=== PATIENT | male | born 1935 | race Caucasian/White ===

== ENCOUNTER 2016-04-23 09:24 | Outpatient (RCR) | payer MEDICARE ==
--- OUTSIDE RECORDS SUMMARY | 2016-04-09 08:31 | XMS REPORT | Continuity of Care Document ---
Author Author [facility] Organization [facility] Address Unknown Phone Unavailable Care Team Providers Care Image Editor Name Role Phone MAAME LOVE DO PCP Insurance Providers Payer Name Policy Number Subscriber Name Relationship Wps Medicare [id number] Duran Zavala 18 Self / Same As Patient Blue Cross [facility] Supp [id number] Duran Zavala 18 Self / Same As Patient Advance Directives Directive Response Recorded Date/Time Advance Directives No 06/29/14 8:35am Health Care Power of Egg Smeller No 06/29/14 8:35am Organ Donor No 06/29/14 8:35am Problems No known problems or medical conditions. Medications Medication Dose Route Sig Days/Qty Instructions Order Date Discontinued Date Status Doxycycline Hyclate (Vibramycin) 0 PO DAILY 20 Qty 1 CAP Q12HR TODAY, THE 1 CAP DAILY 10/11/08 05/03/09 Discontinued Irbesartan 300 Mg PO DAILY 05/03/09 Active Amlodipine Besylate (Norvasc 10 Mg) 10 Mg PO DAILY 05/03/09 Active Timolol 05/03/09 05/03/09 Discontinued Docusate Sodium 05/03/09 09/26/11 Discontinued Timolol 05/03/09 05/03/09 Discontinued Timolol 1 Drop OU DAILY 05/03/09 Active Phenytoin Sodium 05/18/09 09/26/11 Discontinued Levetiracetam 05/18/09 09/26/11 Discontinued [place]-3/Dha/Epa/Fish Oil 1,000 Mg PO DAILY 09/26/11 Active Calc/D3/Mag/Zn/Qual Research Manager/Donny/Bucklin 1 Tab PO TWICE A DAY 09/26/11 Discontinued Famotidine (Pepcid) 20 Mg PO DAILY PRN PRN INDIGESTION 09/26/11 Discontinued Aspirin 81 Mg PO DAILY 09/26/11 Active [Gleevac] 400 Mg PO DAILY 09/26/11 09/26/11 Discontinued [Calcium W/ Magnesium] 1,000 Mg PO DAILY 09/26/11 Active [Vitamin B12 Inject] 1 Ml IM BIMONTHLY 09/26/11 Active Omeprazole 20 Mg PO DAILY 09/27/11 Active Sucralfate 10 Ml PO FOUR TIMES DAILY 1 GRAM FOUR TIMES A DAY 09/27/11 11/10/12 Discontinued Imatinib Mesylate 400 Mg PO DAILY 11/10/12 Active Social History Social History Problem Response Recorded Date/Time Alcohol Use Denies Use 11/10/2012 4:47am Recreational Drug Use No 11/10/2012 4:47am Recent Foreign Travel N [place] 07/04/2014 8:49am Sexually Transmitted Disease No 11/10/2012 4:02am Hospital Discharge Instructions No hospital discharge instructions. Plan of Care No plan of care. Functional Status No functional status results. Allergies, Adverse Reactions, Alerts Allergen Type Severity Reaction Status Last Updated Tetanus Vaccines & Toxoid ([id number]) Allergy Unknown Active 05/03/09 HORSE SERUM TETANUS Allergy Mild Active 10/11/08 Immunizations No immunization records. Vital Signs No known vital signs results. Results Laboratory Results Test Name Result Units Flags Reference Collection Date/Time Result Date/ Time Comments White Blood Count 9.1 10^3/uL 4.3-11.0 09/19/2014 8:49am 09/19/2014 8: 57am Red Blood Count 4.25 10^6/uL L 4.35-5.85 09/19/2014 8:49am 09/19/2014 8: 57am Hemoglobin 12.7 G/DL L 13.3-17.7 09/19/2014 8:49am 09/19/2014 8:57am Hematocrit 38 % L 40-54 09/19/2014 8:49am 09/19/2014 8:57am Mean Corpuscular Volume 89 FL 80-99 09/19/2014 8:49am 09/19/2014 8: 57am Mean Corpuscular Hemoglobin 30 PG 25-34 09/19/2014 8:49am 09/19/2014 8: 57am Mean Corpuscular Hemoglobin Concent 34 G/DL 32-36 09/19/2014 8:49am 06/2014 8:57am Red Cell Distribution Width 14.9 % H 10.0-14.5 09/19/2014 8:49am 2014 8:57am Platelet Count 304 10^3/uL 130-400 09/19/2014 8:49am 09/19/2014 8:57am Mean Platelet Volume 9.7 FL 7.4-10.4 09/19/2014 8:49am 09/19/2014 8: 57am Neutrophils (%) (Auto) 64 % 42-75 09/19/2014 8:49am 09/19/2014 8:57am Lymphocytes (%) (Auto) 23 % 12-44 09/19/2014 8:49am 09/19/2014 8:57am Monocytes (%) (Auto) 11 % 0-12 09/19/2014 8:49am 09/19/2014 8:57am Eosinophils (%) (Auto) 2 % 0-10 09/19/2014 8:49am 09/19/2014 8:57am Basophils (%) (Auto) 0 % 0-10 09/19/2014 8:49am 09/19/2014 8:57am Neutrophils # (Auto) 5.9 X 10^3 1.8-7.8 09/19/2014 8:49am 09/19/2014 8: 57am Lymphocytes # (Auto) 2.1 X 10^3 1.0-4.0 09/19/2014 8:49am 09/19/2014 8: 57am Monocytes # (Auto) 1.0 X 10^3 0.0-1.0 09/19/2014 8:49am 09/19/2014 8: 57am Eosinophils # (Auto) 0.2 10^3/uL 0.0-0.3 09/19/2014 8:49am 09/19/2014 8 :57am Basophils # (Auto) 0.0 10^3/uL 0.0-0.1 09/19/2014 8:49am 09/19/2014 8: 57am Sodium Level 139 MMOL/L 135-145 09/19/2014 8:49am 09/19/2014 9:44am Potassium Level 4.1 MMOL/L 3.6-5.0 09/19/2014 8:49am 09/19/2014 9:44am Chloride Level 107 MMOL/L 98-107 09/19/2014 8:49am 09/19/2014 9:44am Carbon Dioxide Level 25 MMOL/L 21-32 09/19/2014 8:49am 09/19/2014 9: 44am Blood Urea Nitrogen 13 MG/DL 7-18 09/19/2014 8:49am 09/19/2014 9:44am Creatinine 0.92 MG/DL 0.60-1.30 09/19/2014 8:49am 09/19/2014 9:44am BUN/Creatinine Ratio 14 09/19/2014 8:49am 09/19/2014 9:44am Estimat Glomerular Filtration Rate > 60 09/19/2014 8:49am 2014 9:44am GFR INTERPRETIVE DATA UNITS FOR ESTIMATED GFR (eGFR): mL/min/1.73 M2 REFERENCE RANGE FOR ESTIMATED GFR (eGFR) eGFR NORMAL eGFR >60 MODERATELY DECREASED eGFR 30-59 SEVERLY DECREASED eGFR 15-29 KIDNEY FAILURE <15 (OR DIALYSIS) Glucose Level 109 MG/DL H 70-105 09/19/2014 8:49am 09/19/2014 9:44am Calcium Level 9.9 MG/DL 8.5-10.1 09/19/2014 8:49am 09/19/2014 9:44am Total Bilirubin 1.0 MG/DL 0.1-1.0 09/19/2014 8:49am 09/19/2014 9:44am Alkaline Phosphatase 88 U/L 40-136 09/19/2014 8:49am 09/19/2014 9:44am Aspartate Amino Transf (AST/SGOT) 36 U/L H 5-34 09/19/2014 8:49am 2014 9:44am Alanine Aminotransferase (ALT/SGPT) 63 U/L H 0-55 09/19/2014 8:49am 09/19 9:44am Lactate Dehydrogenase 211 U/L 125-220 09/19/2014 8:49am 09/19/2014 9: 44am Total Protein 7.1 G/DL 6.4-8.2 09/19/2014 8:49am 09/19/2014 9:44am Albumin 3.7 G/DL 3.2-4.5 09/19/2014 8:49am 09/19/2014 9:44am Procedures Procedure Status Date Provider(s) Tracing only of electrocardiogram completed 07/04/14 JULIANA TSANG Encounters Encounter Location Date/Time Discharged Recurring Via [facility] 09/19/14 8:34am
[2016-04-09 08:42] LABS: BASOPHILS % (AUTO) 0 % (0-10); EOSINOPHILS # (AUTO) 0.4 10^3/uL (0.0-0.3); EOSINOPHILS % (AUTO) 4 % (0-10); LYMPHOCYTES # (AUTO) 2.1 X 10^3 (1.0-4.0); LYMPHOCYTES % (AUTO) 26 % (12-44); MEAN CORPUSCULAR HEMOGLOBIN 29 PG (25-34); MEAN CORPUSCULAR HGB CONC 34 G/DL (32-36); MEAN CORPUSCULAR VOLUME 86 FL (80-99); MEAN PLATELET VOLUME 10.2 FL (7.4-10.4); MONOCYTES % (AUTO) 12 % (0-12); NEUTROPHILS # (AUTO) 4.5 X 10^3 (1.8-7.8); NEUTROPHILS % (AUTO) 57 % (42-75); PLATELET COUNT 237 10^3/uL (130-400); RED BLOOD COUNT 4.63 10^6/uL (4.35-5.85); RED CELL DISTRIBUTION WIDTH 14.3 % (10.0-14.5)
[2016-04-09 09:09] LABS: ALANINE AMINOTRANSFERASE 38 U/L (0-55); ALBUMIN 3.7 G/DL (3.2-4.5); ANION GAP 7 MMOL/L (5-14); ASPARTATE AMINO TRANSFERASE 36 U/L (5-34); BILIRUBIN,TOTAL 0.7 MG/DL (0.1-1.0); BLOOD UREA NITROGEN 11 MG/DL (7-18); BUN/CREATININE RATIO 11; CALCIUM 9.3 MG/DL (8.5-10.1); CARBON DIOXIDE 26 MMOL/L (21-32); CHLORIDE 107 MMOL/L (98-107); CREATININE SERUM 1.01 MG/DL (0.60-1.30); GFR ESTIMATED > 60; GLUCOSE 96 MG/DL (70-105); LACTATE DEHYDROGENASE 291 U/L (125-220); SODIUM 140 MMOL/L (135-145); TOTAL PROTEIN 6.8 G/DL (6.4-8.2)
[2016-04-17 07:49] LABS: BCR ABL GENE QT SEE FOOTNOTE
[~2016-04-23 09:24] MED LIST: AMLO10TA2 PO; AMLO10TA82 PO; ASPI-86 PO; CALC-56 PO; CALC-731 PO; CALCIUM PO; CIPR-225 PO; CNC1KV INJ; DCS100C; DOXY100C2 PO; FAMO20TA5 PO; GLEEVAC PO; HYDR-3730 PO; IMAT400T2 PO; IRBE300T18 PO; IRBE300T9 PO; LEVE100015; MAGNESIUM PO; NILO150C PO; OMEG-12 PO; OMEP20TA2 PO; PHN100C; POLY17PO6 PO; RANI150T15 PO; SCR1T PO; SENN-140 PO; TAMS0.4C2 PO; TIMO5DRO5 OU; TML.25OP; TML.25OP OU; VITAMIN B12 INJECT IM
== END 2016-07-08 | disposition home or self-care (01) ==
LOC: ONC 09:24
PROVIDERS: ATTEND Internal Medicine Hematology & Oncology
DX: C92.10 Chronic myeloid leukemia, BCR/ABL-positive, not having achieved remission (principal); Z79.899 Other long term (current) drug therapy
CPT/HCPCS: 36415; 80053; 81206; 83615; 85025; 99213

== ENCOUNTER 2016-07-29 09:56 | Outpatient (RCR) | payer MEDICARE ==
[2016-07-09 09:22] LABS: BASOPHILS % (AUTO) 1 % (0-10); EOSINOPHILS # (AUTO) 0.3 10^3/uL (0.0-0.3); EOSINOPHILS % (AUTO) 5 % (0-10); LYMPHOCYTES % (AUTO) 26 % (12-44); MEAN CORPUSCULAR HEMOGLOBIN 29 PG (25-34); MEAN CORPUSCULAR HGB CONC 33 G/DL (32-36); MEAN CORPUSCULAR VOLUME 86 FL (80-99); MONOCYTES % (AUTO) 13 % (0-12); NEUTROPHILS # (AUTO) 4.3 X 10^3 (1.8-7.8); NEUTROPHILS % (AUTO) 56 % (42-75); PLATELET COUNT 255 10^3/uL (130-400); RED BLOOD COUNT 4.68 10^6/uL (4.35-5.85); RED CELL DISTRIBUTION WIDTH 14.9 % (10.0-14.5); WHITE BLOOD COUNT 7.6 10^3/uL (4.3-11.0)
[2016-07-09 10:07] LABS: ALANINE AMINOTRANSFERASE 51 U/L (0-55); ALBUMIN 3.5 G/DL (3.2-4.5); ANION GAP 10 MMOL/L (5-14); ASPARTATE AMINO TRANSFERASE 39 U/L (5-34); BILIRUBIN,TOTAL 0.6 MG/DL (0.1-1.0); BLOOD UREA NITROGEN 11 MG/DL (7-18); BUN/CREATININE RATIO 11; CALCIUM 9.7 MG/DL (8.5-10.1); CARBON DIOXIDE 26 MMOL/L (21-32); CHLORIDE 108 MMOL/L (98-107); CREATININE SERUM 0.99 MG/DL (0.60-1.30); GFR ESTIMATED > 60; GLUCOSE 83 MG/DL (70-105); LACTATE DEHYDROGENASE 272 U/L (125-220); POTASSIUM 4.6 MMOL/L (3.6-5.0); SODIUM 144 MMOL/L (135-145); TOTAL PROTEIN 6.9 G/DL (6.4-8.2)
[2016-07-15 13:50] LABS: BCR ABL GENE QT SEE FOOTNOTE
[2016-07-30] MEDS ORDERED: RANI-425 PO (15:01)
[2016-07-30] MEDS ORDERED: NILO150C PO (15:01)
[2016-07-31] MEDS ORDERED: TRAM50TA2 PO (12:19)
== END 2016-10-07 | disposition home or self-care (01) ==
LOC: ONC 09:56
PROVIDERS: ATTEND Internal Medicine Hematology & Oncology
DX: C92.10 Chronic myeloid leukemia, BCR/ABL-positive, not having achieved remission (principal); I12.9 Hypertensive chronic kidney disease with stage 1 through stage 4 chronic kidney disease, or unspecified chronic kidney disease; N18.3 Chronic kidney disease, stage 3 (moderate); I25.10 Atherosclerotic heart disease of native coronary artery without angina pectoris; Z79.899 Other long term (current) drug therapy
CPT/HCPCS: 36415; 80053; 81206; 83615; 85025; 99213

== ENCOUNTER 2016-07-30 14:06 | Outpatient (CLI) | payer MEDICARE ==
[~2016-07-30] VITALS: Ht 185.4 cm; Wt 92.7 kg
[2016-07-30] MEDS ORDERED: NILO150C PO (15:01)
[2016-07-30] MEDS ORDERED: RANI-425 PO (15:01)
[2016-07-31] MEDS ORDERED: TRAM50TA2 PO (12:19)
== END 2016-07-30 15:06 ==
LOC: PREOP 14:06
PROVIDERS: ATTEND Surgery
DX: Z01.818 Encounter for other preprocedural examination (principal); C44.319 Basal cell carcinoma of skin of other parts of face

== ENCOUNTER 2016-07-31 08:26 | Day surgery (SDC) | payer MEDICARE ==
[~2016-07-31] VITALS: Ht 185.4 cm; Wt 92.7 kg
[~2016-07-31 08:26] MED LIST changes: +RANI-425 PO
[2016-07-31] MEDS ORDERED: ceFAZolin 2 GM/NS 50 ML IV ONE (08:45)
[2016-07-31] MEDS ORDERED: CATHETER FLUSH 10 ML SYR IV PRN (08:45)
[2016-07-31 09:00] VITALS: BP 165/82
--- NOTE | 2016-07-31 10:06 | Progress Note-Pre Operative ---
Pre-Operative Progress Note H&P Reviewed The H&P was reviewed, patient examined and no changes noted. Date H&P Reviewed: Jul 31, 2016 Time H&P Reviewed: 10:05 Pre-Operative Diagnosis: BCC Right naso-labial fold AVEL SUTTON MD Jul 31, 2016 10:06 am
[2016-07-31] MEDS ORDERED: BUP/EPI 0.25% 1:200,000 (MARCAINE) 30 ML VIAL ONE (10:48)
[2016-07-31] MEDS ORDERED: proPOfol 200 MG/20 ML (DIPRIVAN) VIAL IV ONE (10:52)
[2016-07-31] MEDS ORDERED: MIDAZOLAM 2 MG/2 ML (VERSED) VIAL ONE (10:52)
[2016-07-31] MEDS ORDERED: LACTATED RINGERS 1,000 ML IV PRN (11:27)
--- NOTE | 2016-07-31 12:17 | Progress Note-Post Operative ---
Post-Operative Progess Note Surgeon (s)/Emergency Management System Director (s) Surgeon AVEL SUTTON MD Emergency Management System Director: Penelope Osborne Pre-Operative Diagnosis BCC Right naso-labial fold Post-Operative Diagnosis Same Post-Op Procedure Note Date of Procedure: Jul 31, 2016 Name of Procedure Performed: Excision with frozen section Description of the Procedure: See op note Findings of the Procedure See note Anesthesia Type MAC/Local Estimated blood loss (mL): Minimal Specimen(s) collected/removed BCC R face AVEL SUTTON MD Jul 31, 2016 12:17 pm
[2016-07-31] MEDS ORDERED: TRAM50TA2 PO (12:19)
--- NOTE | 2016-07-31 12:19 | Discharge Inst-Simple/Standard ---
Discharge Inst-Standard Discharge Medications New, Converted or Re-Newed RX: RX on Chart Patient Instructions/Follow Up Plan of Care/Instructions/FU: Dressing off in 48 hours. F/U with my nurse in 10 days for suture removal Activity as Tolerated: Yes Discharge Diet: No Restrictions AVEL SUTTON MD Jul 31, 2016 12:19 pm
[2016-07-31 12:30] VITALS: BP 143/80
[2016-07-31 13:00] VITALS: BP 134/67
[2016-07-31] MEDS ORDERED: LACTATED RINGERS 1,000 ML IV ONE (13:51)
--- NOTE | 2016-08-03 08:30 | OPERATIVE REPORT ---
PROCEDURE PHYSICIAN: AVEL SUTTON DATE OF PROCEDURE: 07/31/2016 PREOPERATIVE DIAGNOSIS: 1 cm basal cell carcinoma, right nasolabial fold. POSTOPERATIVE DIAGNOSIS: 1 cm basal cell carcinoma, right nasolabial fold. OPERATION: Excision with frozen section. SURGEON: Dr. Sutton. ANESTHESIA: Sedation with local. BLOOD LOSS: Minimal. FLUIDS: 300 mL crystalloids. TYPE OF WOUND: Type I (clean wound). INDICATION FOR THE PROCEDURE: Shave biopsy of a lesion over the right nasolabial fold, performed by one of the dermatologists, was confirmed to be a nodular basal cell carcinoma. Therefore, he was offered formal excision with frozen section to ensure negative margins. Informed consent was obtained after reviewing the procedure in detail. DESCRIPTION OF PROCEDURE: He was placed supine on the operating table and our MINISTER HELPER administered sedation, monitoring his vital signs. Ancef was administered intravenously as prophylaxis against infection. The area was prepared and draped in the usual sterile manner. Local anesthesia was achieved using 0.25% Marcaine with epinephrine. An elliptical incision about 2 1/2 cm long x 2 cm wide was made and the carcinoma excised down to the muscles. Hemostasis was achieved using cautery and the defect closed using 4-0 Vicryl for the muscular layer and 6-0 nylon for skin, in an interrupted fashion. The specimen was oriented with silk sutures and subjected to frozen section examination. The margins were negative. He tolerated the procedure well and was taken back to the nursing area in a stable condition. [place], sponges, and instruments were correct at the end of the operation. Job ID: [id number] Dictated Date: 07/31/2016 12:32:19 Treatment Counselor Date: 08/03/2016 08:20:52 / laura CORNELL
== END 2016-07-31 13:18 | disposition home or self-care (01) ==
LOC: SDC 08:26
PROVIDERS: ATTEND Surgery
DX: L90.5 Scar conditions and fibrosis of skin (principal)
CPT/HCPCS: 87081; 88304; 88305; 88331

== ENCOUNTER → 2016-08-27 | Outpatient (CLI) | payer MEDICARE ==
[~2016-08-27] MED LIST changes: +CATHETER FLUSH 10 ML SYR IV PRN; +REGADENOSON 0.4 MG/5 ML SYR (LEXISCAN) IV ONE; +TRAM50TA2 PO
[2016-08-27 09:15] VITALS: BP 154/56
--- NOTE | 2016-08-27 12:21 | STRESS TEST ---
DATE OF SERVICE: 08/27/2016 RESTING AND POST REGADENOSON TECHNETIUM 99M TETROFOSMIN SPECT CT IMAGING DATE OF STUDY: 08/27/2016 ORDERING PHYSICIAN: Kenia Ruiz APRN PRIMARY PHYSICIAN: Dr. Baez. CLINICAL DIAGNOSES: 1. Coronary artery disease. 2. Hypertension. Baseline images were carried out after injection of 10.94 mCi of technetium-99m tetrofosmin. Subsequently, he received 0.4 mg regadenoson followed by 32.7 mCi of technetium-99m tetrofosmin for stress imaging. The electrocardiogram showed sinus rhythm with subtle nonspecific ST abnormalities at baseline and did not change significantly with the regadenoson infusion. Review of images at rest and following stress does not indicate any significant perfusion defects consistent with myocardial ischemia or infarction. Gated images show normal global left ventricular systolic function with normal regional wall motion. Left ventricular ejection fraction is calculated to be 67%. Left ventricular end-diastolic volume is 100 mL. TID is absent (0.94). CONCLUSIONS: 1. No evidence of any significant myocardial ischemia or infarction on this study. 2. Normal regional wall motion. 3. Normal global left ventricular systolic function with a calculated ejection fraction of 67%. Job ID: [id number] DocumentID: [id number] Dictated Date: 08/27/2016 11:22:46 Economic Analysis Director Date: 08/27/2016 12:00:59 Dictated By: LIONEL HENDRIX MD, MA, FACP, FACC,
== END ==
LOC: CARD 07:44
PROVIDERS: ATTEND Nurse Practitioner Family
DX: I25.10 Atherosclerotic heart disease of native coronary artery without angina pectoris (principal); I10 Essential (primary) hypertension; I73.9 Peripheral vascular disease, unspecified; N18.3 Chronic kidney disease, stage 3 (moderate)
CPT/HCPCS: 78452; 93017

== ENCOUNTER → 2016-09-01 | Outpatient (CLI) | payer MEDICARE ==
[~2016-09-01] MED LIST changes: -CATHETER FLUSH 10 ML SYR IV PRN; -REGADENOSON 0.4 MG/5 ML SYR (LEXISCAN) IV ONE
== END ==
LOC: RAD 12:07
PROVIDERS: ATTEND Nurse Practitioner Family
DX: I73.9 Peripheral vascular disease, unspecified (principal); I12.9 Hypertensive chronic kidney disease with stage 1 through stage 4 chronic kidney disease, or unspecified chronic kidney disease; I25.10 Atherosclerotic heart disease of native coronary artery without angina pectoris; N18.3 Chronic kidney disease, stage 3 (moderate)
CPT/HCPCS: 93923

== ENCOUNTER 2017-01-13 07:38 | Outpatient (RCR) | payer MEDICARE ==
[2016-10-26 09:06] LABS: BASOPHILS % (AUTO) 1 % (0-10); EOSINOPHILS # (AUTO) 0.5 10^3/uL (0.0-0.3); EOSINOPHILS % (AUTO) 7 % (0-10); LYMPHOCYTES % (AUTO) 27 % (12-44); MEAN CORPUSCULAR HEMOGLOBIN 29 PG (25-34); MEAN CORPUSCULAR HGB CONC 34 G/DL (32-36); MEAN CORPUSCULAR VOLUME 86 FL (80-99); MEAN PLATELET VOLUME 10.2 FL (7.4-10.4); MONOCYTES # (AUTO) 0.8 X 10^3 (0.0-1.0); MONOCYTES % (AUTO) 11 % (0-12); NEUTROPHILS # (AUTO) 4.2 X 10^3 (1.8-7.8); NEUTROPHILS % (AUTO) 56 % (42-75); PLATELET COUNT 233 10^3/uL (130-400); RED BLOOD COUNT 4.44 10^6/uL (4.35-5.85); RED CELL DISTRIBUTION WIDTH 14.9 % (10.0-14.5); WHITE BLOOD COUNT 7.5 10^3/uL (4.3-11.0)
[2016-10-26 09:31] LABS: ALANINE AMINOTRANSFERASE 39 U/L (0-55); ALBUMIN 3.5 GM/DL (3.2-4.5); ANION GAP 7 MMOL/L (5-14); ASPARTATE AMINO TRANSFERASE 31 U/L (5-34); BILIRUBIN,TOTAL 0.8 MG/DL (0.1-1.0); BLOOD UREA NITROGEN 14 MG/DL (7-18); BUN/CREATININE RATIO 14; CALCIUM 9.4 MG/DL (8.5-10.1); CARBON DIOXIDE 27 MMOL/L (21-32); CHLORIDE 106 MMOL/L (98-107); CREATININE SERUM 1.02 MG/DL (0.60-1.30); GFR ESTIMATED > 60; GLUCOSE 116 MG/DL (70-105); LACTATE DEHYDROGENASE 257 U/L (125-220); POTASSIUM 4.4 MMOL/L (3.6-5.0); SODIUM 140 MMOL/L (135-145); TOTAL PROTEIN 6.9 GM/DL (6.4-8.2)
[2016-10-30 07:17] LABS: BCR ABL GENE QT See Report
[2017-01-13 08:07] LABS: BASOPHILS % (AUTO) 1 % (0-10); EOSINOPHILS # (AUTO) 0.6 10^3/uL (0.0-0.3); EOSINOPHILS % (AUTO) 7 % (0-10); LYMPHOCYTES % (AUTO) 23 % (12-44); MEAN CORPUSCULAR HEMOGLOBIN 29 PG (25-34); MEAN CORPUSCULAR HGB CONC 34 G/DL (32-36); MEAN CORPUSCULAR VOLUME 87 FL (80-99); MEAN PLATELET VOLUME 9.8 FL (7.4-10.4); MONOCYTES # (AUTO) 0.8 X 10^3 (0.0-1.0); MONOCYTES % (AUTO) 9 % (0-12); NEUTROPHILS # (AUTO) 5.2 X 10^3 (1.8-7.8); NEUTROPHILS % (AUTO) 60 % (42-75); PLATELET COUNT 238 10^3/uL (130-400); RED BLOOD COUNT 4.54 10^6/uL (4.35-5.85); RED CELL DISTRIBUTION WIDTH 15.3 % (10.0-14.5); WHITE BLOOD COUNT 8.5 10^3/uL (4.3-11.0)
[2017-01-13 08:29] LABS: ALANINE AMINOTRANSFERASE 41 U/L (0-55); ALBUMIN 3.6 GM/DL (3.2-4.5); ANION GAP 7 MMOL/L (5-14); ASPARTATE AMINO TRANSFERASE 37 U/L (5-34); BILIRUBIN,TOTAL 0.7 MG/DL (0.1-1.0); BLOOD UREA NITROGEN 14 MG/DL (7-18); BUN/CREATININE RATIO 14; CALCIUM 9.3 MG/DL (8.5-10.1); CARBON DIOXIDE 27 MMOL/L (21-32); CHLORIDE 107 MMOL/L (98-107); CREATININE SERUM 1.01 MG/DL (0.60-1.30); GFR ESTIMATED > 60; GLUCOSE 139 MG/DL (70-105); LACTATE DEHYDROGENASE 285 U/L (125-220); POTASSIUM 4.1 MMOL/L (3.6-5.0); SODIUM 141 MMOL/L (135-145)
[2017-01-20 07:19] LABS: BCR ABL GENE QT See Report
== END 2017-01-16 | disposition home or self-care (01) ==
LOC: ONC 07:38
PROVIDERS: ATTEND Internal Medicine Hematology & Oncology
DX: C92.10 Chronic myeloid leukemia, BCR/ABL-positive, not having achieved remission (principal); I12.9 Hypertensive chronic kidney disease with stage 1 through stage 4 chronic kidney disease, or unspecified chronic kidney disease; N18.3 Chronic kidney disease, stage 3 (moderate); I25.10 Atherosclerotic heart disease of native coronary artery without angina pectoris; Z79.899 Other long term (current) drug therapy
CPT/HCPCS: 36415; 80053; 81206; 83615; 85025; 99213

== ENCOUNTER 2017-04-14 08:01 | Outpatient (RCR) | payer MEDICARE ==
[2017-04-14 08:15] LABS: BASOPHILS % (AUTO) 0 % (0-10); EOSINOPHILS # (AUTO) 0.5 10^3/uL (0.0-0.3); EOSINOPHILS % (AUTO) 5 % (0-10); HEMATOCRIT 40 % (40-54); HEMOGLOBIN 13.3 G/DL (13.3-17.7); LYMPHOCYTES # (AUTO) 2.6 X 10^3 (1.0-4.0); LYMPHOCYTES % (AUTO) 28 % (12-44); MEAN CORPUSCULAR HEMOGLOBIN 29 PG (25-34); MEAN CORPUSCULAR HGB CONC 34 G/DL (32-36); MEAN CORPUSCULAR VOLUME 86 FL (80-99); MEAN PLATELET VOLUME 10.1 FL (7.4-10.4); MONOCYTES # (AUTO) 0.9 X 10^3 (0.0-1.0); MONOCYTES % (AUTO) 9 % (0-12); NEUTROPHILS # (AUTO) 5.2 X 10^3 (1.8-7.8); NEUTROPHILS % (AUTO) 57 % (42-75); PLATELET COUNT 220 10^3/uL (130-400); RED CELL DISTRIBUTION WIDTH 15.1 % (10.0-14.5); WHITE BLOOD COUNT 9.1 10^3/uL (4.3-11.0)
[2017-04-14 08:37] LABS: ALANINE AMINOTRANSFERASE 29 U/L (0-55); ALBUMIN 3.6 GM/DL (3.2-4.5); ALKALINE PHOSPHATASE 66 U/L (40-136); BILIRUBIN,TOTAL 0.7 MG/DL (0.1-1.0); BUN/CREATININE RATIO 10; CALCIUM 9.4 MG/DL (8.5-10.1); CARBON DIOXIDE 26 MMOL/L (21-32); CHLORIDE 107 MMOL/L (98-107); CREATININE SERUM 1.08 MG/DL (0.60-1.30); GFR ESTIMATED > 60; GLUCOSE 89 MG/DL (70-105); SODIUM 142 MMOL/L (135-145); TOTAL PROTEIN 7.2 GM/DL (6.4-8.2)
== END 2017-04-27 | disposition home or self-care (01) ==
LOC: ONC 08:01
PROVIDERS: ATTEND Internal Medicine Hematology & Oncology
DX: C92.10 Chronic myeloid leukemia, BCR/ABL-positive, not having achieved remission (principal); I12.9 Hypertensive chronic kidney disease with stage 1 through stage 4 chronic kidney disease, or unspecified chronic kidney disease; N18.3 Chronic kidney disease, stage 3 (moderate); I25.10 Atherosclerotic heart disease of native coronary artery without angina pectoris; Z79.899 Other long term (current) drug therapy
CPT/HCPCS: 36415; 80053; 81206; 83615; 84443; 85025; 99213

== ENCOUNTER 2017-07-22 08:40 | Outpatient (RCR) | payer MEDICARE ==
[2017-07-08 08:31] LABS: BASOPHILS % (AUTO) 0 % (0-10); EOSINOPHILS # (AUTO) 0.3 10^3/uL (0.0-0.3); EOSINOPHILS % (AUTO) 3 % (0-10); HEMATOCRIT 41 % (40-54); HEMOGLOBIN 13.8 G/DL (13.3-17.7); LYMPHOCYTES % (AUTO) 24 % (12-44); MEAN CORPUSCULAR HEMOGLOBIN 29 PG (25-34); MEAN CORPUSCULAR HGB CONC 34 G/DL (32-36); MEAN CORPUSCULAR VOLUME 86 FL (80-99); MEAN PLATELET VOLUME 9.9 FL (7.4-10.4); MONOCYTES # (AUTO) 0.8 X 10^3 (0.0-1.0); MONOCYTES % (AUTO) 10 % (0-12); NEUTROPHILS # (AUTO) 5.1 X 10^3 (1.8-7.8); NEUTROPHILS % (AUTO) 62 % (42-75); PLATELET COUNT 252 10^3/uL (130-400); RED BLOOD COUNT 4.78 10^6/uL (4.35-5.85); RED CELL DISTRIBUTION WIDTH 15.4 % (10.0-14.5); WHITE BLOOD COUNT 8.2 10^3/uL (4.3-11.0)
[2017-07-08 08:52] LABS: ALANINE AMINOTRANSFERASE 42 U/L (0-55); ALBUMIN 3.9 GM/DL (3.2-4.5); ALKALINE PHOSPHATASE 74 U/L (40-136); BILIRUBIN,TOTAL 0.8 MG/DL (0.1-1.0); BUN/CREATININE RATIO 12; CALCIUM 9.8 MG/DL (8.5-10.1); CARBON DIOXIDE 27 MMOL/L (21-32); CHLORIDE 106 MMOL/L (98-107); CREATININE SERUM 0.93 MG/DL (0.60-1.30); GFR ESTIMATED > 60; GLUCOSE 97 MG/DL (70-105); SODIUM 140 MMOL/L (135-145); TOTAL PROTEIN 7.4 GM/DL (6.4-8.2)
== END 2017-07-27 | disposition home or self-care (01) ==
LOC: ONC 08:40
PROVIDERS: ATTEND Internal Medicine Hematology & Oncology
DX: C92.10 Chronic myeloid leukemia, BCR/ABL-positive, not having achieved remission (principal); I12.9 Hypertensive chronic kidney disease with stage 1 through stage 4 chronic kidney disease, or unspecified chronic kidney disease; N18.3 Chronic kidney disease, stage 3 (moderate); I25.10 Atherosclerotic heart disease of native coronary artery without angina pectoris; Z79.899 Other long term (current) drug therapy
CPT/HCPCS: 36415; 80053; 81206; 83615; 85025; 99213

== ENCOUNTER → 2017-08-02 | Outpatient (CLI) | payer MEDICARE ==
[~2017-08-02] MED LIST changes: +CEPH-507 PO; +HYDR-3062 PO; +HYDR-3812 PO; +METO-352 PO; +PHEN15SP NS; -RANI150T15 PO; +RANI150T46 PO
--- NOTE | 2017-08-02 12:34 | Diagnostic Imaging Report ---
PROCEDURE: MRI right joint lower extremity without contrast. TECHNIQUE: Multiplanar, multisequence non contrast-enhanced MRI of the right lower extremity was accomplished. INDICATION: Popping and pain in the right knee. COMPARISON: No prior studies are available for comparison. FINDINGS: There is a moderate joint effusion. There are significant tricompartmental degenerative changes, with joint space narrowing and marginal spurring. No bone bruise or geographic marrow lesion is identified. The ACL and PCL are intact. The medial and lateral collateral ligament complexes appear intact. There is marked irregularity and increased signal involving the medial and lateral menisci. Signal involves the body and posterior horn of the medial meniscus surfacing inferiorly consistent with tear. Abnormal obliquely oriented signal extends to the inferior surface of the posterior horn lateral meniscus as well. There is irregularity and increased signal of the anterior horn lateral meniscus. No displaced meniscal fragment is seen. The extensor mechanism is unremarkable. There are osseous bodies posterior to the knee laterally distal to the jointline, largest 25 x 13 mm. These are suggestive of loose bodies. IMPRESSION: Severe tricompartmental degenerative change and moderate joint effusion. No ligamentous tear is identified. There are probable medial and lateral meniscal tears which may be degenerative in nature. No displaced meniscal fragment is seen. Ossific bodies posterior knee, just distal to the jointline are noted as well, as described. Dictated by: Dictated on workstation # [id number]
== END ==
LOC: RAD 10:44
PROVIDERS: ATTEND Orthopaedic Surgery
DX: M17.11 Unilateral primary osteoarthritis, right knee (principal); S83.281A Other tear of lateral meniscus, current injury, right knee, initial encounter; S83.241A Other tear of medial meniscus, current injury, right knee, initial encounter
CPT/HCPCS: 73721

== ENCOUNTER 2017-08-20 19:57 | Emergency (ER) | payer MEDICARE ==
[~2017-08-20] VITALS: Ht 185.4 cm; Wt 96.2 kg
[~2017-08-20 19:57] MED LIST changes: -CEPH-507 PO; -HYDR-3062 PO; -HYDR-3812 PO; -METO-352 PO; -PHEN15SP NS
--- OUTSIDE RECORDS SUMMARY | 2017-08-20 20:02 | XMS REPORT | Clinical Summary ---
Author Author [facility] Organization [facility] Address Unknown Phone Unavailable Care Team Providers Care Dairy Worker Name Role Phone Promise Camacho RN Unavailable Unavailable Malena Grullon MD Unavailable Unverified, Unverified PCP Unavailable Source Comments Some departments are not documenting in the electronic medical record. If you do not see the information that you expected, contact Release of Information in the Health Information Management department at [phone] for further assistance in locating additional records.[facility] Allergies Active Allergy Reactions Severity Noted Date Comments Horse/Equine Containing SWELLING 05/24/2009 Tetanus/horse serum Products Current Medications Prescription Sig. Disp. Refills Start End Date Status Date GARLIC OIL PO Take 1 Tab by mouth Every Active Morning. (Sjgl=049 mg) amlodipine (NORVASC) 10 Take 1 Tab by mouth Every Active mg tablet Morning. irbesartan (AVAPRO) 300 Take 1 Tab by mouth Every Active mg tablet Morning. timolol (BETIMOL) 0.5 % Apply 1 Drop to both eyes Active ophthalmic solution Every Morning. multivitamin (DAILY Take 1 Tab by mouth Every Active MULTIVITAMIN-MINERALS) Morning. tablet Herbal Drugs Cap Take 1 Cap by mouth At Active Bedtime Daily. (Bifidophilus Chika Force) Herbal Drugs Cap Take 1 Cap by mouth At Active Bedtime Daily. (Herbal Pumpkin) (Gmpt=429 mg) Herbal Drugs Cap Take 1 Cap by mouth At Active Bedtime Daily. (Chika Multi-Probiotic) docusate (COLACE) 100 mg Take 1 Cap by mouth At Active capsule Bedtime Daily. UBIDECARENONE/OMEGA-3/VIT Take 1 Cap by mouth Every Active E (COQ-10 & FISH OIL PO) Morning. Levetiracetam (KEPPRA) Take 1 Tab by mouth Twice Active 1,000 mg Tab Daily. aspirin 81 mg chew tablet Take 1 Tab by mouth 0 0 06/04/19 Active Daily. 10 ergocalciferol (VITAMIN Take 1 Cap by mouth Every 4 2 06/04/19 Active D-2) 50,000 unit capsule 7 Days. 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 Family History Medical History Relation Name Comments Hypertension Mother Relation Name Status Comments Mother Social History Tobacco Use Types Packs/Day Years Used Date Former Smoker Comments: quit 15 years ago Alcohol Use Drinks/Week oz/Week Comments No Sex Assigned at Date Recorded Not on file Last Filed Vital Signs Vital Sign Reading Time Taken Blood Pressure 136/87 06/05/2009 7:00 AM INFO PRINT PRESS OPERATOR Pulse 64 06/05/2009 7:00 AM INFO PRINT PRESS OPERATOR Temperature 36 C (96.8 F) 06/05/2009 7:00 AM INFO PRINT PRESS OPERATOR Respiratory Rate - - Oxygen Saturation 100% 06/05/2009 7:00 AM INFO PRINT PRESS OPERATOR Inhaled Oxygen - - Concentration Weight 92.5 kg (204 lb) 05/27/2009 8:07 AM INFO PRINT PRESS OPERATOR Height 188 cm (6' 2") 05/27/2009 8:07 AM INFO PRINT PRESS OPERATOR Body Mass Index 26.19 05/27/2009 8:07 AM INFO PRINT PRESS OPERATOR Plan of Treatment Health Maintenance Due Date Last Done Comments PHYSICAL (COMPREHENSIVE) 1941 EXAM PERTUSSIS VACCINE 1945 TETANUS VACCINE 1951 SHINGLES VACCINE 1994 PREVNAR/PNEUMOVAX (#1) 1999 INFLUENZA VACCINE 01/17/2018 Results Not on filefrom Last 3 Months
[2017-08-20] MEDS ORDERED: TRANEXAMIC ACID 100 MG/ML 10 ML INJECTION IV ONE ×2 (20:04→20:30)
--- OUTSIDE RECORDS SUMMARY | 2017-08-20 20:05 | XMS REPORT | Continuity of Care Document ---
Author Author [facility] Organization [facility] Address Unknown Phone Unavailable Allergies Active Description Code Type Severity Reaction Onset Reported/Identified Relationship to Patient Clinical Status Yes HORSE SERUM TETANUS HORSE SERUM TETANUS Mild N/A 10/11/2008 Yes Tetanus Vaccines Toxoid [id number] Drug Allergy Unknown N/A 05/03/2009 Yes Tetanus Vaccines and Toxoid [id number] Drug Allergy Unknown N/A 2009 Medications There is no data. 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 09/27/2011 Ot 205.00 ACUTE MYELOID LEUKEMIA, 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HI 09/27/2011 Ot 272.4 HYPERLIPIDEMIA NEC/NOS 09/27/2011 Ot 276.8 HYPOPOTASSEMIA 09/27/2011 Ot 365.9 GLAUCOMA NOS 09/27/2011 Ot 401.9 HYPERTENSION NOS 09/27/2011 Ot 414.01 CORONARY ATHEROSCLEROSIS OF [place] CORON 09/27/2011 Ot 427.89 CARDIAC DYSRHYTHMIAS NEC 09/27/2011 Ot 530.81 ESOPHAGEAL REFLUX 09/27/2011 Ot 600.00 HYPERTROPHY (BENIGN) OF PROSTATE W/O URI 09/27/2011 Ot 786.59 CHEST PAIN NEC 09/27/2011 Ot 789.00 ABDOMINAL PAIN, UNSPECIFIED SITE 09/27/2011 Ot 790.5 ABN SERUM ENZY LEVEL NEC 09/27/2011 Ot 790.6 ABN BLOOD CHEMISTRY NEC 09/27/2011 Ot E933.1 ADV EFF ANTINEOPLASTIC 11/29/2011 Ot 205.00 ACUTE MYELOID LEUKEMIA, 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HI 03/02/2012 Ot 205.00 ACUTE MYELOID LEUKEMIA, 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HI 03/02/2012 Ot V58.69 OTH MED,LT, CURRENT USE 03/04/2012 Ot 562.10 DIVERTICULOSIS COLON (W/O MENT OF HEMORR 03/04/2012 Ot 787.91 DIARRHEA 03/04/2012 Ot V12.72 PERSONAL HISTORY OF COLONIC POLYPS 08/29/2012 TRINH, JULIANA N Ot 205.10 CHRONIC MYELOID LEUKEMIA, 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 08/29/2012 TRINHJULIANA N Ot 585.3 CHRONIC KIDNEY DISEASE, STAGE III (MODER 08/29/2012 TRINH, RAVENAN N Ot V58.69 OTH MED,LT,CURRENT USE 11/10/2012 CHEPE DO, MACHO K Ot 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 11/10/2012 CHEPE DO, MACHO K Ot 719.41 JOINT PAIN-SHLDER 02/08/2013 TRINHJULIANA ANTOINE N Ot 205.00 ACUTE MYELOID LEUKEMIA, 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HI 05/21/2013 TRINHJULIANA N Ot 205.00 ACUTE MYELOID LEUKEMIA, 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HI 05/21/2013 TRINHJULIANA ANTOINE N Ot 585.3 CHRONIC KIDNEY DISEASE, STAGE III (MODER 05/21/2013 TRINH, BOBAN N Ot V58.69 OTH MED,LT,CURRENT USE 08/23/2013 TRINH, BOBAN N Ot 205.00 ACUTE MYELOID LEUKEMIA, 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HI 08/23/2013 TRINH, JULIANA N Ot 585.3 CHRONIC KIDNEY DISEASE, STAGE III (MODER 08/23/2013 TRINH, BOBAN N Ot V58.69 OTH MED,LT,CURRENT USE 12/05/2013 TRINH, BOBAN N Ot 205.00 ACUTE MYELOID LEUKEMIA, 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HI 12/05/2013 TRINHJULIANA N Ot 585.3 CHRONIC KIDNEY DISEASE, STAGE III (MODER 12/05/2013 TRINH, BOBAN N Ot V58.69 OTH MED,LT,CURRENT USE 03/13/2014 TRINH, BOBAN N Ot 205.00 ACUTE MYELOID LEUKEMIA, 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HI 03/13/2014 TRINH, BOBAN N Ot 585.3 CHRONIC KIDNEY DISEASE, STAGE III (MODER 03/13/2014 TRINH, BOBAN N Ot V58.69 OTH MED,LT,CURRENT USE 03/28/2014 TRINH, BOBAN N Ot 205.00 03/28/2014 TRINH BOBAN N Ot 585.3 03/28/2014 JULIANA TSANG N Ot V58.69 03/28/2014 JULIANA TSANG N Ot 205.00 03/28/2014 JULIANA TSANG N Ot 585.3 03/28/2014 JULIANA TSANG N Ot V58.69 03/30/2014 JULIANA TSANG N Ot 205.00 03/30/2014 JULIANA TSANG N Ot 585.3 03/30/2014 JULIANA TSANG N Ot V58.69 04/25/2014 ALIYAH BLEDSOE BOILER OPERATORS SUPERVISOR Ot 205.00 04/25/2014 ALIYAH BLEDSOE S BOILER OPERATORS SUPERVISOR Ot 585.3 04/25/2014 ALIYAH BLEDSOE S BOILER OPERATORS SUPERVISOR Ot V58.69 05/14/2014 ALIYAH BLEDSOE S BOILER OPERATORS SUPERVISOR Ot 205.00 05/14/2014 LADI MELISSAJOSE S BOILER OPERATORS SUPERVISOR Ot 585.3 05/14/2014 ALIYAH BLEDSOE S BOILER OPERATORS SUPERVISOR Ot V58.69 05/17/2014 JULIANA TSANG N Ot 205.00 05/17/2014 JULIANA TSANG N Ot 585.3 05/17/2014 JULIANA TSANG N Ot V58.69 06/14/2014 JULIANA TSANG N Ot 205.00 06/14/2014 JULIANA TSANG N Ot 585.3 06/14/2014 JULIANA TSANG N Ot V58.69 06/26/2014 JULIANA TSANG N Ot 205.00 ACUTE MYELOID LEUKEMIA, 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HI 06/26/2014 JULIANA TSANG N Ot 585.3 CHRONIC KIDNEY DISEASE, STAGE III (MODER 06/26/2014 JULIANA TSANG N Ot V58.69 OTH MED,LT,CURRENT USE 06/29/2014 Ot 721.3 LUMBOSACRAL SPONDYLOSIS 06/29/2014 Ot 722.52 LUMB/ LUMBOSAC DISC DEGEN 06/29/2014 Ot V58.69 OTH MED,LT, CURRENT USE 07/13/2014 Ot 724.2 07/13/2014 Ot 724.4 07/19/2014 Ot 397.0 07/19/2014 Ot 424.0 07/19/2014 Ot 429.3 07/19/2014 Ot 785.2 07/19/2014 Ot 323.9 07/19/2014 Ot 323.9 07/19/2014 Ot 288.60 07/19/2014 Ot 397.0 07/19/2014 Ot 424.0 07/19/2014 Ot 782.3 07/19/2014 Ot 205.10 07/19/2014 Ot V58.69 07/19/2014 Ot V72.84 07/19/2014 Ot 205.10 07/19/2014 Ot V58.69 07/19/2014 ALIYAH BLEDSOE BOILER OPERATORS SUPERVISOR Ot 205.10 07/19/2014 ALIYAH BLEDSOE BOILER OPERATORS SUPERVISOR Ot 585.3 07/19/2014 ALIYAH BLEDSOE BOILER OPERATORS SUPERVISOR Ot 793.7 07/19/2014 ALIYAH BLEDSOE BOILER OPERATORS SUPERVISOR Ot V58.69 07/19/2014 MICA CHAMORRO DYNAMITE PACKING MACHINE FEEDER Ot 719.41 07/19/2014 MICA CHAMORRO DYNAMITE PACKING MACHINE FEEDER Ot 723.1 07/19/2014 FAHAD DO, CRYSTAL F Ot 722.4 07/19/2014 FAHAD DO, CRYSTAL F Ot 727.61 07/19/2014 ALIYAH BLEDSOE BOILER OPERATORS SUPERVISOR Ot 205.10 07/19/2014 ALIYAH BLEDSOE BOILER OPERATORS SUPERVISOR Ot 536.8 07/19/2014 ALIYAH BLEDSOE BOILER OPERATORS SUPERVISOR Ot V58.69 07/19/2014 ALIYAH BLEDSOE BOILER OPERATORS SUPERVISOR Ot 205.10 07/19/2014 ALIYAH BLEDSOE BOILER OPERATORS SUPERVISOR Ot V58.69 07/19/2014 ALIYAH BLEDSOE BOILER OPERATORS SUPERVISOR Ot 205.00 07/19/2014 ALIYAH BLEDSOE BOILER OPERATORS SUPERVISOR Ot 585.3 07/19/2014 ALIYAH BLEDSOE BOILER OPERATORS SUPERVISOR Ot V58.69 07/19/2014 EMELINA WOODWARD BOILER OPERATORS SUPERVISOR Ot 724.2 07/19/2014 Ot 724.2 07/19/2014 Ot 724.4 07/19/2014 JULIANA TSANG Ot 205.00 07/19/2014 JULIANA TSANG Ot 585.3 07/19/2014 JULIANA TSANG Ot V58.69 07/20/2014 Ot 724.2 07/20/2014 Ot 724.4 07/26/2014 JULIANA TSANG Ot 205.00 07/26/2014 TRINH, BOBAN N Ot 585.3 07/26/2014 TRINH, BOBAN N Ot V58.69 08/21/2014 TRINH, BOBAN N Ot 205.00 08/21/2014 TRINH, BOBAN N Ot 585.3 08/21/2014 TRINH, BOBAN N Ot V58.69 08/21/2014 ORENDER DO, FARTUN S Ot 427.9 08/21/2014 ORENDER DO, FARTUN S Ot 785.2 08/21/2014 ORENDER DO, FARTUN S Ot 794.31 09/07/2014 TRINH, BOBAN N Ot 205.00 09/07/2014 TRINH, BOBAN N Ot 585.3 09/07/2014 TRINH, BOBAN N Ot V58.69 09/07/2014 OREND DO, FARTUN S Ot 427.9 09/07/2014 OREND DO, FARTUN S Ot 785.2 09/07/2014 [facility] 794.31 10/02/2014 TRINH, BOBAN N Ot 205.00 ACUTE MYELOID LEUKEMIA, 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HI 10/02/2014 TRINH, BOBAN N Ot 585.3 CHRONIC KIDNEY DISEASE, STAGE III (MODER 10/02/2014 TRINH, BOBAN N Ot V58.69 OT MED,LT,CURRENT USE 10/03/2014 TRINH, BOBAN N Ot 205.00 10/03/2014 TRINH, BOBAN N Ot 585.3 10/03/2014 TRINH, BOBAN N Ot V58.69 10/03/2014 TRINH, BOBAN N Ot 205.00 10/03/2014 TRINH, BOBAN N Ot 585.3 10/03/2014 TRINH, BOBAN N Ot V58.69 10/04/2014 TRINH, BOBAN N Ot 205.00 10/04/2014 TRINH, BOBAN N Ot 585.3 10/04/2014 TRINH, BOBAN N Ot V58.69 10/22/2014 TRINH, BOBAN N Ot 205.00 10/22/2014 TRINH, BOBAN N Ot 585.3 10/22/2014 TRINH, BOBAN N Ot V58.69 01/01/2015 TRINH, BOBAN N Ot 205.00 ACUTE MYELOID LEUKEMIA, 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HI 01/01/2015 TRINH, BOBAN N Ot 585.3 CHRONIC KIDNEY DISEASE, STAGE III (MODER 01/01/2015 TRINH, BOBAN N Ot V58.69 OTH MED,LT,CURRENT USE 01/02/2015 TRINH, BOBAN N Ot 205.00 01/02/2015 TRINH, BOBAN N Ot 585.3 01/02/2015 TRINH, BOBAN N Ot V58.69 01/04/2015 TRINH, BOBAN N Ot 205.00 01/04/2015 TRINH, BOBAN N Ot 585.3 01/04/2015 TRINH, BOBAN N Ot V58.69 01/16/2015 TRINH, BOBAN N Ot 205.00 ACUTE MYELOID LEUKEMIA, 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HI 01/16/2015 TRINH, BOBAN N Ot 585.3 CHRONIC KIDNEY DISEASE, STAGE III (MODER 01/16/2015 TRINH, BOBAN N Ot V58.69 OTH MED,LT,CURRENT USE 04/02/2015 TRINH, BOBAN N Ot 205.00 04/02/2015 TRINH, BOBAN N Ot 585.3 04/02/2015 TRINH, BOBAN N Ot V58.69 04/03/2015 TRINH, BOBAN N Ot 205.00 04/03/2015 TRINH, BOBAN N Ot 585.3 04/03/2015 TRINH, BOBAN N Ot V58.69 05/15/2015 ALIYAH BLEDSOE BOILER OPERATORS SUPERVISOR Ot C92.10 05/15/2015 ALIYAH BLEDSOE BOILER OPERATORS SUPERVISOR Ot Z79.899 05/16/2015 ALIYAH BLEDSOE BOILER OPERATORS SUPERVISOR Ot C92.10 05/16/2015 ALIYAH BLEDSOE BOILER OPERATORS SUPERVISOR Ot Z79.899 07/01/2015 TRINH BOBAN N Ot C92.10 CHRONIC MYELOID LEUK, BCR/ABL-POSITIVE, 07/01/2015 TRINH, BOBAN N Ot Z79.899 OTHER HORSE DOCTOR (CURRENT) DRUG THERAPY 07/02/2015 TRINH, BOBAN N Ot C92.10 07/02/2015 TRINH, BOBAN N Ot Z79.899 07/05/2015 TRINH, BOBAN N Ot C92.10 07/05/2015 JULIANA TSANG N Ot Z79.899 08/09/2015 JULIANA TSANG Lady Ot C92.10 CHRONIC MYELOID LEUK, BCR/ABL-POSITIVE, 08/09/2015 JULIANA TSANG Ot Z79.899 OTHER HORSE DOCTOR (CURRENT) DRUG THERAPY 08/15/2015 JULIANA TSANG Lady Ot C92.10 CHRONIC MYELOID LEUK, BCR/ABL-POSITIVE, 08/15/2015 JULIANA TSANG Lady Ot Z79.899 OTHER HORSE DOCTOR (CURRENT) DRUG THERAPY 08/15/2015 FARTUN LOVE DO Ot A41.9 SEPSIS, UNSPECIFIED ORGANISM 08/15/2015 FARTUN LOVE DO Ot R65.20 SEVERE SEPSIS WITHOUT SEPTIC SHOCK 08/15/2015 FARTUN LOVE DO Ot C92.90 MYELOID LEUKEMIA, UNSPECIFIED, NOT HAVIN 08/15/2015 FARTUN LOVE DO Ot E78.5 HYPERLIPIDEMIA, UNSPECIFIED 08/15/2015 FARTUN LOVE DO Ot H40.9 UNSPECIFIED GLAUCOMA 08/15/2015 FRATUN LOVE DO S Ot I10 ESSENTIAL (PRIMARY) HYPERTENSION 08/15/2015 FARTUN LOVE DO Ot I25.10 ATHSCL HEART DISEASE OF [place] CORONARY 08/15/2015 FARTUN LOVE DO Ot I34.1 NONRHEUMATIC MITRAL (VALVE) PROLAPSE 08/15/2015 FARTUN LOVE DO S Ot K21.9 GASTRO-ESOPHAGEAL REFLUX DISEASE WITHOUT 08/15/2015 FARTUN LOVE DO Ot K57.90 DVRTCLOS OF INTEST, PART UNSP, W/O PERF 08/15/2015 FARTUN LOVE DO Ot K80.10 CALCULUS OF GALLBLADDER W CHRONIC CHOLEC 08/15/2015 FARTUN LOVE DO Ot K85.1 BILIARY ACUTE PANCREATITIS 08/15/2015 FARTUN LOVE DO S Ot N40.0 ENLARGED PROSTATE WITHOUT LOWER URINARY 08/15/2015 FARTUN LOVE DO S Ot Z86.010 PERSONAL HISTORY OF COLONIC POLYPS 08/15/2015 FARTUN LOVE DO Ot Z87.891 PERSONAL HISTORY OF NICOTINE DEPENDENCE 08/16/2015 CINDI DYER DYNAMITE PACKING MACHINE FEEDER Ot R10.11 RIGHT UPPER QUADRANT PAIN 08/16/2015 CINDI DYER DYNAMITE PACKING MACHINE FEEDER Ot R10.12 LEFT UPPER QUADRANT PAIN 08/16/2015 CINDI DYER DYNAMITE PACKING MACHINE FEEDER Ot R11.0 NAUSEA 08/16/2015 CINDI DYER DYNAMITE PACKING MACHINE FEEDER Ot R14.0 ABDOMINAL DISTENSION (GASEOUS) 08/16/2015 FARTUN LOVE DO Ot C92.90 MYELOID LEUKEMIA, UNSPECIFIED, NOT HAVIN 08/16/2015 FARTUN LOVE DO Ot E78.5 HYPERLIPIDEMIA, UNSPECIFIED 08/16/2015 FARTUN LOVE DO S Ot H40.9 UNSPECIFIED GLAUCOMA 08/16/2015 FARTUN LOVE DO S Ot I10 ESSENTIAL (PRIMARY) HYPERTENSION 08/16/2015 FARTUN LOVE DO Ot I25.10 ATHSCL HEART DISEASE OF [place] CORONARY 08/16/2015 FARTUN LOVE DO Ot I34.1 NONRHEUMATIC MITRAL (VALVE) PROLAPSE 08/16/2015 FARTUN LOVE DO S Ot K21.9 GASTRO-ESOPHAGEAL REFLUX DISEASE WITHOUT 08/16/2015 FARTUN LOVE DO S Ot K57.90 DVRTCLOS OF INTEST, PART UNSP, W/O PERF 08/16/2015 FARTUN LOVE DO Ot K80.10 CALCULUS OF GALLBLADDER W CHRONIC CHOLEC 08/16/2015 FARTUN LOVE DO S Ot K85.1 BILIARY ACUTE PANCREATITIS 08/16/2015 FARTUN LOVE DO Ot N40.0 ENLARGED PROSTATE WITHOUT LOWER URINARY 08/16/2015 FARTUN LOVE DO S Ot Z86.010 PERSONAL HISTORY OF COLONIC POLYPS 08/16/2015 FARTUN LOVE DO S Ot Z87.891 PERSONAL HISTORY OF NICOTINE DEPENDENCE 08/18/2015 FARTUN LOVE DO Ot C92.90 MYELOID LEUKEMIA, UNSPECIFIED, NOT HAVIN 08/18/2015 FARTUN LOVE DO S Ot E78.5 HYPERLIPIDEMIA, UNSPECIFIED 08/18/2015 FARTUN LOVE DO S Ot H40.9 UNSPECIFIED GLAUCOMA 08/18/2015 FARTUN LOVE DO S Ot I10 ESSENTIAL (PRIMARY) HYPERTENSION 08/18/2015 FARTUN LOVE DO Kristi Ot I25.10 ATHSCL HEART DISEASE OF [place] CORONARY 08/18/2015 FARTUN LOVE DO Ot I34.1 NONRHEUMATIC MITRAL (VALVE) PROLAPSE 08/18/2015 FARTUN LOVE DO Ot J98.11 ATELECTASIS 08/18/2015 FARTUN LOVE DO Ot K21.9 GASTRO-ESOPHAGEAL REFLUX DISEASE WITHOUT 08/18/2015 FARTUN LOVE DO Ot K57.90 DVRTCLOS OF INTEST, PART UNSP, W/O PERF 08/18/2015 FARTUN LOVE DO Ot K80.10 CALCULUS OF GALLBLADDER W CHRONIC CHOLEC 08/18/2015 FARTUN LOVE DO Ot K85.1 BILIARY ACUTE PANCREATITIS 08/18/2015 FARTUN LOVE DO Ot N40.0 ENLARGED PROSTATE WITHOUT LOWER URINARY 08/18/2015 FARTUN LOVE DO Ot Z86.010 PERSONAL HISTORY OF COLONIC POLYPS 08/18/2015 FARTUN LOVE DO Ot Z87.891 PERSONAL HISTORY OF NICOTINE DEPENDENCE 09/04/2015 CINDI DYER DYNAMITE PACKING MACHINE FEEDER Ot R10.11 RIGHT UPPER QUADRANT PAIN 09/04/2015 CINDI DYER DYNAMITE PACKING MACHINE FEEDER Ot R10.12 LEFT UPPER QUADRANT PAIN 09/04/2015 CINDI DYER DYNAMITE PACKING MACHINE FEEDER Ot R11.0 NAUSEA 09/04/2015 CINDI DYER DYNAMITE PACKING MACHINE FEEDER Ot R14.0 ABDOMINAL DISTENSION (GASEOUS) 09/13/2015 CINDI DYER DYNAMITE PACKING MACHINE FEEDER Ot R10.11 RIGHT UPPER QUADRANT PAIN 09/13/2015 CINDI DYER DYNAMITE PACKING MACHINE FEEDER Ot R10.12 LEFT UPPER QUADRANT PAIN 09/13/2015 CINDI DYER DYNAMITE PACKING MACHINE FEEDER Ot R11.0 NAUSEA 09/13/2015 CINDI DYER DYNAMITE PACKING MACHINE FEEDER Ot R14.0 ABDOMINAL DISTENSION (GASEOUS) 10/02/2015 JULIANA TSANG Ot C92.10 CHRONIC MYELOID LEUK, BCR/ABL-POSITIVE, 10/02/2015 JULIANA TSANG Ot Z79.899 OTHER ALF (CURRENT) DRUG THERAPY 10/03/2015 TRINH, BOBAN N Ot C92.10 CHRONIC MYELOID LE[place], BCR/ABL-POSITIVE, 10/03/2015 TRINH, JULIANA N Ot Z79.899 OTHER ALF (CURRENT) DRUG THERAPY 10/04/2015 ALIYAH BLEDSOE BOILER OPERATORS SUPERVISOR Ot C92.10 CHRONIC MYELOID LE[place], BCR/ABL-POSITIVE, 10/04/2015 ALIYAH BLEDSOE S BOILER OPERATORS SUPERVISOR Ot Z79.899 OTHER ALF (CURRENT) DRUG THERAPY 10/18/2015 BLEDSOE ALIYAH S BOILER OPERATORS SUPERVISOR Ot C92.10 CHRONIC MYELOID LEUK, BCR/ABL-POSITIVE, 10/18/2015 BLEDSOE ALIYAH S BOILER OPERATORS SUPERVISOR Ot Z79.899 OTHER ALF (CURRENT) DRUG THERAPY 10/18/2015 BLEDSOE ALIYAH S BOILER OPERATORS SUPERVISOR Ot C92.10 CHRONIC MYELOID LE[place], BCR/ABL-POSITIVE, 10/18/2015 BLEDSOE ALIYAH S BOILER OPERATORS SUPERVISOR Ot Z79.899 OTHER ALF (CURRENT) DRUG THERAPY 11/07/2015 BLEDSOE ALIYAH Berry BOILER OPERATORS SUPERVISOR Ot C92.10 CHRONIC MYELOID LE[place], BCR/ABL-POSITIVE, 11/07/2015 BLEDSOE ALIYAH S BOILER OPERATORS SUPERVISOR Ot Z79.899 OTHER ALF (CURRENT) DRUG THERAPY 11/14/2015 ALIYAH BLEDSOE S BOILER OPERATORS SUPERVISOR Ot C92.10 CHRONIC MYELOID LE[place], BCR/ABL-POSITIVE, 11/14/2015 BLEDSOE ALIYAH S BOILER OPERATORS SUPERVISOR Ot Z79.899 OTHER ALF (CURRENT) DRUG THERAPY 11/14/2015 ALIYAH BLEDSOE S BOILER OPERATORS SUPERVISOR Ot C92.10 CHRONIC MYELOID LE[place], BCR/ABL-POSITIVE, 11/14/2015 BLEDSOE ALIYAH S BOILER OPERATORS SUPERVISOR Ot Z79.899 OTHER HORSE DOCTOR (CURRENT) DRUG THERAPY 11/23/2015 TRINHJULIANA N Ot 205.00 ACUTE MYELOID LEUKEMIA, 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HI 11/23/2015 TRINHJULIANA N Ot 585.3 CHRONIC KIDNEY DISEASE, STAGE III (MODER 11/23/2015 TRINHJULIANA Ot V58.69 OT MED,LT,CURRENT USE 11/24/2015 TRINHJULIANA N Ot 205.00 ACUTE MYELOID LEUKEMIA, 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HI 11/24/2015 TRINHJULIANA N Ot 585.3 CHRONIC KIDNEY DISEASE, STAGE III (MODER 11/24/2015 JULIANA TSANG Ot V58.69 OTH MED,LT,CURRENT USE 11/29/2015 TRINHJULIANA ANTOINE N Ot C92.10 CHRONIC MYELOID LEUK, BCR/ABL-POSITIVE, 11/29/2015 TRINH, BOBAN N Ot Z79.899 OTHER HORSE DOCTOR (CURRENT) DRUG THERAPY 12/06/2015 ALIYAH BLEDSOE BOILER OPERATORS SUPERVISOR Ot C92.10 CHRONIC MYELOID LEUK, BCR/ABL-POSITIVE, 12/06/2015 ALIYAH BLEDSOE BOILER OPERATORS SUPERVISOR Ot Z79.899 OTHER ALF (CURRENT) DRUG THERAPY 12/18/2015 TRINH, JULIANA N Ot C92.10 CHRONIC MYELOID LEUK, BCR/ABL-POSITIVE, 12/18/2015 TRINH, BOBAN N Ot Z79.899 OTHER ALF (CURRENT) DRUG THERAPY 01/01/2016 TRINH, RAVENTIMMY N Ot C92.10 CHRONIC MYELOID LEUK, BCR/ABL-POSITIVE, 01/01/2016 TRINH, BOBAN N Ot Z79.899 OTHER HORSE DOCTOR (CURRENT) DRUG THERAPY 01/03/2016 TRINH, BOBTIMMY N Ot C92.10 CHRONIC MYELOID LE[place], BCR/ABL-POSITIVE, 01/03/2016 TRINH, BOBAN N Ot Z79.899 OTHER HORSE DOCTOR (CURRENT) DRUG THERAPY 02/10/2016 TRINH, JULIANA N Ot C92.10 CHRONIC MYELOID LEUK, BCR/ABL-POSITIVE, 02/10/2016 TRINH, BOBAN N Ot Z79.899 OTHER HORSE DOCTOR (CURRENT) DRUG THERAPY 02/13/2016 TRINH, RAVENTIMMY N Ot C92.10 CHRONIC MYELOID LEUK, BCR/ABL-POSITIVE, 02/13/2016 TRINH, BOBAN N Ot Z79.899 OTHER ALF (CURRENT) DRUG THERAPY 04/01/2016 TRINH, BOBAN N Ot C92.10 CHRONIC MYELOID LEUK, BCR/ABL-POSITIVE, 04/01/2016 TRINH, BOBAN N Ot Z79.899 OTHER HORSE DOCTOR (CURRENT) DRUG THERAPY 04/10/2016 TRINH, BOBAN N Ot C92.10 CHRONIC MYELOID LEUK, BCR/ABL-POSITIVE, 04/10/2016 TRINH, BOBAN N Ot Z79.899 OTHER HORSE DOCTOR (CURRENT) DRUG THERAPY 05/12/2016 TRINH, BOBAN N Ot C92.10 CHRONIC MYELOID LEUK, BCR/ABL-POSITIVE, 05/12/2016 TRINHJULIANA N Ot Z79.899 OTHER ALF (CURRENT) DRUG THERAPY 06/18/2016 JULIANA TSANG N Ot C92.10 CHRONIC MYELOID LEUK, BCR/ABL-POSITIVE, 06/18/2016 TRINH, JULIANA N Ot Z79.899 OTHER ALF (CURRENT) DRUG THERAPY 07/08/2016 TRINH, JULIANA N Ot C92.10 CHRONIC MYELOID LEUK, BCR/ABL-POSITIVE, 07/08/2016 TRINH, BOBAN N Ot Z79.899 OTHER ALF (CURRENT) DRUG THERAPY 07/09/2016 TRINH, JULIANA N Ot C92.10 CHRONIC MYELOID LEUK, BCR/ABL-POSITIVE, 07/09/2016 TRINH, BOBTIMMY N Ot Z79.899 OTHER ALF (CURRENT) DRUG THERAPY 07/10/2016 JULIANA TSANG N Ot C92.10 CHRONIC MYELOID LEUK, BCR/ABL-POSITIVE, 07/10/2016 TRINH, JULIANA N Ot Z79.899 OTHER ALF (CURRENT) DRUG THERAPY 07/31/2016 Ot 288.60 LEUKOCYTOSIS , UNSPECIFIED 07/31/2016 Ot 397.0 TRICUSPID VALVE DISEASE 07/31/2016 Ot 424.0 MITRAL VALVE DISORDER 07/31/2016 Ot 782.3 EDEMA 07/31/2016 Ot 205.10 CHRONIC MYELOID LEUKEMIA, 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 07/31/2016 Ot V58.69 OTH MED,LT, CURRENT USE 07/31/2016 Ot V72.84 EXAM PRE- OPERATIVE NOS 07/31/2016 Ot 205.10 CHRONIC MYELOID LEUKEMIA, 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 07/31/2016 Ot V58.69 OTH MED,LT, CURRENT USE 07/31/2016 ALIYAH BLEDSOEP Ot 205.10 CHRONIC MYELOID LEUKEMIA, 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 07/31/2016 ALIYAH BLEDSOEP Ot 585.3 CHRONIC KIDNEY DISEASE, STAGE III (MODER 07/31/2016 ALIYAH BLEDSOE BOILER OPERATORS SUPERVISOR Ot 793.7 NOSP (ABN) FINDINGS ON RADIOLOGICAL OT 07/31/2016 ALIYAH BLEDSOEP Ot V58.69 OTH MED,LT,CURRENT USE 07/31/2016 MICA CHAMORRO APRN Ot 719.41 JOINT PAIN-SHLDER 07/31/2016 MICA CHAMORRO DYNAMITE PACKING MACHINE FEEDER Ot 723.1 CERVICALGIA 07/31/2016 CRYSTAL VÁSQUEZ DO Ot 722.4 CERVICAL DISC DEGEN 07/31/2016 CRYSTAL VÁSQUEZ DO Ot 727.61 ROTATOR CUFF RUPTURE 07/31/2016 ALIYAH BLEDSOE BOILER OPERATORS SUPERVISOR Ot 205.10 CHRONIC MYELOID LEUKEMIA, 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 07/31/2016 ALIYAH BLEDSOEP Ot 536.8 STOMACH FUNCTION DIS NEC 07/31/2016 ALIYAH BLEDSOEP Ot V58.69 OTH MED,LT,CURRENT USE 07/31/2016 ALIYAH BLEDSOE BOILER OPERATORS SUPERVISOR Ot 205.10 CHRONIC MYELOID LEUKEMIA, 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 07/31/2016 ALIYAH BLEDSOEP Ot V58.69 OTH MED,LT,CURRENT USE 07/31/2016 ALIYAH BLEDSOE [employer] OPERAT[employer] SUPERVISOR Ot 205.00 ACUTE MYELOID LEUKEMIA, 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HI 07/31/2016 ALIYAH BLEDSOEP Ot 585.3 CHRONIC KIDNEY DISEASE, STAGE III (MODER 07/31/2016 ALIYAH BLEDSOE [employer]PER[employer] SUPERVISOR Ot V58.69 OTH MED,LT,CURRENT USE 07/31/2016 EMELINA WOODWARD [employer]IL[employer] OPERAT[employer] SUPERVISOR Ot 724.2 LUMBAGO 07/31/2016 Ot 724.2 LUMBAGO 07/31/2016 Ot 724.4 LUMBOSACRAL NEURITIS NOS 07/31/2016 FARTUN LOVE DO S Ot 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 07/31/2016 FARTUN LOVE DO S Ot 785.2 CARDIAC MURMURS NEC 07/31/2016 BARBIE LOVE DOLINE S Ot 794.31 ABNORM ELECTROCARDIOGRAM 07/31/2016 ALIYAH BLEDSOE [employer]ER [employer]PERAT[employer] SUPERVISOR Ot C92.10 CHRONIC MYELOID LEUK, BCR/ABL-POSITIVE, 07/31/2016 ALIYAH BLEDSOE [employer]ILER OPERAT[employer] SUPERVISOR Ot Z79.899 OTHER HORSE DOCTOR (CURRENT) DRUG THERAPY 07/31/2016 CINDI DYER DYNAMITE PACKING MACHINE FEEDER Ot R10.11 RIGHT UPPER QUADRANT PAIN 07/31/2016 CINDI DYER DYNAMITE PACKING MACHINE FEEDER Ot R10.12 LEFT UPPER QUADRANT PAIN 07/31/2016 MANISHA, CINDI N DYNAMITE PACKING MACHINE FEEDER Ot R11.0 NAUSEA 07/31/2016 CINDI DYER N DYNAMITE PACKING MACHINE FEEDER Ot R14.0 ABDOMINAL DISTENSION (GASEOUS) 07/31/2016 ALIYAH BLEDSOE BOILER OPERATORS SUPERVISOR Ot C92.10 CHRONIC MYELOID LEUK, BCR/ABL-POSITIVE, 07/31/2016 ALIYAH BLEDSOE Kristi BOILER OPERATORS SUPERVISOR Ot Z79.899 OTHER HORSE DOCTOR (CURRENT) DRUG THERAPY 07/31/2016 TRINH, JULIANA Narayanan Ot C92.10 CHRONIC MYELOID LEUK, BCR/ABL-POSITIVE, 07/31/2016 TRINHJULIANA Ot I12.9 HYPERTENSIVE CHRONIC KIDNEY DISEASE W ST 07/31/2016 TRINHJULIANA Ot I25.10 ATHSCL HEART DISEASE OF [place] CORONARY 07/31/2016 JULIANA TSANG Ot N18.3 CHRONIC KIDNEY DISEASE, STAGE 3 (MODERAT 07/31/2016 JULIANA TSANG N Ot Z79.899 OTHER ALF (CURRENT) DRUG THERAPY 07/31/2016 LESLEY BONILLA, AVEL Mulligan Ot L90.5 SCAR CONDITIONS AND FIBROSIS OF SKIN 07/31/2016 LESLEY BONILLA, AVEL Mulligan Ot C44.319 BASAL CELL CARCINOMA OF SKIN OF OTHER PA 07/31/2016 LESLEY BONILLA, AVEL Mulligan Ot Z01.818 ENCOUNTER FOR OTHER PREPROCEDURAL EXAMIN 08/05/2016 LESLEY BONILLA, AVEL Mulligan Ot C44.319 BASAL CELL CARCINOMA OF SKIN OF OTHER PA 08/05/2016 LESLEY BONILLA, AVEL Mulligan Ot Z01.818 ENCOUNTER FOR OTHER PREPROCEDURAL EXAMIN 08/10/2016 LESLEY BONILLA, AVEL Mulligan Ot L90.5 SCAR CONDITIONS AND FIBROSIS OF SKIN 08/28/2016 CARLO SUMMERS BOILER OPERATORS SUPERVISOR Ot I10 ESSENTIAL (PRIMARY) HYPERTENSION 08/28/2016 CARLO SUMMERS BOILER OPERATORS SUPERVISOR Ot I25.10 ATHSCL HEART DISEASE OF [place] CORONARY 08/28/2016 CARLO SUMMERS BOILER OPERATORS SUPERVISOR Ot I73.9 PERIPHERAL VASCULAR DISEASE, UNSPECIFIED 08/28/2016 CARLO SUMMERS BOILER OPERATORS SUPERVISOR Ot N18.3 CHRONIC KIDNEY DISEASE, STAGE 3 (MODERAT 09/01/2016 CARLO SUMMERS BOILER OPERATORS SUPERVISOR Ot I73.9 PERIPHERAL VASCULAR DISEASE, UNSPECIFIED 09/01/2016 CARLO SUMMERS BOILER OPERATORS SUPERVISOR Ot I73.9 PERIPHERAL VASCULAR DISEASE, UNSPECIFIED 09/02/2016 KRISTOPHER, CARLO L BOILER OPERATORS SUPERVISOR Ot I10 ESSENTIAL (PRIMARY) HYPERTENSION 09/02/2016 BAIMA, CARLO L BOILER OPERATORS SUPERVISOR Ot I25.10 ATHSCL HEART DISEASE OF [place] CORONARY 09/02/2016 BAIMA, CARLO L BOILER OPERATORS SUPERVISOR Ot I73.9 PERIPHERAL VASCULAR DISEASE, UNSPECIFIED 09/02/2016 BAIMA, CARLO L BOILER OPERATORS SUPERVISOR Ot N18.3 CHRONIC KIDNEY DISEASE, STAGE 3 (MODERAT 09/07/2016 BAIMA, CARLO L BOILER OPERATORS SUPERVISOR Ot I12.9 HYPERTENSIVE CHRONIC KIDNEY DISEASE W ST 09/07/2016 BAIMA, CARLO L BOILER OPERATORS SUPERVISOR Ot I25.10 ATHSCL HEART DISEASE OF [place] CORONARY 09/07/2016 BAIMA, CARLO L BOILER OPERATORS SUPERVISOR Ot I73.9 PERIPHERAL VASCULAR DISEASE, UNSPECIFIED 09/07/2016 BAIMA, CARLO L BOILER OPERATORS SUPERVISOR Ot N18.3 CHRONIC KIDNEY DISEASE, STAGE 3 (MODERAT 09/15/2016 TRINHJULIANA ANTOINE N Ot C92.10 CHRONIC MYELOID [place], BCR/ABL-POSITIVE, 09/15/2016 TRINHJULIANA ANTOINE N Ot I12.9 HYPERTENSIVE CHRONIC KIDNEY DISEASE W ST 09/15/2016 TRINHJULIANA ANTOINE N Ot I25.10 ATHSCL HEART DISEASE OF [place] CORONARY 09/15/2016 JULIANA TSANG N Ot N18.3 CHRONIC KIDNEY DISEASE, STAGE 3 (MODERAT 09/15/2016 JULIANA TSANG N Ot Z79.899 OTHER HORSE DOCTOR (CURRENT) DRUG THERAPY 09/17/2016 MALIKJEAN PIERRE, CARLO L [employer]IL[employer]PERAT[employer] SUPERVISOR Ot I10 ESSENTIAL (PRIMARY) HYPERTENSION 09/17/2016 MALIKJEAN PIERRE CARLO L BOILER OPERATORS SUPERVISOR Ot I25.10 ATHSCL HEART DISEASE OF [place] CORONARY 09/17/2016 MALIKJEAN PIERRE CARLO L BOILER OPERATORS SUPERVISOR Ot I73.9 PERIPHERAL VASCULAR DISEASE, UNSPECIFIED 09/17/2016 BAIJEAN PIERRE, CARLO L BOILER OPERATORS SUPERVISOR Ot N18.3 CHRONIC KIDNEY DISEASE, STAGE 3 (MODERAT 09/22/2016 JULIANA TSANG N Ot C92.10 CHRONIC MYELOID [place], BCR/ABL-POSITIVE, 09/22/2016 TRINHJULIANA ANTOINE N Ot I12.9 HYPERTENSIVE CHRONIC KIDNEY DISEASE W ST 09/22/2016 JULIANA TSANG N Ot I25.10 ATHSCL HEART DISEASE OF [place] CORONARY 09/22/2016 TRINH, BOBAN N Ot N18.3 CHRONIC KIDNEY DISEASE, STAGE 3 (MODERAT 09/22/2016 TRINH, BOBAN N Ot Z79.899 OTHER HORSE DOCTOR (CURRENT) DRUG THERAPY 09/28/2016 BAIMA, CARLO L BOILER OPERATORS SUPERVISOR Ot I10 ESSENTIAL (PRIMARY) HYPERTENSION 09/28/2016 BAIMA, CARLO L BOILER OPERATORS SUPERVISOR Ot I25.10 ATHSCL HEART DISEASE OF [place] CORONARY 09/28/2016 BAIMA, CARLO L BOILER OPERATORS SUPERVISOR Ot I73.9 PERIPHERAL VASCULAR DISEASE, UNSPECIFIED 09/28/2016 BAIMA, CARLO L BOILER OPERATORS SUPERVISOR Ot N18.3 CHRONIC KIDNEY DISEASE, STAGE 3 (MODERAT 09/28/2016 BAIMA, CARLO L BOILER OPERATORS SUPERVISOR Ot I12.9 HYPERTENSIVE CHRONIC KIDNEY DISEASE W ST 09/28/2016 BAIMA, CARLO L BOILER OPERATORS SUPERVISOR Ot I25.10 ATHSCL HEART DISEASE OF [place] CORONARY 09/28/2016 BAIMA, CARLO L BOILER OPERATORS SUPERVISOR Ot I73.9 PERIPHERAL VASCULAR DISEASE, UNSPECIFIED 09/28/2016 BAIMA, CARLO L [employer] SUPERVISOR Ot N18.3 CHRONIC KIDNEY DISEASE, STAGE 3 (MODERAT 09/30/2016 BAIMA, CARLO L [employer] SUPERVISOR Ot I12.9 HYPERTENSIVE CHRONIC KIDNEY DISEASE W ST 09/30/2016 BAIMA, CARLO L BOIL[employer] OPERATORS SUPERVISOR Ot I25.10 ATHSCL HEART DISEASE OF [place] CORONARY 09/30/2016 BAIMA, CARLO L BOILER [employer]PERATORS SUPERVISOR Ot I73.9 PERIPHERAL VASCULAR DISEASE, UNSPECIFIED 09/30/2016 BAIMA, CARLO L BOIL[employer]AT[employer] SUPERVISOR Ot N18.3 CHRONIC KIDNEY DISEASE, STAGE 3 (MODERAT 10/07/2016 TRINH, BOBAN N Ot C92.10 CHRONIC MYELOID LEUK, BCR/ABL-POSITIVE, 10/07/2016 TRINH, BOBAN N Ot I12.9 HYPERTENSIVE CHRONIC KIDNEY DISEASE W ST 10/07/2016 TRINH, BOBAN N Ot I25.10 ATHSCL HEART DISEASE OF [place] CORONARY 10/07/2016 TRINH, BOBAN N Ot N18.3 CHRONIC KIDNEY DISEASE, STAGE 3 (MODERAT 10/07/2016 TRINH, BOBAN N Ot Z79.899 OTHER ALF (CURRENT) DRUG THERAPY 10/28/2016 RTINH, BOBAN N Ot C92.10 CHRONIC MYELOID LEUK, BCR/ABL-POSITIVE, 10/28/2016 TRINH, BOBAN N Ot I12.9 HYPERTENSIVE CHRONIC KIDNEY DISEASE W ST 10/28/2016 TRINH, BOBAN N Ot I25.10 ATHSCL HEART DISEASE OF [place] CORONARY 10/28/2016 TRINHJULIANA ANTOINE N Ot N18.3 CHRONIC KIDNEY DISEASE, STAGE 3 (MODERAT 10/28/2016 TRINH, BOBAN N Ot Z79.899 OTHER ALF (CURRENT) DRUG THERAPY 01/16/2017 TRINH, BOBAN N Ot C92.10 CHRONIC MYELOID LEUK, BCR/ABL-POSITIVE, 01/16/2017 TRINH, BOBAN N Ot I12.9 HYPERTENSIVE CHRONIC KIDNEY DISEASE W ST 01/16/2017 TRINH, BOBAN N Ot I25.10 ATHSCL HEART DISEASE OF [place] CORONARY 01/16/2017 TRINH, BOBAN N Ot N18.3 CHRONIC KIDNEY DISEASE, STAGE 3 (MODERAT 01/16/2017 TRINH, BOBAN N Ot Z79.899 OTHER HORSE DOCTOR (CURRENT) DRUG THERAPY 02/22/2017 TRINH, BOBTIMMY N Ot C92.10 CHRONIC MYELOID LEUK, BCR/ABL-POSITIVE, 02/22/2017 TRINH, BOBAN N Ot I12.9 HYPERTENSIVE CHRONIC KIDNEY DISEASE W ST 02/22/2017 TRINH, BOBAN N Ot I25.10 ATHSCL HEART DISEASE OF [place] CORONARY 02/22/2017 TRINH, BOBTIMMY N Ot N18.3 CHRONIC KIDNEY DISEASE, STAGE 3 (MODERAT 02/22/2017 TRINH, BOBAN N Ot Z79.899 OTHER HORSE DOCTOR (CURRENT) DRUG THERAPY 03/15/2017 TRIHNJULIANA ANTOINE N Ot C92.10 CHRONIC MYELOID LEUK, BCR/ABL-POSITIVE, 03/15/2017 TRINH BOBAN N Ot I12.9 HYPERTENSIVE CHRONIC KIDNEY DISEASE W ST 03/15/2017 TRINH BOBAN N Ot I25.10 ATHSCL HEART DISEASE OF [place] CORONARY 03/15/2017 TRINHRAVENAN N Ot N18.3 CHRONIC KIDNEY DISEASE, STAGE 3 (MODERAT 03/15/2017 TRINH, BOBAN N Ot Z79.899 OTHER HORSE DOCTOR (CURRENT) DRUG THERAPY 03/18/2017 TRINH, BOBAN N Ot C92.10 CHRONIC MYELOID LEUK, BCR/ABL-POSITIVE, 03/18/2017 TRINH, BOBAN N Ot I12.9 HYPERTENSIVE CHRONIC KIDNEY DISEASE W ST 03/18/2017 TRINH, BOBAN N Ot I25.10 ATHSCL HEART DISEASE OF [place] CORONARY 03/18/2017 TRINH, BOBAN N Ot N18.3 CHRONIC KIDNEY DISEASE, STAGE 3 (MODERAT 03/18/2017 TRINH, BOBAN N Ot Z79.899 OTHER HORSE DOCTOR (CURRENT) DRUG THERAPY 04/27/2017 TRINH, BOBAN N Ot C92.10 CHRONIC MYELOID LEUK, BCR/ABL-POSITIVE, 04/27/2017 TRINH, BOBAN N Ot I12.9 HYPERTENSIVE CHRONIC KIDNEY DISEASE W ST 04/27/2017 TRINH, BOBAN N Ot I25.10 ATHSCL HEART DISEASE OF [place] CORONARY 04/27/2017 TRINH, BOBAN N Ot N18.3 CHRONIC KIDNEY DISEASE, STAGE 3 (MODERAT 04/27/2017 TRINH, BOBAN N Ot Z79.899 OTHER ALF (CURRENT) DRUG THERAPY 06/09/2017 TRINH, BOBAN N Ot C92.10 CHRONIC MYELOID LEUK, BCR/ABL-POSITIVE, 06/09/2017 TRINH, BOBAN N Ot I12.9 HYPERTENSIVE CHRONIC KIDNEY DISEASE W ST 06/09/2017 TRINH, BOBAN N Ot I25.10 ATHSCL HEART DISEASE OF [place] CORONARY 06/09/2017 TRINH, BOBAN N Ot N18.3 CHRONIC KIDNEY DISEASE, STAGE 3 (MODERAT 06/09/2017 TRINH, BOBAN N Ot Z79.899 OTHER HORSE DOCTOR (CURRENT) DRUG THERAPY 06/10/2017 TRINH, BOBAN N Ot C92.10 CHRONIC MYELOID LEUK, BCR/ABL-POSITIVE, 06/10/2017 TRINH, BOBAN N Ot I12.9 HYPERTENSIVE CHRONIC KIDNEY DISEASE W ST 06/10/2017 TRINH, BOBAN N Ot I25.10 ATHSCL HEART DISEASE OF [place] CORONARY 06/10/2017 TRINH, BOBAN N Ot N18.3 CHRONIC KIDNEY DISEASE, STAGE 3 (MODERAT 06/10/2017 TRINH, BOBAN N Ot Z79.899 OTHER ALF (CURRENT) DRUG THERAPY 07/27/2017 TRINH, BOBAN N Ot C92.10 CHRONIC MYELOID LEUK, BCR/ABL-POSITIVE, 07/27/2017 TRINH, BOBAN N Ot I12.9 HYPERTENSIVE CHRONIC KIDNEY DISEASE W ST 07/27/2017 TRINH, BOBAN N Ot I25.10 ATHSCL HEART DISEASE OF [place] CORONARY 07/27/2017 JULIANA TSANG Ot N18.3 CHRONIC KIDNEY DISEASE, STAGE 3 (MODERAT 07/27/2017 JULIANA TSANG Ot Z79.899 OTHER ALF (CURRENT) DRUG THERAPY 07/28/2017 JULIANA TSANG Ot C92.10 CHRONIC MYELOID LEUK, BCR/ABL-POSITIVE, 07/28/2017 JULIANA TSANG Ot I12.9 HYPERTENSIVE CHRONIC KIDNEY DISEASE W ST 07/28/2017 JULIANA TSANG Ot I25.10 ATHSCL HEART DISEASE OF [place] CORONARY 07/28/2017 JULIANA TSANG Ot N18.3 CHRONIC KIDNEY DISEASE, STAGE 3 (MODERAT 07/28/2017 JULIANA TSANG Ot Z79.899 OTHER HORSE DOCTOR (CURRENT) DRUG THERAPY Procedures Code Description Performed By Performed On 37.22 LEFT HEART CARDIAC CATH 09/26/2011 88.53 LT HEART ANGIOCARDIOGRAM 09/26/2011 88.56 CORONAR ARTERIOGR-2 CATH 09/26/2011 [id number] RESECTION OF GALLBLADDER, PERCUTANEOUS E 08/16/2015 Results Test Result Range Methicillin resistant Staphylococcus aureus (MRSA) screening culture - 08:40 Methicillin resistant Staphylococcus aureus (MRSA) screening culture NEG NRG Complete blood count (CBC) with automated white blood cell (WBC) differential - 04/14/17 08:05 Blood leukocytes automated count (number/volume) 9.1 10*3/uL 4.3-11.0 Blood erythrocytes automated count (number/volume) 4.60 10*6/uL 4.35-5.85 Venous blood hemoglobin measurement (mass/volume) 13.3 g/dL 13.3-17.7 Blood hematocrit (volume fraction) 40 % 40-54 Automated erythrocyte mean corpuscular volume 86 [foz_us] 80-99 Automated erythrocyte mean corpuscular hemoglobin (mass per erythrocyte) 29 pg 25-34 Automated erythrocyte mean corpuscular hemoglobin concentration measurement ( mass/volume) 34 g/dL 32-36 Automated erythrocyte distribution width ratio 15.1 % 10.0-14.5 Automated blood platelet count (count/volume) 220 10*3/uL 130-400 Automated blood platelet mean volume measurement 10.1 [foz_us] 7.4-10.4 Automated blood neutrophils/100 leukocytes 57 % 42-75 Automated blood lymphocytes/100 leukocytes 28 % 12-44 Blood monocytes/100 leukocytes 9 % 0-12 Automated blood eosinophils/100 leukocytes 5 % 0-10 Automated blood basophils/100 leukocytes 0 % 0-10 Blood neutrophils automated count (number/volume) 5.2 10*3 1.8-7.8 Blood lymphocytes automated count (number/volume) 2.6 10*3 1.0-4.0 Blood monocytes automated count (number/volume) 0.9 10*3 0.0-1.0 Automated eosinophil count 0.5 10*3/uL 0.0-0.3 Automated blood basophil count (count/volume) 0.0 10*3/uL 0.0-0.1 Comprehensive metabolic panel - 04/14/17 08:05 Serum or plasma sodium measurement (moles/volume) 142 mmol/L 135-145 Serum or plasma potassium measurement (moles/volume) 4.0 mmol/L 3.6-5.0 Serum or plasma chloride measurement (moles/volume) 107 mmol/L 98-107 Carbon dioxide 26 mmol/L 21-32 Serum or plasma anion gap determination (moles/volume) 9 mmol/L 5-14 Serum or plasma urea nitrogen measurement (mass/volume) 11 mg/dL 7-18 Serum or plasma creatinine measurement (mass/volume) 1.08 mg/dL 0.60-1.30 Serum or plasma urea nitrogen/creatinine mass ratio 10 NRG Serum or plasma creatinine measurement with calculation of estimated glomerular filtration rate > NRG Serum or plasma glucose measurement (mass/volume) 89 mg/dL 70-105 Serum or plasma calcium measurement (mass/volume) 9.4 mg/dL 8.5-10.1 Serum or plasma total bilirubin measurement (mass/volume) 0.7 mg/dL 0.1-1.0 Serum or plasma alkaline phosphatase measurement (enzymatic activity/volume) 66 U/L 40-136 Serum or plasma aspartate aminotransferase measurement (enzymatic activity/ volume) 27 U/L 5-34 Serum or plasma alanine aminotransferase measurement (enzymatic activity/volume ) 29 U/L 0-55 Serum or plasma protein measurement (mass/volume) 7.2 g/dL 6.4-8.2 Serum or plasma albumin measurement (mass/volume) 3.6 g/dL 3.2-4.5 Lactate dehydrogenase 1 [enzymatic activity/volume] in serum or plasma - 08:05 Lactate dehydrogenase 1 [enzymatic activity/volume] in serum or plasma 269 U/L 125-220 BCR-ABL gene translocation detection - 04/14/17 08:05 Blood or tissue t(9;22)(q34.1;q11)(ABL1,BCR) b2a2+b3a2 fusion transcript count by molecular genetics method (number/volume) See Report NRG Encounters ACCT No. Visit Date/Time Discharge Status Pt. Type Provider Facility Loc./Unit Complaint [id number] 08/02/2017 10:44:00 08/02/2017 23:59:59 CLS Outpatient SOO BONILLA, VAMSI Chopra [facility] RAD OLD TEAR RT KNEE [id number] 07/28/2017 03:14:00 07/28/2017 23:59:59 CLS Preadmit JULIANA TSANG [facility] ONC [id number] 07/22/2017 08:40:00 07/27/2017 00:01:00 DIS Outpatient JULIANA TSANG [facility] ONC [id number] 04/14/2017 08:01:00 04/27/2017 00:01:00 DIS Outpatient JULIANA TSANG [facility] ONC [id number] 01/13/2017 07:38:00 01/16/2017 00:01:00 DIS Outpatient JULIANA TSANG [facility] ONC [id number] 07/29/2016 09:56:00 10/07/2016 00:01:00 DIS Outpatient JULIANA TSANG [facility] ONC [id number] 09/01/2016 12:07:00 09/01/2016 23:59:59 CLS Outpatient CARLO SUMMERS [facility] RAD I25.10 [id number] 08/27/2016 07:44:00 08/27/2016 23:59:59 CLS Outpatient CARLO SUMMERS [facility] CARD I25.10 [id number] 07/31/2016 08:26:00 07/31/2016 13:18:00 DIS Outpatient AVEL SUTTON MD [facility] SDC BASALCELL CARCINOMA RIGHT CHEEK [id number] 07/30/2016 14:06:00 07/30/2016 15:06:00 DIS Outpatient AVEL SUTTON MD [facility] 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 [id number] 04/23/2016 09:24:00 07/08/2016 00:01:00 DIS Outpatient JULIANA TSANG [facility] ONC [id number] 01/16/2016 09:19:00 04/01/2016 00:01:00 DIS Outpatient JULIANA TSANG [facility] ONC [id number] 10/17/2015 10:50:00 01/01/2016 00:01:00 DIS Outpatient JULIANA TSANG [facility] ONC [id number] 10/17/2015 08:57:00 10/17/2015 23:59:59 CLS Outpatient ALIYAH BLEDSOEP [facility] ONC [id number] 10/04/2015 09:45:00 10/10/2015 11:43:00 DIS Outpatient ALIYAH BLEDSOE [employer] SUPERVISOR [facility] ONC [id number] 08/02/2015 13:53:00 10/02/2015 00:01:00 DIS Outpatient JULIANA TSANG [facility] ONC [id number] 08/14/2015 17:40:00 08/18/2015 10:57:00 DIS Inpatient FARTUN LOVE DO S [facility] 4TH PANCREATITIS,GALL STONES [id number] 08/14/2015 15:13:00 08/14/2015 23:59:59 CLS Outpatient CINDI DYER APRN [facility] RAD BILAT UPPER ABD PAIN , DISTENTION,BLOATING [id number] 04/18/2015 09:03:00 07/01/2015 00:01:00 DIS Outpatient JULIANA TSANG [facility] ONC [id number] 04/18/2015 08:49:00 04/18/2015 23:59:59 CLS Outpatient ALIYAH BLEDSOE [employer] SUPERVISOR [facility] ONC [id number] 01/03/2015 08:58:00 01/16/2015 00:01:00 DIS Outpatient JULIANA TSANG [facility] ONC [id number] 12/20/2014 08:26:00 01/01/2015 00:01:00 DIS Outpatient JULIANA TSANG [facility] ONC [id number] 09/19/2014 08:34:00 10/02/2014 00:01:00 DIS Outpatient JULIANA TSANG [facility] ONC [id number] 07/19/2014 12:23:00 07/19/2014 23:59:59 CLS Outpatient FARTUN LOVE DO S [facility] CARD CARDIAC MURMUR, EKG CHANGES,ARRHTHYMIA [id number] 06/04/2014 08:15:00 06/04/2014 23:59:59 CLS Outpatient EMELINA WOODWARD [employer] SUPERVISOR [facility] RAD LOW BACK PAIN [id number] 2014 08:43:00 2014 23:59:59 CLS Outpatient JULIANA TSANG [facility] ONC [id number] 04/04/2014 08:44:00 04/04/2014 23:59:59 CLS Outpatient ALIYAH BLEDSOE [employer] SUPERVISOR [facility] ONC [id number] 03/13/2014 08:14:00 03/13/2014 00:01:00 DIS Outpatient JULIANA TSANG [facility] ONC [id number] 12/06/2013 13:57:00 12/06/2013 23:59:59 CLS Outpatient ALIYAH BLEDSOE [employer] SUPERVISOR [facility] ONC [id number] 11/23/2013 08:14:00 12/05/2013 00:01:00 DIS Outpatient JULIANA TSANG [facility] ONC [id number] 08/22/2013 08:40:00 08/23/2013 00:01:00 DIS Outpatient JULIANA TSANG [facility] ONC [id number] 06/09/2013 09:53:00 06/09/2013 23:59:59 CLS Outpatient ALIYAH BLEDSOE [facility] ONC [id number] 03/06/2013 09:49:00 05/21/2013 00:01:00 DIS Outpatient JULIANA TSANG Lady [facility] ONC [id number] 11/10/2012 09:51:00 02/08/2013 00:01:00 DIS Outpatient JULIANA TSANG Lady [facility] ONC [id number] 12/05/2012 12:26:00 12/05/2012 23:59:59 CLS Outpatient CRYSTAL VÁSQUEZ DO [facility] RAD ROTATOR CUFF TEAR LT SHOULDER,CERVICAL RADICULOPAT [id number] 11/22/2012 08:52:00 11/22/2012 23:59:59 CLS Outpatient ALIYAH BLEDSOE [facility] ONC [id number] 11/11/2012 13:53:00 11/11/2012 23:59:59 CLS Outpatient MICA CHAMORRO APRN [facility] RAD NECK PAIN,LT SHOULDER PAIN [id number] 11/10/2012 03:53:00 11/10/2012 04:57:00 DIS Emergency CHEPE WELL[place] M[place]O [place] [facility] ER LEFT SHOULDER PAIN [id number] 11/09/2012 11:23:00 11/09/2012 23:59:59 CLS Outpatient [id number] 08/15/2012 10:50:00 08/29/2012 00:01:00 DIS Outpatient JULIANA TSANG Lady [facility] ONC [id number] 07/19/2014 12:23:00 Document Registration [id number] 07/19/2014 12:23:00 Document Registration [id number] 07/19/2014 12:23:00 Document Registration [id number] 07/19/2014 12:23:00 Document Registration [id number] 07/13/2014 17:39:00 Document Registration [id number] 06/29/2014 08:13:00 Document Registration [id number] 03/15/2012 08:49:00 Document Registration [id number] 03/04/2012 08:58:00 Document Registration [id number] 03/02/2012 12:13:00 Document Registration [id number] 09/28/2011 09:16:00 Document Registration [id number] 09/26/2011 08:15:00 Document Registration [id number] 08/03/2011 12:45:00 Document Registration [id number] 07/30/2011 08:37:00 Document Registration [id number] 05/12/2011 12:59:00 Document Registration [id number] 02/24/2010 09:04:00 Document Registration [id number] 09/09/2009 09:22:00 Document Registration [id number] 07/10/2009 09:50:00 Document Registration [id number] 06/18/2009 14:27:00 Document Registration 05/23/16 05/02/2017 06:05:07 05/02/2017 23:59:59 Fartun Carrillo
[2017-08-20] MEDS: PHENYLEPHRINE 0.25% NASAL SPR (NEO-SYNEPHRINE) 15 ML NS ONE ×2 (20:13→20:59)
--- NOTE | 2017-08-20 20:22 | ED EENT ---
History of Present Illness General Chief Complaint: Nasal Problems Stated Complaint: NOSE BLEED Source: patient Exam Limitations: no limitations History of Present Illness Date Seen by Provider: August 20, 2017 Time Seen by Provider: 20:00 Initial Comments To ER come in by and daughter with reports of a right-sided nosebleed rather profuse for about the past 15 minutes. He denies any preceding sneezing, blowing his nose or nose picking. He states that he's had a history of frequent nosebleeds about once a week for the past 3 months. He has been following with Dr. Johnston. He did have to have the right side cauterized chemically at Dr. Johnston 's clinic about 5 weeks ago. Only anticoagulant is a baby aspirin daily. Timing/Duration: abrupt Severity: moderate Location: nose Allergies and Home Medications Allergies Coded Allergies: Tetanus Vaccines & Toxoid (Verified Allergy, Unknown, 05/03/09) Uncoded Allergies: HORSE SERUM TETANUS (Allergy, Mild, 10/11/08) Home Medications Amlodipine Besylate 10 Mg Tablet, 10 MG PO DAILY, (Reported) Aspirin 81 Mg Tab.chew, 81 MG PO DAILY, (Reported) Calcium/Magnesium 1 Each Tablet, 2 TAB PO DAILY, (Reported) Cyanocobalamin 1,000 Mcg/Ml Inj, 1,000 MCG INJ EVERY 2 MONTHS , (Reported) HAS INJECTION AT THE FIRST OF THE MONTH EVERY 2 MONTHS Irbesartan 300 Mg Tablet, 300 MG PO DAILY, (Reported) Nilotinib HCl 150 Mg Capsule, 300 MG PO BID, (Reported) TAKES 2 (150 MG) CAPSULES [place]-3/Dha/Epa/Fish Oil 1 Each Capsule.dr, 1,000 MG PO DAILY, (Reported) Polyethylene Glycol 3350 17 Gm Powd.pack, 17 GM PO HS, (Reported) Ranitidine HCl 75 Mg Tablet, 75 MG PO DAILY PRN for HEARTBURN, (Reported) Tamsulosin HCl 0.4 Mg Cap.er.24h, 0.4 MG PO DAILY, (Reported) Timolol Maleate 5 Ml Drops, 1 DROP OU DAILY, (Reported) Tramadol HCl 50 Mg Tablet, 50 MG PO Q12H PRN for PAIN-MILD TO MODERATE Prescribed by: AVEL SUTTON on 07/31/16 5540 Patient Home Medication List Home Medication List Reviewed: Yes Review of Systems Constitutional: see HPI Eyes: No Symptoms Reported Ears: No Symptoms Reported Nose: see HPI, epistaxis Mouth: no symptoms reported Throat: no symptoms reported Respiratory: no symptoms reported Cardiovascular: no symptoms reported Musculoskeletal: no symptoms reported Past Xeupraq-Vzylcv-Horzcc Hx Patient Social History Type Used: Cigarettes Former Smoker, Quit: Aug 14, 1995 Recent Foreign Travel: No Contact w/Someone Who Travel: No Recent Hopitalizations: No Immunizations Up To Date Tetanus Booster (TDap): Unknown PED Vaccines UTD: Yes Seasonal Allergies Seasonal Allergies: No Past Medical History Appendectomy, Gallbladder Currently Using CPAP: No Currently Using BIPAP: No Hypertension Reproductive Disorders: No Sexually Transmitted Disease: No HIV/AIDS: No Gastroesophageal Reflux Arthritis, Fractures Cataract, Glaucoma Loss of Vision: Denies Hearing Impairment: Denies Leukemia Family Medical History Colon cancer 19 FATHER Physical Exam Vital Signs Vital Signs - First Documented 08/20/17 20:00 Temp 97.2 Pulse 86 Resp 20 B/P (MAP) 201/87 (125) O2 Delivery Room Air General Appearance: WD/WN, no apparent distress Eyes: bilateral eye normal inspection, bilateral eye PERRL, bilateral eye EOMI Ears: bilateral ear auricle normal, bilateral ear canal normal, bilateral ear TM normal Nose: active bleeding, other (Clot of blood within the right nostril. There is blood dripping from the right nostril and left nostril but mostly the right. He did spit out a large clot from the oropharynx. Additional clot was removed from the right nostril. This was then suctioned but the source of bleeding was not able to be visualized. He was then sprayed with Amol-Synephrine into both Nares and a rapid Rhino anterior posterior 7.5 cm nasal packing soaked in TXA was placed into the right Nare and inflated. No residual blood in the oropharynx or the left nostril. We will observe him for about 30 minutes and reevaluate.) Neck: non-tender, full range of motion Respiratory: no respiratory distress, no accessory muscle use Gastrointestinal: normal bowel sounds, non tender Neurologic/Psychiatric: alert, normal mood/affect, oriented x 3 Skin: normal color, warm/dry Progress/Results/Core Measures Results/Orders My Orders Orders - GREGORY FISHER APRN Phenylephrine 0.5% Nasal [place] (Amol-Syne (08/20/17 20:30) Tranexamic Acid Injection (Cyklokapron I (08/20/17 20:30) Medications Given in ED Current Medications Medications Dose Ordered Sig/Solo Route Start Time Stop Time Status Last Admin Dose Admin Phenylephrine HCl 1 SPRAY EACH NOSTRIL ONCE ONCE NA 08/20/17 20:30 08/20/17 20:31 DC 08/20/17 20:13 5 ML Tranexamic Acid Apply topically to na... ONCE ONCE IV 08/20/17 20:30 08/20/17 20:31 DC 08/20/17 20:13 100 MG Vital Signs/I&O 08/20/17 20:00 Temp 97.2 Pulse 86 Resp 20 B/P (MAP) 201/87 (125) O2 Delivery Room Air Departure Communication (Admissions) 2052- no blood in the oropharynx, no blood from the left Nare, Rhino Rocket removed and still no bleeding from the right [place] and no blood in the oropharynx. I'll recheck him in 30 minutes, if still no bleeding we will discharge to home. 2118- still no blood in the oropharynx, no blood from either Nare. Blood pressure down to 160 over 70s, patient states that he is normally "159 on the top over 70s". We will discharged home with return precautions. Impression Primary Impression: Epistaxis Disposition: HOME, SELF-CARE Condition: Stable Departure-Patient Inst. Decision time for Depature: 20:55 Referrals: MAAME LOVE DO (PCP/Family) Primary Care Physician Patient Instructions: Nosebleeds (DC) Add. Discharge Instructions: 1. If this nosebleed recurs, pinch the nose shut lean forward and hold direct pressure for about 20 minutes. If this fails to stop the bleeding or if despite this you still have blood going down the back of her throat then come back to the emergency room. Otherwise, call Dr. Johnston on Wednesday to make an appointment for follow-up. All discharge instructions reviewed with patient and/or family. Voiced understanding. Copy Copies To 1: VAMSI JOHNSTON MD, PETER J APRN August 20, 2017 20:22
[2017-08-20] MEDS ORDERED: PHENYLEPHRINE 0.5% NASAL SPR (NEO-SYNEPHRINE) REG ONE (20:30)
[2017-08-20 21:30] VITALS: BP 168/108
[2017-09-05] MEDS ORDERED: HYDR-3812 PO (09:43)
[2017-09-05] MEDS ORDERED: CEPH-507 PO (09:43)
[2017-09-05] MEDS ORDERED: PHEN15SP NS (10:00)
[2017-10-06] MEDS ORDERED: HYDR-3062 PO ×2 (08:58→11:43)
== END 2017-08-20 21:30 | disposition home or self-care (01) ==
LOC: EDUNIT# 19:57 → ER 19:58
DX: R04.0 Epistaxis (principal); K21.9 Gastro-esophageal reflux disease without esophagitis; I10 Essential (primary) hypertension; Z87.81 Personal history of (healed) traumatic fracture; Z85.6 Personal history of leukemia; Z90.49 Acquired absence of other specified parts of digestive tract; Z87.891 Personal history of nicotine dependence; Z79.82 Long term (current) use of aspirin; Z88.7 Allergy status to serum and vaccine
CPT/HCPCS: 30901; 30905; 96360

== ENCOUNTER 2017-10-04 12:55 | Outpatient (CLI) | payer MEDICARE ==
[~2017-10-04] VITALS: Ht 185.4 cm; Wt 97.1 kg
[~2017-10-04 12:55] MED LIST changes: +CEPH-507 PO; +HYDR-3812 PO; +PHEN15SP NS
[2017-10-04 13:06] VITALS: BP 151/62
[2017-10-04] MEDS ORDERED: METO-352 PO (13:09)
== END 2017-10-04 13:20 | disposition home or self-care (01) ==
LOC: PREOP 12:55
PROVIDERS: ATTEND Orthopaedic Surgery
DX: Z01.818 Encounter for other preprocedural examination (principal)
CPT/HCPCS: 87081

== ENCOUNTER 2017-10-06 08:53 | Day surgery (SDC) | payer MEDICARE ==
--- NOTE | 2017-10-01 11:53 | HISTORY AND PHYSICAL ---
DATE OF SERVICE: 10/06/2017 REASON FOR CONSULTATION: Right knee arthroscopy. HISTORY OF PRESENT ILLNESS: The patient is an 82-year-old gentleman with complaints of right knee pain, catching, locking and swelling. He has undergone treatment with injections as well as activity modifications and anti-inflammatories. He reports activity limitations because of the knee. An MRI revealed medial and lateral meniscal tears as well as loose bodies and due to functional impairment and failure to improve with conservative measures, the patient elected to proceed with surgical intervention. REVIEW OF SYSTEMS: No chest pain, no shortness of breath. No dysuria. PAST MEDICAL HISTORY: CLM and hypertension. PAST SURGICAL HISTORY: Appendectomy, cholecystectomy, left ankle ORIF, bilateral cataract excision left thumb and dental. SOCIAL HISTORY: The patient drinks alcohol socially. Denies tobacco use. FAMILY HISTORY: Significant for cancer. PRIMARY CARE PROVIDER: Fartun Baez DO. MEDICATIONS: Tasigna, Avapro, Norvasc, calcium, aspirin, Zantac, tamsulosin, timolol and hydrocodone. ALLERGIES: No known drug allergies. PHYSICAL EXAMINATION: GENERAL: The patient is well-developed, well-nourished in no acute distress. HEENT: Normocephalic, atraumatic. Pupils are equal, round, reactive. Oropharynx is clear. NECK: Supple. No lymphadenopathy. LUNGS: Clear to auscultation bilaterally. HEART: Regular rate and rhythm. ABDOMEN: Soft, nontender, nondistended. EXTREMITIES: The right knee demonstrates a moderate effusion. He is tender along his medial and lateral joint lines. He has pain medially with Grecia, no varus valgus laxity, negative anterior and posterior drawer. He has pain laterally with hyperflexion. The patient ambulates with an antalgic gait. IMPRESSION: Right knee medial and lateral meniscal tears with associated loose bodies. PLAN: Right knee arthroscopy with partial medial and lateral meniscectomies and chondroplasty with possible loose body removal. The risks, benefits of operative ramifications and recovery were discussed at length with the patient. He understands and wishes to proceed. Job ID: [id number] DocumentID: [id number] Dictated Date: 10/01/2017 10:44:23 Wood Strip Block Floor Installer Date: 10/01/2017 11:52:42 Dictated By: VAMSI VANN MD
[~2017-10-06] VITALS: Ht 185.4 cm; Wt 97.1 kg
[2017-10-06 08:00] VITALS: BP 158/72
[~2017-10-06 08:53] MED LIST changes: +LACTATED RINGERS 1,000 ML IV PRN; +METO-352 PO; +ceFAZolin INJECTION 1,000 MG in NS (IVPB) 50 ML IV ONE
--- NOTE | 2017-10-06 08:54 | Progress Note-Pre Operative ---
Pre-Operative Progress Note H&P Reviewed The H&P was reviewed, patient examined and no changes noted. 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
[2017-10-06] MEDS ORDERED: morphine PF (DURAMORPH) 10 MG/10 ML AMP ONE (08:56)
[2017-10-06] MEDS ORDERED: BUPIVACAINE 0.25% 30 ML (SENSORCAINE) VIAL ONE (08:56)
--- NOTE | 2017-10-06 08:56 | Progress Note-Post Operative ---
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
--- OUTSIDE RECORDS SUMMARY | 2017-10-06 08:57 | XMS REPORT | Clinical Summary ---
Author Author [facility] Organization [facility] Address Unknown Phone Unavailable Care Team Providers Care Nuclear Physicist Name Role Phone Promise Camacho RN Unavailable Unavailable Malena Grullon MD Unavailable Unverified, Unverified PCP Unavailable Source Comments Some departments are not documenting in the electronic medical record. If you do not see the information that you expected, contact Release of Information in the Health Information Management department at [phone] for further assistance in locating additional records.[facility] Allergies Active Allergy Reactions Severity Noted Date Comments Horse/Equine Containing SWELLING 05/24/2009 Tetanus/horse serum Products Current Medications Prescription Sig. Disp. Refills Start End Date Status Date GARLIC OIL PO Take 1 Tab by mouth Every Active Morning. (Pwrs=373 mg) amlodipine (NORVASC) 10 Take 1 Tab [...] mouth At Active Bedtime Daily. (Herbal Pumpkin) (Dcou=033 mg) Herbal Drugs Cap Take 1 Cap [...] Taken Blood Pressure 136/87 06/05/2009 7:00 AM [facility] SPECIALIST Pulse 64 06/05/2009 7:00 AM E[facility] SPECIALIST Temperature 36 C (96.8 F) 06/05/2009 7:00 AM EAP SPECIALIST Respiratory Rate - - Oxygen Saturation 100% 06/05/2009 7:00 AM EAP SPECIALIST Inhaled Oxygen - - Concentration Weight 92.5 kg (204 lb) 05/27/2009 8:07 AM EAP SPECIALIST Height 188 cm (6' 2") 05/27/2009 8:07 AM EAP SPECIALIST Body Mass Index 26.19 05/27/2009 8:07 AM EAP SPECIALIST Plan of Treatment Health Maintenance Due Date Last Done Comments PHYSICAL (COMPREHENSIVE) 1941 EXAM PERTUSSIS VACCINE 1945 TETANUS VACCINE 1951 SHINGLES VACCINE 1994 PNEUMONIA (PCV13/PPSV23) 1999 VACCINES (1 of 2 - PCV13) INFLUENZA VACCINE 01/17/2018 Results Not on filefrom Last 3 Months
[2017-10-06] MEDS ORDERED: HYDR-3062 PO ×2 (08:58→11:43)
--- OUTSIDE RECORDS SUMMARY | 2017-10-06 09:00 | XMS REPORT | Continuity of Care Document ---
Author Author [facility] Organization [facility] Address Unknown Phone Unavailable Allergies Active Description Code Type Severity Reaction Onset Reported/Identified Relationship to Patient Clinical Status Yes HORSE SERUM TETANUS HORSE SERUM TETANUS Mild N/A 10/11/2008 Yes Tetanus Vaccines Toxoid [id number] Drug Allergy Unknown N/A 05/03/2009 Yes Tetanus Vaccines and Toxoid [id number] Drug Allergy Unknown N/A 2009 Medications There [...] NOS 09/27/2011 Ot 414.01 CORONARY ATHEROSCLEROSIS OF [place] CORON 09/27/2011 Ot 427.89 CARDIAC DYSRHYTHMIAS NEC [...] TSANG N Ot V58.69 04/25/2014 ALIYAH BLEDSOE [employer] Ot 205.00 04/25/2014 ALIYAH BLEDSOE S [employer] Ot 585.3 04/25/2014 ALIYAH BLEDSOE S [employer] Ot V58.69 05/14/2014 ALIYAH BLEDSOE S [place] Ot 205.00 05/14/2014 LADI MELISSAJOSE S [place] Ot 585.3 05/14/2014 ALIYAH BLEDSOE S [employer] Ot V58.69 05/17/2014 JULIANA TSANG N Ot 205.00 05/17/2014 JULINAA TSANG N Ot 585.3 05/17/2014 JULIANA TSANG [...] 205.10 07/19/2014 Ot V58.69 07/19/2014 ALIYAH BLEDSOE [employer] Ot 205.10 07/19/2014 ALIYAH BLEDSOE [employer] Ot 585.3 07/19/2014 ALIYAH BLEDSOE [employer] Ot 793.7 07/19/2014 ALIYAH BLEDSOE [employer] Ot V58.69 07/19/2014 MICA CHAMORRO BRAIN PICKER Ot 719.41 07/19/2014 MICA CHAMORRO BRAIN PICKER Ot 723.1 07/19/2014 FAHAD DO, CRYSTAL F Ot 722.4 07/19/2014 FAHAD DO, CRYSTAL F Ot 727.61 07/19/2014 ALIYAH BLEDSOE [employer] Ot 205.10 07/19/2014 ALIYAH BLEDSOE [employer] Ot 536.8 07/19/2014 ALIYAH BLEDSOE [employer] Ot V58.69 07/19/2014 ALIYAH BLEDSOE [employer] Ot 205.10 07/19/2014 ALIYAH BLEDSOE [employer] Ot V58.69 07/19/2014 ALIYAH BLEDSOE [employer] Ot 205.00 07/19/2014 ALIYAH BLEDSOE [employer] Ot 585.3 07/19/2014 ALIYAH BLEDSOE [employer] Ot V58.69 07/19/2014 EMELINA WOODWARD [employer] Ot 724.2 07/19/2014 Ot 724.2 07/19/2014 Ot [...] OREND DO, FARTUN S Ot 785.2 [facility] 794.31 10/02/2014 TRINH, [...] BOBAN N Ot V58.69 05/15/2015 ALIYAH BLEDSOE [employer] Ot C92.10 05/15/2015 ALIYAH BLEDSOE [employer] Ot Z79.899 05/16/2015 ALIYAH BLEDSOE [employer] Ot C92.10 05/16/2015 ALIYAH BLEDSOE [employer] Ot Z79.899 07/01/2015 TRINH BOBAN N Ot C92.10 CHRONIC MYELOID LEUK, BCR/ABL-POSITIVE, 07/01/2015 TRINH, BOBAN N Ot Z79.899 OTHER MACHINIST BENCH (CURRENT) DRUG THERAPY 07/02/2015 TRINH, BOBAN N Ot C92.10 07/02/2015 TRINH, BOBAN N Ot Z79.899 07/05/2015 TRINH, BOBAN N Ot C92.10 07/05/2015 JULIANA TSANG N Ot Z79.899 08/09/2015 JULIANA TSANG Lady Ot C92.10 CHRONIC MYELOID LEUK, BCR/ABL-POSITIVE, 08/09/2015 JULIANA TSANG Ot Z79.899 OTHER MACHINIST BENCH (CURRENT) DRUG THERAPY 08/15/2015 JULIANA TSANG Lady Ot C92.10 CHRONIC MYELOID LEUK, BCR/ABL-POSITIVE, 08/15/2015 JULIANA TSANG Lady Ot Z79.899 OTHER MACHINIST BENCH (CURRENT) DRUG THERAPY 08/15/2015 FARTUN LOVE DO Ot A41.9 SEPSIS, UNSPECIFIED ORGANISM 08/15/2015 FARTUN LOEV DO Ot R65.20 SEVERE SEPSIS WITHOUT SEPTIC SHOCK 08/15/2015 FARTUN LOVE DO Ot C92.90 MYELOID LEUKEMIA, UNSPECIFIED, NOT HAVIN 08/15/2015 FARTUN LOVE DO Ot E78.5 HYPERLIPIDEMIA, UNSPECIFIED 08/15/2015 FARTUN LOVE DO Ot H40.9 UNSPECIFIED GLAUCOMA 08/15/2015 FARTUN LOVE DO S Ot I10 ESSENTIAL (PRIMARY) HYPERTENSION 08/15/2015 FARTUN LOVE DO Ot I25.10 ATHSCL HEART DISEASE OF [place] CORONARY 08/15/2015 FARTUN LOVE DO Ot I34.1 [...] HISTORY OF NICOTINE DEPENDENCE 08/16/2015 CINDI DYER BRAIN PICKER Ot R10.11 RIGHT UPPER QUADRANT PAIN 08/16/2015 CINDI DYER BRAIN PICKER Ot R10.12 LEFT UPPER QUADRANT PAIN 08/16/2015 CINDI DYER BRAIN PICKER Ot R11.0 NAUSEA 08/16/2015 CINDI DYER BRAIN PICKER Ot R14.0 ABDOMINAL DISTENSION (GASEOUS) 08/16/2015 FARTUN LOVE DO Ot C92.90 MYELOID LEUKEMIA, UNSPECIFIED, NOT HAVIN 08/16/2015 FARTUN LOVE DO Ot E78.5 HYPERLIPIDEMIA, UNSPECIFIED 08/16/2015 FARTUN LOVE DO S Ot H40.9 UNSPECIFIED GLAUCOMA 08/16/2015 FARTUN LOVE DO S Ot I10 ESSENTIAL (PRIMARY) HYPERTENSION 08/16/2015 FARTUN LOVE DO Ot I25.10 ATHSCL HEART DISEASE OF [place] CORONARY 08/16/2015 FARTUN LOVE DO Ot I34.1 [...] Kristi Ot I25.10 ATHSCL HEART DISEASE OF [place] CORONARY 08/18/2015 FARTUN LOVE DO Ot I34.1 NONRHEUMATIC MITRAL (VALVE) PROLAPSE 08/18/2015 FRATUN LOVE DO Ot J98.11 ATELECTASIS 08/18/2015 FARTUN [...] HISTORY OF NICOTINE DEPENDENCE 09/04/2015 CINDI DYER BRAIN PICKER Ot R10.11 RIGHT UPPER QUADRANT PAIN 09/04/2015 CINDI DYER BRAIN PICKER Ot R10.12 LEFT UPPER QUADRANT PAIN 09/04/2015 CINDI DYER BRAIN PICKER Ot R11.0 NAUSEA 09/04/2015 CINDI DYER BRAIN PICKER Ot R14.0 ABDOMINAL DISTENSION (GASEOUS) 09/13/2015 CINDI DYER BRAIN PICKER Ot R10.11 RIGHT UPPER QUADRANT PAIN 09/13/2015 CINDI DYER BRAIN PICKER Ot R10.12 LEFT UPPER QUADRANT PAIN 09/13/2015 CINDI DYER BRAIN PICKER Ot R11.0 NAUSEA 09/13/2015 CINDI DYER BRAIN PICKER Ot R14.0 ABDOMINAL DISTENSION (GASEOUS) 10/02/2015 JULIANA TSANG Ot C92.10 CHRONIC MYELOID LEUK, BCR/ABL-POSITIVE, 10/02/2015 JULIANA TSANG Ot Z79.899 OTHER SKILLED NURSING (CURRENT) DRUG THERAPY 10/03/2015 TRINH, BOBAN N Ot C92.10 CHRONIC MYELOID LEUK, BCR/ABL-POSITIVE, 10/03/2015 TRINH, JULIANA N Ot Z79.899 OTHER SKILLED NURSING (CURRENT) DRUG THERAPY 10/04/2015 ALIYAH BLEDSOE [employer] Ot C92.10 CHRONIC MYELOID LEUK, BCR/ABL-POSITIVE, 10/04/2015 ALIYAH BLEDSOE S [employer] Ot Z79.899 OTHER SKILLED NURSING (CURRENT) DRUG THERAPY 10/18/2015 BLEDSOE ALIYAH S [employer] Ot C92.10 CHRONIC MYELOID LEUK, BCR/ABL-POSITIVE, 10/18/2015 BLEDSOE ALIYAH S [employer] Ot Z79.899 OTHER SKILLED NURSING (CURRENT) DRUG THERAPY 10/18/2015 BLEDSOE ALIYAH S [employer] Ot C92.10 CHRONIC MYELOID LEUK, BCR/ABL-POSITIVE, 10/18/2015 BLEDSOE ALIYAH S [employer] Ot Z79.899 OTHER SKILLED NURSING (CURRENT) DRUG THERAPY 11/07/2015 BLEDSOE ALIYAH Berry [employer] Ot C92.10 CHRONIC MYELOID LEUK, BCR/ABL-POSITIVE, 11/07/2015 BLEDSOE ALIYAH S [employer] Ot Z79.899 OTHER SKILLED NURSING (CURRENT) DRUG THERAPY 11/14/2015 ALIYAH BLEDSOE S [employer] Ot C92.10 CHRONIC MYELOID LEUK, BCR/ABL-POSITIVE, 11/14/2015 BLEDSOE ALIYAH S [employer] Ot Z79.899 OTHER SKILLED NURSING (CURRENT) DRUG THERAPY 11/14/2015 ALIYAH BLEDSOE S [employer] Ot C92.10 CHRONIC MYELOID LEUK, BCR/ABL-POSITIVE, 11/14/2015 BLEDSOE ALIYAH S [employer] Ot Z79.899 OTHER MACHINIST BENCH (CURRENT) DRUG THERAPY 11/23/2015 TRINHJULIANA N Ot [...] 11/29/2015 TRINH, BOBAN N Ot Z79.899 OTHER MACHINIST BENCH (CURRENT) DRUG THERAPY 12/06/2015 ALIYAH BLEDSOE [employer] Ot C92.10 CHRONIC MYELOID LEUK, BCR/ABL-POSITIVE, 12/06/2015 ALIYAH BLEDSOE [employer] Ot Z79.899 OTHER SKILLED NURSING (CURRENT) DRUG THERAPY 12/18/2015 TRINH, JULIANA N Ot C92.10 CHRONIC MYELOID LEUK, BCR/ABL-POSITIVE, 12/18/2015 TRINH, BOBAN N Ot Z79.899 OTHER SKILLED NURSING (CURRENT) DRUG THERAPY 01/01/2016 TRINH, RAVENTIMMY N Ot C92.10 CHRONIC MYELOID LE[place], BCR/ABL-POSITIVE, 01/01/2016 TRINH, BOBAN N Ot Z79.899 OTHER MACHINIST BENCH (CURRENT) DRUG THERAPY 01/03/2016 TRINH, BOBTIMMY N Ot C92.10 CHRONIC MYELOID LE[place], BCR/ABL-POSITIVE, 01/03/2016 TRINH, BOBAN N Ot Z79.899 OTHER MACHINIST BENCH (CURRENT) DRUG THERAPY 02/10/2016 TRINH, JULIANA N Ot C92.10 CHRONIC MYELOID LE[place], BCR/ABL-POSITIVE, 02/10/2016 TRINH, BOBAN N Ot Z79.899 OTHER MACHINIST BENCH (CURRENT) DRUG THERAPY 02/13/2016 TRINH, RAVENTIMMY N Ot C92.10 CHRONIC MYELOID LE[place], BCR/ABL-POSITIVE, 02/13/2016 TRINH, BOBAN N Ot Z79.899 OTHER SKILLED NURSING (CURRENT) DRUG THERAPY 04/01/2016 TRINH, BOBAN N Ot C92.10 CHRONIC MYELOID LEUK, BCR/ABL-POSITIVE, 04/01/2016 TRINH, BOBAN N Ot Z79.899 OTHER MACHINIST BENCH (CURRENT) DRUG THERAPY 04/10/2016 TRINH, BOBAN N Ot C92.10 CHRONIC MYELOID LE[place], BCR/ABL-POSITIVE, 04/10/2016 TRINH, BOBAN N Ot Z79.899 OTHER MACHINIST BENCH (CURRENT) DRUG THERAPY 05/12/2016 TRINH, BOBAN N Ot C92.10 CHRONIC MYELOID LEUK, BCR/ABL-POSITIVE, 05/12/2016 TRINHJULIANA N Ot Z79.899 OTHER SKILLED NURSING (CURRENT) DRUG THERAPY 06/18/2016 JULIANA TSANG N Ot C92.10 CHRONIC MYELOID LEUK, BCR/ABL-POSITIVE, 06/18/2016 TRINH, JULIANA N Ot Z79.899 OTHER SKILLED NURSING (CURRENT) DRUG THERAPY 07/08/2016 TRINH, JULIANA N Ot C92.10 CHRONIC MYELOID LEUK, BCR/ABL-POSITIVE, 07/08/2016 TRINH, BOBAN N Ot Z79.899 OTHER SKILLED NURSING (CURRENT) DRUG THERAPY 07/09/2016 TRINH, JULIANA N Ot C92.10 CHRONIC MYELOID LEUK, BCR/ABL-POSITIVE, 07/09/2016 TRINH, BOBTIMMY N Ot Z79.899 OTHER SKILLED NURSING (CURRENT) DRUG THERAPY 07/10/2016 JULIANA TSANG N Ot C92.10 CHRONIC MYELOID LE[place], BCR/ABL-POSITIVE, 07/10/2016 TRINH, JULIANA N Ot Z79.899 OTHER SKILLED NURSING (CURRENT) DRUG THERAPY 07/31/2016 Ot 288.60 LEUKOCYTOSIS [...] DISEASE, STAGE III (MODER 07/31/2016 ALIYAH BLEDSOE [employer] Ot 793.7 NOSP (ABN) FINDINGS ON RADIOLOGICAL OT 07/31/2016 ALIYAH BLEDSOEP Ot V58.69 OTH MED,LT,CURRENT USE 07/31/2016 MICA CHAMORRO APRN Ot 719.41 JOINT PAIN-SHLDER 07/31/2016 MICA CHAMORRO BRAIN PICKER Ot 723.1 CERVICALGIA 07/31/2016 CRYSTAL VÁSQUEZ DO Ot 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 CERVICAL DISC DEGEN 07/31/2016 CRYSTAL VÁSQUEZ DO Ot 727.61 ROTATOR CUFF RUPTURE 07/31/2016 ALIYAH BLEDSOE [employer] Ot 205.10 CHRONIC MYELOID LEUKEMIA, 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 07/31/2016 ALIYAH BLEDSOEP Ot 536.8 STOMACH FUNCTION DIS NEC 07/31/2016 ALIYAH BLEDSOEP Ot V58.69 OTH MED,LT,CURRENT USE 07/31/2016 ALIYAH BLEDSOE [employer] Ot 205.10 CHRONIC MYELOID LEUKEMIA, 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 07/31/2016 ALIYAH BLEDSOEP Ot V58.69 OTH MED,LT,CURRENT USE 07/31/2016 ALIYAH BLEDSOE [employer] Ot 205.00 ACUTE MYELOID LEUKEMIA, 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HI 07/31/2016 ALIYAH BLEDSOEP Ot 585.3 CHRONIC KIDNEY DISEASE, STAGE III (MODER 07/31/2016 ALIYAH BLEDSOE [employer] Ot V58.69 OTH MED,LT,CURRENT USE 07/31/2016 EMELINA WOODWARD [employer] Ot 724.2 LUMBAGO 07/31/2016 Ot 724.2 LUMBAGO 07/31/2016 Ot 724.4 LUMBOSACRAL NEURITIS NOS 07/31/2016 FARTUN LOVE DO S Ot 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 07/31/2016 FARTUN LOVE DO S Ot 785.2 CARDIAC MURMURS NEC 07/31/2016 BARBIE LOVE DOLINE S Ot 794.31 ABNORM ELECTROCARDIOGRAM 07/31/2016 ALIYAH BLEDSOE [employer] Ot C92.10 CHRONIC MYELOID LEUK, BCR/ABL-POSITIVE, 07/31/2016 ALIYAH BLEDSOE [employer] Ot Z79.899 OTHER MACHINIST BENCH (CURRENT) DRUG THERAPY 07/31/2016 CINDI DYER BRAIN PICKER Ot R10.11 RIGHT UPPER QUADRANT PAIN 07/31/2016 CINDI DYER BRAIN PICKER Ot R10.12 LEFT UPPER QUADRANT PAIN 07/31/2016 MANISHA, CINDI N BRAIN PICKER Ot R11.0 NAUSEA 07/31/2016 CINDI DYER N BRAIN PICKER Ot R14.0 ABDOMINAL DISTENSION (GASEOUS) 07/31/2016 ALIYAH BLEDSOE [employer] Ot C92.10 CHRONIC MYELOID LEUK, BCR/ABL-POSITIVE, 07/31/2016 ALIYAH BLEDSOE Kristi [employer] Ot Z79.899 OTHER MACHINIST BENCH (CURRENT) DRUG THERAPY 07/31/2016 TRINH, JULIANA Narayanan Ot C92.10 CHRONIC MYELOID LEUK, BCR/ABL-POSITIVE, 07/31/2016 TRINHJULIANA Ot I12.9 HYPERTENSIVE CHRONIC KIDNEY DISEASE W ST 07/31/2016 TRINHJULIANA Ot I25.10 ATHSCL HEART DISEASE OF [place] CORONARY 07/31/2016 JULIANA TSANG Ot N18.3 CHRONIC KIDNEY DISEASE, STAGE 3 (MODERAT 07/31/2016 JULIANA TSANG N Ot Z79.899 OTHER SKILLED NURSING (CURRENT) DRUG THERAPY 07/31/2016 LESLEY BONILLA, AVEL [...] AND FIBROSIS OF SKIN 08/28/2016 CARLO SUMMERS [employer] Ot I10 ESSENTIAL (PRIMARY) HYPERTENSION 08/28/2016 CARLO SUMMERS [employer] Ot I25.10 ATHSCL HEART DISEASE OF [place] CORONARY 08/28/2016 CARLO SUMMERS [employer] Ot I73.9 PERIPHERAL VASCULAR DISEASE, UNSPECIFIED 08/28/2016 CARLO SUMMERS [employer] Ot N18.3 CHRONIC KIDNEY DISEASE, STAGE 3 (MODERAT 09/01/2016 CARLO SUMMERS [employer] Ot I73.9 PERIPHERAL VASCULAR DISEASE, UNSPECIFIED 09/01/2016 CARLO SUMMERS [employer] Ot I73.9 PERIPHERAL VASCULAR DISEASE, UNSPECIFIED 09/02/2016 KRISTOPHER, CARLO L [employer] Ot I10 ESSENTIAL (PRIMARY) HYPERTENSION 09/02/2016 BAIMA, CARLO L [employer] Ot I25.10 ATHSCL HEART DISEASE OF [place] CORONARY 09/02/2016 BAIMA, CARLO L [employer] Ot I73.9 PERIPHERAL VASCULAR DISEASE, UNSPECIFIED 09/02/2016 BAIMA, CARLO L [employer] Ot N18.3 CHRONIC KIDNEY DISEASE, STAGE 3 (MODERAT 09/07/2016 BAIMA, CARLO L [employer] Ot I12.9 HYPERTENSIVE CHRONIC KIDNEY DISEASE W ST 09/07/2016 BAIMA, CARLO L [employer] Ot I25.10 ATHSCL HEART DISEASE OF [place] CORONARY 09/07/2016 BAIMA, CARLO L [employer] Ot I73.9 PERIPHERAL VASCULAR DISEASE, UNSPECIFIED 09/07/2016 BAIMA, CARLO L [employer] Ot N18.3 CHRONIC KIDNEY DISEASE, STAGE 3 (MODERAT 09/15/2016 TRINHJULIANA ANTOINE N Ot C92.10 CHRONIC MYELOID LEUK, BCR/ABL-POSITIVE, 09/15/2016 TRINHJULIANA ANTOINE N Ot I12.9 HYPERTENSIVE CHRONIC KIDNEY DISEASE W ST 09/15/2016 TRINHJULIANA ANTOINE N Ot I25.10 ATHSCL HEART DISEASE OF [place] CORONARY 09/15/2016 JULIANA TSANG N Ot N18.3 CHRONIC KIDNEY DISEASE, STAGE 3 (MODERAT 09/15/2016 JULIANA TSANG N Ot Z79.899 OTHER MACHINIST BENCH (CURRENT) DRUG THERAPY 09/17/2016 MALIKJEAN PIERRE, CARLO L [employer] Ot I10 ESSENTIAL (PRIMARY) HYPERTENSION 09/17/2016 MALIKJEAN PIERRE CARLO L [employer] Ot I25.10 ATHSCL HEART DISEASE OF [place] CORONARY 09/17/2016 MALIKJEAN PIERRE CARLO L [employer] Ot I73.9 PERIPHERAL VASCULAR DISEASE, UNSPECIFIED 09/17/2016 BAIJEAN PIERRE, CARLO L [employer] Ot N18.3 CHRONIC KIDNEY DISEASE, STAGE 3 (MODERAT 09/22/2016 JULIANA TSANG N Ot C92.10 CHRONIC MYELOID LEUK, BCR/ABL-POSITIVE, 09/22/2016 TRINHJULIANA ANTOINE N Ot I12.9 HYPERTENSIVE CHRONIC KIDNEY DISEASE W ST 09/22/2016 JULIANA TSANG N Ot I25.10 ATHSCL HEART DISEASE OF [place] CORONARY 09/22/2016 TRINH, BOBAN N Ot N18.3 CHRONIC KIDNEY DISEASE, STAGE 3 (MODERAT 09/22/2016 TRINH, BOBAN N Ot Z79.899 OTHER MACHINIST BENCH (CURRENT) DRUG THERAPY 09/28/2016 BAIMA, CARLO L [employer] Ot I10 ESSENTIAL (PRIMARY) HYPERTENSION 09/28/2016 BAIMA, CARLO L [employer] Ot I25.10 ATHSCL HEART DISEASE OF [place] CORONARY 09/28/2016 BAIMA, CARLO L [employer] Ot I73.9 PERIPHERAL VASCULAR DISEASE, UNSPECIFIED 09/28/2016 BAIMA, CARLO L [employer] Ot N18.3 CHRONIC KIDNEY DISEASE, STAGE 3 (MODERAT 09/28/2016 BAIMA, CARLO L [employer] Ot I12.9 HYPERTENSIVE CHRONIC KIDNEY DISEASE W ST 09/28/2016 BAIMA, CARLO L [employer] Ot I25.10 ATHSCL HEART DISEASE OF [place] CORONARY 09/28/2016 BAIMA, CARLO L [employer] Ot I73.9 PERIPHERAL VASCULAR DISEASE, UNSPECIFIED 09/28/2016 BAIMA, CARLO L [employer] Ot N18.3 CHRONIC KIDNEY DISEASE, STAGE 3 (MODERAT 09/30/2016 BAIMA, CARLO L [employer] Ot I12.9 HYPERTENSIVE CHRONIC KIDNEY DISEASE W ST 09/30/2016 BAIMA, CARLO L [employer] Ot I25.10 ATHSCL HEART DISEASE OF [place] CORONARY 09/30/2016 BAIMA, CARLO L [employer] Ot I73.9 PERIPHERAL VASCULAR DISEASE, UNSPECIFIED 09/30/2016 BAIMA, CARLO L [employer] Ot N18.3 CHRONIC KIDNEY DISEASE, STAGE 3 (MODERAT 10/07/2016 TRINH, BOBAN N Ot C92.10 CHRONIC MYELOID LEUK, BCR/ABL-POSITIVE, 10/07/2016 TRINH, BOBAN N Ot I12.9 HYPERTENSIVE CHRONIC KIDNEY DISEASE W ST 10/07/2016 TRINH, BOBAN N Ot I25.10 ATHSCL HEART DISEASE OF [place] CORONARY 10/07/2016 TRINH, BOBAN N Ot N18.3 CHRONIC KIDNEY DISEASE, STAGE 3 (MODERAT 10/07/2016 TRINH, BOBAN N Ot Z79.899 OTHER SKILLED NURSING (CURRENT) DRUG THERAPY 10/28/2016 TRINH, BOBAN N Ot C92.10 CHRONIC MYELOID LEUK, BCR/ABL-POSITIVE, 10/28/2016 TRINH, BOBAN N Ot I12.9 HYPERTENSIVE CHRONIC KIDNEY DISEASE W ST 10/28/2016 TRINH, BOBAN N Ot I25.10 ATHSCL HEART DISEASE OF [place] CORONARY 10/28/2016 TRINHJULIANA ANTOINE N Ot N18.3 CHRONIC KIDNEY DISEASE, STAGE 3 (MODERAT 10/28/2016 TRINH, BOBAN N Ot Z79.899 OTHER SKILLED NURSING (CURRENT) DRUG THERAPY 01/16/2017 TRINH, BOBAN N Ot C92.10 CHRONIC MYELOID LEUK, BCR/ABL-POSITIVE, 01/16/2017 TRINH, BOBAN N Ot I12.9 HYPERTENSIVE CHRONIC KIDNEY DISEASE W ST 01/16/2017 TRINH, BOBAN N Ot I25.10 ATHSCL HEART DISEASE OF [place] CORONARY 01/16/2017 TRINH, BOBAN N Ot N18.3 CHRONIC KIDNEY DISEASE, STAGE 3 (MODERAT 01/16/2017 TRINH, BOBAN N Ot Z79.899 OTHER MACHINIST BENCH (CURRENT) DRUG THERAPY 02/22/2017 TRINH, BOBTIMMY N Ot C92.10 CHRONIC MYELOID LEUK, BCR/ABL-POSITIVE, 02/22/2017 TRINH, BOBAN N Ot I12.9 HYPERTENSIVE CHRONIC KIDNEY DISEASE W ST 02/22/2017 TRINH, BOBAN N Ot I25.10 ATHSCL HEART DISEASE OF [place] CORONARY 02/22/2017 TRINH, BOBTIMMY N Ot N18.3 CHRONIC KIDNEY DISEASE, STAGE 3 (MODERAT 02/22/2017 TRINH, BOBAN N Ot Z79.899 OTHER MACHINIST BENCH (CURRENT) DRUG THERAPY 03/15/2017 TRINHJULIANA ANTOINE N Ot C92.10 CHRONIC MYELOID LEUK, BCR/ABL-POSITIVE, 03/15/2017 TRINH BOBAN N Ot I12.9 HYPERTENSIVE CHRONIC KIDNEY DISEASE W ST 03/15/2017 TRINH BOBAN N Ot I25.10 ATHSCL HEART DISEASE OF [place] CORONARY 03/15/2017 TRINHRAVENAN N Ot N18.3 CHRONIC KIDNEY DISEASE, STAGE 3 (MODERAT 03/15/2017 TRINH, BOBAN N Ot Z79.899 OTHER SKILLED NURSING (CURRENT) DRUG THERAPY 03/18/2017 TRINH, BOBAN N Ot C92.10 CHRONIC MYELOID LEUK, BCR/ABL-POSITIVE, 03/18/2017 TRINH, BOBAN N Ot I12.9 HYPERTENSIVE CHRONIC KIDNEY DISEASE W ST 03/18/2017 TRINH, BOBAN N Ot I25.10 ATHSCL HEART DISEASE OF [place] CORONARY 03/18/2017 TRINH, BOBAN N Ot N18.3 CHRONIC KIDNEY DISEASE, STAGE 3 (MODERAT 03/18/2017 TRINH, BOBAN N Ot Z79.899 OTHER MACHINIST BENCH (CURRENT) DRUG THERAPY 04/27/2017 TRINH, BOBAN N Ot C92.10 CHRONIC MYELOID LEUK, BCR/ABL-POSITIVE, 04/27/2017 TRINH, BOBAN N Ot I12.9 HYPERTENSIVE CHRONIC KIDNEY DISEASE W ST 04/27/2017 TRINH, BOBAN N Ot I25.10 ATHSCL HEART DISEASE OF [place] CORONARY 04/27/2017 TRINH, BOBAN N Ot N18.3 CHRONIC KIDNEY DISEASE, STAGE 3 (MODERAT 04/27/2017 TRINH, BOBAN N Ot Z79.899 OTHER SKILLED NURSING (CURRENT) DRUG THERAPY 06/09/2017 TRINH, BOBAN N Ot C92.10 CHRONIC MYELOID LEUK, BCR/ABL-POSITIVE, 06/09/2017 TRINH, BOBAN N Ot I12.9 HYPERTENSIVE CHRONIC KIDNEY DISEASE W ST 06/09/2017 TRINH, BOBAN N Ot I25.10 ATHSCL HEART DISEASE OF [place] CORONARY 06/09/2017 TRINH, BOBAN N Ot N18.3 CHRONIC KIDNEY DISEASE, STAGE 3 (MODERAT 06/09/2017 TRINH, BOBAN N Ot Z79.899 OTHER MACHINIST BENCH (CURRENT) DRUG THERAPY 06/10/2017 TRINH, BOBAN N Ot C92.10 CHRONIC MYELOID LEUK, BCR/ABL-POSITIVE, 06/10/2017 TRINH, BOBAN N Ot I12.9 HYPERTENSIVE CHRONIC KIDNEY DISEASE W ST 06/10/2017 TRINH, BOBAN N Ot I25.10 ATHSCL HEART DISEASE OF [place] CORONARY 06/10/2017 TRINH, BOBAN N Ot N18.3 CHRONIC KIDNEY DISEASE, STAGE 3 (MODERAT 06/10/2017 TRINH, BOBAN N Ot Z79.899 OTHER SKILLED NURSING (CURRENT) DRUG THERAPY 07/27/2017 TRINH, BOBAN N Ot C92.10 CHRONIC MYELOID LEUK, BCR/ABL-POSITIVE, 07/27/2017 TRINH, BOBAN N Ot I12.9 HYPERTENSIVE CHRONIC KIDNEY DISEASE W ST 07/27/2017 TRINH, BOBAN N Ot I25.10 ATHSCL HEART DISEASE OF [place] CORONARY 07/27/2017 JULIANA TSANG Lady Ot N18.3 CHRONIC KIDNEY DISEASE, STAGE 3 (MODERAT 07/27/2017 TRINHJULIANA ANTOINE Lady Ot Z79.899 OTHER SKILLED NURSING (CURRENT) DRUG THERAPY 07/28/2017 JULIANA TSANG Lady Ot C92.10 CHRONIC MYELOID LEUK, BCR/ABL-POSITIVE, 07/28/2017 TRINH, RAVENTIMMY Lady Ot I12.9 HYPERTENSIVE CHRONIC KIDNEY DISEASE W ST 07/28/2017 JULIANA TSANG Lady Ot I25.10 ATHSCL HEART DISEASE OF [place] CORONARY 07/28/2017 JULIANA TSANG Lady Ot N18.3 CHRONIC KIDNEY DISEASE, STAGE 3 (MODERAT 07/28/2017 JULIANA TSANG Lady Ot Z79.899 OTHER MACHINIST BENCH (CURRENT) DRUG THERAPY 08/20/2017 GREGORY FISHER APRN Ot I10 ESSENTIAL (PRIMARY) HYPERTENSION 08/20/2017 GREGORY FISHER APRN Ot K21.9 GASTRO-ESOPHAGEAL REFLUX DISEASE WITHOUT 08/20/2017 GREGORY FISHER APRN Ot R04.0 EPISTAXIS 08/20/2017 GREGORY FISHER APRN Ot Z79.82 SKILLED NURSING (CURRENT) USE OF ASPIRIN 08/20/2017 GREGORY FISHER APRN Ot Z85.6 PERSONAL HISTORY OF LEUKEMIA 08/20/2017 GREGORY FISHER APRN Ot Z87.81 PERSONAL HISTORY OF (HEALED) TRAUMATIC F 08/20/2017 GREGORY FISHER APRN Ot Z87.891 PERSONAL HISTORY OF NICOTINE DEPENDENCE 08/20/2017 GREGORY FISHER APRN Ot Z88.7 ALLERGY STATUS TO SERUM AND VACCINE STAT 08/20/2017 GREGORY FISHER APRN Ot Z90.49 ACQUIRED ABSENCE OF OTHER SPECIFIED PART 08/23/2017 GREGORY FISHER APRN Ot I10 ESSENTIAL (PRIMARY) HYPERTENSION 08/23/2017 GREGORY FISHER APRN Ot K21.9 GASTRO-ESOPHAGEAL REFLUX DISEASE WITHOUT 08/23/2017 GREGORY FISHER APRN Ot R04.0 EPISTAXIS 08/23/2017 GREGORY FISHER APRN Ot Z79.82 SKILLED NURSING (CURRENT) USE OF ASPIRIN 08/23/2017 GREGORY FISHER APRN Ot Z85.6 PERSONAL HISTORY OF LEUKEMIA 08/23/2017 GREGORY FISHER APRN Ot Z87.81 PERSONAL HISTORY OF (HEALED) TRAUMATIC F 08/23/2017 GREGORY FISHER APRN Ot Z87.891 PERSONAL HISTORY OF NICOTINE DEPENDENCE 08/23/2017 GREGORY FISHER APRN Ot Z88.7 ALLERGY STATUS TO SERUM AND VACCINE STAT 08/23/2017 GREGORY FISHER APRN Ot Z90.49 ACQUIRED ABSENCE OF OTHER SPECIFIED PART 08/24/2017 GREGORY FISHER APRN Ot I10 ESSENTIAL (PRIMARY) HYPERTENSION 08/24/2017 GREGORY FISHER APRN Ot K21.9 GASTRO-ESOPHAGEAL REFLUX DISEASE WITHOUT 08/24/2017 GREGORY FISHER APRN Ot R04.0 EPISTAXIS 08/24/2017 GREGORY FISHER APRN Ot Z79.82 MACHINIST BENCH (CURRENT) USE OF ASPIRIN 08/24/2017 GREGORY FISHER APRN Ot Z85.6 PERSONAL HISTORY OF LEUKEMIA 08/24/2017 GREGORY FISHER APRN Ot Z87.81 PERSONAL HISTORY OF (HEALED) TRAUMATIC F 08/24/2017 GREGORY FISHER APRN Ot Z87.891 PERSONAL HISTORY OF NICOTINE DEPENDENCE 08/24/2017 GREGORY FISHER APRN Ot Z88.7 ALLERGY STATUS TO SERUM AND VACCINE STAT 08/24/2017 GREGORY FISHER APRN Ot Z90.49 ACQUIRED ABSENCE OF OTHER SPECIFIED PART 08/24/2017 SOO BONILLA, VAMSI Chopra Ot M17.11 UNILATERAL PRIMARY OSTEOARTHRITIS, RIGHT 08/24/2017 VAMSI VANN MD Ot S83.241A OTH TEAR OF MEDIAL MENISCUS, CURRENT INJ 08/24/2017 VAMSI VANN MD Ot S83.281A OTH TEAR OF LAT MENSC, CURRENT INJURY, R 08/26/2017 GREGORY FISHER APRN Ot I10 ESSENTIAL (PRIMARY) HYPERTENSION 08/26/2017 GREGORY FISHER APRN Ot K21.9 GASTRO-ESOPHAGEAL REFLUX DISEASE WITHOUT 08/26/2017 GREGORY FISHER APRN Ot R04.0 EPISTAXIS 08/26/2017 GREGORY FISHER APRN Ot Z79.82 MACHINIST BENCH (CURRENT) USE OF ASPIRIN 08/26/2017 GREGORY FISHER APRN Ot Z85.6 PERSONAL HISTORY OF LEUKEMIA 08/26/2017 GREGORY FISHER APRN Ot Z87.81 PERSONAL HISTORY OF (HEALED) TRAUMATIC F 08/26/2017 GREGORY FISHER BRAIN PICKER Ot Z87.891 PERSONAL HISTORY OF NICOTINE DEPENDENCE 08/26/2017 GREGORY FISHER BRAIN PICKER Ot Z88.7 ALLERGY STATUS TO SERUM AND VACCINE STAT 08/26/2017 GREGORY FISHER BRAIN PICKER Ot Z90.49 ACQUIRED ABSENCE OF OTHER SPECIFIED PART 09/01/2017 VAMSI VANN MD Ot M17.11 UNILATERAL PRIMARY OSTEOARTHRITIS, RIGHT 09/01/2017 VAMSI VANN MD Ot S83.241A OTH TEAR OF MEDIAL MENISCUS, CURRENT INJ 09/01/2017 VAMSI VANN MD Ot S83.281A OTH TEAR OF LAT MENSC, CURRENT INJURY, R 09/05/2017 VAMSI WHITE MD Ot C92.10 CHRONIC MYELOID LEUK, BCR/ABL-POSITIVE, 09/05/2017 VAMSI WHITE MD Ot I10 ESSENTIAL (PRIMARY) HYPERTENSION 09/05/2017 VAMSI WHITE MD Ot K21.9 GASTRO-ESOPHAGEAL REFLUX DISEASE WITHOUT 09/05/2017 VAMSI WHITE MD Ot R04.0 EPISTAXIS 09/05/2017 VAMSI WHITE MD Ot Z79.82 SKILLED NURSING (CURRENT) USE OF ASPIRIN 09/05/2017 VAMSI WHITE MD Ot Z79.899 OTHER SKILLED NURSING (CURRENT) DRUG THERAPY 09/05/2017 VAMSI WHITE MD Ot Z87.891 PERSONAL HISTORY OF NICOTINE DEPENDENCE 09/07/2017 VAMSI WHITE MD Ot C92.10 CHRONIC MYELOID LEUK, BCR/ABL-POSITIVE, 09/07/2017 VAMSI WHITE MD Ot I10 ESSENTIAL (PRIMARY) HYPERTENSION 09/07/2017 VAMSI WHITE MD Ot K21.9 GASTRO-ESOPHAGEAL REFLUX DISEASE WITHOUT 09/07/2017 VAMSI WHITE MD Ot R04.0 EPISTAXIS 09/07/2017 VAMSI WHITE MD Ot Z79.82 MACHINIST BENCH (CURRENT) USE OF ASPIRIN 09/07/2017 VAMSI WHITE MD Ot Z79.899 OTHER MACHINIST BENCH (CURRENT) DRUG THERAPY 09/07/2017 VAMSI WHITE MD Ot Z87.891 PERSONAL HISTORY OF NICOTINE DEPENDENCE 09/08/2017 VAMSI WHITE MD Ot C92.10 CHRONIC MYELOID LEUK, BCR/ABL-POSITIVE, 09/08/2017 VAMSI WHITE MD Ot I10 ESSENTIAL (PRIMARY) HYPERTENSION 09/08/2017 VAMSI WHITE MD, Ot K21.9 GASTRO-ESOPHAGEAL REFLUX DISEASE WITHOUT 09/08/2017 VAMSI WHITE MD, Ot R04.0 EPISTAXIS 09/08/2017 VAMSI WHITE MD, Ot Z79.82 MACHINIST BENCH (CURRENT) USE OF ASPIRIN 09/08/2017 VAMSI WHITE MD, Ot Z79.899 OTHER MACHINIST BENCH (CURRENT) DRUG THERAPY 09/08/2017 VAMSI WHITE MD, Ot Z87.891 PERSONAL HISTORY OF NICOTINE DEPENDENCE Procedures Code Description Performed By Performed On 37.22 LEFT HEART CARDIAC CATH 09/26/2011 88.53 LT HEART ANGIOCARDIOGRAM 09/26/2011 88.56 CORONAR ARTERIOGR-2 CATH 09/26/2011 [id number] RESECTION OF GALLBLADDER, PERCUTANEOUS E 08/16/2015 Results [...] molecular genetics method (number/volume) See Report NRG Complete blood count (CBC) with automated white blood cell (WBC) differential - 09/05/17 02:07 Blood leukocytes automated count (number/volume) 9.5 10*3/uL 4.3-11.0 Blood erythrocytes automated count (number/volume) 4.52 10*6/uL 4.35-5.85 Venous blood hemoglobin measurement (mass/volume) 13.2 g/dL 13.3-17.7 Blood hematocrit (volume fraction) 39 % 40-54 Automated erythrocyte mean corpuscular volume 85 [foz_us] 80-99 Automated erythrocyte mean corpuscular hemoglobin (mass per erythrocyte) 29 pg 25-34 Automated erythrocyte mean corpuscular hemoglobin concentration measurement ( mass/volume) 34 g/dL 32-36 Automated erythrocyte distribution width ratio 15.5 % 10.0-14.5 Automated blood platelet count (count/volume) 283 10*3/uL 130-400 Automated blood platelet mean volume measurement 10.0 [foz_us] 7.4-10.4 Automated blood neutrophils/100 leukocytes 64 % 42-75 Automated blood lymphocytes/100 leukocytes 22 % 12-44 Blood monocytes/100 leukocytes 10 % 0-12 Automated blood eosinophils/100 leukocytes 4 % 0-10 Automated blood basophils/100 leukocytes 0 % 0-10 Blood neutrophils automated count (number/volume) 6.0 10*3 1.8-7.8 Blood lymphocytes automated count (number/volume) 2.1 10*3 1.0-4.0 Blood monocytes automated count (number/volume) 1.0 10*3 0.0-1.0 Automated eosinophil count 0.4 10*3/uL 0.0-0.3 Automated blood basophil count (count/volume) 0.0 10*3/uL 0.0-0.1 PT panel in platelet poor plasma by coagulation assay - 09/05/17 02:07 Prothrombin time (PT) in platelet poor plasma by coagulation assay 13.5 s 12.2-14.7 INR in platelet poor plasma or blood by coagulation assay 1.0 0.8-1.4 Activated partial thromboplastin time (aPTT) in platelet poor plasma bycoagulation assay - 09/05/17 02:07 Activated partial thromboplastin time (aPTT) in platelet poor plasma bycoagulation assay 31 s 24-35 Comprehensive metabolic panel - 09/05/17 02:07 Serum or plasma sodium measurement (moles/volume) 141 mmol/L 135-145 Serum or plasma potassium measurement (moles/volume) 4.1 mmol/L 3.6-5.0 Serum or plasma chloride measurement (moles/volume) 109 mmol/L 98-107 Carbon dioxide 22 mmol/L 21-32 Serum or plasma anion gap determination (moles/volume) 10 mmol/L 5-14 Serum or plasma urea nitrogen measurement (mass/volume) 13 mg/dL 7-18 Serum or plasma creatinine measurement (mass/volume) 0.89 mg/dL 0.60-1.30 Serum or plasma urea nitrogen/creatinine mass ratio 15 NRG Serum or plasma creatinine measurement with calculation of estimated glomerular filtration rate > NRG Serum or plasma glucose measurement (mass/volume) 98 mg/dL 70-105 Serum or plasma calcium measurement (mass/volume) 9.6 mg/dL 8.5-10.1 Serum or plasma total bilirubin measurement (mass/volume) 0.7 mg/dL 0.1-1.0 Serum or plasma alkaline phosphatase measurement (enzymatic activity/volume) 74 U/L 40-136 Serum or plasma aspartate aminotransferase measurement (enzymatic activity/ volume) 51 U/L 5-34 Serum or plasma alanine aminotransferase measurement (enzymatic activity/volume ) 53 U/L 0-55 Serum or plasma protein measurement (mass/volume) 7.1 g/dL 6.4-8.2 Serum or plasma albumin measurement (mass/volume) 3.7 g/dL 3.2-4.5 Methicillin resistant Staphylococcus aureus (MRSA) screening culture - 03:25 Methicillin resistant Staphylococcus aureus (MRSA) screening culture NEG NRG Encounters ACCT No. Visit Date/Time Discharge Status Pt. Type Provider Facility Loc./Unit Complaint [id number] 09/05/2017 02:10:00 09/05/2017 11:10:00 DIS Outpatient VAMSI WHITE MD [facility] SDC RECURRANT EPISTAXIS [id number] 08/20/2017 19:58:00 08/20/2017 21:30:00 DIS Emergency GREGORY FISHER APRN [facility] ER NOSE BLEED [id number] 08/02/2017 10:44:00 08/02/2017 23:59:59 CLS Outpatient SOO BONILLA, VAMSI P [facility] RAD OLD TEAR RT KNEE [id number] 07/28/2017 03:14:00 07/28/2017 23:59:59 CLS Preadmit JULIANA TSANG [facility] ONC [id number] 07/22/2017 08:40:00 07/27/2017 00:01:00 DIS Outpatient JULIANA TSANG [facility] ONC [id number] 04/14/2017 08:01:00 04/27/2017 00:01:00 DIS Outpatient JULIANA TSANG [facility] ONC [id number] 01/13/2017 07:38:00 01/16/2017 00:01:00 DIS Outpatient JULIANA TSANG [facility] ONC [id number] 07/29/2016 09:56:00 10/07/2016 00:01:00 DIS Outpatient JULIANA TSANG [facility] ONC [id number] 09/01/2016 12:07:00 09/01/2016 23:59:59 CLS Outpatient CARLO SUMMERS [facility] RAD I25.10 [id number] 08/27/2016 07:44:00 08/27/2016 23:59:59 CLS Outpatient CARLO SUMMERS [facility] CARD I25.10 [id number] 07/31/2016 08:26:00 07/31/2016 13:18:00 DIS Outpatient AVEL SUTTON MD [facility] SDC BASALCELL CARCINOMA RIGHT CHEEK [id number] 07/30/2016 14:06:00 07/30/2016 15:06:00 DIS Outpatient AVEL SUTTON MD [facility] 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 [id number] 04/23/2016 09:24:00 07/08/2016 00:01:00 DIS Outpatient JULIANA TSANG [facility] ONC [id number] 01/16/2016 09:19:00 04/01/2016 00:01:00 DIS Outpatient TRINH, BOBAN N [facility] ONC [id number] 10/17/2015 10:50:00 01/01/2016 00:01:00 DIS Outpatient JULIANA TSANG [facility] ONC [id number] 10/17/2015 08:57:00 10/17/2015 23:59:59 CLS Outpatient ALIYAH BLEDSOEP [facility] ONC [id number] 10/04/2015 09:45:00 10/10/2015 11:43:00 DIS Outpatient ALIYAH BLEDSOE [employer] [facility] ONC [id number] 08/02/2015 13:53:00 10/02/2015 00:01:00 DIS Outpatient JULIANA TSANG [facility] ONC [id number] 08/14/2015 17:40:00 08/18/2015 10:57:00 DIS Inpatient FARTUN LOVE DO S [facility] 4TH PANCREATITIS,GALL STONES [id number] 08/14/2015 15:13:00 08/14/2015 23:59:59 CLS Outpatient MANISHA CINDI Lady NGN [facility] RAD BILAT UPPER ABD PAIN , DISTENTION,BLOATING [id number] 04/18/2015 09:03:00 07/01/2015 00:01:00 DIS Outpatient JULIANA TSANG [facility] ONC [id number] 04/18/2015 08:49:00 04/18/2015 23:59:59 CLS Outpatient ALIYAH BLEDSOEP [facility] ONC [id number] 01/03/2015 08:58:00 01/16/2015 00:01:00 DIS Outpatient JULIANA TSANG [facility] ONC [id number] 12/20/2014 08:26:00 01/01/2015 00:01:00 DIS Outpatient JULIANA TSANG [facility] ONC [id number] 09/19/2014 08:34:00 10/02/2014 00:01:00 DIS Outpatient JULIANA TSANG [facility] ONC [id number] 07/19/2014 12:23:00 07/19/2014 23:59:59 CLS Outpatient ASHLEIGHBHARGAVER DOFARTUN S [facility] CARD CARDIAC MURMUR, EKG CHANGES,ARRHTHYMIA [id number] 06/04/2014 08:15:00 06/04/2014 23:59:59 CLS Outpatient EMELINA WOODWARD [employer] [facility] RAD LOW BACK PAIN [id number] 2014 08:43:00 2014 23:59:59 CLS Outpatient JULIANA TSANG [facility] ONC [id number] 04/04/2014 08:44:00 04/04/2014 23:59:59 CLS Outpatient ALIYAH BLEDSOE S [employer] [facility] ONC [id number] 03/13/2014 08:14:00 03/13/2014 00:01:00 DIS Outpatient JULIANA TSANG [facility] ONC [id number] 12/06/2013 13:57:00 12/06/2013 23:59:59 CLS Outpatient ALIYAH BLEDSOE S [employer] [facility] ONC [id number] 11/23/2013 08:14:00 12/05/2013 00:01:00 DIS Outpatient JULIANA TSANG [facility] ONC [id number] 08/22/2013 08:40:00 08/23/2013 00:01:00 DIS Outpatient JULIANA TSANG [facility] ONC [id number] 06/09/2013 09:53:00 06/09/2013 23:59:59 CLS Outpatient ALIYAH BLEDSOE S [employer] [facility] ONC [id number] 03/06/2013 09:49:00 05/21/2013 00:01:00 DIS Outpatient JULIANA TSANG [facility] ONC [id number] 11/10/2012 09:51:00 02/08/2013 00:01:00 DIS Outpatient JULIANA TSANG [facility] ONC [id number] 12/05/2012 12:26:00 12/05/2012 23:59:59 CLS Outpatient CRYSTAL VÁSQUEZ DO [facility] RAD ROTATOR CUFF TEAR LT SHOULDER,CERVICAL RADICULOPAT [id number] 11/22/2012 08:52:00 11/22/2012 23:59:59 CLS Outpatient ALIYAH BLEDSOE [facility] ONC [id number] 11/11/2012 13:53:00 11/11/2012 23:59:59 CLS Outpatient MICA CHAMORRO APRN [facility] RAD NECK PAIN,LT SHOULDER PAIN [id number] 11/10/2012 03:53:00 11/10/2012 04:57:00 DIS Emergency CHEPE MACHO WELLINGTON K [facility] ER LEFT SHOULDER PAIN [id number] 11/09/2012 11:23:00 11/09/2012 23:59:59 CLS Outpatient [id number] 08/15/2012 10:50:00 08/29/2012 00:01:00 DIS Outpatient JULIANA TSANG [facility] ONC [id number] 10/06/2017 10:00:00 PEN Niya VANN MD, VAMSI Chopra [facility] SDC RIGHT KNEE TORN MEDIAL MENISCUS [id number] 07/19/2014 12:23:00 Document Registration [id number] 07/19/2014 12:23:00 Document Registration [id number] 07/19/2014 12:23:00 Document Registration [id number] 07/19/2014 12:23:00 Document Registration [id number] 07/13/2014 17:39:00 Document Registration [id number] 06/29/2014 08:13:00 Document Registration [id number] 03/15/2012 08:49:00 Document Registration [id number] 03/04/2012 08:58:00 Document Registration [id number] 03/02/2012 12:13:00 Document Registration [id number] 09/28/2011 09:16:00 Document Registration [id number] 09/26/2011 08:15:00 Document Registration [id number] 08/03/2011 12:45:00 Document Registration [id number] 07/30/2011 08:37:00 Document Registration [id number] 05/12/2011 12:59:00 Document Registration [id number] 02/24/2010 09:04:00 Document Registration [id number] 09/09/2009 09:22:00 Document Registration [id number] 07/10/2009 09:50:00 Document Registration [id number] 06/18/2009 14:27:00 Document Registration 05/23/16 05/02/2017 06:05:07 05/02/2017 23:59:59 Fartun Carrillo
[2017-10-06] MEDS ORDERED: FAMOTIDINE 20MG/2ML IV (PEPCID) IVP ONE (09:15)
[2017-10-06] MEDS ORDERED: FAMOTIDINE 20MG/2ML IV (PEPCID) ONE (09:19)
[2017-10-06] MEDS ORDERED: fentaNYL INJECTION 100 MCG/2 ML AMP ONE (09:50)
[2017-10-06] MEDS ORDERED: LIDOCAINE PF 2% 5 ML (XYLOCAINE) VIAL ONE (09:50)
[2017-10-06] MEDS ORDERED: proPOfol 200 MG/20 ML (DIPRIVAN) VIAL IV ONE (09:50)
[2017-10-06] MEDS ORDERED: SEVOFLURANE (ULTANE) 15 ML INHAL SOLN ONE ×3 (10:33)
[2017-10-06] MEDS ORDERED: DEXAMETHASONE 10 MG/ML (DECADRON) 1 ML VIAL ONE (10:33)
[2017-10-06] MEDS ORDERED: ONDANSETRON 4 MG/2 ML (SDV) Z0FRAN ONE (10:33)
[2017-10-06] MEDS ORDERED: ONDANSETRON 4 MG/2 ML (SDV) Z0FRAN IVP PRN (11:00)
[2017-10-06] MEDS ORDERED: morphine INJ 10 MG/ML 1ML (SYR OR VIAL) IVP PRN (11:00)
[2017-10-06 11:25] VITALS: BP 140/72
[2017-10-06 11:55] VITALS: BP 141/72
[2017-10-06 12:25] VITALS: BP 142/72
[2017-10-06 12:37] VITALS: BP 142/72
--- NOTE | 2017-10-06 13:03 | Physical Therapy Ortho Eval ---
PT Orthopedic Evaluation Type of Surgery Knee Scope right side, WBAT Prior Level of Function Current Living Status: Spouse Locomotion (Upon Admit): Independent Established Durable Medical Eq: Front Wheeled Walker Subjective Subjective Patient in bed pre tx, agrees to PT, has no pain at rest but pain of 4/10 with activity. Entry Into Home: Stairs With Railing Steps Into Home: 2 Steps Accessories: Railing Present Motor Control Motor Control: Motor Control WNL ROM right knee flexion 80 degrees, extension +2 degrees Strength NT Transfer Transfers (B, C, W/C) (FIM): 5 Gait Gait Assistive Device: FWW Right Lower Extremity: Right Weight Bearing Status RLE: Weight Bearing/Tolerated Gait (FIM): 5 Distance: 150' Gait Level of Assist: 5 Summary/Comments Slow but steady ambulation, decreased knee flexion on the right side. Patient also went up and down 1 step using a rolling walker with CGA and cues for foot placement. Treatment Rendered Treatment: Therapeutic Exercises, Gait Train, Step Train Exercise Instruction: Quad Sets, Heel Slides, Ankle Pumps Assessment/Goals Goal Time Frame: 1 Visit Plan Treatment Plan: Discharge PT/Family Agrees to Plan: Yes Time Time In: 1200 Time Out: 1215 Total Billed Treatment Time: 15 Billed Treatment Time 1 visit PATTY LARIOS PT Oct 06, 2017 13:03
--- NOTE | 2017-10-06 19:27 | OPERATIVE REPORT ---
DATE OF SERVICE: 10/06/2017 PREOPERATIVE DIAGNOSES: 1. Right knee medial meniscal tear. 2. Right knee chondromalacia of the medial femoral condyle. POSTOPERATIVE DIAGNOSES: 1. Right knee medial meniscal tear. 2. Right knee chondromalacia of the medial femoral condyle. 3. Right knee lateral meniscal tear. 4. Right knee chondromalacia of the lateral femoral condyle. PROCEDURES: 1. Right knee arthroscopic partial medial meniscectomy. 2. Right knee arthroscopic partial lateral meniscectomy. 3. Right knee arthroscopic chondroplasty of the medial femoral condyle. 4. Right knee arthroscopic chondroplasty of the lateral femoral condyle. SURGEON: Roscoe Vann MD. AIR CONDITIONING UNIT TESTER: None. ANESTHESIA: General endotracheal by Melanie Sinha CRNA. TOURNIQUET TIME: Not applicable. ESTIMATED BLOOD LOSS: Minimal. DRAINS: None. COMPLICATIONS: None. POSTOPERATIVE PLANS: Routine arthroscopy protocol. The patient was transferred to the recovery room awake and in stable condition. STATEMENT OF MEDICAL NECESSITY: The patient is an 82-year-old gentleman. He had been doing well until a few months ago and he began to experience right knee pain, catching, locking and swelling. He was tender along his medial joint line and had pain medially with Grecia's. Initially, he received relief with injections, but he had continued mechanical symptoms and swelling. Radiographs revealed moderate medial compartment narrowing. The patient elected to proceed with operative intervention, understanding that this would not alleviate his arthritic symptoms, but should help with his mechanical symptoms. Examination under anesthesia revealed range of motion 0/2/135 with negative Mandeep, negative anterior and posterior drawer. No varus valgus laxity, negative pivot shift. Arthroscopic findings, the patella and trochlea demonstrated diffuse grade II changes. No unstable chondral flaps. The medial and lateral gutters were clear. The lateral compartment demonstrated a degenerative tear of the body of the lateral meniscus involving approximately one-third of the body. In addition, there were grade II chondral flaps in the anterior portion of the lateral femoral condyle and a 10 x 10 area. The ACL and PCL were intact. The medial compartment demonstrated a complex tear of the posterior horn and body of the meniscus involving approximately 1/2 posterior horn and body. In addition, there were grade 3+ chondral flaps over the central weightbearing portion of the femoral condyle extending anteriorly in a 30 x 40 area. DESCRIPTION OF PROCEDURE: After risks and benefits of procedure were discussed and questions were answered, an informed consent was signed and placed on the chart. The patient was transferred to the operating room andafter adequate level of general endotracheal anesthetic were obtained, a timeout was called confirming the operative site. Examination under anesthesia was performed with above findings noted. The right lower extremity was prepped and draped in the usual sterile fashion. The knee joint was injected with 60 mL fluid. A standard inferolateral portal was placed with the arthroscope under direct visualization. Inferior medial portal was created. The menisci and cruciates were carefully probed with the above findings noted. The unstable chondral flaps on the medial femoral condyle were debrided with shaver back to a stable edge. Posterior horn and body of the medial meniscus were debrided with biter and shaver removing approximately one-half of the posterior horn and body. This was carefully probed with no further tearing or instability noted. The scope was redirected in the lateral compartment. The unstable chondral flaps of the lateral femoral condyle were debrided with shaver back to a stable edge. The body of the lateral meniscus was then debrided with a shaver back to a stable edge. The unstable chondral flaps and lateral femoral condyle were debrided. These were carefully probed with no further tearing or instability noted. The knee was copiously irrigated. Portal sites were closed with 4-0 nylon simple interrupted fashion. Knee was injected with Duramorph. Portal sites were infiltrated with plain Marcaine. A soft dressing was applied and the patient was transferred to the recovery room awake and stable condition. Job ID: [id number] DocumentID: [id number] Dictated Date: 10/06/2017 10:42:46 Apron Man Date: 10/06/2017 19:27:18 Dictated By: ROSCOE VANN MD
== END 2017-10-06 12:37 | disposition home or self-care (01) ==
LOC: SDC 08:53
PROVIDERS: ATTEND Orthopaedic Surgery
DX: M23.221 Derangement of posterior horn of medial meniscus due to old tear or injury, right knee (principal); M23.261 Derangement of other lateral meniscus due to old tear or injury, right knee; M94.261 Chondromalacia, right knee; I10 Essential (primary) hypertension; R56.9 Unspecified convulsions; Z87.891 Personal history of nicotine dependence; Z79.899 Other long term (current) drug therapy

== ENCOUNTER 2018-01-13 08:21 | Outpatient (RCR) | payer MEDICARE ==
[~2018-01-13 08:21] MED LIST changes: -AMLO10TA2 PO; +AMLO10TA6 PO; +HYDR-3062 PO; -LACTATED RINGERS 1,000 ML IV PRN; -ceFAZolin INJECTION 1,000 MG in NS (IVPB) 50 ML IV ONE
[2018-01-13 08:48] LABS: BASOPHILS % (AUTO) 0 % (0-10); EOSINOPHILS # (AUTO) 0.8 10^3/uL (0.0-0.3); EOSINOPHILS % (AUTO) 8 % (0-10); HEMATOCRIT 40 % (40-54); HEMOGLOBIN 13.2 G/DL (13.3-17.7); LYMPHOCYTES # (AUTO) 1.8 X 10^3 (1.0-4.0); LYMPHOCYTES % (AUTO) 19 % (12-44); MEAN CORPUSCULAR HEMOGLOBIN 28 PG (25-34); MEAN CORPUSCULAR HGB CONC 33 G/DL (32-36); MEAN CORPUSCULAR VOLUME 85 FL (80-99); MEAN PLATELET VOLUME 10.3 FL (7.4-10.4); MONOCYTES % (AUTO) 10 % (0-12); NEUTROPHILS % (AUTO) 63 % (42-75); PLATELET COUNT 241 10^3/uL (130-400); RED CELL DISTRIBUTION WIDTH 16.6 % (10.0-14.5); WHITE BLOOD COUNT 9.5 10^3/uL (4.3-11.0)
[2018-01-13 09:11] LABS: ALANINE AMINOTRANSFERASE 46 U/L (0-55); ALBUMIN 3.8 GM/DL (3.2-4.5); ALKALINE PHOSPHATASE 76 U/L (40-136); BILIRUBIN,TOTAL 0.9 MG/DL (0.1-1.0); BUN/CREATININE RATIO 14; CALCIUM 9.9 MG/DL (8.5-10.1); CARBON DIOXIDE 26 MMOL/L (21-32); CHLORIDE 108 MMOL/L (98-107); CREATININE SERUM 0.95 MG/DL (0.60-1.30); GFR ESTIMATED > 60; GLUCOSE 106 MG/DL (70-105); SODIUM 141 MMOL/L (135-145)
== END 2018-01-27 09:07 | disposition home or self-care (01) ==
LOC: ONC 08:21
PROVIDERS: ATTEND Internal Medicine Hematology & Oncology
DX: C92.10 Chronic myeloid leukemia, BCR/ABL-positive, not having achieved remission (principal); I12.9 Hypertensive chronic kidney disease with stage 1 through stage 4 chronic kidney disease, or unspecified chronic kidney disease; N18.3 Chronic kidney disease, stage 3 (moderate); I25.10 Atherosclerotic heart disease of native coronary artery without angina pectoris; Z79.899 Other long term (current) drug therapy
CPT/HCPCS: 36415; 80053; 81206; 83615; 85025; 99213

== ENCOUNTER 2018-04-10 06:43 | Emergency (ER) | payer MEDICARE ==
[~2018-04-10] VITALS: Ht 190.5 cm; Wt 102.1 kg
[~2018-04-10 06:43] MED LIST changes: -RANI-425 PO; +RANI-591 PO; -SENN-140 PO; +SENN-141 PO
[2018-04-10] MEDS ORDERED: NS IV 1000 ML 1,000 ML ONE (07:03)
[2018-04-10] MEDS ORDERED: NS IV 1000 ML 1,000 ML IV STA (07:05)
[2018-04-10 07:12] LABS: BASOPHILS % (AUTO) 0 % (0-10); EOSINOPHILS # (AUTO) 0.2 10^3/uL (0.0-0.3); EOSINOPHILS % (AUTO) 2 % (0-10); HEMATOCRIT 44 % (40-54); HEMOGLOBIN 14.8 G/DL (13.3-17.7); LYMPHOCYTES # (AUTO) 1.6 X 10^3 (1.0-4.0); LYMPHOCYTES % (AUTO) 12 % (12-44); MEAN CORPUSCULAR HEMOGLOBIN 29 PG (25-34); MEAN CORPUSCULAR HGB CONC 34 G/DL (32-36); MEAN CORPUSCULAR VOLUME 86 FL (80-99); MEAN PLATELET VOLUME 10.1 FL (7.4-10.4); MONOCYTES # (AUTO) 1.7 X 10^3 (0.0-1.0); MONOCYTES % (AUTO) 12 % (0-12); NEUTROPHILS # (AUTO) 10.4 X 10^3 (1.8-7.8); NEUTROPHILS % (AUTO) 75 % (42-75); PLATELET COUNT 327 10^3/uL (130-400); RED BLOOD COUNT 5.06 10^6/uL (4.35-5.85); RED CELL DISTRIBUTION WIDTH 15.5 % (10.0-14.5)
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
[2018-04-10 07:23] LABS: BILIRUBIN,TOTAL 0.5 MG/DL (0.1-1.0); CALCIUM 10.2 MG/DL (8.5-10.1); CREATININE SERUM 1.51 MG/DL (0.60-1.30); MAGNESIUM 2.2 MG/DL (1.8-2.4); POTASSIUM 4.1 MMOL/L (3.6-5.0); TOTAL PROTEIN 7.8 GM/DL (6.4-8.2)
[2018-04-10] MEDS ORDERED: NS IV 500 ML 500 ML IV ONE (07:56)
[2018-04-10 08:50] VITALS: BP 132/84
== END 2018-04-10 08:50 | disposition home or self-care (01) ==
LOC: EDUNIT# 06:43 → ER 06:46
DX: R19.7 Diarrhea, unspecified (principal); E86.0 Dehydration; C92.10 Chronic myeloid leukemia, BCR/ABL-positive, not having achieved remission; I10 Essential (primary) hypertension; K21.9 Gastro-esophageal reflux disease without esophagitis; Z87.891 Personal history of nicotine dependence; Z90.89 Acquired absence of other organs; Z88.7 Allergy status to serum and vaccine; Z92.21 Personal history of antineoplastic chemotherapy
CPT/HCPCS: 36415; 80053; 83735; 85025

== ENCOUNTER 2018-04-13 08:13 | Outpatient (RCR) | payer MEDICARE ==
[2018-03-29 09:13] LABS: BASOPHILS % (AUTO) 0 % (0-10); EOSINOPHILS # (AUTO) 0.1 10^3/uL (0.0-0.3); EOSINOPHILS % (AUTO) 1 % (0-10); HEMATOCRIT 43 % (40-54); HEMOGLOBIN 14.2 G/DL (13.3-17.7); LYMPHOCYTES # (AUTO) 2.5 X 10^3 (1.0-4.0); LYMPHOCYTES % (AUTO) 29 % (12-44); MEAN CORPUSCULAR HEMOGLOBIN 29 PG (25-34); MEAN CORPUSCULAR HGB CONC 33 G/DL (32-36); MEAN CORPUSCULAR VOLUME 88 FL (80-99); MEAN PLATELET VOLUME 9.7 FL (7.4-10.4); MONOCYTES % (AUTO) 11 % (0-12); NEUTROPHILS # (AUTO) 5.1 X 10^3 (1.8-7.8); NEUTROPHILS % (AUTO) 58 % (42-75); PLATELET COUNT 229 10^3/uL (130-400); RED BLOOD COUNT 4.87 10^6/uL (4.35-5.85); RED CELL DISTRIBUTION WIDTH 15.3 % (10.0-14.5); WHITE BLOOD COUNT 8.8 10^3/uL (4.3-11.0)
[2018-03-29 09:42] LABS: ALANINE AMINOTRANSFERASE 19 U/L (0-55); ALBUMIN 3.7 GM/DL (3.2-4.5); ALKALINE PHOSPHATASE 66 U/L (40-136); BILIRUBIN,TOTAL 0.6 MG/DL (0.1-1.0); BUN/CREATININE RATIO 14; CALCIUM 10.3 MG/DL (8.5-10.1); CARBON DIOXIDE 27 MMOL/L (21-32); CHLORIDE 105 MMOL/L (98-107); CREATININE SERUM 1.04 MG/DL (0.60-1.30); GFR ESTIMATED > 60; GLUCOSE 85 MG/DL (70-105); POTASSIUM 4.1 MMOL/L (3.6-5.0); SODIUM 140 MMOL/L (135-145); TOTAL PROTEIN 6.7 GM/DL (6.4-8.2)
[2018-04-06 08:31] LABS: BASOPHILS % (AUTO) 0 % (0-10); EOSINOPHILS # (AUTO) 0.1 10^3/uL (0.0-0.3); EOSINOPHILS % (AUTO) 1 % (0-10); HEMATOCRIT 42 % (40-54); LYMPHOCYTES % (AUTO) 18 % (12-44); MEAN CORPUSCULAR HEMOGLOBIN 29 PG (25-34); MEAN CORPUSCULAR HGB CONC 33 G/DL (32-36); MEAN CORPUSCULAR VOLUME 88 FL (80-99); MEAN PLATELET VOLUME 10.8 FL (7.4-10.4); MONOCYTES # (AUTO) 1.2 X 10^3 (0.0-1.0); MONOCYTES % (AUTO) 10 % (0-12); NEUTROPHILS # (AUTO) 8.1 X 10^3 (1.8-7.8); NEUTROPHILS % (AUTO) 71 % (42-75); PLATELET COUNT 221 10^3/uL (130-400); RED BLOOD COUNT 4.82 10^6/uL (4.35-5.85); RED CELL DISTRIBUTION WIDTH 15.3 % (10.0-14.5); WHITE BLOOD COUNT 11.3 10^3/uL (4.3-11.0)
[2018-04-06 08:47] LABS: CALCIUM 10.3 MG/DL (8.5-10.1); CREATININE SERUM 1.24 MG/DL (0.60-1.30); POTASSIUM 4.2 MMOL/L (3.6-5.0)
[2018-04-13 08:24] LABS: HEMATOCRIT 41 % (40-54); HEMOGLOBIN 13.8 G/DL (13.3-17.7); MEAN CORPUSCULAR HEMOGLOBIN 29 PG (25-34); MEAN CORPUSCULAR HGB CONC 34 G/DL (32-36); MEAN CORPUSCULAR VOLUME 86 FL (80-99); MEAN PLATELET VOLUME 9.9 FL (7.4-10.4); PLATELET COUNT 306 10^3/uL (130-400); RED BLOOD COUNT 4.75 10^6/uL (4.35-5.85); RED CELL DISTRIBUTION WIDTH 15.5 % (10.0-14.5); WHITE BLOOD COUNT 10.7 10^3/uL (4.3-11.0)
[2018-04-13 08:29] LABS: NEUTROPHILS % (AUTO) 72 % (42-75)
[2018-04-13 08:30] LABS: BASOPHILS % (AUTO) 0 % (0-10); EOSINOPHILS % (AUTO) 6 % (0-10); LYMPHOCYTES % (AUTO) 12 % (12-44); MONOCYTES % (AUTO) 11 % (0-12)
[2018-04-13 08:31] LABS: LYMPHOCYTES # (AUTO) 1.3 X 10^3 (1.0-4.0); MONOCYTES # (AUTO) 1.2 X 10^3 (0.0-1.0); NEUTROPHILS # (AUTO) 7.8 X 10^3 (1.8-7.8)
[2018-04-13 08:32] LABS: EOSINOPHILS # (AUTO) 0.6 10^3/uL (0.0-0.3)
[2018-04-13 08:38] LABS: CALCIUM 9.5 MG/DL (8.5-10.1); CREATININE SERUM 1.32 MG/DL (0.60-1.30); POTASSIUM 3.7 MMOL/L (3.6-5.0)
[2018-04-28 09:28] LABS: BASOPHILS # (AUTO) 0.2 10^3/uL (0.0-0.1); BASOPHILS % (AUTO) 2 % (0-10); EOSINOPHILS # (AUTO) 0.9 10^3/uL (0.0-0.3); EOSINOPHILS % (AUTO) 10 % (0-10); HEMATOCRIT 40 % (40-54); HEMOGLOBIN 13.2 G/DL (13.3-17.7); LYMPHOCYTES # (AUTO) 2.1 X 10^3 (1.0-4.0); LYMPHOCYTES % (AUTO) 24 % (12-44); MEAN CORPUSCULAR HGB CONC 33 G/DL (32-36); MEAN CORPUSCULAR VOLUME 89 FL (80-99); MEAN PLATELET VOLUME 9.8 FL (7.4-10.4); MONOCYTES % (AUTO) 11 % (0-12); NEUTROPHILS # (AUTO) 4.7 X 10^3 (1.8-7.8); NEUTROPHILS % (AUTO) 54 % (42-75); PLATELET COUNT 308 10^3/uL (130-400); RED BLOOD COUNT 4.48 10^6/uL (4.35-5.85); RED CELL DISTRIBUTION WIDTH 15.4 % (10.0-14.5); WHITE BLOOD COUNT 8.8 10^3/uL (4.3-11.0)
[2018-04-28 09:29] LABS: MEAN CORPUSCULAR HEMOGLOBIN 29 PG (25-34)
[2018-04-28 09:52] LABS: ALANINE AMINOTRANSFERASE 76 U/L (0-55); ALBUMIN 3.8 GM/DL (3.2-4.5); ALKALINE PHOSPHATASE 95 U/L (40-136); BILIRUBIN,TOTAL 0.6 MG/DL (0.1-1.0); BUN/CREATININE RATIO 12; CALCIUM 9.9 MG/DL (8.5-10.1); CARBON DIOXIDE 28 MMOL/L (21-32); CHLORIDE 105 MMOL/L (98-107); CREATININE SERUM 0.91 MG/DL (0.60-1.30); GFR ESTIMATED > 60; GLUCOSE 74 MG/DL (70-105); POTASSIUM 4.2 MMOL/L (3.6-5.0); SODIUM 140 MMOL/L (135-145); TOTAL PROTEIN 7.4 GM/DL (6.4-8.2)
== END 2018-04-27 | disposition home or self-care (01) ==
LOC: ONC 08:13
PROVIDERS: ATTEND Internal Medicine Hematology & Oncology
DX: C92.10 Chronic myeloid leukemia, BCR/ABL-positive, not having achieved remission (principal); I12.9 Hypertensive chronic kidney disease with stage 1 through stage 4 chronic kidney disease, or unspecified chronic kidney disease; N18.3 Chronic kidney disease, stage 3 (moderate); I25.10 Atherosclerotic heart disease of native coronary artery without angina pectoris; Z79.899 Other long term (current) drug therapy
CPT/HCPCS: 36415; 80048; 80053; 81206; 85025; 99213

== ENCOUNTER 2018-07-21 09:10 | Outpatient (RCR) | payer MEDICARE ==
[2018-04-28 09:28] LABS: BASOPHILS # (AUTO) 0.2 10^3/uL (0.0-0.1); BASOPHILS % (AUTO) 2 % (0-10); EOSINOPHILS # (AUTO) 0.9 10^3/uL (0.0-0.3); EOSINOPHILS % (AUTO) 10 % (0-10); HEMATOCRIT 40 % (40-54); HEMOGLOBIN 13.2 G/DL (13.3-17.7); LYMPHOCYTES # (AUTO) 2.1 X 10^3 (1.0-4.0); LYMPHOCYTES % (AUTO) 24 % (12-44); MEAN CORPUSCULAR HGB CONC 33 G/DL (32-36); MEAN CORPUSCULAR VOLUME 89 FL (80-99); MEAN PLATELET VOLUME 9.8 FL (7.4-10.4); MONOCYTES % (AUTO) 11 % (0-12); NEUTROPHILS # (AUTO) 4.7 X 10^3 (1.8-7.8); NEUTROPHILS % (AUTO) 54 % (42-75); PLATELET COUNT 308 10^3/uL (130-400); RED CELL DISTRIBUTION WIDTH 15.4 % (10.0-14.5); WHITE BLOOD COUNT 8.8 10^3/uL (4.3-11.0)
[2018-04-28 09:29] LABS: MEAN CORPUSCULAR HEMOGLOBIN 29 PG (25-34)
[2018-04-28 09:52] LABS: ALANINE AMINOTRANSFERASE 76 U/L (0-55); ALBUMIN 3.8 GM/DL (3.2-4.5); ALKALINE PHOSPHATASE 95 U/L (40-136); BILIRUBIN,TOTAL 0.6 MG/DL (0.1-1.0); BUN/CREATININE RATIO 12; CALCIUM 9.9 MG/DL (8.5-10.1); CARBON DIOXIDE 28 MMOL/L (21-32); CHLORIDE 105 MMOL/L (98-107); CREATININE SERUM 0.91 MG/DL (0.60-1.30); GFR ESTIMATED > 60; GLUCOSE 74 MG/DL (70-105); POTASSIUM 4.2 MMOL/L (3.6-5.0); SODIUM 140 MMOL/L (135-145); TOTAL PROTEIN 7.4 GM/DL (6.4-8.2)
[2018-07-07 08:48] LABS: BASOPHILS % (AUTO) 0 % (0-10); EOSINOPHILS # (AUTO) 0.2 10^3/uL (0.0-0.3); EOSINOPHILS % (AUTO) 2 % (0-10); HEMATOCRIT 40 % (40-54); HEMOGLOBIN 13.3 G/DL (13.3-17.7); LYMPHOCYTES # (AUTO) 1.7 X 10^3 (1.0-4.0); LYMPHOCYTES % (AUTO) 26 % (12-44); MEAN CORPUSCULAR HEMOGLOBIN 30 PG (25-34); MEAN CORPUSCULAR HGB CONC 33 G/DL (32-36); MEAN CORPUSCULAR VOLUME 90 FL (80-99); MEAN PLATELET VOLUME 9.9 FL (7.4-10.4); MONOCYTES # (AUTO) 0.6 X 10^3 (0.0-1.0); MONOCYTES % (AUTO) 9 % (0-12); NEUTROPHILS % (AUTO) 63 % (42-75); PLATELET COUNT 229 10^3/uL (130-400); RED CELL DISTRIBUTION WIDTH 15.5 % (10.0-14.5); WHITE BLOOD COUNT 6.4 10^3/uL (4.3-11.0)
[2018-07-07 09:05] LABS: ALBUMIN 3.9 GM/DL (3.2-4.5); BILIRUBIN,TOTAL 0.5 MG/DL (0.1-1.0); CALCIUM 9.7 MG/DL (8.5-10.1); CREATININE SERUM 1.16 MG/DL (0.60-1.30); POTASSIUM 3.8 MMOL/L (3.6-5.0); TOTAL PROTEIN 6.8 GM/DL (6.4-8.2)
[~2018-07-21 09:10] MED LIST changes: -AMLO10TA6 PO; +AMLO10TA7 PO
== END 2018-07-27 | disposition home or self-care (01) ==
LOC: ONC 09:10
PROVIDERS: ATTEND Internal Medicine Hematology & Oncology
DX: C92.10 Chronic myeloid leukemia, BCR/ABL-positive, not having achieved remission (principal); I12.9 Hypertensive chronic kidney disease with stage 1 through stage 4 chronic kidney disease, or unspecified chronic kidney disease; N18.3 Chronic kidney disease, stage 3 (moderate); I25.10 Atherosclerotic heart disease of native coronary artery without angina pectoris; Z79.899 Other long term (current) drug therapy
CPT/HCPCS: 36415; 80053; 81206; 83615; 85025; 99213

== ENCOUNTER 2018-10-13 09:15 | Outpatient (RCR) | payer MEDICARE ==
[2018-09-29 08:31] LABS: BASOPHILS % (AUTO) 0 % (0-10); EOSINOPHILS # (AUTO) 0.1 10^3/uL (0.0-0.3); EOSINOPHILS % (AUTO) 2 % (0-10); HEMATOCRIT 38 % (40-54); HEMOGLOBIN 12.8 G/DL (13.3-17.7); LYMPHOCYTES # (AUTO) 1.8 X 10^3 (1.0-4.0); LYMPHOCYTES % (AUTO) 24 % (12-44); MEAN CORPUSCULAR HEMOGLOBIN 31 PG (25-34); MEAN CORPUSCULAR HGB CONC 34 G/DL (32-36); MEAN CORPUSCULAR VOLUME 93 FL (80-99); MEAN PLATELET VOLUME 10.1 FL (7.4-10.4); MONOCYTES # (AUTO) 0.9 X 10^3 (0.0-1.0); MONOCYTES % (AUTO) 11 % (0-12); NEUTROPHILS # (AUTO) 4.8 X 10^3 (1.8-7.8); NEUTROPHILS % (AUTO) 63 % (42-75); PLATELET COUNT 233 10^3/uL (130-400); RED CELL DISTRIBUTION WIDTH 15.2 % (10.0-14.5); WHITE BLOOD COUNT 7.7 10^3/uL (4.3-11.0)
[2018-09-29 08:48] LABS: ALANINE AMINOTRANSFERASE 18 U/L (0-55); ALKALINE PHOSPHATASE 75 U/L (40-136); BILIRUBIN,TOTAL 0.5 MG/DL (0.1-1.0); BUN/CREATININE RATIO 11; CALCIUM 9.8 MG/DL (8.5-10.1); CARBON DIOXIDE 26 MMOL/L (21-32); CHLORIDE 107 MMOL/L (98-107); GFR ESTIMATED > 60; GLUCOSE 79 MG/DL (70-105); POTASSIUM 4.2 MMOL/L (3.6-5.0); SODIUM 140 MMOL/L (135-145); TOTAL PROTEIN 6.9 GM/DL (6.4-8.2)
[~2018-10-13 09:15] MED LIST changes: +RANI-613 PO; -RANI150T46 PO
[2018-12-29 08:31] LABS: BASOPHILS % (AUTO) 1 % (0-10); EOSINOPHILS # (AUTO) 0.1 10^3/uL (0.0-0.3); EOSINOPHILS % (AUTO) 2 % (0-10); HEMATOCRIT 39 % (40-54); HEMOGLOBIN 12.8 G/DL (13.3-17.7); LYMPHOCYTES # (AUTO) 1.9 X 10^3 (1.0-4.0); LYMPHOCYTES % (AUTO) 28 % (12-44); MEAN CORPUSCULAR HEMOGLOBIN 31 PG (25-34); MEAN CORPUSCULAR HGB CONC 33 G/DL (32-36); MEAN CORPUSCULAR VOLUME 94 FL (80-99); MONOCYTES # (AUTO) 0.8 X 10^3 (0.0-1.0); MONOCYTES % (AUTO) 11 % (0-12); NEUTROPHILS % (AUTO) 58 % (42-75); PLATELET COUNT 261 10^3/uL (130-400); RED CELL DISTRIBUTION WIDTH 14.7 % (10.0-14.5); WHITE BLOOD COUNT 6.8 10^3/uL (4.3-11.0)
[2018-12-29 08:52] LABS: ALANINE AMINOTRANSFERASE 15 U/L (0-55); ALBUMIN 3.9 GM/DL (3.2-4.5); ALKALINE PHOSPHATASE 75 U/L (40-136); BILIRUBIN,TOTAL 0.5 MG/DL (0.1-1.0); BUN/CREATININE RATIO 11; CALCIUM 9.7 MG/DL (8.5-10.1); CARBON DIOXIDE 25 MMOL/L (21-32); CHLORIDE 108 MMOL/L (98-107); CREATININE SERUM 1.08 MG/DL (0.60-1.30); GFR ESTIMATED > 60; GLUCOSE 96 MG/DL (70-105); POTASSIUM 4.1 MMOL/L (3.6-5.0); SODIUM 139 MMOL/L (135-145); TOTAL PROTEIN 6.9 GM/DL (6.4-8.2)
== END 2018-12-28 | disposition home or self-care (01) ==
LOC: ONC 09:15
PROVIDERS: ATTEND Internal Medicine Hematology & Oncology
DX: C92.10 Chronic myeloid leukemia, BCR/ABL-positive, not having achieved remission (principal); I12.9 Hypertensive chronic kidney disease with stage 1 through stage 4 chronic kidney disease, or unspecified chronic kidney disease; N18.3 Chronic kidney disease, stage 3 (moderate); I25.10 Atherosclerotic heart disease of native coronary artery without angina pectoris; Z79.899 Other long term (current) drug therapy
CPT/HCPCS: 36415; 80053; 81206; 82784; 85025; 99213

== ENCOUNTER 2019-01-12 08:48 | Outpatient (RCR) | payer MEDICARE ==
[2018-12-29 08:31] LABS: BASOPHILS % (AUTO) 1 % (0-10); EOSINOPHILS # (AUTO) 0.1 10^3/uL (0.0-0.3); EOSINOPHILS % (AUTO) 2 % (0-10); HEMATOCRIT 39 % (40-54); HEMOGLOBIN 12.8 G/DL (13.3-17.7); LYMPHOCYTES # (AUTO) 1.9 X 10^3 (1.0-4.0); LYMPHOCYTES % (AUTO) 28 % (12-44); MEAN CORPUSCULAR HEMOGLOBIN 31 PG (25-34); MEAN CORPUSCULAR HGB CONC 33 G/DL (32-36); MEAN CORPUSCULAR VOLUME 94 FL (80-99); MONOCYTES # (AUTO) 0.8 X 10^3 (0.0-1.0); MONOCYTES % (AUTO) 11 % (0-12); NEUTROPHILS % (AUTO) 58 % (42-75); PLATELET COUNT 261 10^3/uL (130-400); RED CELL DISTRIBUTION WIDTH 14.7 % (10.0-14.5); WHITE BLOOD COUNT 6.8 10^3/uL (4.3-11.0)
[2018-12-29 08:52] LABS: ALANINE AMINOTRANSFERASE 15 U/L (0-55); ALBUMIN 3.9 GM/DL (3.2-4.5); ALKALINE PHOSPHATASE 75 U/L (40-136); BILIRUBIN,TOTAL 0.5 MG/DL (0.1-1.0); BUN/CREATININE RATIO 11; CALCIUM 9.7 MG/DL (8.5-10.1); CARBON DIOXIDE 25 MMOL/L (21-32); CHLORIDE 108 MMOL/L (98-107); CREATININE SERUM 1.08 MG/DL (0.60-1.30); GFR ESTIMATED > 60; GLUCOSE 96 MG/DL (70-105); POTASSIUM 4.1 MMOL/L (3.6-5.0); SODIUM 139 MMOL/L (135-145); TOTAL PROTEIN 6.9 GM/DL (6.4-8.2)
== END 2019-03-29 | disposition home or self-care (01) ==
LOC: ONC 08:48
PROVIDERS: ATTEND Internal Medicine Hematology & Oncology
DX: C92.10 Chronic myeloid leukemia, BCR/ABL-positive, not having achieved remission (principal); I12.9 Hypertensive chronic kidney disease with stage 1 through stage 4 chronic kidney disease, or unspecified chronic kidney disease; N18.3 Chronic kidney disease, stage 3 (moderate); I25.10 Atherosclerotic heart disease of native coronary artery without angina pectoris; Z79.899 Other long term (current) drug therapy
CPT/HCPCS: 36415; 80053; 81206; 85025; 99213

== ENCOUNTER 2019-04-28 08:49 | Outpatient (RCR) | payer MEDICARE ==
[2019-04-10 08:45] LABS: BASOPHILS % (AUTO) 0 % (0-10); EOSINOPHILS # (AUTO) 0.2 10^3/uL (0.0-0.3); EOSINOPHILS % (AUTO) 3 % (0-10); HEMATOCRIT 39 % (40-54); LYMPHOCYTES # (AUTO) 1.9 X 10^3 (1.0-4.0); LYMPHOCYTES % (AUTO) 31 % (12-44); MEAN CORPUSCULAR HEMOGLOBIN 31 PG (25-34); MEAN CORPUSCULAR HGB CONC 33 G/DL (32-36); MEAN CORPUSCULAR VOLUME 94 FL (80-99); MEAN PLATELET VOLUME 10.1 FL (7.4-10.4); MONOCYTES # (AUTO) 0.5 X 10^3 (0.0-1.0); MONOCYTES % (AUTO) 9 % (0-12); NEUTROPHILS # (AUTO) 3.5 X 10^3 (1.8-7.8); NEUTROPHILS % (AUTO) 57 % (42-75); PLATELET COUNT 256 10^3/uL (130-400); RED CELL DISTRIBUTION WIDTH 14.4 % (10.0-14.5); WHITE BLOOD COUNT 6.1 10^3/uL (4.3-11.0)
[2019-04-10 09:04] LABS: ALBUMIN 3.9 GM/DL (3.2-4.5); BILIRUBIN,TOTAL 0.4 MG/DL (0.1-1.0); CALCIUM 9.3 MG/DL (8.5-10.1); CREATININE SERUM 1.16 MG/DL (0.60-1.30); POTASSIUM 4.2 MMOL/L (3.6-5.0); TOTAL PROTEIN 6.7 GM/DL (6.4-8.2)
[~2019-04-28 08:49] MED LIST changes: +ACHD5005 PO; -HYDR-3062 PO; -HYDR-3812 PO; +IRBE300T17 PO; -IRBE300T18 PO; -RANI-591 PO; +RANI-603 PO; -TRAM50TA2 PO; +TRM50T PO
== END 2019-07-09 | disposition home or self-care (01) ==
LOC: ONC 08:49
PROVIDERS: ATTEND Internal Medicine Hematology & Oncology
DX: C92.10 Chronic myeloid leukemia, BCR/ABL-positive, not having achieved remission (principal); I12.9 Hypertensive chronic kidney disease with stage 1 through stage 4 chronic kidney disease, or unspecified chronic kidney disease; N18.3 Chronic kidney disease, stage 3 (moderate); I25.10 Atherosclerotic heart disease of native coronary artery without angina pectoris; R09.89 Other specified symptoms and signs involving the circulatory and respiratory systems; Z51.81 Encounter for therapeutic drug level monitoring; Z79.899 Other long term (current) drug therapy
CPT/HCPCS: 80053; 85025; 88377; 99213

== ENCOUNTER 2019-07-20 09:16 | Outpatient (RCR) | payer MEDICARE ==
[2019-07-10 08:59] LABS: ALANINE AMINOTRANSFERASE 14 U/L (0-55); ALKALINE PHOSPHATASE 74 U/L (40-136); BILIRUBIN,TOTAL 0.4 MG/DL (0.1-1.0); BUN/CREATININE RATIO 14; CALCIUM 9.6 MG/DL (8.5-10.1); CARBON DIOXIDE 22 MMOL/L (21-32); CHLORIDE 108 MMOL/L (98-107); GFR ESTIMATED > 60; GLUCOSE 83 MG/DL (70-105); POTASSIUM 4.1 MMOL/L (3.6-5.0); SODIUM 140 MMOL/L (135-145); TOTAL PROTEIN 7.1 GM/DL (6.4-8.2)
[2019-07-10 12:43] LABS: BASOPHILS % (AUTO) 1 % (0-10); EOSINOPHILS # (AUTO) 0.2 10^3/uL (0.0-0.3); EOSINOPHILS % (AUTO) 4 % (0-10); HEMATOCRIT 39 % (40-54); LYMPHOCYTES # (AUTO) 2.2 X 10^3 (1.0-4.0); LYMPHOCYTES % (AUTO) 34 % (12-44); MEAN CORPUSCULAR HEMOGLOBIN 31 PG (25-34); MEAN CORPUSCULAR HGB CONC 34 G/DL (32-36); MEAN CORPUSCULAR VOLUME 93 FL (80-99); MEAN PLATELET VOLUME 10.2 FL (7.4-10.4); MONOCYTES # (AUTO) 0.6 X 10^3 (0.0-1.0); MONOCYTES % (AUTO) 10 % (0-12); NEUTROPHILS # (AUTO) 3.4 X 10^3 (1.8-7.8); NEUTROPHILS % (AUTO) 52 % (42-75); PLATELET COUNT 263 10^3/uL (130-400); RED CELL DISTRIBUTION WIDTH 14.4 % (10.0-14.5); WHITE BLOOD COUNT 6.5 10^3/uL (4.3-11.0)
[~2019-07-20 09:16] MED LIST changes: -SENN-141 PO; +SENN-234 PO
== END 2019-10-08 | disposition home or self-care (01) ==
LOC: ONC 09:16
PROVIDERS: ATTEND Internal Medicine Hematology & Oncology
DX: C92.10 Chronic myeloid leukemia, BCR/ABL-positive, not having achieved remission (principal); I12.9 Hypertensive chronic kidney disease with stage 1 through stage 4 chronic kidney disease, or unspecified chronic kidney disease; N18.3 Chronic kidney disease, stage 3 (moderate); I25.10 Atherosclerotic heart disease of native coronary artery without angina pectoris; R09.89 Other specified symptoms and signs involving the circulatory and respiratory systems; R21 Rash and other nonspecific skin eruption; Z79.899 Other long term (current) drug therapy
CPT/HCPCS: 80053; 81206; 85025; 99213

== ENCOUNTER 2019-10-24 08:50 | Outpatient (RCR) | payer MEDICARE ==
[2019-10-10 08:31] LABS: BASOPHILS % (AUTO) 0 % (0-10); EOSINOPHILS % (AUTO) 0 % (0-10); HEMATOCRIT 37 % (40-54); HEMOGLOBIN 12.6 G/DL (13.3-17.7); LYMPHOCYTES # (AUTO) 1.8 X 10^3 (1.0-4.0); LYMPHOCYTES % (AUTO) 26 % (12-44); MEAN CORPUSCULAR HEMOGLOBIN 32 PG (25-34); MEAN CORPUSCULAR HGB CONC 34 G/DL (32-36); MEAN CORPUSCULAR VOLUME 95 FL (80-99); MEAN PLATELET VOLUME 10.1 FL (7.4-10.4); MONOCYTES # (AUTO) 0.8 X 10^3 (0.0-1.0); MONOCYTES % (AUTO) 11 % (0-12); NEUTROPHILS # (AUTO) 4.2 X 10^3 (1.8-7.8); NEUTROPHILS % (AUTO) 62 % (42-75); PLATELET COUNT 238 10^3/uL (130-400); WHITE BLOOD COUNT 6.8 10^3/uL (4.3-11.0)
[2019-10-10 08:53] LABS: ALBUMIN 3.8 GM/DL (3.2-4.5); BILIRUBIN,TOTAL 0.4 MG/DL (0.1-1.0); CALCIUM 9.3 MG/DL (8.5-10.1); CREATININE SERUM 1.19 MG/DL (0.60-1.30); TOTAL PROTEIN 6.6 GM/DL (6.4-8.2)
== END 2020-01-08 | disposition home or self-care (01) ==
LOC: ONC 08:50
PROVIDERS: ATTEND Internal Medicine Hematology & Oncology
DX: Z51.81 Encounter for therapeutic drug level monitoring (principal); C92.10 Chronic myeloid leukemia, BCR/ABL-positive, not having achieved remission; I12.9 Hypertensive chronic kidney disease with stage 1 through stage 4 chronic kidney disease, or unspecified chronic kidney disease; N18.3 Chronic kidney disease, stage 3 (moderate); I25.10 Atherosclerotic heart disease of native coronary artery without angina pectoris; I65.23 Occlusion and stenosis of bilateral carotid arteries; R09.89 Other specified symptoms and signs involving the circulatory and respiratory systems; R21 Rash and other nonspecific skin eruption; Z79.899 Other long term (current) drug therapy
CPT/HCPCS: 80053; 81206; 85025; 99213

== ENCOUNTER → 2020-04-15 | Outpatient (RCR) | payer MEDICARE ==
[2020-01-16 08:41] LABS: BASOPHILS # (AUTO) 0.1 10^3/uL (0.0-0.1); BASOPHILS % (AUTO) 1 % (0-10); EOSINOPHILS % (AUTO) 0 % (0-10); HEMATOCRIT 38 % (40-54); HEMOGLOBIN 12.8 g/dL (13.3-17.7); LYMPHOCYTES # (AUTO) 1.7 10^3/uL (1.0-4.0); LYMPHOCYTES % (AUTO) 26 % (12-44); MEAN CORPUSCULAR HEMOGLOBIN 32 pg (25-34); MEAN CORPUSCULAR HGB CONC 34 g/dL (32-36); MEAN CORPUSCULAR VOLUME 96 fL (80-99); MEAN PLATELET VOLUME 10.4 fL (9.0-12.2); MONOCYTES # (AUTO) 0.7 10^3/uL (0.0-1.0); MONOCYTES % (AUTO) 10 % (0-12); NEUTROPHILS # (AUTO) 4.3 10^3/uL (1.8-7.8); NEUTROPHILS % (AUTO) 64 % (42-75); PLATELET COUNT 254 10^3/uL (130-400); WHITE BLOOD COUNT 6.7 10^3/uL (4.3-11.0)
[2020-01-16 09:02] LABS: ALANINE AMINOTRANSFERASE 15 U/L (0-55); ALBUMIN 3.7 GM/DL (3.2-4.5); ALKALINE PHOSPHATASE 64 U/L (40-136); BILIRUBIN,TOTAL 0.4 MG/DL (0.1-1.0); BUN/CREATININE RATIO 11; CARBON DIOXIDE 19 MMOL/L (21-32); CHLORIDE 108 MMOL/L (98-107); CREATININE SERUM 1.05 MG/DL (0.60-1.30); GFR ESTIMATED > 60; GLUCOSE 87 MG/DL (70-105); SODIUM 138 MMOL/L (135-145); TOTAL PROTEIN 6.6 GM/DL (6.4-8.2)
[~2020-04-15] MED LIST changes: +AMLO-251 PO; -AMLO10TA7 PO
[2020-04-15 08:36] LABS: BASOPHILS # (AUTO) 0.1 10^3/uL (0.0-0.1); BASOPHILS % (AUTO) 1 % (0-10); EOSINOPHILS # (AUTO) 0.2 10^3/uL (0.0-0.3); EOSINOPHILS % (AUTO) 2 % (0-10); HEMATOCRIT 38 % (40-54); HEMOGLOBIN 12.7 g/dL (13.3-17.7); LYMPHOCYTES # (AUTO) 2.1 10^3/uL (1.0-4.0); LYMPHOCYTES % (AUTO) 28 % (12-44); MEAN CORPUSCULAR HEMOGLOBIN 32 pg (25-34); MEAN CORPUSCULAR HGB CONC 33 g/dL (32-36); MEAN CORPUSCULAR VOLUME 95 fL (80-99); MEAN PLATELET VOLUME 10.2 fL (9.0-12.2); MONOCYTES # (AUTO) 0.7 10^3/uL (0.0-1.0); MONOCYTES % (AUTO) 10 % (0-12); NEUTROPHILS # (AUTO) 4.3 10^3/uL (1.8-7.8); NEUTROPHILS % (AUTO) 59 % (42-75); PLATELET COUNT 251 10^3/uL (130-400); WHITE BLOOD COUNT 7.4 10^3/uL (4.3-11.0)
[2020-04-15 08:54] LABS: ALANINE AMINOTRANSFERASE 13 U/L (0-55); ALBUMIN 3.7 GM/DL (3.2-4.5); ALKALINE PHOSPHATASE 69 U/L (40-136); BILIRUBIN,TOTAL 0.4 MG/DL (0.1-1.0); BUN/CREATININE RATIO 13; CALCIUM 9.1 MG/DL (8.5-10.1); CARBON DIOXIDE 28 MMOL/L (21-32); CHLORIDE 108 MMOL/L (98-107); CREATININE SERUM 1.05 MG/DL (0.60-1.30); GFR ESTIMATED > 60; GLUCOSE 63 MG/DL (70-105); POTASSIUM 3.8 MMOL/L (3.6-5.0); SODIUM 140 MMOL/L (135-145); TOTAL PROTEIN 6.9 GM/DL (6.4-8.2)
== END | disposition home or self-care (01) ==
LOC: ONC 01-16 08:07
PROVIDERS: ATTEND Internal Medicine Hematology & Oncology
DX: Z51.81 Encounter for therapeutic drug level monitoring (principal); C92.10 Chronic myeloid leukemia, BCR/ABL-positive, not having achieved remission; I12.9 Hypertensive chronic kidney disease with stage 1 through stage 4 chronic kidney disease, or unspecified chronic kidney disease; I25.10 Atherosclerotic heart disease of native coronary artery without angina pectoris; I65.23 Occlusion and stenosis of bilateral carotid arteries; N18.30 Chronic kidney disease, stage 3 unspecified; R21 Rash and other nonspecific skin eruption; R09.89 Other specified symptoms and signs involving the circulatory and respiratory systems; Z79.899 Other long term (current) drug therapy
CPT/HCPCS: 80053; 81206; 83615; 85025; 99213

== ENCOUNTER → 2020-06-03 | Outpatient (CLI) | payer MEDICARE ==
--- NOTE | 2020-06-03 15:28 | Diagnostic Imaging Report ---
EXAM: Cervical spine at 2:13 PM INDICATION: Neck pain, right shoulder and arm pain. The previous MRI cervical spine exam of 11/25/2012 noted degenerative disc disease throughout the cervical spine, particularly at C5-C6. On the lateral view of this exam, there is somewhat greater narrowing of the disc spaces at C5-C6 and C6-C7 and, to a lesser degree, at C3-C4. There is no fracture or acute bony abnormality evident. There is no sign of retropharyngeal edema. The lung apices are clear. IMPRESSION: 1. There is no evidence for an acute bony abnormality. 2. The degenerative disc disease at C5-C6 and C6-C7 and, to lesser extent, at C3-C4 has progressed since the prior exam. 3. If there is clinical concern regarding spinal stenosis or nerve root encroachment, then MRI would be recommended for further evaluation. Dictated by: Dictated on workstation # [id number]
== END ==
LOC: RAD 13:49
PROVIDERS: ATTEND Family Medicine
DX: M50.322 Other cervical disc degeneration at C5-C6 level (principal)
CPT/HCPCS: 72040

== ENCOUNTER 2020-07-24 08:56 | Outpatient (RCR) | payer MEDICARE ==
[2020-07-09 08:24] LABS: BASOPHILS % (AUTO) 1 % (0-10); EOSINOPHILS % (AUTO) 0 % (0-10); HEMATOCRIT 40 % (40-54); LYMPHOCYTES # (AUTO) 1.8 10^3/uL (1.0-4.0); LYMPHOCYTES % (AUTO) 21 % (12-44); MEAN CORPUSCULAR HEMOGLOBIN 32 pg (25-34); MEAN CORPUSCULAR HGB CONC 33 g/dL (32-36); MEAN CORPUSCULAR VOLUME 96 fL (80-99); MEAN PLATELET VOLUME 10.1 fL (9.0-12.2); MONOCYTES # (AUTO) 0.8 10^3/uL (0.0-1.0); MONOCYTES % (AUTO) 10 % (0-12); NEUTROPHILS # (AUTO) 5.9 10^3/uL (1.8-7.8); NEUTROPHILS % (AUTO) 68 % (42-75); PLATELET COUNT 247 10^3/uL (130-400); WHITE BLOOD COUNT 8.7 10^3/uL (4.3-11.0)
[2020-07-09 08:45] LABS: ALANINE AMINOTRANSFERASE 19 U/L (0-55); ALBUMIN 3.4 GM/DL (3.2-4.5); ALKALINE PHOSPHATASE 74 U/L (40-136); BILIRUBIN,TOTAL 0.4 MG/DL (0.1-1.0); BUN/CREATININE RATIO 11; CALCIUM 9.3 MG/DL (8.5-10.1); CARBON DIOXIDE 25 MMOL/L (21-32); CHLORIDE 108 MMOL/L (98-107); CREATININE SERUM 1.06 MG/DL (0.60-1.30); GFR ESTIMATED > 60; GLUCOSE 74 MG/DL (70-105); POTASSIUM 4.1 MMOL/L (3.6-5.0); SODIUM 139 MMOL/L (135-145); TOTAL PROTEIN 6.2 GM/DL (6.4-8.2)
== END 2020-07-28 | disposition home or self-care (01) ==
LOC: ONC 08:56
PROVIDERS: ATTEND Internal Medicine Hematology & Oncology
DX: C92.10 Chronic myeloid leukemia, BCR/ABL-positive, not having achieved remission (principal); I12.9 Hypertensive chronic kidney disease with stage 1 through stage 4 chronic kidney disease, or unspecified chronic kidney disease; N18.30 Chronic kidney disease, stage 3 unspecified; I25.10 Atherosclerotic heart disease of native coronary artery without angina pectoris; I65.23 Occlusion and stenosis of bilateral carotid arteries; K21.9 Gastro-esophageal reflux disease without esophagitis; R09.89 Other specified symptoms and signs involving the circulatory and respiratory systems; Z79.899 Other long term (current) drug therapy
CPT/HCPCS: 80053; 81206; 83615; 85025; 99213

== ENCOUNTER → 2020-10-10 | Outpatient (CLI) | payer MEDICARE ==
[2020-10-10 09:41] LABS: FREE T4 (FREE THYROXINE) 0.97 NG/DL (0.70-1.48)
== END ==
LOC: LAB 08:37
PROVIDERS: ATTEND Family Medicine
DX: M85.80 Other specified disorders of bone density and structure, unspecified site (principal); E53.8 Deficiency of other specified B group vitamins
CPT/HCPCS: 36415; 82306; 82607; 84439; 84443

== ENCOUNTER 2020-10-24 08:54 | Outpatient (RCR) | payer MEDICARE ==
[2020-10-10 08:50] LABS: BASOPHILS % (AUTO) 1 % (0-10); EOSINOPHILS % (AUTO) 0 % (0-10); HEMATOCRIT 40 % (40-54); HEMOGLOBIN 13.2 g/dL (13.3-17.7); LYMPHOCYTES # (AUTO) 1.7 10^3/uL (1.0-4.0); LYMPHOCYTES % (AUTO) 23 % (12-44); MEAN CORPUSCULAR HEMOGLOBIN 32 pg (25-34); MEAN CORPUSCULAR HGB CONC 33 g/dL (32-36); MEAN CORPUSCULAR VOLUME 95 fL (80-99); MEAN PLATELET VOLUME 10.1 fL (9.0-12.2); MONOCYTES # (AUTO) 0.7 10^3/uL (0.0-1.0); MONOCYTES % (AUTO) 9 % (0-12); NEUTROPHILS # (AUTO) 5.1 10^3/uL (1.8-7.8); NEUTROPHILS % (AUTO) 68 % (42-75); PLATELET COUNT 269 10^3/uL (130-400); WHITE BLOOD COUNT 7.5 10^3/uL (4.3-11.0)
[2020-10-10 09:08] LABS: ALANINE AMINOTRANSFERASE 17 U/L (0-55); ALBUMIN 3.7 GM/DL (3.2-4.5); ALKALINE PHOSPHATASE 78 U/L (40-136); BILIRUBIN,TOTAL 0.5 MG/DL (0.1-1.0); BUN/CREATININE RATIO 11; CARBON DIOXIDE 23 MMOL/L (21-32); CHLORIDE 108 MMOL/L (98-107); CREATININE SERUM 0.91 MG/DL (0.60-1.30); GFR ESTIMATED > 60; GLUCOSE 82 MG/DL (70-105); POTASSIUM 4.1 MMOL/L (3.6-5.0); SODIUM 139 MMOL/L (135-145); TOTAL PROTEIN 7.4 GM/DL (6.4-8.2)
== END 2020-11-06 08:51 | disposition home or self-care (01) ==
LOC: ONC 08:54
PROVIDERS: ATTEND Internal Medicine Hematology & Oncology
DX: Z51.81 Encounter for therapeutic drug level monitoring (principal); C92.10 Chronic myeloid leukemia, BCR/ABL-positive, not having achieved remission; R21 Rash and other nonspecific skin eruption; Z79.899 Other long term (current) drug therapy; Z87.891 Personal history of nicotine dependence
CPT/HCPCS: 80053; 81206; 83615; 85025; 99213

== ENCOUNTER 2021-01-29 08:49 | Outpatient (RCR) | payer MEDICARE ==
[2021-01-16 08:35] LABS: BASOPHILS # (AUTO) 0.1 10^3/uL (0.0-0.1); BASOPHILS % (AUTO) 1 % (0-10); EOSINOPHILS # (AUTO) 0.2 10^3/uL (0.0-0.3); EOSINOPHILS % (AUTO) 2 % (0-10); HEMATOCRIT 36 % (40-54); LYMPHOCYTES # (AUTO) 1.6 10^3/uL (1.0-4.0); LYMPHOCYTES % (AUTO) 24 % (12-44); MEAN CORPUSCULAR HEMOGLOBIN 32 pg (25-34); MEAN CORPUSCULAR HGB CONC 33 g/dL (32-36); MEAN CORPUSCULAR VOLUME 96 fL (80-99); MEAN PLATELET VOLUME 10.6 fL (9.0-12.2); MONOCYTES # (AUTO) 0.7 10^3/uL (0.0-1.0); MONOCYTES % (AUTO) 11 % (0-12); NEUTROPHILS # (AUTO) 4.2 10^3/uL (1.8-7.8); NEUTROPHILS % (AUTO) 62 % (42-75); PLATELET COUNT 263 10^3/uL (130-400); WHITE BLOOD COUNT 6.8 10^3/uL (4.3-11.0)
[2021-01-16 08:56] LABS: ALBUMIN 3.5 GM/DL (3.2-4.5); BILIRUBIN,TOTAL 0.4 MG/DL (0.1-1.0); CALCIUM 9.9 MG/DL (8.5-10.1); CREATININE SERUM 1.1 MG/DL (0.60-1.30); POTASSIUM 4.3 MMOL/L (3.6-5.0); TOTAL PROTEIN 6.7 GM/DL (6.4-8.2)
[2021-04-17 09:04] LABS: BASOPHILS % (AUTO) 0 % (0-10); EOSINOPHILS % (AUTO) 0 % (0-10); HEMATOCRIT 38 % (40-54); HEMOGLOBIN 12.8 g/dL (13.3-17.7); LYMPHOCYTES % (AUTO) 18 % (12-44); MEAN CORPUSCULAR HEMOGLOBIN 32 pg (25-34); MEAN CORPUSCULAR HGB CONC 33 g/dL (32-36); MEAN CORPUSCULAR VOLUME 95 fL (80-99); MEAN PLATELET VOLUME 10.1 fL (9.0-12.2); MONOCYTES # (AUTO) 1.1 10^3/uL (0.0-1.0); MONOCYTES % (AUTO) 10 % (0-12); NEUTROPHILS # (AUTO) 8.1 10^3/uL (1.8-7.8); NEUTROPHILS % (AUTO) 72 % (42-75); PLATELET COUNT 294 10^3/uL (130-400); WHITE BLOOD COUNT 11.2 10^3/uL (4.3-11.0)
[2021-04-17 09:27] LABS: ALBUMIN 3.7 GM/DL (3.2-4.5); BILIRUBIN,TOTAL 0.4 MG/DL (0.1-1.0); CALCIUM 10.1 MG/DL (8.5-10.1); CREATININE SERUM 1.02 MG/DL (0.60-1.30); TOTAL PROTEIN 6.9 GM/DL (6.4-8.2)
== END 2021-04-16 | disposition home or self-care (01) ==
LOC: ONC 08:49
PROVIDERS: ATTEND Internal Medicine Hematology & Oncology
DX: C92.10 Chronic myeloid leukemia, BCR/ABL-positive, not having achieved remission (principal); I10 Essential (primary) hypertension; E66.9 Obesity, unspecified
CPT/HCPCS: 80053; 81206; 85025

== ENCOUNTER 2021-04-17 08:36 | Outpatient (RCR) | payer MEDICARE ==
[2021-04-17 09:04] LABS: BASOPHILS % (AUTO) 0 % (0-10); EOSINOPHILS % (AUTO) 0 % (0-10); HEMATOCRIT 38 % (40-54); HEMOGLOBIN 12.8 g/dL (13.3-17.7); LYMPHOCYTES % (AUTO) 18 % (12-44); MEAN CORPUSCULAR HEMOGLOBIN 32 pg (25-34); MEAN CORPUSCULAR HGB CONC 33 g/dL (32-36); MEAN CORPUSCULAR VOLUME 95 fL (80-99); MEAN PLATELET VOLUME 10.1 fL (9.0-12.2); MONOCYTES # (AUTO) 1.1 10^3/uL (0.0-1.0); MONOCYTES % (AUTO) 10 % (0-12); NEUTROPHILS # (AUTO) 8.1 10^3/uL (1.8-7.8); NEUTROPHILS % (AUTO) 72 % (42-75); PLATELET COUNT 294 10^3/uL (130-400); WHITE BLOOD COUNT 11.2 10^3/uL (4.3-11.0)
[2021-04-17 09:27] LABS: ALBUMIN 3.7 GM/DL (3.2-4.5); BILIRUBIN,TOTAL 0.4 MG/DL (0.1-1.0); CALCIUM 10.1 MG/DL (8.5-10.1); CREATININE SERUM 1.02 MG/DL (0.60-1.30); TOTAL PROTEIN 6.9 GM/DL (6.4-8.2)
== END 2021-04-18 | disposition home or self-care (01) ==
LOC: ONC 08:36
PROVIDERS: ATTEND Internal Medicine Hematology & Oncology
DX: C92.10 Chronic myeloid leukemia, BCR/ABL-positive, not having achieved remission (principal); I10 Essential (primary) hypertension; E66.9 Obesity, unspecified
CPT/HCPCS: 80053; 81206; 82728; 83540; 83550; 83615; 85025

== ENCOUNTER → 2021-04-30 | Outpatient (CLI) | payer MEDICARE ==
--- NOTE | 2021-04-30 16:52 | Diagnostic Imaging Report ---
EXAMINATION: Chest 2 view HISTORY: Cough and chest congestion COMPARISON: 09/05/2017 FINDINGS: The lungs are clear without edema or pneumonia. No pleural effusion or pneumothorax. Heart size is normal. There are old left-sided rib fractures. IMPRESSION: 1. Clear lungs. Dictated by: Dictated on workstation # [id number]
== END ==
LOC: RAD 16:24
PROVIDERS: ATTEND Family Medicine
DX: R05.9 Cough, unspecified (principal); R09.89 Other specified symptoms and signs involving the circulatory and respiratory systems; Z20.822 Contact with and (suspected) exposure to COVID-19
CPT/HCPCS: 71046

== ENCOUNTER → 2021-04-30 | Outpatient (CLI) | payer MEDICARE | LOC: LABNPT 06:36 | PROVIDERS: ATTEND Family Medicine | DX: R09.81 Nasal congestion (principal); R05.9 Cough, unspecified | CPT/HCPCS: 87636 ==

== ENCOUNTER 2021-05-01 10:34 | Outpatient (RCR) | payer MEDICARE | END 2021-05-19 | disposition home or self-care (01) | LOC: ONC 10:34 | PROVIDERS: ATTEND Internal Medicine Hematology & Oncology | DX: C92.10 Chronic myeloid leukemia, BCR/ABL-positive, not having achieved remission (principal); I10 Essential (primary) hypertension; E66.9 Obesity, unspecified ==

== ENCOUNTER → 2021-11-07 | Outpatient (CLI) | payer MEDICARE | LOC: CARD 09:00 | PROVIDERS: ATTEND Nurse Practitioner Family | DX: I35.0 Nonrheumatic aortic (valve) stenosis (principal); I51.7 Cardiomegaly | CPT/HCPCS: 93306 ==

== ENCOUNTER → 2021-12-09 | Outpatient (CLI) | payer MEDICARE ==
[~2021-12-09] MED LIST changes: +CATHETER FLUSH 10 ML SYR IVP PRN; +REGADENOSON 0.4 MG/5 ML SYR (LEXISCAN) IV ONE
[2021-12-09 09:04] VITALS: BP 192/72
--- NOTE | 2021-12-10 08:47 | STRESS TEST ---
DATE OF SERVICE: 12/09/2021 RESTING AND POST REGADENOSON TECHNETIUM-99M TETROFOSMIN SPECT CT IMAGING ORDERING PHYSICIAN: Kenia Ruiz APRN PRIMARY PHYSICIAN: Dr. Baez. OTHER PHYSICIAN: Dr. Kilpatrick. CLINICAL DIAGNOSES: Cardiomyopathy, coronary artery disease. Baseline images were carried out after injection of 10.89 mCi of technetium-99m Tetrofosmin. This was followed by 0.4 mg regadenoson and 30.8 mCi of technetium-99m Tetrofosmin for stress imaging. The electrocardiogram showed sinus rhythm with first-degree AV block and left bundle branch block. The patient reported some nausea after regadenoson infusion, which resolved in a few minutes. Review of images at rest and following stress indicate moderate to severe cardiomegaly. There is global hypokinesis of the left ventricle that is more marked in the anteroseptal and apical escobar. Left ventricular ejection fraction is calculated to be 45%. There is patchy tracer uptake both during resting and stress images. There does not appear to be distinct ischemia. CONCLUSIONS: 1. Dilated cardiomyopathy with moderate to severe cardiomegaly and global hypokinesis of the left ventricle that is more marked in the anteroseptal and apical wall. 2. Left ventricular ejection fraction 45%. 3. Patchy tracer uptake without distinct evidence of ischemia. Job ID: [id number] DocumentID: [id number] Dictated Date: 12/10/2021 07:54:34 Small Offset Printer Date: 12/10/2021 08:47:16 Dictated By: LIONEL KILPATRICK MD, MA, FACP, FACC,
== END ==
LOC: CARD 07:53
PROVIDERS: ATTEND Nurse Practitioner Family
DX: I25.10 Atherosclerotic heart disease of native coronary artery without angina pectoris (principal); I42.0 Dilated cardiomyopathy
CPT/HCPCS: 78452; 93017; A9502

== ENCOUNTER 2022-01-06 07:10 | Day surgery (SDC) | payer MEDICARE ==
[2022-01-06] VITALS (7 sets, daily range): BP systolic 140–191; BP diastolic 64–86
[~2022-01-06] VITALS: Ht 184.2 cm; Wt 95.9 kg
[~2022-01-06 07:10] MED LIST changes: -CATHETER FLUSH 10 ML SYR IVP PRN; -REGADENOSON 0.4 MG/5 ML SYR (LEXISCAN) IV ONE
[2022-01-06] MEDS ORDERED: LIDOCAINE 1% INJ 20 ML VIAL ONE (07:14)
[2022-01-06] MEDS ORDERED: NS IV 1000 ML 1,000 ML ONE (07:14)
[2022-01-06] MEDS ORDERED: HEParin (CATH LAB) 2,000 ML IV ONE (07:14)
[2022-01-06] MEDS ORDERED: NS IV 1000 ML 1,000 ML IV SCH ×2 (07:30→11:45)
[2022-01-06 07:44] LABS: HEMATOCRIT 35 % (40-54); HEMOGLOBIN 11.5 g/dL (13.3-17.7); MEAN CORPUSCULAR HEMOGLOBIN 32 pg (25-34); MEAN CORPUSCULAR HGB CONC 33 g/dL (32-36); MEAN CORPUSCULAR VOLUME 96 fL (80-99); MEAN PLATELET VOLUME 10.3 fL (9.0-12.2); PLATELET COUNT 236 10^3/uL (130-400); WHITE BLOOD COUNT 7.3 10^3/uL (4.3-11.0)
[2022-01-06] MEDS ORDERED: fentaNYL INJ 100 MCG/2 ML AMP ONE (07:47)
[2022-01-06] MEDS ORDERED: MIDAZOLAM 2 MG/2 ML (VERSED) VIAL ONE (07:47)
[2022-01-06 08:04] LABS: ALBUMIN 3.7 GM/DL (3.2-4.5); BILIRUBIN,TOTAL 0.5 MG/DL (0.1-1.0); CALCIUM 9.8 MG/DL (8.5-10.1); CREATININE SERUM 1.29 MG/DL (0.60-1.30); TOTAL PROTEIN 6.5 GM/DL (6.4-8.2)
[2022-01-06 08:05] LABS: INR 1.1 (0.8-1.4); PROTHROMBIN TIME PATIENT 14.5 SEC (12.2-14.7)
[2022-01-06] MEDS ORDERED: AMLO-250 PO (08:10)
[2022-01-06] MEDS ORDERED: ECON15CR4 TP (08:10)
[2022-01-06] MEDS ORDERED: CARV3.122 PO (08:10)
[2022-01-06] MEDS ORDERED: FURO40TA4 PO (08:10)
[2022-01-06] MEDS ORDERED: DOCU100C37 PO (08:10)
[2022-01-06] MEDS ORDERED: ACIT25CA3 PO (08:10)
[2022-01-06] MEDS ORDERED: CALC300T4 PO (08:10)
[2022-01-06] MEDS ORDERED: ASPI-1238 PO (08:10)
[2022-01-06] MEDS ORDERED: POTA-177 PO (08:10)
[2022-01-06] MEDS ORDERED: VIT1CAPS44 PO (08:10)
[2022-01-06] MEDS ORDERED: CHOL500049 PO (08:10)
[2022-01-06] MEDS ORDERED: NF-DOR2% OP (08:10)
[2022-01-06] MEDS ORDERED: IMAT400T7 PO (08:10)
[2022-01-06] MEDS ORDERED: FAMO-119 PO (08:10)
--- NOTE | 2022-01-06 11:41 | Cardiac Procedure Note-CS/ASA ---
Pre-Procedure Note Pre-Op Procedure Note Date of Available H&P: Jan 05, 2022 Date H&P Reviewed: Jan 06, 2022 Time H&P Reviewed: 10:30 History & Physical: No changes noted Conscious Sedation Pre-Proced Time 10:30 ASA Score 3 For ASA 3 and 4: Consider anesthesia and medical clearance. Also, for patients with a history of failed moderate sedation consider anesthesia. Airway Lungs Heart ASA score ASA 1: a normal healthy patient ASA 2: a patient with a mild systemic disease (mid diabetes, controlled hypertension, obesity ASA 3: a patient with a severe systemic disease that limits activity (angina, COPD, prior Myocardial infarction) ASA 4: a patient with an incapacitating disease that is a constant threat to life (CHF, renal failure) ASA 5: a moribund patient not expected to survive 24 hrs. (ruptured aneurysm) ASA 6: a declared brain- patient whose organs are being harvested. For emergent operations, add the letter E after the classification Mallampati Classification Grade 2 Sedation Plan Analgesia, Amnesia, Plan communicated to team members The patient is an appropriate candidate to undergo the planned procedure, sedation, and anesthesia. The patient immediately re-assessed prior to indication. LIONEL HENDRIX MD FACP FAC CCDS Jan 06, 2022 11:41
[2022-01-06] MEDS ORDERED: CARV6.252 PO (11:45)
[2022-01-06] MEDS ORDERED: PATIENT MAY USE OWN MEDS, ALL PO SCH (11:45)
--- NOTE | 2022-01-06 11:45 | Discharge Inst-Cardiology ---
Discharge Inst-Cardiac Discharge Medications New Medications: Carvedilol (Carvedilol) 6.25 Mg Tablet 6.25 MG PO BID, #60 TAB 3 Refills Continued Medications: Acitretin (Acitretin) 25 Mg Capsule 25 MG PO M,W,F, CAP Amlodipine Besylate (Amlodipine Besylate) 5 Mg Tablet 5 MG PO DAILY, TAB Aspirin (Aspirin EC) 81 Mg Tablet.dr 81 MG PO DAILY, TAB Calcium Carbonate (Tums) 300 Mg Calcium (750 Mg) Tab.chew 300 MG PO HS, TAB Cholecalciferol (Vitamin D3) (Vitamin D3) 1,250 Mcg (02217 Unit) Capsule 1250 MCG PO DAILY, CAP Cyanocobalamin (Cyanocobalamin Injection) 1,000 Mcg/Ml Inj 1000 MCG INJ MONTHLY HAS INJECTION AT THE FIRST OF THE MONTH EVERY 2 MONTHS Docusate Sodium (Docusate Sodium) 100 Mg Capsule 100 MG PO DAILY, CAP Dorzolamide HCl (Dorzolamide HCl) 2 % Drops 1 DROP OP BID, DROPS Econazole Nitrate (Econazole Nitrate) 1 % Cream..g. 1 GM TP PRN for Itching, EA Famotidine (Pepcid) 20 Mg Tablet 20 MG PO HS, TAB Furosemide (Furosemide) 40 Mg Tablet 40 MG PO EVERY OTHER DAY, TAB Imatinib Mesylate (Imatinib Mesylate) 400 Mg Tablet 400 MG PO DAILY, TAB Irbesartan (Irbesartan) 300 Mg Tablet 300 MG PO DAILY Polyethylene Glycol 3350 (Miralax) 17 Gm Powd.pack 17 GM PO HS, EACH Potassium Chloride (Potassium Chloride) 10 Meq Tab.er.prt 10 MEQ PO EVERY OTHER DAY Tamsulosin HCl (Tamsulosin HCl) 0.4 Mg Cap.er.24h 0.4 MG PO DAILY Vit C/E/Zn/Coppr/Lutein/Zeaxan (Preservision Areds 2 Softgel) 250MG-90MG Capsule 1 EACH PO DAILY, CAP Discontinued Medications: Carvedilol (Carvedilol) 3.125 Mg Tablet 3.125 MG PO BID, TAB LIONEL HENDRIX MD [facility] CCDS Jan 06, 2022 11:45
--- NOTE | 2022-01-06 11:46 | Discharge Inst-Post CATH ---
Discharge Inst-CATH/EP Post Cardiac Cath/EP D/C Inst Follow Up/Plan F/u with Dr Kilpatrick in 2 weeks ACTIVITY * Go Home directly and rest. * Limit activity of the leg (or wrist if it was used) for 7 days including aerobics, swimming, jogging, bicycling, etc. * Restrict stair-climbing for 7 days if possible, if not, climb up with your no n-cath leg, then bring together on the same step. * Avoid lifting, pushing, pulling or excessive movement of the affected ext remity for 7 days. * Customary sexual activity may be resumed after 2 days-use caution not to use a position that strains or causes pain to the affected extremity. * No driving for 24 hours. * NO SMOKING. * Avoid straining for bowel movements for 7 days. * Gentle walking on level ground is allowed. * Returning to work will depend on the type of procedure and the results. Your doctor will discuss this with you. CALL YOUR DOCTOR FOR ANY OF THE FOLLOWING: *If bleeding from the puncture site occurs- Apply gentle pressure to site with clean cloth and call your doctor or EMS. * If a knot or lump forms under the skin, increases in size, or causes pain. * If bruising appears to be worsening or moving further down your leg instead of disappearing. * Temperature above 101 F. CARE OF YOUR GROIN INCISION; * Bruising or purple discoloration of the skin near the puncture site is common. * You may shower only, no bathtub bathing for 5 days. Be careful to avoid slipping as your leg may feel stiff. * If a closure device was used on your femoral artery, please see the attached guide regarding care of the device and your leg. * Leave dressing on FOR 24 hours. CARE OF YOUR WRIST INCISION; * Bruising or purple discoloration of the skin near the puncture site is common. * You may shower. * DO NOT submerge wrist. * Leave dressing on FOR 24 hours. LIONEL KILPATRICK MD FACP FAC CCDS Jan 06, 2022 11:46
--- NOTE | 2022-01-06 12:04 | CARDIAC CATHETERIZATION ---
DATE OF SERVICE: 01/06/2022 CARDIAC CATHETERIZATION REPORT The patient is an 86-year-old gentleman with recently diagnosed dilated cardiomyopathy. Cardiac catheterization was carried out for further evaluation, informed consent was obtained. DESCRIPTION OF PROCEDURE: He was brought to the cardiac catheterization laboratory in a fasting state. Right groin was prepared and draped in the usual sterile fashion. Lidocaine 1% was used for local anesthesia. Modified Seldinger technique was used to advance a 5-Maori sheath in the right femoral artery, 5-Maori JL4 catheter for left angiography, 5-Maori JR4 catheter for right coronary angiography, 5-Maori pigtail catheter was used for left heart catheterization and left ventricular angiography. Angiography of the right femoral artery was carried out through the sheath. Mynx was used to achieve hemostasis at the end of the procedure, following sheath removal. He tolerated the procedure well. HEMODYNAMICS: Left ventricular end-diastolic pressure following coronary angiography was 15 mmHg. There is no significant pressure gradient on pullback across the aortic valve. CORONARY ANGIOGRAPHY: Left main coronary artery is free of significant disease. Left anterior descending artery has mild plaque. Left circumflex artery does not exhibit significant disease. Right coronary artery is dominant, does not exhibit significant disease. LEFT VENTRICULAR ANGIOGRAPHY: Left ventricular angiography was carried out in the right anterior oblique projection. Global left ventricular systolic function appears to be mildly impaired. Left ventricular ejection fraction is estimated to be 45 to 50%. There does not appear to be any distinct regional wall motion abnormality. CONCLUSIONS: 1. Angiographically minor coronary artery disease. 2. Mild impairment of global left ventricular systolic function with ejection fraction approximately 45 to 50%. 3. No significant regional wall motion abnormality. 4. Left ventricular end-diastolic pressure mildly elevated. DISCUSSION AND RECOMMENDATIONS: Based on results of the study, it appears appropriate to continue a conservative approach. He is on medical therapy, which is currently being optimized. This will be continued on an outpatient basis. Job ID: [id number] DocumentID: [id number] Dictated Date: 01/06/2022 11:28:54 Aerospace Project Engineer Date: 01/06/2022 12:03:30 Dictated By: LIONEL HENDRIX MD, MA, FACP, FACC,
== END 2022-01-06 14:05 | disposition home or self-care (01) ==
LOC: CATH 07:10 → SDC 11:40 → CATH 14:05
PROVIDERS: ATTEND Internal Medicine Cardiovascular Disease
DX: I42.0 Dilated cardiomyopathy (principal); I25.10 Atherosclerotic heart disease of native coronary artery without angina pectoris; E66.9 Obesity, unspecified; I10 Essential (primary) hypertension; C92.10 Chronic myeloid leukemia, BCR/ABL-positive, not having achieved remission; H40.9 Unspecified glaucoma; I70.203 Unspecified atherosclerosis of native arteries of extremities, bilateral legs; I65.23 Occlusion and stenosis of bilateral carotid arteries; R94.31 Abnormal electrocardiogram [ECG] [EKG]; R79.89 Other specified abnormal findings of blood chemistry; Z87.891 Personal history of nicotine dependence; Z79.82 Long term (current) use of aspirin; Z79.899 Other long term (current) drug therapy; Z68.28 Body mass index [BMI] 28.0-28.9, adult
CPT/HCPCS: 80053; 80061; 85027; 85610; 85730; 87081; 93005; 93458; C1760; C1894; 36415

== ENCOUNTER 2022-01-08 09:25 | Outpatient (CLI) | payer MEDICARE ==
[~2022-01-08] VITALS: Ht 190.5 cm; Wt 96.2 kg
[~2022-01-08 09:25] MED LIST changes: +ACIT25CA3 PO; +AMLO-250 PO; +ASPI-1238 PO; +CALC300T4 PO; +CARV3.122 PO; +CARV6.252 PO; +CHOL500049 PO; +DOCU100C37 PO; +ECON15CR4 TP; +FAMO-119 PO; +FURO40TA4 PO; +IMAT400T7 PO; +NF-DOR2% OP; +POTA-177 PO; +VIT1CAPS44 PO
[2022-01-08 09:42] VITALS: BP 159/69
[2022-01-08] MEDS ORDERED: diphenhydrAMINE 50 MG/ML INJ (BENADRYL) IV PRN (09:45)
[2022-01-08] MEDS ORDERED: BEBTELOVIMAB 175 MG/2 ML VIAL IV ONE (09:45)
[2022-01-08] MEDS ORDERED: ACETAMINOPHEN 500 MG TAB (TYLENOL) PO PRN (09:45)
[2022-01-08] MEDS ORDERED: ONDANSETRON 4 MG/2 ML (SDV) Z0FRAN IV PRN (09:45)
[2022-01-08] MEDS ORDERED: EPINEPHrine INJECTION 1 MG/ML AMP IM PRN (09:45)
[2022-01-08 10:22] VITALS: BP 148/68
== END 2022-01-08 10:26 | disposition home or self-care (01) ==
LOC: INFUSION 09:25
PROVIDERS: ATTEND Family Medicine
DX: U07.1 COVID-19 (principal)

== ENCOUNTER → 2022-08-17 | Outpatient (CLI) | payer MEDICARE | LOC: CARD 13:36 | PROVIDERS: ATTEND Internal Medicine Cardiovascular Disease | DX: I42.0 Dilated cardiomyopathy (principal); I51.89 Other ill-defined heart diseases; I34.0 Nonrheumatic mitral (valve) insufficiency | CPT/HCPCS: 93306 ==

== ENCOUNTER 2023-01-25 16:08 | Emergency (ER) | payer MEDICARE ==
[~2023-01-25] VITALS: Ht 182 cm; Wt 96.2 kg
[~2023-01-25 16:08] MED LIST changes: +ECON15CR4 TOP; -ECON15CR4 TP; +TIMO5DRO16 OU; -TIMO5DRO5 OU
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
[2023-01-25] MEDS ORDERED: CYCLOBENZAPRINE 10 MG TABLET PO SCH (16:30)
[2023-01-25] MEDS ORDERED: CYCL10TA25 PO (16:48)
[2023-01-25 17:35] VITALS: BP 182/78
[2023-01-28] MEDS ORDERED: ATOR80TA76 PO (12:10)
[2023-01-28] MEDS ORDERED: CLOP75TA28 PO (12:10)
[2023-01-28] MEDS ORDERED: AMLO-250 PO (12:50)
== END 2023-01-25 17:35 | disposition home or self-care (01) ==
LOC: EDUNIT# 16:08 → ER 16:10
DX: M62.838 Other muscle spasm (principal)
CPT/HCPCS: 93005

== ENCOUNTER 2023-01-27 20:32 | Observation (INO) | payer MEDICARE ==
[~2023-01-27] VITALS: Ht 189 cm; Wt 96.2 kg
[~2023-01-27 20:32] MED LIST changes: +CYCL10TA25 PO
[2023-01-27 20:51] LABS: BASOPHILS % (AUTO) 0 % (0-10); EOSINOPHILS % (AUTO) 0 % (0-10); HEMATOCRIT 36 % (40-54); HEMOGLOBIN 11.9 g/dL (13.3-17.7); LYMPHOCYTES # (AUTO) 1.9 10^3/uL (1.0-4.0); LYMPHOCYTES % (AUTO) 24 % (12-44); MEAN CORPUSCULAR HEMOGLOBIN 32 pg (25-34); MEAN CORPUSCULAR HGB CONC 33 g/dL (32-36); MEAN CORPUSCULAR VOLUME 95 fL (80-99); MEAN PLATELET VOLUME 10.2 fL (9.0-12.2); MONOCYTES # (AUTO) 0.7 10^3/uL (0.0-1.0); MONOCYTES % (AUTO) 9 % (0-12); NEUTROPHILS # (AUTO) 5.1 10^3/uL (1.8-7.8); NEUTROPHILS % (AUTO) 66 % (42-75); PLATELET COUNT 257 10^3/uL (130-400); WHITE BLOOD COUNT 7.7 10^3/uL (4.3-11.0)
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
[2023-01-27 20:59] LABS: ALBUMIN 3.3 GM/DL (3.2-4.5); CHLORIDE 104 MMOL/L (98-107); PROTHROMBIN TIME PATIENT 13.7 SEC (12.2-14.7); SODIUM 138 MMOL/L (135-145)
--- NOTE | 2023-01-27 20:59 | Diagnostic Imaging Report ---
CLINICAL INDICATIONS: Patient with confusion the last hour and has slurred speech and weakness. EXAM: Axial CT scan of the brain performed without IV contrast. High-resolution axial CT brain images with sagittal and coronal reformations were also created. Auto Exposure Controls were utilized during the CT exam to meet ALARA standards for radiation dose reduction. COMPARISON: None. FINDINGS: There is no evidence of acute cerebral infarct, intracranial hemorrhage, or gross mass effect. There is no dense vessel sign. The brain parenchymal volume appears appropriate for patient's age. There is chronic small vessel ischemic disease. There is normal castle-white matter distinction. There is no significant midline shift or herniation. There is no evidence of hydrocephalus. The basal cisterns are unremarkable. The skull, extracranial soft tissue, and orbits are unremarkable. There are small areas of mucosal thickening involving both maxillary sinuses and frontal sinus. Temporal bones show no significant abnormality. IMPRESSION: 1: There is no CT evidence of acute intracranial process. There is no dense vessel sign. Results of this report was discussed with Dr. Mariela Delaney via the telephone on 01/27/2023 at 2055 hours. Dictated by: Dictated on workstation # [id number]
[2023-01-27 21:00] LABS: CALCIUM 9.9 MG/DL (8.5-10.1)
[2023-01-27 21:01] LABS: GLUCOSE 103 MG/DL (70-105)
[2023-01-27 21:02] LABS: FIBRIN DEGRADATION PRODUCTS 2.68 UG/ML (0.00-0.49); TOTAL PROTEIN 6.3 GM/DL (6.4-8.2)
[2023-01-27 21:03] LABS: BILIRUBIN,TOTAL 0.4 MG/DL (0.1-1.0); CARBON DIOXIDE 22 MMOL/L (21-32)
[2023-01-27 21:05] LABS: ALKALINE PHOSPHATASE 72 U/L (40-136); CREATININE SERUM 1.48 MG/DL (0.60-1.30); GFR ESTIMATED 45
[2023-01-27 21:06] LABS: BUN/CREATININE RATIO 16
[2023-01-27 21:08] LABS: ALANINE AMINOTRANSFERASE 17 U/L (0-55); MAGNESIUM 2.1 MG/DL (1.6-2.4)
--- NOTE | 2023-01-27 21:10 | Diagnostic Imaging Report ---
CLINICAL INDICATION: Patient with stroke symptoms. EXAM: Portable chest x-ray upright view. COMPARISON: Chest x-ray dated 04/30/2021. FINDINGS: Lungs/pleura: Lungs are clear. There is no pneumothorax. There is no pleural effusion. Mediastinum: Unremarkable. Pulmonary vasculature: Unremarkable. Heart: Unremarkable. Bones/extrathoracic soft tissue: There are degenerative spurs involving the thoracic spine. Stable old chronic rib deformities involving the left upper chest region. IMPRESSION: There is no radiographic evidence of acute cardiopulmonary process. Dictated by: Dictated on workstation # [id number]
[2023-01-27] MEDS ORDERED: NS IV 1000 ML 1,000 ML IV SCH ×2 (21:15→23:30)
[2023-01-27] MEDS ORDERED: IOHEXOL 350 MG/ML 150 ML (OMNIPAQUE 350) VIAL IV ONE (21:30)
[2023-01-27] MEDS ORDERED: HOLD METFORMIN - RECEIVED CONTRAST 20 ML VIAL IV SCH (21:30)
[2023-01-27] MEDS ORDERED: NS 100 ML (IVPB) BAG IV ONE (21:30)
--- NOTE | 2023-01-27 22:10 | Diagnostic Imaging Report ---
CLINICAL INDICATIONS: Patient with altered mental status this evening. Patient has dizziness and vision changes x3 days. EXAM: CT perfusion of the brain. Multiple perfusion maps were obtained including relative CBV, relative CBF, MTT, and Tmax. COMPARISON: Head CT without contrast dated 01/27/2023. FINDINGS: The multiple perfusion maps are relatively symmetric with no evidence of brain perfusion mismatch or other significant intracranial flow abnormality/ defect. IMPRESSION: Unremarkable CT perfusion of the brain with no perfusion mismatch. Results of this report discussed with Dr. Mariela Delaney via telephone on 01/27/2023 at 2204 hours. Dictated by: Dictated on workstation # [id number]
--- NOTE | 2023-01-27 22:10 | Diagnostic Imaging Report ---
Clinical indications: Patient with altered mental status, dizziness and vision changes x3 days. Exams: 1: Head CT with and without IV contrast. Auto Exposure Controls were utilized during the CT exam to meet ALARA standards for radiation dose reduction. 2: CT angiogram of the head and neck performed with 100 cc of Omnipaque 350 IV contrast. Sagittal and coronal MIP reformations were created for better visualization of vascular anatomy. CT angiogram was post-processed using RAPID LVO detection to include quantitative measurements of cerebral blood flow and automated results notification to the stroke and/or neurointerventional team. Comparison: Head CT without contrast dated 01/27/2023. CT brain perfusion with contrast dated 01/27/2023. Findings: Head CT: Stable appearance of the brain with no interval acute intracranial process. There is no abnormal IV contrast enhancement. The remainder of this exam shows no significant interval change compared to the prior study of comparison. CT ANGIOGRAM: There is dense contrast bolus seen within right subclavian vein and superior vena cava and skull streak artifact obscuring portions of aortic arch and proximal great vessels. Three-vessel aortic arch is seen. The brachiocephalic artery and bilateral subclavian artery are patent. The lateral common carotid arteries, bilateral ECA and bilateral cervical ICA are patent. 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 There is a small pseudoaneurysm involving the lateral aspect of the distal cervical left ICA which measures roughly 2 mm x 2 mm. This is seen on series 2, image 360. The petrous, cavernous, and supraclinoid ICA are patent. The bilateral ACAs and distal branches are patent. The bilateral MCAs and distal branches are patent. The dural venous sinuses are patent. The bilateral cervical vertebral arteries are patent. Dominant left cervical vertebral artery is seen. The bilateral PICA are patent. The intradural bilateral vertebral arteries, basilar artery, bilateral superior cerebellar artery, and bilateral electronics specialist and distal branches are patent. There is a mild to moderate area of focal stenosis involving the right P2 EDUCATIONAL TECHNOLOGIST. The neck soft tissue structures show no significant abnormality. There is atelectasis involving the visualized upper lung barboza. There are cervical spine vertebral body spurs. IMPRESSION: 1: Stable CT scan of the brain with no interval evidence of acute intracranial process. 2: CT angiogram of the [place] and neck shows no large vessel occlusion or intravascular thrombus. 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 There is no significant stenosis seen in the region. 4: There is a focal area of mild to moderate stenosis involving the right P2 EDUCATIONAL TECHNOLOGIST. Results of this report discussed with Dr. Mariela Delaney via telephone on 01/27/2023 at 2204 hours. Dictated by: Dictated on workstation # [id number]
[2023-01-27 22:37] LABS: AMPHETAMINE SCREEN, URINE NEGATIVE (NEGATIVE); BARBITURATE SCREEN URINE NEGATIVE (NEGATIVE); CANNABINOID SCREEN, URINE NEGATIVE (NEGATIVE); COCAINE SCREEN URINE NEGATIVE (NEGATIVE); METHADONE STAT NEGATIVE (NEGATIVE); OPIATE SCREEN URINE NEGATIVE (NEGATIVE); OXYCODONE STAT NEGATIVE (NEGATIVE); PROPOXYPHENE STAT NEGATIVE (NEGATIVE); TRICYCLIC ANTIDEPRESSANTS SCRE POSITIVE (NEGATIVE)
[2023-01-27 22:40] LABS: BILIRUBIN,URINE NEGATIVE (NEGATIVE); CLARITY,URINE CLEAR; COLOR,URINE YELLOW; GLUCOSE, URINE (UA) NEGATIVE (NEGATIVE); KETONES,URINE NEGATIVE (NEGATIVE); NITRITE,URINE NEGATIVE (NEGATIVE); PROTEIN,URINE 3+ (NEGATIVE)
[2023-01-27 22:41] LABS: AMORPHOUS SEDIMENT,UR FEW AMOR PHOSPHATE /LPF; BACTERIA,URINE TRACE /HPF; LEUKOCYTE ESTERASE ,URINE NEGATIVE (NEGATIVE); SQUAMOUS EPITHELIAL CELL,UR RARE /HPF
--- OUTSIDE RECORDS SUMMARY | 2023-01-27 22:44 | XMS REPORT | Clinical Summary ---
Author Author [facility] Organization [facility] Address Unknown Phone Unavailable Care Team Providers Care Fast Food Restaurant Manager Name Role Phone Promise Camacho RN Unavailable Unavailable Malena Grullon MD Unavailable [phone] Fartun Baez MD PCP [phone] Source Comments Some departments are not documenting in the electronic medical record. If you do not see the information that you expected, contact Release of Information in the Health Information Management department at [phone] for further assistance in locating additional records.[facility] Allergies Active Allergy Reactions Criticality Noted Date Comments Horse/Equine Containing Products SWELLING 05/24/2009 Tetanus/horse serum Medications Medication Sig Dispensed Refills Start Date End Date Status GARLIC OIL PO Take 1 Tab by mouth Every Morning. (Dose = 220 mg) 0 Active amlodipine (NORVASC) 10 mg tablet Take 1 Tab by mouth Every Morning. 0 Active irbesartan (AVAPRO) 300 mg tablet Take 1 Tab by mouth Every Morning. 0 Active timolol (BETIMOL) 0.5 % ophthalmic solution Apply 1 Drop to both eyes Every Morning. 0 Active multivitamin (DAILY MULTIVITAMIN-MINERAL S) tablet Take 1 Tab by mouth Every Morning. 0 Active Herbal Drugs Cap Take 1 Cap by mouth At Bedtime Daily. (Bifidophilus Chika Force) 0 Active Herbal Drugs Cap Take 1 Cap by mouth At Bedtime Daily. (Herbal Pumpkin) (Dose = 490 mg) 0 Active Herbal Drugs Cap Take 1 Cap by mouth At Bedtime Daily. (Chika Multi-Probiotic) 0 Active docusate (COLACE) 100 mg capsule Take 1 Cap by mouth At Bedtime Daily. 0 Active UBIDECARENONE/OMEGA- 3/VIT E (COQ-10 & FISH OIL PO) Take 1 Cap by mouth Every Morning. 0 Active aspirin 81 mg chew tablet Take 1 Tab by mouth Daily. 0 0 06/04/2009 Active ergocalciferol (VITAMIN D-2) 50,000 unit capsule Take 1 Cap by mouth Every 7 Days. 4 2 06/04/2009 Active imatinib (GLEEVEC) 400 mg tablet Take 1 tablet by mouth daily. 0 08/11/2018 Active econazole nitrate 1 % topical cream Apply to affected areas between toes daily. 30 g 2 02/22/2019 Active acitretin (SORIATANE) 25 mg capIndications:Palmo plantar keratoderma Take one pill by mouth three times weekly 36 capsule 3 09/13/2019 Active clobetasoL (TEMOVATE) 0.05 % topical ointmentIndications: Dermatosis APPLY TO PALMS AND SOLES TWO TIMES A DAY NEEDED 1-2 WEEKS PER MONTH -- DO NOT USE ON FACE, GROIN, OR UNDERARMS. 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 Surgical History Surgery Date Site/Laterality Comments ANKLE FRACTURE TX CATARACT REMOVAL b/l Medical History Medical History Date Comments TIA (transient ischemic attack) Glaucoma Hypertension Family History Medical History Relation Name Comments Hypertension Mother Relation Name Status Comments Mother Social History Tobacco Use Types Packs/Day Years Used Date Smoking Tobacco: Former Smokeless Tobacco: Never Comments:quit 15 years ago Alcohol Use Standard Drinks/Week Comments No 0 (1 standard drink = 0.6 oz pur e alcohol) Alcohol Use Answer Date Recorded Alcohol Use No Male: 9+ ounces (15+ Standard Drinks) per week T hreshold 0 Female: 4.8+ ounces (8+ Standard Drinks) per wee k Threshold Not on file Sex and Gender Information Value Date Recorded Sex Assigned at Male 09/13/2019 11:01 AM CDT Gender Identity Male 09/13/2019 11:01 AM CDT Sexual Orientation Not on file Obstetrics History Last Filed Vital Signs Vital Sign Reading Time Taken Comments Blood Pressure 153/70 03/22/2019 12:54 PM INSPECTOR RECEIVING Pulse 59 03/22/2019 12:54 PM INSPECTOR RECEIVING Temperature 36 °C (96.8 °F) 06/05/2009 7:00 AM INSPECTOR RECEIVING Respiratory Rate 16 09/13/2019 10:20 AM CDT Oxygen Saturation 98% 11/30/2018 10:36 AM CDT Inhaled Oxygen Concentration - - Weight 101.2 kg (223 lb) 09/13/2019 10:20 AM CDT Height 186.7 cm (6' 1.5") 09/13/2019 10:20 AM CD T Body Mass Index 29.02 09/13/2019 10:20 AM CDT Plan of Treatment Health Maintenance Due Date Last Done Comments MEDICARE ANNUAL WELLNESS VISIT 1934 COVID-19 VACCINE (#1) 1934 DTAP/TDAP VACCINES (1 - Tdap) 1952 PHYSICAL (COMPREHENSIVE) EXAM 1952 SHINGLES RECOMBINANT VACCINE (1 of 2) 1984 PNEUMOCOCCAL VACCINE 65+ YRS (1 - PCV) 1999 ADVANCE CARE PLANNING DISCUSSION AND DOCUMENTATION 04/2022 DEPRESSION SCREENING 04/19/2022 INFLUENZA VACCINE (#1) 2022 Advance Directives Latest Code Status on File Code Status Date Activated Date Inactivated Comments Full Code 05/24/2009 7:47 PM 06/05/2009 1:10 PM Care Teams Fast Food Restaurant Manager Relationship Specialty Start Date End Date Fartun Baez MD [address] [place] [address] PCP - General Family Medicine 02/08/18 Promise Camacho RN 02/17/10 Malena Grullon MD [address] [place] [address] 02/17/10
--- OUTSIDE RECORDS SUMMARY | 2023-01-27 22:44 | XMS REPORT | CCD ---
Author Author Jacob Baez D.O. Organization FARTUN Khan DO [facility] Address [address] [place] [address] Phone Care Team Providers Care Boat Person Name Role Phone Fartun Baez D.O. PP Unavail able CCM Unavailable Summary Purpose Interface Exchange Insurance Providers Payer name Policy type / Coverage type Covered libertarian ID Effective Begin Date Effective End Date WPS MEDICARE PART B [place] Medicare Part B [id number] Unknown [facility] Medicare Part B [id number] Unknown Family history Mother Diagnosis Age At Onset Hypertension Unknown Grandparents Diagnosis Age At Onset Cerebrovascular disease Unknown Father Diagnosis Age At Onset Colorectal malignancy Unknown Social History Social History Element Codes Description Effec tive Dates Tobacco history SNOMED CT: 2279196 Former smoker quit 16 years ago 05/04/2011 Marital status Unknown 10/06/2010 Employment Unknown Retired 10/06/2010 Allergies, Adverse Reactions, Alerts Substance Reaction Codes Entered Date Inactivated Date Status _ Unknown 03/14/2018 No Inactive Date Ac tive * NO KNOWN ENVIRONMENTAL ALLERGIES Unknown 10/06/2010 No Inactive Date Active * NO KNOWN FOOD ALLERGIES Unknown 10/06/2010 No Inactive Date Active Problems Condition Codes Effective Dates Condition St atus Depression screen ICD-10: Z13.31 ICD-9: V79.0 04/21/2022 Active Encounter for general adult medical examination without abnormal findings ICD-10: Z00.00 ICD-9: V70.0 02/20/2019 Active Essential hypertension ICD-10: I10 ICD-9: 401.9 02/28/2014 Active Gastro-esophageal reflux dis ease without esophagitis ICD-10: K21.9 ICD-9: 530.81 09/13/2014 Active Mixed hyperlipidemia ICD-10: E78.2 ICD-9: 272.4 02/28/2014 Active Pneumonia due to coronavirus disease 2018 ICD-10: J12.82 01/12/2022 Active Pneumonia due to COVID-19 virus ICD-10: U07.1 ICD-9: 480.8 01/12/2022 Active COVID-19 ICD-10: U07.1 ICD-9: 079.89 01/07/2022 Active Edema ICD-10: R60.9 ICD-9: 782.3 11/24/2021 Active Other malaise and fatigue ICD-10: R53.81 ICD-9: 780.79 10/03/2020 Active Lumbago with sciatica, right side ICD-10 : M54.41 ICD-9: 724.2 07/06/2018 Active Abnormal lung sounds ICD-10: R09.89 ICD-9: 786.7 04/30/2021 Active Sinus congestion ICD-10: R09.81 ICD-9: 478.19 04/29/2021 Active Contact with and (suspected) exposure to other viral communicable diseases ICD-10: Z20.828 ICD-9: V01.79 04/29/2021 Active BPH (benign prostatic hyperplasia) ICD-1 0: N40.0 ICD-9: 600.00 04/17/2021 Active Chronic myeloid leukemia ICD-10: C92.10 ICD-9: 205.10 02/20/2019 Active Cervicalgia ICD-10: M54.2 ICD-9: 723.1 05/30/2020 Active Muscle spasm ICD-10: M62.838 ICD-9: 728.85 05/30/2020 Active Hypertriglyceridemia ICD-10: E78.1 ICD-9: 272.1 09/26/2019 Active 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 ICD-9: 703.8 09/08/2017 Active Other fatigue ICD-10: R53.83 ICD-9: 780.79 02/16/2019 Active Hyperglycemia, unspecified ICD-10: R73.9 ICD-9: 790.29 03/01/2017 Active Generalized skin eruption du e to drugs and medicaments taken internally ICD-10: L27.0 ICD-9: 693.0 03/14/2018 Active Myeloid leukemia, unspecifie d, not having achieved remission ICD-10: C92.90 ICD-9: 205.10 02/28/2014 Active Acute bronchitis, unspecified ICD-10: J2 0.9 ICD-9: 490 07/29/2017 Active Pain in left hip ICD-10: M25.552 ICD-9: 719.45 09/01/2016 Active Pain in right hip ICD-10: M25.551 ICD-9: 719.45 09/01/2016 Active Unilateral primary osteoarth ritis, left knee ICD-10: M17.12 ICD-9: 715.16 03/01/2016 Active Unilateral primary osteoarth ritis, right knee ICD-10: M17.11 ICD-9: 715.16 03/01/2016 Active Abnormal levels of other ser um enzymes ICD-10: R74.8 ICD-9: 790.5 08/25/2015 Active Biliary acute pancreatitis ICD-10: K85.1 ICD-9: 577.0 08/25/2015 Active Nausea ICD-10: R11.0 ICD-9: 787.02 08/13/2015 Active Upper abdominal pain, unspecified ICD-10 : R10.10 ICD-9: 789.09 08/13/2015 Active Cellulitis of left lower limb ICD-10: L0 3.116 ICD-9: 682.7 02/26/2015 Active Actinic keratosis ICD-10: L57.0 ICD-9: 702.0 01/16/2015 Active Inflamed seborrheic keratosis ICD-10: L8 2.0 ICD-9: 702.11 01/16/2015 Active FOLLICULITIS ICD-9: 704.8 11/18/2014 Active GERD ICD-9: 530.81 09/13/2014 Active Weight loss ICD-9: 783.21 09/13/2014 Active Arrhythmia ICD-9: 427.9 07/04/2014 Active CARDIAC MURMURS NEC ICD-9: 785.2 07/04/2014 Active Low back pain ICD-9: 724.2 06/20/2014 Active Radiculopathy ICD-9: 729.2 06/20/2014 Active SINUSITIS, ACUTE ICD-9: 461.9 05/04/2014 Active CERUMEN IMPACTION ICD-9: 380.4 02/28/2014 Active CHRONIC MYELOID LEUKEMIA ICD-9: 205.10 02/28/2014 Ac tive HYPERLIPIDEMIA NEC/NOS ICD-9: 272.4 02/28/2014 Activ e HYPERTENSION ICD-9: 401.9 02/28/2014 Active CERVICALGIA ICD-9: 723.1 10/06/2012 Active Radiculopathy of arm ICD-9: 723.4 10/06/2012 Active SPASM OF MUSCLE ICD-9: 728.85 10/06/2012 Active Thoracic back pain ICD-9: 724.1 10/06/2012 Active Distal paresthesia ICD-9: 782.0 07/22/2012 Active Muscle spasm of back ICD-9: 724.8 07/22/2012 Active Seizure ICD-9: 780.39 05/18/2011 Active LEUKOCYTOSIS NOS ICD-9: 288.60 05/11/2011 Active EDEMA ICD-9: 782.3 05/04/2011 Active Constipation Unknown 10/06/2010 Active Hypertension Unknown 10/06/2010 Active Vitamin B12 Deficiency Unknown 10/06/2010 Activ e MALAISE AND FATIGUE ICD-9: 780.79 10/06/2010 Active Medications Medication Codes Instructions Start Date Stop Date Status Fill Instructions tamsulosin 0.4 mg capsule RxNorm: 082399 Take 1 Capsule(s) Oral QD 08/25/19 023 Inactive dorzolamide 2 % eye drops RxNorm: 149158 Administer 1 Drop(s) ophthalmic (eye) two times a day 04/21/19 No Stop Date Active potassium chloride ER 10 mEq tablet,extended release RxNorm: 139564 Take 1 Tablet(s) Oral EVERY OTHER DAY 04/21/19 No Stop Date Active amlodipine 5 mg tablet RxNorm: 980253 Take 1 Tablet(s) Oral QD 04/21/19 023 Inactive docusate sodium 100 mg capsule RxNorm: 0622230 Take 1 Capsule(s) Oral QD 04/21/19 No Stop Date Active tamsulosin 0.4 mg capsule RxNorm: 092454 Take 1 Capsule(s) Oral QD 04/21/19 023 Inactive cyanocobalamin (vit B-12) 1,000 mcg/mL injection solution RxNorm: 989776 INJECT 1 ML INTRAMUSCULARLY EVERY 30 DAYS 03/11/2021/2 023 Active loratadine 10 mg tablet RxNorm: 209010 Take 1 Tablet(s) Oral QPM 01/25/20 22 022 Inactive Claritin 10 mg tablet RxNorm: 696625 Take 1 Tablet(s) Oral QPM 01/13/20 22 022 Inactive Zithromax Z-Adiel 250 mg tablet RxNorm: 020749 Take Tablet(s) Oral 2 po day 1 then 1 po daily 01/13/20 22 022 Inactive Norvasc 5 mg tablet RxNorm: 862858 1 Tablet(s) Oral QD 01/13/20 022 Inactive irbesartan 300 mg tablet RxNorm: 315000 Take 1 Tablet(s) Oral QD 01/01/20 023 Active Lasix 40 mg tablet RxNorm: 212146 Take 1 Tablet(s) Oral QAM 11/25/19 22 022 Inactive potassium chloride ER 10 mEq tablet,extended release RxNorm: 089319 Take 1 Tablet(s) Oral QAM 11/25/19 22 022 Inactive Coreg 12.5 mg tablet RxNorm: 009240 Take 1/2 Tablet(s) Oral two times a day 11/25/19 023 Inactive cyanocobalamin (vit B-12) 1,000 mcg/mL injection solution RxNorm: 038677 INJECT 1 ML INTRAMUSCULARLY EVERY 30 DAYS 10/22/19 22 022 Inactive amlodipine 10 mg tablet RxNorm: 064387 TAKE ONE TABLET BY MOUTH DAILY 10/01/19 22 022 Inactive irbesartan 300 mg tablet RxNorm: 788752 Take 1 Tablet(s) Oral QD 10/01/19 22 022 Inactive cyclobenzaprine 5 mg tablet RxNorm: 623037 1 Tablet(s) Oral QPM for spasm 08/12/19 22 022 Inactive prednisone 20 mg tablet RxNorm: 291026 1 Tablet(s) Oral QAM for neck pain 08/12/19 22 022 Inactive baclofen 10 mg tablet RxNorm: 093740 Take 0.5-1 Tablet(s) Oral three times a day as needed for muscle spasm 08/05/19 22 022 Inactive baclofen 10 mg tablet RxNorm: 470067 Take 0.5-1 Tablet(s) Oral three times a day as needed for muscle spasm 08/05/19 022 Inactive irbesartan 300 mg tablet RxNorm: 871034 Take 1 Tablet(s) Oral QD 06/20/19 022 Inactive fluticasone propionate 50 mcg/actuation nasal spray,suspension RxNorm: 4645760 Take 1 [place] Nasal QD in each nostrilas needed 04/29/19 22 022 Inactive clobetasol 0.05 % lotion RxNorm: 728174 Topical 04/17/20 21 023 Inactive triamcinolone acetonide 0.1 % topical cream RxNorm: 2562691 1 Application Topical two times a day 04/17/20 21 Inactive amlodipine 10 mg tablet RxNorm: 417323 TAKE ONE TABLET BY MOUTH DAILY 03/20/20 21 021 Inactive cyanocobalamin (vit B-12) 1,000 mcg/mL injection solution RxNorm: 086440 INJECT 1 ML INTRAMUSCULARLY EVERY 30 DAYS 01/27/20 21 Inactive irbesartan 300 mg tablet RxNorm: 174150 Take 1 Tablet(s) Oral QD 01/03/20 021 Inactive Vitamin D3 125 mcg (5,000 unit) tablet RxNorm: 079806 Take 1 Tablet(s) Oral QD 10/15/19 No Stop Date Active amlodipine 10 mg tablet RxNorm: 584508 TAKE ONE TABLET BY MOUTH DAILY 10/09/19 21 021 Inactive Avapro 300 mg tablet RxNorm: 568187 1 Tablet(s) Oral QD 07/17/19 21 021 Inactive meloxicam 7.5 mg tablet RxNorm: 948383 1 Tablet(s) Oral QD 06/19/19 21 021 Inactive meloxicam 7.5 mg tablet RxNorm: 165839 1 Tablet(s) Oral QD 06/19/19 21 021 Inactive cyclobenzaprine 5 mg tablet RxNorm: 585307 1 Tablet(s) Oral QPM for spasm 05/30/19 021 Inactive prednisone 20 mg tablet RxNorm: 115896 1 Tablet(s) Oral QAM for neck pain 05/30/19 021 Inactive amlodipine 10 mg tablet RxNorm: 991818 TAKE ONE TABLET BY MOUTH DAILY 04/14/20 20 Inactive Keflex 500 mg capsule RxNorm: 283296 1 Capsule(s) Oral three times a day 01/24/20 020 Inactive Keflex 500 mg capsule RxNorm: 675249 1 Capsule(s) Oral three times a day 01/24/20 020 Inactive amlodipine 10 mg tablet RxNorm: 112230 TAKE ONE TABLET BY MOUTH DAILY 01/08/20 Inactive Avapro 300 mg tablet RxNorm: 940080 TAKE ONE TABLET BY MOUTH DAILY 01/08/20 021 Inactive cyanocobalamin (vit B-12) 1,000 mcg/mL injection solution RxNorm: 410860 INJECT 1 ML INTRAMUSCULARLY EVERY 30 DAYS 11/20/19 20 Inactive amlodipine 10 mg tablet RxNorm: 893831 TAKE ONE TABLET BY MOUTH DAILY 09/06/19 20 Inactive Avapro 300 mg tablet RxNorm: 411850 TAKE ONE TABLET BY MOUTH DAILY 09/06/19 20 020 Inactive amlodipine 10 mg tablet RxNorm: 209609 TAKE ONE TABLET BY MOUTH DAILY 04/09/20 19 020 Inactive Avapro 300 mg tablet RxNorm: 498430 TAKE ONE TABLET BY MOUTH DAILY 04/09/20 020 Inactive Pepcid Complete 10 mg-800 mg-165 mg chewable tablet RxNorm: 917575 1 Tablet(s) Oral QD 02/21/20 19 No Stop Date Active imatinib 400 mg tablet RxNorm: 680017 1 Tablet(s) Oral QD 02/21/20 19 No Stop Date Active aspirin 81 mg tablet,delayed release RxNorm: 155477 1 Tablet(s) Oral QOD 02/21/20 19 No Stop Date Active cyanocobalamin (vit B-12) 1,000 mcg/mL injection solution RxNorm: 049788 INJECT 1 ML INTRAMUSCULARLY EVERY 30 DAYS 02/21/20 19 021 Inactive amlodipine 10 mg tablet RxNorm: 003645 TAKE ONE TABLET BY MOUTH DAILY 01/19/20 19 019 Inactive Avapro 300 mg tablet RxNorm: 612061 TAKE ONE TABLET BY MOUTH DAILY 01/19/20 19 019 Inactive Avapro 300 mg tablet RxNorm: 139672 1 Tablet(s) PO QD 10/12/19 19 019 Inactive losartan 100 mg tablet RxNorm: 446986 1 Tablet(s) PO QD Blood pressure check in 3 weeks 10/08/19 19 019 Inactive replaces Avapro, blood pressure check in office in 3 weeks losartan 100 mg tablet RxNorm: 855918 1 Tablet(s) PO QD Blood pressure check in 3 weeks 10/08/19 19 019 Inactive replaces Avapro, blood pressure check in office in 3 weeks Avapro 300 mg tablet RxNorm: 222220 1 Tablet(s) PO QD 09/28/19 19 019 Inactive cyanocobalamin (vit B-12) 1,000 mcg/mL injection solution RxNorm: 263059 INJECT 1 ML INTRAMUSCULARLY EVERY 30 DAYS 08/20/19 19 020 Inactive timolol maleate 0.5 % eye drops RxNorm: 7925455 INSTILL ONE DROP TO EACH EYE EVERY MORNING 08/18/19 19 023 Inactive amlodipine 10 mg tablet RxNorm: 831835 TAKE ONE TABLET BY MOUTH DAILY 07/19/19 19 019 Inactive Avapro 300 mg tablet RxNorm: 202126 TAKE ONE TABLET BY MOUTH DAILY 07/19/19 19 019 Inactive cyclobenzaprine 5 mg tablet RxNorm: 684157 1 Tablet(s) PO QHS for muscle spasm 07/07/19 19 019 Inactive prednisone 20 mg tablet RxNorm: 292204 1 Tablet(s) PO QAM 07/07/19 19 019 Inactive timolol maleate 0.5 % eye drops RxNorm: 7970725 1 Drop(s) ophthalmic (eye) QAM to each eye 01/26/20 18 019 Inactive Avapro 300 mg tablet RxNorm: 841612 1 Tablet(s) PO QD 12/22/19 18 018 Inactive amlodipine 10 mg tablet RxNorm: 062899 Tablet(s) TAKE ONE TABLET BY MOUTH DAILY 09/22/19 18 019 Inactive clindamycin HCl 300 mg capsule RxNorm: 979039 1 Capsule(s) PO TID 07/30/19 18 018 Inactive Avapro 300 mg tablet RxNorm: 482619 1 Tablet(s) PO QD 06/29/19 18 018 Inactive cyanocobalamin (vit B-12) 1,000 mcg/mL injection solution RxNorm: 216383 Milliliter(s) INJECT 1ML INTRAMUSCULARLY EVERY 30 DAYS 05/24/19 18 018 Inactive Is patient taking 1ML every 30 or 60 days? Avapro 300 mg tablet RxNorm: 350447 1 Tablet(s) PO QD 01/05/20 17 018 Inactive amlodipine 10 mg tablet RxNorm: 840371 Tablet(s) TAKE ONE TABLET BY MOUTH DAILY 12/19/19 17 018 Inactive cyanocobalamin (vit B-12) 1,000 mcg/mL injection solution RxNorm: 082027 Milliliter(s) INJECT 1ML INTRAMUSCULARLY EVERY 30 DAYS 09/22/19 17 017 Inactive Is patient taking 1ML every 30 or 60 days? Avapro 300 mg tablet RxNorm: 748912 1 Tablet(s) PO QD 07/07/19 17 017 Inactive amlodipine 10 mg tablet RxNorm: 458555 TAKE ONE TABLET BY MOUTH DAILY 03/23/20 16 017 Inactive Avapro 300 mg tablet RxNorm: 674076 TAKE ONE TABLET BY MOUTH DAILY 12/27/19 16 017 Inactive cyanocobalamin (vit B-12) 1,000 mcg/mL injection solution RxNorm: 686607 INJECT 1ML INTRAMUSCULARLY EVERY 30 DAYS 07/29/19 16 017 Inactive Is patient taking 1ML every 30 or 60 days? amlodipine 10 mg tablet RxNorm: 214772 TAKE ONE TABLET BY MOUTH DAILY 06/17/19 16 016 Inactive Avapro 300 mg tablet RxNorm: 828258 TAKE ONE TABLET BY MOUTH DAILY 06/17/19 16 016 Inactive amlodipine 10 mg tablet RxNorm: 471008 TAKE ONE TABLET BY MOUTH DAILY 03/18/20 15 016 Inactive Avapro 300 mg tablet RxNorm: 982856 TAKE ONE TABLET BY MOUTH DAILY 03/18/20 15 016 Inactive Zantac 150 mg tablet RxNorm: 916351 1 Tablet(s) PO QD 02/28/20 15 020 Inactive Avapro 300 mg tablet RxNorm: 511288 Tablet(s) TAKE ONE TABLET BY MOUTH DAILY 12/05/19 15 015 Inactive amlodipine 10 mg tablet RxNorm: 847670 Tablet(s) TAKE ONE TABLET BY MOUTH DAILY 12/05/19 15 015 Inactive Bactroban 2 % topical cream RxNorm: 680532 Application TOP BID as needed for sores 11/20/19 15 015 Inactive Zantac 300 mg tablet RxNorm: 616905 1 Tablet(s) PO QHS 09/14/19 15 015 Inactive amlodipine 10 mg tablet RxNorm: 918656 TAKE ONE TABLET BY MOUTH DAILY 09/04/19 15 015 Inactive Avapro 300 mg tablet RxNorm: 810540 TAKE ONE TABLET BY MOUTH DAILY 09/04/19 15 015 Inactive Augmentin 875 mg-125 mg tablet RxNorm: 575812 1 Tablet(s) PO Q12H 05/04/19 15 015 Inactive [SAVINGS FOR UNINSURED PATIENTS -- BIN:[id number], PCN: [id number], Group: [id number], ID# [id number], Process claim through [employer], for questions: . THIS IS NOT INSURANCE.] amlodipine 10 mg tablet RxNorm: 651847 1 Tablet(s) PO QD 03/26/20 14 015 Inactive [AttnRPh: Saving apply/adjudicat e RxGRP:SG20 RxBIN:[id number] RxPCN:HT ID#:[id number]] Avapro 300 mg tablet RxNorm: 480503 1 Tablet(s) PO QD 03/26/20 14 015 Inactive [AttnRPh: Saving apply/adjudicat e RxGRP:SG20 RxBIN:[id number] RxPCN:HT ID#:[id number]] Avapro 300 mg tablet RxNorm: 719209 1 Tablet(s) PO QD Needs routine appt 02/07/20 14 014 Inactive [AttnRPh: Saving apply/adjudicat e RxGRP:SG20 RxBIN:[id number] RxPCN:HT ID#:[id number]] amlodipine 10 mg tablet RxNorm: 886506 1 Tablet(s) PO QD 12/14/19 14 014 Inactive [AttnRPh: Saving apply/adjudicat e RxGRP:SG20 RxBIN:[id number] RxPCN:HT ID#:[id number]] Avapro 300 mg tablet RxNorm: 239830 1 Tablet(s) PO QD 11/07/19 14 014 Inactive amlodipine 10 mg tablet RxNorm: 871477 1 Tablet(s) PO QD 09/19/19 14 014 Inactive [AttnRPh: Saving apply/adjudicat e RxGRP:SG20 RxBIN:[id number] RxPCN:HT ID#:[id number]] Avapro 300 mg tablet RxNorm: 277753 1 Tablet(s) PO QD TAKE ONE TABLET BY MOUTH EVERY DAY 08/15/19 14 014 Inactive amlodipine 10 mg tablet RxNorm: 473267 1 Tablet(s) PO QD 06/20/19 14 014 Inactive Avapro 300 mg tablet RxNorm: 606301 1 Tablet(s) PO QD 05/24/19 14 014 Inactive amlodipine 10 mg tablet RxNorm: 185330 1 Tablet(s) PO QD 03/20/20 13 014 Inactive Avapro 300 mg tablet RxNorm: 969629 1 Tablet(s) PO QD 02/21/20 13 014 Inactive amlodipine 10 mg tablet RxNorm: 866074 1 Tablet(s) PO QD 12/13/19 13 013 Inactive Avapro 300 mg tablet RxNorm: 256075 1 Tablet(s) PO QD 11/22/19 13 013 Inactive cyanocobalamin (vit B-12) 1,000 mcg/mL injection solution RxNorm: 513538 1 Milliliter(s) Inj every month 11/18/19 13 013 Active amlodipine 10 mg tablet RxNorm: 787037 1 Tablet(s) PO QD 09/28/19 13 013 Inactive Avapro 300 mg tablet RxNorm: 558457 1 Tablet(s) PO QD 08/30/19 13 013 Inactive Avapro 300 mg tablet RxNorm: 508152 1 Tablet(s) PO QD 07/05/19 13 013 Inactive amlodipine 10 mg tablet RxNorm: 216905 1 Tablet(s) PO QD 06/22/19 13 013 Inactive amlodipine 10 mg tablet RxNorm: 558317 1 Tablet(s) PO QD 04/21/19 13 013 Inactive amlodipine 10 mg Tab RxNorm: 337643 1 Tablet(s) PO QD 06/18/19 12 012 Inactive Keppra 250 mg Tab RxNorm: 667830 1 Tablet(s) PO BID 05/18/19 12 012 Inactive prednisone 20 mg Tab RxNorm: 223688 1 Tablet(s) PO BID 05/04/19 12 012 Inactive Miralax 17 gram/dose Oral Powder RxNorm: 353580 PO PRN 10/07/19 11 Active acitretin 25 mg capsule RxNorm: 012285 Capsule(s) PO 07/07/19 19 Active amlodipine 10 mg tablet RxNorm: 661965 1 Tablet(s) PO QD 04/21/19 13 013 Inactive Tasigna 150 mg capsule RxNorm: 5868478 2 Capsule(s) PO BID 03/14/20 18 018 Inactive Flexeril 5 mg tablet RxNorm: 431421 1-2 Tablet(s) PO TID may take 1-2 tablets up to 3 times daily. Caution: may cause drowsiness 01/18/20 15 015 Inactive Co Q-10 Oral RxNorm: Oral 01/12/20 12 012 Inactive aspirin 81 mg tablet RxNorm: 237285 1 Tablet(s) PO QD 02/21/20 19 019 Inactive Vitamin B12 1000mcg Tablet RxNorm: 1 Tablet(s) PO QD 07/07/19 19 019 Inactive Prilosec 20 mg capsule,delayed release RxNorm: 721196 1 Capsule(s) PO QD 02/29/20 14 014 Inactive Avapro 300 mg tablet RxNorm: 371175 1 Tablet(s) PO QD 07/05/19 13 013 Inactive cyanocobalamin (vitamin B-12) 1,000 mcg/mL Injection RxNorm: 7221108 1 Milliliter(s) Inj every month 11/18/19 13 013 Inactive Calcium with Vitamin D 600 mg-400 unit Tab RxNorm: 048276 1 Tablet(s) PO QD 02/21/20 19 019 Inactive Fish Oil 1,000 mg capsule RxNorm: 2 Capsule(s) PO BID 02/21/20 19 019 Inactive Pepcid 20 mg Tab RxNorm: 971872 1 Tablet(s) PO QOD 08/10/19 13 013 Inactive timolol (PF) 0.5 % eye drops in a dropperette RxNorm: 9075626 1 Drop(s) OPH QD 07/07/19 19 019 Inactive amlodipine 10 mg Tab RxNorm: 165287 1 Tablet(s) PO QD 06/18/19 12 012 Inactive cyclobenzaprine 5 mg tablet RxNorm: 500127 1-2 Tablet(s) PO TID as needed for muscle spasm 01/18/20 15 015 Inactive Benadryl 25 mg capsule RxNorm: 6022108 1-2 Capsule(s) PO QD 07/07/19 19 019 Inactive Bystolic 10 mg Tab RxNorm: 164584 1 Tablet(s) PO QD 08/17/19 12 012 Inactive Avapro 300 mg tablet RxNorm: 856859 1 Tablet(s) PO QD 10/08/19 19 019 Inactive Toprol XL 50 mg tablet,extended release RxNorm: 842236 1 Tablet(s) PO QD 07/07/19 19 019 Inactive Flomax 0.4 mg capsule RxNorm: 120160 1 Capsule(s) PO QD 07/07/19 19 019 Inactive Fish Oil 1,000 mg capsule RxNorm: 1 Capsule(s) PO QD 02/29/20 14 014 Inactive Betimol 0.5 % Eye Drops RxNorm: 945470 1 Drop(s) OPH QD into each eye 02/29/20 14 014 Inactive Zantac 150 mg tablet RxNorm: 516861 1 Tablet(s) PO QD 02/28/20 15 015 Inactive aspirin 81 mg Tab RxNorm: 084335 1 Tablet(s) PO QD 09/09/19 18 018 Inactive Multivitamin & Mineral Formula Tab RxNorm: 1 Tablet(s) PO QD 07/07/19 19 019 Inactive Keppra 500 mg Tab RxNorm: 061183 2 Tablet(s) PO QD 08/05/19 12 012 Inactive Gleevec 400 mg Tab RxNorm: 244521 1 Tablet(s) PO QD 02/29/20 14 014 Inactive Zantac 150 mg tablet RxNorm: 722942 1 Tablet(s) PO QD 02/21/20 19 019 Inactive bosutinib 500 mg tablet RxNorm: 8949990 1 Tablet(s) PO QD 02/21/20 19 019 Inactive Medication Administered No Medication Administered data Procedures Procedure Codes Date PPPS, subseq visit CPT-4: G0439 04/21/2022 PPPS, subseq visit CPT-4: G0439 04/17/2021 THER/PROPH/DIAG INJ SC/IM CPT-4: 59078 2020 TRIAMCINOLONE ACET INJ NOS CPT-4: J3301 05/30 PPPS, subseq visit CPT-4: G0439 03/28/2020 PPPS, initial visit CPT-4: G0438 02/20/2019 PRESCRIP TRANSMIT VIA ERX SY CPT-4: G8553 03/2018 PRESCRIP TRANSMIT VIA ERX SY CPT-4: G8553 02/2015 DESTRUCT PREMALG LESION (Cryosurgery) CPT-4: 170 00 01/17/2015 DESTRUCT PREMALG LES 2-14 CPT-4: 83956 2014 PRESCRIP TRANSMIT VIA ERX SY CPT-4: G8553 06/2014 PRESCRIP TRANSMIT VIA ERX SY CPT-4: G8553 PRESCRIP TRANSMIT VIA ERX SY CPT-4: G8553 CERUM REMOVAL CPT-4: 73760 02/28/2014 PRESCRIP TRANSMIT VIA ERX SY CPT-4: G8553 08/2012 PRESCRIP TRANSMIT VIA ERX SY CPT-4: G8553 CUR TOBACCO NON-USER CPT-4: G8457 05/04/2011 PRESCRIP TRANSMIT VIA ERX SY CPT-4: G8553 Vital Signs Date Vital Reason For Visit Reason For Visit Effective Dates Notes well man exam (65+ years) 04/21/2022 chest tightness 01/12/2022 ~generic 01/12/2022 Rattling in lung s cough 01/07/2022 sinus congestion 01/07/2022 nasal discharge 01/07/2022 chills 01/07/2022 follow up 11/24/2021 high blood pressure 11/24/2021 edema 11/24/2021 joint complaint 08/11/2021 sinus congestion 04/30/2021 follow up 04/30/2021 sinus congestion 04/29/2021 cough 04/29/2021 follow up 04/17/2021 lab draw 04/17/2021 Patient has fast ing lab results scanned into chart. hyperlipidemia 04/17/2021 high blood pressure 04/17/2021 well man exam (65+ years) 04/17/2021 follow up 10/03/2020 high blood pressure 10/03/2020 fatigue 10/03/2020 back pain 05/30/2020 well man exam (65+ years) 03/28/2020 [facility] high blood pressure 03/28/2020 hyperlipidemia 03/28/2020 follow up 09/26/2019 high blood pressure 09/26/2019 hyperlipidemia 09/26/2019 well man exam (65+ years) 02/20/2019 Annual Well[facility] high blood pressure 02/20/2019 hyperlipidemia 02/20/2019 follow up 08/17/2018 leukocytosis 08/17/2018 high blood pressure 08/17/2018 hyperlipidemia 08/17/2018 back pain 07/06/2018 follow up 03/14/2018 high blood pressure 03/14/2018 hyperlipidemia 03/14/2018 rash 03/14/2018 follow up 09/08/2017 high blood pressure 09/08/2017 leukocytosis 09/08/2017 cough 07/29/2017 sinus congestion 07/29/2017 chest congestion 07/29/2017 follow up 03/04/2017 high blood pressure 03/04/2017 hyperlipidemia 03/04/2017 nosebleed 03/04/2017 knee pain 03/04/2017 follow up 09/01/2016 6mo fwup high blood pressure 09/01/2016 hyperlipidemia 09/01/2016 arrhythmia 09/01/2016 follow up 03/02/2016 6mo fwup high blood pressure 03/02/2016 leukocytosis 03/02/2016 joint complaint 03/02/2016 follow up 08/26/2015 6mo fwup/hospita l fwup high blood pressure 08/26/2015 abdominal pain 08/26/2015 pneumonia 08/26/2015 abdominal pain 08/14/2015 nausea 08/14/2015 follow up 02/27/2015 3mo fwup toe pain due to infection 02/27/2015 gastroesophageal reflux 02/27/2015 skin lesion 01/17/2015 follow up 11/19/2014 2 month gastroesophageal reflux 11/19/2014 Patient discussed possible lowering Zantac dose fatigue 11/19/2014 vomiting 11/19/2014 weight loss 11/19/2014 gastroesophageal reflux 09/13/2014 vomiting 09/13/2014 fatigue 09/13/2014 cough 05/04/2014 sinus congestion 05/04/2014 postnasal drip 05/04/2014 high blood pressure 02/28/2014 cerumen 02/28/2014 thinks that he h as wax build up in the left ear shoulder pain 10/06/2012 neck pain 10/06/2012 follow up 08/09/2012 muscle spasm 08/09/2012 In back area, whitt s resolved since the weekend hyperlipidemia 08/09/2012 Needs order for fasting lab to [facility] gastroesophageal reflux 08/09/2012 muscle spasm 07/22/2012 In back, request a new script of cyclobenzaprine, has been going on about 5 days paresthesia 07/22/2012 follow up 01/12/2012 high blood pressure 01/12/2012 leukocytosis 01/12/2012 edema 01/12/2012 hoarseness 01/12/2012 follow up 09/28/[address] Mcdermott chest pain/pressure 09/28/2011 high blood pressure 09/28/2011 blood pressure check 08/17/2011 follow up 08/05/2011 discuss 2D echo edema 08/05/2011 high blood pressure 08/05/2011 follow up 05/18/[address] Mcdermott seizure 05/18/2011 discuss keppra follow up 05/11/2011 discuss labs follow up 05/04/2011 6mo fwup high blood pressure 05/04/2011 discuss when to take BP medications rash 05/04/2011 to both arms/tor so ~generic 05/04/2011 discuss neurolog y referral, discuss keppra ~generic 10/06/2010 Establishing Vis it seizure 10/06/2010 fatigue 10/06/2010 high blood pressure 10/06/2010 Encounters Encounter Performer Location Location Address Codes Date ([id number]) Annual depression screening, 15 minutes Diagnosis: Encounter for general adult medical examination without abnormal findings[ICD10: Z00.00] Diagnosis: Essential hypertension[ICD10: I10] Diagnosis: Depression screen[ICD10: Z13.31] Diagnosis: Gastro-esophageal reflux disease without esophagitis[ICD10: K21.9] Diagnosis: Mixed hyperlipidemia[ICD10 : E78.2] Fartun BAEZ DO [facility] [address] [place] [address] CPT-4: G0444 3 (02669) OFFICE/OUTPATIENT VISIT EST Diagnosis: Pneumonia due to COVID-19 virus[ICD10: U07.1] Diagnosis: Pneumonia due to coronavirus disease 2019[ICD10: J12.82] Fartun BAEZ DO [facility] [address] [place] [address] CPT-4: 85545 2 (25688) OFFICE/OUTPATIENT VISIT EST Diagnosis: COVID-19[ICD10: U07.1] Fartun BAEZ DO [facility] [address] [place] [address] CPT-4: 11176 2 (41967) OFFICE/OUTPATIENT VISIT EST Diagnosis: Essential hypertension[ICD10: I10] Diagnosis: Edema[ICD10: R60.9] Diagnosis: Mixed hyperlipidemia[ICD10 : E78.2] Diagnosis: Other malaise and fatigue[ICD10: R53.81] Fartun BAEZ DO [address] [address] CPT-4: 78280 2 (11492) OFFICE/OUTPATIENT VISIT EST Diagnosis: Lumbago with sciatica, right side[ICD10: M54.41] Kimberly BAEZ DO [address] [address] CPT-4: 12762 2 (73083) OFFICE/OUTPATIENT VISIT EST Diagnosis: Sinus congestion[ICD10: R09.81] Diagnosis: Abnormal lung sounds[ICD10: R09.89] Kimberly BAEZ DO [address] [address] CPT-4: 69081 2 (34873) OFFICE/OUTPATIENT VISIT EST Diagnosis: Contact with and (suspected) exposure to other viral communicable diseases[ICD10: Z20.828] Diagnosis: Sinus congestion[ICD10: R09.81] Kimberly BAEZ DO [facility] [address] [place] [address] CPT-4: 16298 2 (91593) OFFICE/OUTPATIENT VISIT EST Diagnosis: Essential (primary) hypertension[ICD10: I10] Diagnosis: Other malaise and fatigue[ICD10: R53.81] Fartun BAEZ DO [address] [address] CPT-4: 65729 1 (92375) OFFICE/OUTPATIENT VISIT EST Diagnosis: Cervicalgia[ICD10: M54.2] Diagnosis: Muscle spasm[ICD10: M62.838] Fartun BAEZ DO [address] [address] CPT-4: 33589 1 (62312) OFFICE/OUTPATIENT VISIT EST Diagnosis: Essential hypertension[ICD10: I10] Diagnosis: Hypertriglyceridemia [ICD10: E78.1] Fartun BAEZ DO [address] [address] CPT-4: 39264 0 (30689) OFFICE/OUTPATIENT VISIT EST Diagnosis: Other fatigue[ICD10: R53.83] Diagnosis: Hyperglycemia, unspecified[ICD10: R73.9] Diagnosis: Mixed hyperlipidemia[ICD10 : E78.2] Fartun BAEZ DO [address] [address] CPT-4: 53610 9 (08764) OFFICE/OUTPATIENT VISIT EST Diagnosis: Lumbago with sciatica, right side[ICD10: M54.41] Fartun BAEZ [address] [address] CPT-4: 11817 9 (84057) OFFICE/OUTPATIENT VISIT EST Diagnosis: Mixed hyperlipidemia[ICD10 : E78.2] Diagnosis: Essential (primary) hypertension[ICD10: I10] Diagnosis: Myeloid leukemia, unspecified, not having achieved remission[ICD10: C92.90] Diagnosis: Generalized skin eruption due to drugs and medicaments taken internally[ICD10: L27.0] Fartun BAEZ DO [address] [address] CPT-4: 29875 8 (32909) OFFICE/OUTPATIENT VISIT EST Diagnosis: Myeloid leukemia, unspecified, not having achieved remission[ICD10: C92.90] Diagnosis: Mixed hyperlipidemia[ICD10 : E78.2] Diagnosis: Essential (primary) hypertension[ICD10: I10] 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] Fartun BAEZ DO [address] [address] CPT-4: 86901 8 (79987) OFFICE/OUTPATIENT VISIT EST Diagnosis: Acute bronchitis, unspecified[ICD10: J20.9] Eileen BAEZ DO [address] [address] CPT-4: 45356 8 (91840) OFFICE/OUTPATIENT VISIT EST Diagnosis: Essential (primary) hypertension[ICD10: I10] Diagnosis: Mixed hyperlipidemia[ICD10 : E78.2] Diagnosis: Gastro-esophageal reflux disease without esophagitis[ICD10: K21.9] Fartun BAEZ [address] [address] CPT-4: 90477 7 (41090) OFFICE/OUTPATIENT VISIT EST Diagnosis: Essential (primary) hypertension[ICD10: I10] Diagnosis: Pain in left hip[ICD10: M25.552] Diagnosis: Pain in right hip[ICD10: M25.551] Fartun BAEZ [address] [address] CPT-4: 84366 7 (89545) OFFICE/OUTPATIENT VISIT EST Diagnosis: Mixed hyperlipidemia[ICD10 : E78.2] Diagnosis: Essential (primary) hypertension[ICD10: I10] Diagnosis: Unilateral primary osteoarthritis, left knee[ICD10: M17.12] Diagnosis: Unilateral primary osteoarthritis, right knee[ICD10: M17.11] Fartun BAEZ [address] [address] CPT-4: 28708 6 (97503) OFFICE/OUTPATIENT VISIT EST Diagnosis: Biliary acute pancreatitis[ICD10: K85.1] Diagnosis: Abnormal levels of other serum enzymes[ICD10: R74.8] Fartun BAEZ DO [address] [address] CPT-4: 84305 6 OFFICE/OUTPATIENT VISIT EST Diagnosis: Upper abdominal pain, unspecified[ICD10: R10.10] Diagnosis: Nausea[ICD10: R11.0] Karen BAEZ DO [address] [address] CPT-4: 92590 6 (57567) OFFICE/OUTPATIENT VISIT EST Diagnosis: Gastro-esophageal reflux disease without esophagitis[ICD10: K21.9] Diagnosis: Mixed hyperlipidemia[ICD10 : E78.2] Diagnosis: Essential (primary) hypertension[ICD10: I10] Diagnosis: Cellulitis of left lower limb[ICD10: L03.116] Fartun BAEZ [address] [address] CPT-4: 26778 5 (72076) OFFICE/OUTPATIENT VISIT EST Diagnosis: GERD[ICD9: 530.81] Diagnosis: FOLLICULITIS[ICD9: 704.8] Fartun BAEZ DO [address] [address] CPT-4: 29332 5 (69253) OFFICE/OUTPATIENT VISIT EST Diagnosis: GERD[ICD9: 530.81] Diagnosis: Weight loss[ICD9: 783.21] Fartun BAEZ DO [address] [address] CPT-4: 67040 5 OFFICE/OUTPATIENT VISIT EST Diagnosis: SINUSITIS, ACUTE[ICD9: 461.9] Leigh Ann Dominguez FARTUN BAEZ DO [address] [address] CPT-4: 78421 5 (68158) OFFICE/OUTPATIENT VISIT EST Diagnosis: HYPERTENSION[ICD9: 401.9] Diagnosis: HYPERLIPIDEMIA NEC/NOS[ICD9: 272.4] Diagnosis: CHRONIC MYELOID LEUKEMIA[ICD9: 205.10] Diagnosis: CERUMEN IMPACTION[ICD9: 380.4] Fartun BAEZ DO [address] [address] CPT-4: 86829 4 (58404) OFFICE/OUTPATIENT VISIT EST Diagnosis: CERVICALGIA[ICD9: 723.1] Diagnosis: Radiculopathy of arm[ICD9: 723.4] Diagnosis: Thoracic back pain[ICD9: 724.1] Diagnosis: SPASM OF MUSCLE[ICD9: 728.85] Fartun BAEZ [address] [address] CPT-4: 65954 3 (66902) OFFICE/OUTPATIENT VISIT EST Diagnosis: HYPERLIPIDEMIA NEC/NOS[ICD9: 272.4] Diagnosis: HYPERTENSION[ICD9: 401.9] Diagnosis: CHRONIC MYELOID LEUKEMIA[ICD9: 205.10] Fartun BAEZ [address] [address] CPT-4: 18943 3 OFFICE/OUTPATIENT VISIT EST Diagnosis: Muscle spasm of back[ICD9: 724.8] Diagnosis: Distal paresthesia[ICD9: 782.0] Fartun BAEZ DO [address] [address] CPT-4: 26489 3 (48621) OFFICE/OUTPATIENT VISIT EST Diagnosis: HYPERTENSION[ICD9: 401.9] Diagnosis: HYPERLIPIDEMIA NEC/NOS[ICD9: 272.4] Diagnosis: Myelogenous leukemia, chronic[ICD9: 205.10] Diagnosis: EDEMA[ICD9: 782.3] Fartun BAEZ [address] [address] CPT-4: 15335 2 (11731) OFFICE/OUTPATIENT VISIT EST Diagnosis: GERD[ICD9: 530.81] Diagnosis: HYPERTENSION[ICD9: 401.9] Fartun BAEZ DO [facility] [address] [place] [address] CPT-4: 27548 2 (75158) OFFICE/OUTPATIENT VISIT EST Diagnosis: EDEMA[ICD9: 782.3] Diagnosis: HYPERTENSION[ICD9: 401.9] Fartun BAEZ DO [facility] [address] [place] [address] CPT-4: 95964 2 OFFICE/OUTPATIENT VISIT EST Diagnosis: Seizure[ICD9: 780.39] Fartun BAEZ DO [facility] [address] [place] [address] CPT-4: 96446 2 OFFICE/OUTPATIENT VISIT EST Diagnosis: HYPERTENSION[ICD9: 401.9] Diagnosis: EDEMA[ICD9: 782.3] Diagnosis: HYPERLIPIDEMIA NEC/NOS[ICD9: 272.4] Fartun BAEZ DO [facility] [address] [place] [address] CPT-4: 53949 2 (19283) OFFICE/OUTPATIENT VISIT NEW Fartun BAEZ DO [facility] [address] [place] [address] CPT-4: 70905 1 Plan of Care Planned Activity Notes Codes Status Date Visit Plan: 3 Visit Diagnosis Plan: Gastro-esophageal reflux disease without esophagitis Discussion: Stable ICD-9 : 530.81 ICD-10 : K21.9 3 Visit Diagnosis Plan: Mixed hyperlipidemia Discussion: Lipids discussed Follow Up: 6 months ICD-9 : 272.4 ICD-10 : E78.2 3 Visit Diagnosis Plan: Essential hypertension Discussion: Stable Follow Up: 6 months Discussion: Stable ICD-9 : 401.9 ICD-10 : I10 3 Visit Diagnosis Plan: Encounter for general adult medical examination without abnormal findings Discussion: Mediterranean diet Combination of cardio and weight bearing exercise Had labs done this morning Saw Dr. Quezada within last 2mos ICD-9 : V70.0 ICD-10 : Z00.00 3 Appointment: Fartun Baez WPtel: [address] [phone] Annual Well Visit 3 Care Plan: Annual depression screening, 15 minutes 3 Visit Diagnosis Plan: Pneumonia due to COVID-19 virus Discussion: Zithromax CXR if persists/worsens Claritin for drainage Notify if worsens/persists ICD-9 : 480.8 ICD-10 : U07.1 2 Appointment: Fartun Baez WPtel: [address] [phone] ACUTE ILLNESS 2 Visit Diagnosis Plan: COVID-19 Discussion: Telephone visit done Monitor O2 sat for less than 90% Deep breathing, hydrate Using Lauren Tenino prn per patient Unable to take paxlovid due to cardiac meds and is high risk due to CLL so will proceed with monoclonal antibody infusion Notify or to ER if worsening ICD-9 : 079.89 ICD-10 : U07.1 2 Appointment: Fartun Baez WPtel: [address] [phone] WORK IN 2 Visit Diagnosis Plan: Essential hypertension Discussion: Stable Cardiology adjusting meds--now on Coreg ICD-9 : 401.9 ICD-10 : I10 2 Visit Diagnosis Plan: Edema Discussion: Amlodopine DCed and on Lasix and potassium and has BMP in 2 days ICD-9 : 782.3 ICD-10 : R60.9 2 Visit Diagnosis Plan: Mixed hyperlipidemia Discussion: Had lipids done this morning ICD-9 : 272.4 ICD-10 : E78.2 2 Appointment: Fartun Baez WPtel: [address] [phone] FOLLOW UP 2 Visit Plan: Documentation by Suze Perez, RN, student nurse practitioner. I was present with her for the encounter. I personally verified the history of present illness and performed the physical examination and medical decision making. I have verified all of the medical student s documentation for this encounter. Kimberly Elaine, CABINET [employer] 2 Visit NOS Plan: Plan Notes: Documentation by Suze Perez,... 2 Visit Diagnosis Plan: Lumbago with sciatica, right side Discussion: 1. Prednisone 20mg and low dose Cyclobenzaprine sent out. 2. Referral sent to [facility] for Physical therapy 3. Supportive care rec with daily stretches, moist heat, ice 4. Rtc for worsening, no improvement, or further concerns. ICD-9 : 724.2 ICD-10 : M54.41 2 Appointment: Kimberly Henry WPtel: [address] [phone] ACUTE ILLNESS 2 Patient Education: Patient Medication Summary Completed 2 Patient Education: prednisone- [employer] Coupon [id number] [email or web address] Completed 2 Appointment: [facility]artun Baez [facility]Ptel: [facility] [phone] RESCHEDULED 2 Visit Diagnosis Plan: Abnormal lung sounds Discussion: Covid negative. No distress. Continue flonase and mucinex. CXR at [facility] now. Has f/u appt with oncologist, Dr. Mcdermott tomorrow. Will f/u with cxr results. ICD-9 : 786.7 ICD-10 : R09.89 2 Appointment: Kimberly Henry [facility]Ptel[facility] [address] [id number] [facility] 2 Patient Education: Patient Medication Summary Completed 2 Visit Plan: Supportive care. Rest, Fluids, Tylenol/Motrin prn fever or bodyaches. Notify if worsening symptoms. 2 Visit Diagnosis Plan: Contact with and (suspected) exposure to other viral communicable diseases Discussion: Will have covid PCR done tomorrow morning at [facility]. ICD-9 : V01.79 ICD-10 : Z20.828 2 Visit Diagnosis Plan: Sinus congestion Discussion: Supportive care, rest, fluids. Recommended flonase for pnd/congestion. Will f/u when covid results received. Advised to call sooner for any worsening or concerns. ICD-9 : 478.19 ICD-10 : R09.81 2 Appointment: Kimberly Henry [facility]Ptel: [address] [phone] TELEMEDICINE 2 Patient Education: Patient Medication Summary Completed 2 Visit Diagnosis Plan: BPH (benign prostatic hyperplasia) Discussion: Follows with Dr. Quezada ICD-9 : 600.00 ICD-10 : N40.0 1 Visit Diagnosis Plan: Essential hypertension Discussion: Stable Follow Up: 6 months ICD-9 : 401.9 ICD-10 : I10 1 Visit Diagnosis Plan: Gastro-esophageal reflux disease without esophagitis Discussion: Stable on pepcid ICD-9 : 530.81 ICD-10 : K21.9 1 Visit Diagnosis Plan: Chronic myeloid leukemia Discussion: Following routinely with Dr. Rogers ICD-9 : 205.10 ICD-10 : C92.10 1 Visit Diagnosis Plan: Encounter for general adult medical examination without abnormal findings Discussion: Mediterranean diet Combination of cardio and weight bearing exercise Defers flu shot Had COVID vaccines--not due for booster ICD-9 : V70.0 ICD-10 : Z00.00 1 Appointment: Fartun Baez WPtel: [address] [phone] Annual Well Visit 1 Visit Diagnosis Plan: Other malaise and fatigue Discussion: Has lab next week so will do B12, TSH, Free T4, and Vitamin D ICD-9 : 780.79 ICD-10 : R53.81 1 Visit Diagnosis Plan: Essential (primary) hypertension Discussion: States BP is usually good at cancer center except when he is anxious about test results Follow Up: 6 months ICD-9 : 401.9 ICD-10 : I10 1 Appointment: Fartun Baeztel: [address] [facility] FOLLOW UP 1 Visit Diagnosis Plan: Cervicalgia Discussion: Daily stretches Moist heat Topical muscle rub Kenalog 40mg IM x1 Prednisone 20mg po q AM Cyclobenzaprine 5mg po q PM ICD-9 : 723.1 ICD-10 : M54.2 1 Appointment: Fartun Baeztel: [address] [facility] [facility] 1 Patient Education: prednisone- [employer] Coupon [id number] Completed 1 Patient Education: cyclobenzaprine- [employer] Coupon [id number] Completed 1 Visit Diagnosis Plan: CML (chronic myeloid leukemia) Discussion: Following routinely with oncology ICD-9 : 205.10 ICD-10 : C92.10 0 Visit Diagnosis Plan: Gastro-esophageal reflux disease without esophagitis Discussion: Start taking pepcid routinely ICD-9 : 530.81 ICD-10 : K21.9 0 Visit Diagnosis Plan: Encounter for general adult medical examination without abnormal findings Discussion: Mediterranean diet Combination of cardio and weight bearing exercise Lab discussed ICD-9 : V70.0 ICD-10 : Z00.00 0 Visit Diagnosis Plan: Essential (primary) hypertension Discussion: Stable Follow Up: 6 months ICD-9 : 401.9 ICD-10 : I10 0 Appointment: Fartun Baeztel: [address] [phone] Annual Well Visit 0 Visit Diagnosis Plan: Hypertriglyceridemia Discussion: Mediterranean diet Combination of cardio and weight bearing exercise Follow Up: 6 months ICD-9 : 272.1 ICD-10 : E78.1 0 Visit Diagnosis Plan: Essential hypertension Discussion: Stable ICD-9 : 401.9 ICD-10 : I10 0 Appointment: Fartun Baez WPtel: [address] [phone] FOLLOW UP 0 Appointment: Fartun Baeztel: [address] [phone] RESCHEDULED 0 Visit Diagnosis Plan: Essential hypertension Discussion: Stable ICD-9 : 401.9 ICD-10 : I10 9 Visit Diagnosis Plan: Nail dystrophy Discussion: Following with derm routinely ICD-9 : 703.8 ICD-10 : L60.3 9 Visit Diagnosis Plan: Encounter for general adult medical examination without abnormal findings Discussion: Mediterranean diet Combination of cardio and weight bearing exercise Defers flu shot Defers Shingles shot Lab discussed Follow Up: 6 months ICD-9 : V70.0 ICD-10 : Z00.00 9 Visit Diagnosis Plan: Chronic myeloid leukemia Discussion: Following routinely with oncology ICD-9 : 205.10 ICD-10 : C92.10 9 Appointment: Fartun Baez WPtel: [address] [phone] [place] originally 6 mo follow up Annual Well Visit 9 Visit Diagnosis Plan: Other fatigue Discussion: Likely multifactorial from Leukemia, meds, etc. Check TSH, Free T4 ICD-9 : 780.79 ICD-10 : R53.83 9 Visit Diagnosis Plan: Hyperglycemia, unspecified Discussion: Check HbA1c ICD-9 : 790.29 ICD-10 : R73.9 9 Visit Diagnosis Plan: Mixed hyperlipidemia Discussion: Check lipids Follow Up: 6 months ICD-9 : 272.4 ICD-10 : E78.2 9 Appointment: Fartun Baeztel: [address] [phone] FOLLOW UP 9 Visit Diagnosis Plan: Lumbago with sciatica, right side Discussion: Daily stretches Moist heat Topical muscle rub Prednisone in AM and low dose flexeril at night PT if persists ICD-9 : 724.2 ICD-10 : M54.41 9 Appointment: Fartun Baez WPtel: [address] [place] [phone] ACUTE ILLNESS 9 Patient Education: cyclobenzaprine- [employer] Coupon [id number] Completed 07/06 9 Patient Education: prednisone- [employer] Coupon [id number] Completed 9 Visit Diagnosis Plan: Myeloid leukemia, unspecified, not having achieved remission Discussion: Going to be changing to freddyinub from tasigna ICD-9 : 205.10 ICD-10 : C92.90 8 Visit Diagnosis Plan: Generalized skin eruption due to drugs and medicaments taken internally Discussion: Has fwup with derm next month Follow Up: As needed ICD-9 : 693.0 ICD-10 : L27.0 8 Visit Diagnosis Plan: Essential (primary) hypertension Discussion: Stable Follow Up: 6 months ICD-9 : 401.9 ICD-10 : I10 8 Visit Diagnosis Plan: Mixed hyperlipidemia Discussion: Lab discussed ICD-9 : 272.4 ICD-10 : E78.2 8 Appointment: Fartun Baeztel: [address] [phone] FOLLOW UP 8 Visit Diagnosis Plan: Myeloid leukemia, unspecified, not having achieved remission Discussion: Following routinely with cancer center Discussed Shingrix--will check with oncology ICD-9 : 205.10 ICD-10 : C92.90 8 Visit Diagnosis Plan: Essential (primary) hypertension Discussion: stable Follow Up: 6 months ICD-9 : 401.9 ICD-10 : I10 8 Appointment: Fartun Baeztel: [address] [phone] FOLLOW UP 8 Patient Education: Patient Medication Summary Completed 8 Visit Diagnosis Plan: Acute bronchitis, unspecified Discussion: clindamycin tid for 10 days. instructed to inhale hot steam from shower to assist with breaking up mucus. if no improvement or worsening symptoms, call or rtc. ICD-9 : 490 ICD-10 : J20.9 8 Appointment: Eileen Cruz [address] [place] [address] ACUTE ILLNESS 8 Patient Education: Patient Medication Summary Completed 8 Visit Diagnosis Plan: Gastro-esophageal reflux disease without esophagitis Discussion: Stable on Zantac Follow Up: 6 months ICD-9 : 530.81 ICD-10 : K21.9 7 Visit Diagnosis Plan: Mixed hyperlipidemia Discussion: Lab discussed Stable ICD-9 : 272.4 ICD-10 : E78.2 7 Visit Diagnosis Plan: Essential (primary) hypertension Discussion: Stable ICD-9 : 401.9 ICD-10 : I10 7 Appointment: Fartun Baez WPtel: [address] [phone] FOLLOW UP 7 Patient Education: Patient Medication Summary Completed 7 Patient Education: Patient Medication Summary Completed 7 Visit Diagnosis Plan: Essential (primary) hypertension Discussion: Stable Follow Up: 6 months ICD-9 : 401.9 ICD-10 : I10 7 Visit Diagnosis Plan: Pain in left hip Discussion: Likely arthritis but had ABIs today to rule out PAD per cardiology ICD-9 : 719.45 ICD-10 : M25.552 7 Appointment: Fartun Baez WPtel: [address] [phone] 08/31 confirmed~sl FOLLOW UP 7 Patient Education: Patient Medication Summary Completed 7 Appointment: Fartun Baez WPtel: [address] [phone] 06/08 lm for patient to reschedule-sp RESCHEDULED 7 Visit Plan: Will check TSH, free T4, Lipids. B12 Getting other lab with Dr. Rogers Deferalice flu and pneumonia shot Discussed injections for knees if worsens 6 Appointment: Fartun Baez WPtel: [address] [place], [place] [phone] 02/26 confirmed~sl FOLLOW UP 6 Patient Education: Patient Medication Summary Completed 6 Patient Education: Patient Medication Summary Completed 6 Care Plan: RML LIPID PANEL LOINC : 10656-4 Pending 6 Care Plan: RML ASSAY THYROID STIM HORMONE Pending 6 Care Plan: RML ASSAY OF FREE THYROXINE Pending 6 Visit Plan: Check CMP, CBC, Lipase, Amylase Has fwup with Dr. Hodge at end of this week 6 Appointment: Fartun Baez WPtel: [address] [place], [place] [phone] 08/21 lm~sl 08/21 confirm-sp FOLLOW UP 6 Patient Education: Patient Medication Summary Completed 6 Visit Plan: Discussed with Dr Baez Patient sent for stat labs - CBC, CMP, amylase, lipase as well as abdominal US *Abnormal findings on labs and US. Dr Baez to admit for acute gallstone pancreatitis 6 Appointment: Karen Sales [address] [facility] ACUTE ILLNESS 6 Patient Education: Patient Medication Summary Completed 6 Visit Plan: Continue current med s Check Lipids, TSH, free T4, HbA1C Just saw Dr. Kilpatrick Going to see Dr. Ochoa today to check on foot so defers meds from [place] 5 Appointment: Fartun Baez WPtel: [address] [phone] 02/26 appt confirmed cn FOLLOW UP 5 Patient Education: Patient Medication Summary Completed 5 Visit Plan: Cryotherapy as above 5 Appointment: Fartun Baez WPtel: [address] [phone] OFFICE SURGERY 5 Patient Education: Patient Medication Summary Completed 5 Visit Plan: Decrease Zantac 150m g daily for 2mos then decrease to 75mg daily Antibacterial wash to scalp 2-3 times a week and Bactroban topically when sores come up Recheck 3mos 5 Appointment: Fartun Baez WPtel: [address] [place], [place] [phone] 11/16/14 vm cn FOLLOW UP 5 Patient Education: Patient Medication Summary Completed 5 Visit Plan: Zantac 300mg q HS fo r next 2mos Recheck in 2mos--if has had any further weight loss or episodes then will need EGD 5 Appointment: Fartun Baez WPtel: [address] [phone] ACUTE ILLNESS 5 Patient Education: Patient Medication Summary Completed 5 Referral: Jayne Kilpatrick WPtel: [id number] Referral Initiated 5 Patient Education: Patient Medication Summary Completed 5 Patient Education: Patient Medication Summary Completed 5 Appointment: Leigh Ann Dominguez WPtel: [address] [place], [place] [phone] ACUTE ILLNESS 5 Patient Education: Patient Medication Summary Completed 5 Visit Plan: Patient having EKG with new med for leukemia and has always had low heartrate--denies any dizziness or syncope Check fasting Lipids, TSH, free T4 Cerumen removal as above 4 Appointment: Fratun Baez WPtel: [address] [place], [place] [phone] 02/27 confirmed with FOLLOW UP 4 Patient Education: Patient Medication Summary Completed 4 Appointment: Rosy Coker WPtel: [address] [place], [place] [phone] Massage therapist states they spoke with tristan villalobos dr and decided to send him there so cancelled work in appt WORK IN 3 Visit Plan: May use tylenol prn Start PT Flexeril 5mg q HS 3 Appointment: Fartun Baez WPtel: [address] [place], [place] [phone] ACUTE ILLNESS 3 Patient Education: Patient Medication Summary Completed 3 Visit Plan: Check fasting lab Fwup with oncology on most recent lab results May take extra prilosec prn 3 Appointment: Fartun Baez WPtel: [address] [place], [place] [phone] [place] FOLLOW UP 3 Patient Education: Patient Medication Summary Completed 3 Visit Plan: Refil on Flexeril-discussed caution as may cause drowsiness. Will see if improvement. May consider nerve conduction study if numbness of fingertips continues or worsens. 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 2 Appointment: Fartun Baez WPtel: [phone] [place], [place] [phone] US FOLLOW UP 2 Patient Education: Patient Medication Summary Completed 2 Visit Plan: Decrease Keppra to 250mg po BID Sees neurology in June at 2 Appointment: Fartun Baez WPtel: [address] [place], [place] [phone] US FOLLOW UP 2 Patient Education: Patient Medication Summary Completed 2 Visit Plan: Long discussion with pt about need for oncology and bone marrow and further workup--pt signed release for me to give info to , daughter and DIL 2 Appointment: Fartun Baez WPtel: [phone] [phone] ESTABLISHED PATIENT 2 Patient Education: Patient Medication Summary Completed 2 Visit Plan: Check fasting lab--CMP, CBC, Lipids, TSH, Free T4, keppra Prednisone for allergic rash Strict 2gm Na diet Fwup with neurology 2 Appointment: Fartun Baez WPtel: [phone] [phone] FOLLOW UP 2 Patient Education: Patient Medication Summary Completed 2 Visit Plan: Check CMP, Lipids, Testosterone, B12, Vit D, TSH, Free T4 Add fish oil 1gram daily Pt sees neurology in Mar 1 Appointment: Fartun Baez WPtel: [phone] [phone] NEW PATIENT 1 Patient Education: Patient Medication Summary Completed 1 Referral: Tang Juárez WPtel: [id number] Referral Initiated Instructions Comment Date . Documentation by Suze ryan, RN, student nurse practitioner. I was present with her for the encounter. I personally verified the history of present illness and performed the physical examination and medical decision making. I have verified all of the medical student s documentation for this encounter. Kimberly Henry, CABINET MAKER 08/11/2021 . Supportive care. Rest, Fl uids, Tylenol/Motrin prn fever or bodyaches. Notify if worsening symptoms. 04/29/2021 . Will check TSH, free T4, L ipids. B12 Getting other lab with Dr. Rogers Defers flu and pneumonia shot Discussed injections for knees if worsens 03/02/2016 . Check CMP, CBC, Lipase, Am ylase Has fwup with Dr. Hodge at end of this week 08/26/[address] Baez Patient sent for stat labs - CBC, CMP, amylase, lipase as well as abdominal US *Abnormal findings on labs and US. Dr Baez to admit for acute gallstone pancreatitis 08/14/2015 . Continue current meds Check Lipids, TSH, free T4, HbA1C Just saw Dr. Kilpatrick Going to see Dr. Ochoa today to check on foot so defers meds from me 02/27/2015 . Cryotherapy as above 01/17/2015 . Decrease Zantac 150mg abraham y for 2mos then decrease to 75mg daily Antibacterial wash to scalp 2-3 times a week and Bactroban topically when sores come up Recheck 3mos 11/19/2014 . Zantac 300mg q HS for next 2mos Recheck in 2mos--if has had any further weight loss or episodes then will need EGD 09/13/2014 . Patient having EKG with ne w med for leukemia and has always had low heartrate--denies any dizziness or syncope Check fasting Lipids, TSH, free T4 Cerumen removal as above 02/28/2014 . May use tylenol prn Start PT Flexeril 5mg q HS 10/06/2012 . Check fasting lab Fwup with oncology on most recent lab results May take extra prilosec prn 08/09/2012 . Refil on Flexeril-discusse d caution as may cause drowsiness. Will see if improvement. May consider nerve conduction study if numbness of fingertips continues or worsens. 07/22/2012 . Start daily prilosec 20mg and see if hoarseness improves--if does not then will see ENT to proceed with laryngoscope Check Lipids, TSH, Free T4 with next lab Proceed with colonoscopy Fwup with oncology as scheduled 01/12/2012 . Prilosec daily for GI etio logy of CP Continue all other current meds Cath results and lab results discussed with pt and with 09/28/2011 . Change amlodopine to Bysto lic 10mg daily ECHO results discussed Fwup 1mo. 08/05/2011 . Decrease Keppra to 250mg p o BID Sees neurology in June at [employer] 05/18/2011 . Long discussion with pt ab out need for oncology and bone marrow and further workup--pt signed release for me to give info to , daughter and DIL 05/11/2011 . Check fasting lab--CMP, CB C, Lipids, TSH, Free T4, keppra Prednisone for allergic rash Strict 2gm Na diet Fwup with neurology 05/04/2011 . Check CMP, Lipids, Testost erone, B12, Vit D, TSH, Free T4 Add fish oil 1gram daily Pt sees neurology in 10/06/2010 Medical Equipment No Medical Equipment data Advance Directives No Advance Directive data
[2023-01-27 23:00] VITALS: BP 168/85
[2023-01-27 23:15] VITALS: BP 165/78
[2023-01-27 23:30] VITALS: BP 173/79
[2023-01-27] MEDS ORDERED: MELATONIN 3 MG TABLET PO PRN (23:30)
[2023-01-27] MEDS ORDERED: HYDROmorphone INJECTION 2 MG/ML VIAL IV PRN (23:30)
[2023-01-27] MEDS ORDERED: ANTACID SUSPENSION 30 ML UDC PO PRN (23:30)
[2023-01-27] MEDS ORDERED: hydrALAZINE INJECTION 20 MG/ML VIAL IV PRN (23:30)
[2023-01-27] MEDS ORDERED: BISACODYL 10 MG SUPPOSITORY PR PRN (23:30)
[2023-01-27] MEDS ORDERED: LACTULOSE SYRUP 10GM/15ML 30ML UDC PO PRN (23:30)
[2023-01-27] MEDS ORDERED: MILK OF MAGNESIA 400 MG/5 ML 30 ML UDC PO PRN (23:30)
[2023-01-27] MEDS ORDERED: NITROGLYCERIN 0.4 MG SL TABLETS BTL 25'S SL PRN (23:30)
[2023-01-27] MEDS ORDERED: diphenhydrAMINE INJ 50 MG/ML VIAL IVP PRN (23:30)
[2023-01-27] MEDS ORDERED: ONDANSETRON 4 MG ORAL DISSOLVE TABLET PO PRN (23:30)
[2023-01-27] MEDS ORDERED: diphenhydrAMINE 25 MG TABLET PO PRN (23:30)
[2023-01-27] MEDS ORDERED: PATIENT MAY USE OWN MEDS, ALL PO SCH (23:30)
[2023-01-27] MEDS ORDERED: oxyCODONE IMMEDIATE RELEASE 5 MG TABLET PO PRN (23:30)
[2023-01-27] MEDS ORDERED: ONDANSETRON INJECTION 4 MG/2 ML (SDV) IV PRN (23:30)
[2023-01-27] MEDS ORDERED: CALCIUM CARBONATE 500 MG CHEW TABLET PO PRN (23:30)
[2023-01-27] MEDS ORDERED: ACETAMINOPHEN 325 MG TABLET PO PRN (23:30)
[2023-01-27] MEDS ORDERED: NS IV 1000 ML 1,000 ML ONE (23:37)
[2023-01-28] VITALS (10 sets, daily range): BP systolic 133–175; BP diastolic 55–85
[2023-01-28] MEDS ORDERED: RT-ALBUTEROL SULF 2.5 MG/3 ML PRE-MIX VIAL INH PRN
[2023-01-28 04:29] LABS: BASOPHILS % (AUTO) 0 % (0-10); EOSINOPHILS % (AUTO) 0 % (0-10); HEMATOCRIT 33 % (40-54); HEMOGLOBIN 10.9 g/dL (13.3-17.7); LYMPHOCYTES # (AUTO) 1.7 10^3/uL (1.0-4.0); LYMPHOCYTES % (AUTO) 19 % (12-44); MEAN CORPUSCULAR HEMOGLOBIN 31 pg (25-34); MEAN CORPUSCULAR HGB CONC 33 g/dL (32-36); MEAN CORPUSCULAR VOLUME 94 fL (80-99); MEAN PLATELET VOLUME 10.1 fL (9.0-12.2); MONOCYTES # (AUTO) 0.8 10^3/uL (0.0-1.0); MONOCYTES % (AUTO) 9 % (0-12); NEUTROPHILS # (AUTO) 6.3 10^3/uL (1.8-7.8); NEUTROPHILS % (AUTO) 71 % (42-75); PLATELET COUNT 225 10^3/uL (130-400); WHITE BLOOD COUNT 8.9 10^3/uL (4.3-11.0)
[2023-01-28 04:41] LABS: ALBUMIN 2.7 GM/DL (3.2-4.5); POTASSIUM 3.9 MMOL/L (3.6-5.0)
[2023-01-28 04:42] LABS: CALCIUM 8.9 MG/DL (8.5-10.1)
[2023-01-28 04:43] LABS: TOTAL PROTEIN 5.1 GM/DL (6.4-8.2)
[2023-01-28 04:45] LABS: BILIRUBIN,TOTAL 0.3 MG/DL (0.1-1.0)
[2023-01-28 04:47] LABS: CREATININE SERUM 1.14 MG/DL (0.60-1.30)
[2023-01-28] MEDS: inSUlin ASPART 1 UNIT/0.01 ML (PER UNIT) SC SCH ×2 (05:05→11:12)
--- NOTE | 2023-01-28 08:05 | Consultation-Cardiology ---
HPI-Cardiology Cardiology Consultation: Date of Consultation 01/28/23 Time Seen by a Provider: 08:10 Date of Admission 01-27-23 Attending Physician Fartun Baez DO Admitting Physician Admitting Physician: Lisa Zamorano DO Attending Physician: Lisa Zamorano DO Consulting Physician CARLO CHEW HPI: Chief Complaint: Suspected CVA Mr. Zavala is an 87 yr old male admitted to ICU 8 from the ED with report of confusion, aphasia, dizziness and loss of balance. He reports he feels he is back to his baseline almost reporting some residual dizziness and loss of balance, but feels it is better. He states yesterday he has had muscle tension in his right shoulder so he had taken a pain pill for that. He reports he took several naps yesterday and when he woke up later in the day he "couldn't put 2 words together". He reports gen weakness, dizziness and inability to "walk straight". He denies any visual disturbance. He denies any c/o CP, SOB, palpitations, syncope or near syncope. He denies any n/v/d. Review of Systems-Cardiology Review of Systems Constitutional: No chills, No fever; lightheadedness Eyes: No vision change Ears/Nose/Throat: No epistaxis, No recent hearing loss Respiratory: As described under HPI Gastrointestinal: No constipation, No diarrhea, No nausea, No vomiting Genitourinary: No dysuria, No hematuria Musculoskeletal: As describe under HPI Skin: No rash on exposed areas, No ulcerations on exposed areas Psychiatric/Neurological: As described under HPI Hematologic: No bleeding abnormalities UWJ-Ytjkid-Ijfspd Hx Patient Social History Smoking Status: Never a Smoker Alcohol Use?: No Pt feels they are or have been: No Immunizations Up To Date Tetanus Booster (TDap): Unknown Past Medical History PMH As described under Assessment. Family Medical History Family Medical History: No reported family h/o CAD or CVA Family History: Colon cancer 19 FATHER Allergies and Home Medications Allergies Coded Allergies: Tetanus Vaccines and Toxoid (Verified Allergy, Unknown, 05/03/09) Uncoded Allergies: HORSE SERUM TETANUS (Allergy, Mild, 10/11/08) Patient Home Medication List Acitretin (Acitretin) 25 Mg Capsule, 25 MG PO MO,WE,FR @AM, (Reported) Entered as Reported by: CANDY COURTNEY on 01/06/22809 Last Action: Converted Amlodipine Besylate (Amlodipine Besylate) 5 Mg Tablet, 5 MG PO DAILY Prescribed by: LISA ZAMORANO on 01/28/23 1250 Aspirin (Aspirin EC) 81 Mg Tablet.dr, 81 MG PO DAILY, (Reported) Entered as Reported by: CANDY COURTNEY on 01/06/22809 Last Action: Continued Atorvastatin Calcium (Atorvastatin Calcium) 80 Mg Tablet, 80 MG PO DAILY Prescribed by: LISA ZAMORANO on 01/28/23 1210 Carvedilol (Carvedilol) 6.25 Mg Tablet, 6.25 MG PO BID, (Reported) Entered as Reported by: JIMMY SALGUERO on 01/28/23 114 Last Action: Continued Cholecalciferol (Vitamin D3) (Vitamin D3) 125 Mcg (5000 Unit) Tablet, 125 MCG PO DAILY, (Reported) Entered as Reported by: JIMMY SALGUERO on 01/28/23 114 Last Action: Continued Clobetasol Propionate (Clobetasol Propionate) 0.05 % Cream..g., 1 APPLIC TOP BID PRN for PSORIASIS/ECZEMA, (Reported) Entered as Reported by: JIMMY SALGUERO on 01/28/23 1150 Last Action: Converted Clopidogrel Bisulfate (Clopidogrel) 75 Mg Tablet, 75 MG PO DAILY Prescribed by: LISA ZAMORANO on 01/28/23 1210 Cyanocobalamin (Cyanocobalamin Injection) 1,000 Mcg/Ml Inj, 1,000 MCG INJ MONTHLY, (Reported) Entered as Reported by: JYOTI CHERRY on 08/15/15 1049 Last Action: Continued Cyclobenzaprine HCl (Cyclobenzaprine HCl) 10 Mg Tablet, 10 MG PO Q8H PRN for MUSCLE SPASMS, (Reported) Entered as Reported by: JIMMY SALGUERO on 01/28/23 114 Last Action: Continued Docusate Sodium (Docusate Sodium) 100 Mg Capsule, 100 MG PO HS, (Reported) Entered as Reported by: CANDY COURTNEY on 01/06/22809 Last Action: Continued Dorzolamide HCl/Timolol Maleat (Dorzolamide-Timolol Eye Drops) 22.3 Mg-6.8 Mg/Ml Drops, 1 DROP OU BID, (Reported) Entered as Reported by: JIMMY SALGUERO on 01/28/231145 Last Action: Continued Econazole Nitrate (Econazole Nitrate) 1 % Cream..g., 1 APPLIC TOP BID PRN for INFECTIONS, (Reported) Entered as Reported by: CANDY COURTNEY on 01/06/22809 Last Action: Converted Famotidine (Pepcid) 20 Mg Tablet, 20 MG PO HS, (Reported) Entered as Reported by: CANDY COURTNEY on 01/06/22809 Last Action: Continued Furosemide (Furosemide) 40 Mg Tablet, 40 MG PO Q48H, (Reported) Entered as Reported by: CANDY COURTNEY on 01/06/22809 Last Action: Continued Imatinib Mesylate (Imatinib Mesylate) 400 Mg Tablet, 400 MG PO DAILY, (Reported) Entered as Reported by: CANDY COURTNEY on 01/06/22809 Last Action: Converted Irbesartan (Irbesartan) 300 Mg Tablet, 300 MG PO DAILY, (Reported) Entered as Reported by: JIMMY SALGUERO on 01/28/231145 Last Action: Converted Polyethylene Glycol 3350 (Miralax) 17 Gm Powd.pack, 17 GM PO HS, (Reported) Entered as Reported by: CAROLA MEDINA on 08/14/151899 Last Action: Continued Potassium Chloride (Potassium Chloride) 10 Meq Tab.er.prt, 10 MEQ PO Q48H, (Reported) Entered as Reported by: CANDY COURTNEY on 01/06/22809 Last Action: Converted Tamsulosin HCl (Flomax) 0.4 Mg Cap, 0.4 MG PO HS, (Reported) Entered as Reported by: JIMMY SALGUERO on 01/28/231145 Last Action: Continued Vit C/E/Zn/Coppr/Lutein/Zeaxan (Preservision Areds 2 Softgel) 250MG-90MG Capsule, 1 EACH PO DAILY, (Reported) Entered as Reported by: CANDY COURTNEY on 01/06/22809 Last Action: Converted Discontinued Medications Amlodipine Besylate (Amlodipine Besylate) 5 Mg Tablet, 5 MG PO DAILY, (Reported) Discontinued Reason: No Longer Taking Entered as Reported by: CANDY COURTNEY on 01/06/22809 Last Action: Discontinued Calcium Carbonate (Tums) 300 Mg Calcium (750 Mg) Tab.chew, 300 MG PO HS, (Reported) Discontinued Reason: No Longer Taking Entered as Reported by: CANDY COURTNEY on 01/06/22 0810 Last Action: Discontinued Carvedilol (Carvedilol) 6.25 Mg Tablet, 6.25 MG PO BID Discontinued Reason: No Longer Taking Prescribed by: LIONEL HENDRIX on 01/06/22 1145 Last Action: Discontinued Cholecalciferol (Vitamin D3) (Vitamin D3) 1,250 Mcg (17958 Unit) Capsule, 1,250 MCG PO DAILY, (Reported) Discontinued Reason: Prescription changed Entered as Reported by: CANDY COURTNEY on 01/06/22 0810 Cyclobenzaprine HCl (Cyclobenzaprine HCl) 10 Mg Tablet, 10 MG PO Q8H PRN for SPASMS Discontinued Reason: No Longer Taking Prescribed by: Jessica Damon on 01/25/23 1648 Last Action: Discontinued Dorzolamide HCl (Dorzolamide HCl) 2 % Drops, 1 DROP OP BID, (Reported) Discontinued Reason: No Longer Taking Entered as Reported by: CANDY COURTNEY on 01/06/22 0810 Last Action: Discontinued Irbesartan (Irbesartan) 300 Mg Tablet, 300 MG PO DAILY, (Reported) Discontinued Reason: No Longer Taking Entered as Reported by: JYOTI CHERRY on 08/15/15 1049 Last Action: Discontinued Tamsulosin HCl (Tamsulosin HCl) 0.4 Mg Cap.er.24h, 0.4 MG PO DAILY, (Reported) Discontinued Reason: No Longer Taking Entered as Reported by: JYOTI CHERRY on 08/15/15 1049 Last Action: Discontinued Physical Exam-Cardiology Physical Exam Vital Signs/I&O Capillary Refill : Constitutional: AAO x 3, well-developed, well-nourished HEENT: PERRL, hearing is well preserved, oral hygience is good Neck: No carotid bruit; carotid pulses are 2 + bilaterally Respiratory: No accessory muscle use, No respiratory distress; chest expansion is symmetric, chest is bilaterally symmetric, lungs clear to auscultation Cardiovascular: regular rate-rhythm; No JVD; S1 and S2 Gastrointestinal: No tender; soft, round; No guarding; audible bowel sounds Extremities: no lower extremity edema bilateral Neurologic/Psychiatric: other (moves all extremities) Skin: No rash on exposed areas, No ulcerations on exposed areas Data Review Labs Radiology NAME: DURAN ZAVALA [facility] REC#: [id number] PT STATUS: REG ER : 1935 PHYSICIAN: MARIELA MO DO ADMIT DATE: 01/27/23/ER Signed Date of Exam:01/27/23 CHEST 1 VIEW, AP/PA ONLY CLINICAL INDICATION: Patient with stroke symptoms. EXAM: Portable chest x-ray upright view. COMPARISON: Chest x-ray dated 04/30/2021. FINDINGS: Lungs/pleura: Lungs are clear. There is no pneumothorax. There is no pleural effusion. Mediastinum: Unremarkable. Pulmonary vasculature: Unremarkable. Heart: Unremarkable. Bones/extrathoracic soft tissue: There are degenerative spurs involving the thoracic spine. Stable old chronic rib deformities involving the left upper chest region. IMPRESSION: There is no radiographic evidence of acute cardiopulmonary process. Dictated by: Dictated on workstation # [id number] Dict: 01/27/232107 Trans: 01/27/232248 [facility] [id number] Interpreted by: YAHAIRA WYATT MD Electronically signed by: YAHAIRA WYATT MD 01/27/232248 NAME: DURAN ZAVALA [facility] REC#: [id number] PT STATUS: REG ER : 1935 PHYSICIAN: MARIELA MO DO ADMIT DATE: 01/27/23/ER Signed Date of Exam:01/27/23 CT HEAD PERFUSION W/ CONTRAST CLINICAL INDICATIONS: Patient with altered mental status this evening. Patient has dizziness and vision changes x3 days. EXAM: CT perfusion of the brain. Multiple perfusion maps were obtained including relative CBV, relative CBF, MTT, and Tmax. COMPARISON: Head CT without contrast dated 01/27/2023. FINDINGS: The multiple perfusion maps are relatively symmetric with no evidence of brain perfusion mismatch or other significant intracranial flow abnormality/ defect. IMPRESSION: Unremarkable CT perfusion of the brain with no perfusion mismatch. Results of this report discussed with Dr. Mariela Mo via telephone on 01/27/2023 at 2204 hours. Dictated by: Dictated on workstation # [id number] Dict: 01/27/232156 Trans: 01/27/232248 [facility] [id number] Interpreted by: YAHAIRA WYATT MD Electronically signed by: YAHAIRA WYATT MD 01/27/232248 NAME: DURAN ZAVALA [facility] REC#: [id number] PT STATUS: REG ER : 1935 PHYSICIAN: MARIELA MO DO ADMIT DATE: 01/27/23/ER Signed Date of Exam:01/27/23 CT ANGIO HEAD/NECK Clinical indications: Patient with altered mental status, dizziness and vision changes x3 days. Exams: 1: Head CT with and without IV contrast. Auto Exposure Controls were utilized during the CT exam to meet ALARA standards for radiation dose reduction. 2: CT angiogram of the head and neck performed with 100 cc of Omnipaque 350 IV contrast. Sagittal and coronal MIP reformations were created for better visualization of vascular anatomy. CT angiogram was post-processed using RAPID LVO detection to include quantitative measurements of cerebral blood flow and automated results notification to the stroke and/or neurointerventional team. Comparison: Head CT without contrast dated 01/27/2023. CT brain perfusion with contrast dated 01/27/2023. Findings: Head CT: Stable appearance of the brain with no interval acute intracranial process. There is no abnormal IV contrast enhancement. The remainder of this exam shows no significant interval change compared to the prior study of comparison. CT ANGIOGRAM: There is dense contrast bolus seen within right subclavian vein and superior vena cava and skull streak artifact obscuring portions of aortic arch and proximal great vessels. Three-vessel aortic arch is seen. The brachiocephalic artery and bilateral subclavian artery are patent. The lateral common carotid arteries, bilateral ECA and bilateral cervical ICA are patent. 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 There is a small pseudoaneurysm involving the lateral aspect of the distal cervical left ICA which measures roughly 2 mm x 2 mm. This is seen on series 2, image 360. The petrous, cavernous, and supraclinoid ICA are patent. The bilateral ACAs and distal branches are patent. The bilateral MCAs and distal branches are patent. The dural venous sinuses are patent. The bilateral cervical vertebral arteries are patent. Dominant left cervical vertebral artery is seen. The bilateral PICA are patent. The intradural bilateral vertebral arteries, basilar artery, bilateral superior cerebellar artery, and bilateral gas appliance repairer and distal branches are patent. There is a mild to moderate area of focal stenosis involving the right P2 WARD HELPER. The neck soft tissue structures show no significant abnormality. There is atelectasis involving the visualized upper lung barboza. There are cervical spine vertebral body spurs. IMPRESSION: 1: Stable CT scan of the brain with no interval evidence of acute intracranial process. 2: CT angiogram of the [place] and neck shows no large vessel occlusion or intravascular thrombus. 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 There is no significant stenosis seen in the region. 4: There is a focal area of mild to moderate stenosis involving the right P2 WARD HELPER. Results of this report discussed with Dr. Mariela Mo via telephone on 01/27/2023 at 2204 hours. 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 There is a focal area of mild to moderate stenosis involving the right P2 WARD HELPER. Dilated Cardiomyopathy - Echocardiogram of 11-07-[address] Henriquez showed LVEF 40-45%. Hypokinesis of the apical anterior, apical inferior, mid anterolateral, apical septal, apical lateral and apical myocardium. Mild AoV sclerosis. Mild aortic root dilation measuring 3.6 cm. PASP 30 mmHg - MPI 12-09-21: Dilated cardiomyopathy with moderate to severe cardiomegaly and global hypokinesis of the left ventricle that is more marked in the anteroseptal and apical wall. Left ventricular ejection fraction 45%. Patchy tracer uptake without distinct evidence of ischemia. - Cardiac cath of 01-06-22: Angiographically minor coronary artery disease. Mild impairment of global left ventricular systolic function with ejection fraction a pproximately 45 to 50%. No significant regional wall motion abnormality. Left ventricular end-diastolic pressure mildly elevated. - Echocardiogram of 08-17-22 showed LVEF 40-45%. Mod diffuse hypokinesis. Mild MR. AoV sclerosis. PASP 25-30 mmHg Hypertension - not well controlled Multiple recent nose bleeds in the setting of uncontrolled hypertension. - S/p cautery for nosebleeds in early August 2017 (Dr Johnston). 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 Zamornao and eICU - MRI this morning - carotid u/s this morning Dilated cardiomyopathy - Echo today - continue home medications Hypertension - continue home doses antihypertensives Continue ASA Monitor lab Replace electrolytes as indicated Further recs will be based on his hospital course CARLO SUMMERS Jan 28, 2023 08:05
--- NOTE | 2023-01-28 08:39 | Progress Note - Cardiology ---
Cardiology SOAP Progress Note Subjective: Mr. Zavala is an 87 yr old male admitted to ICU 8 from the ED with report of confusion, aphasia, dizziness and loss of balance. He reports he feels he is back to his baseline almost reporting some residual dizziness and loss of balance, but feels it is better. He states yesterday he has had muscle tension in his right shoulder so he had taken a pain pill for that. He reports he took several naps yesterday and when he woke up later in the day he "couldn't put 2 words together". He reports gen weakness, dizziness and inability to "walk straight". He denies any visual disturbance. He denies any c/o CP, SOB, palpitations, syncope or near syncope. He denies any n/v/d. Objective: I&O/Vital Signs 01/27/23 01/27/23 01/27/23 01/27/23 20:32 22:50 22:50 22:57 Temp 36.4 36.6 Pulse 76 80 Resp 16 B/P (MAP) 160/70 (100) Pulse Ox 97 94 O2 Delivery Room Air Room Air Room Air 01/27/23 01/27/23 01/27/23 01/27/23 23:00 23:15 23:30 23:56 Pulse 76 80 75 80 B/P (MAP) 168/85 (112) 165/78 (107) 173/79 (110) Pulse Ox 97 98 97 97 O2 Delivery Room Air Room Air Room Air FiO2 21 01/28/23 01/28/23 01/28/23 01/28/23 00:00 00:30 01:00 02:00 Pulse 74 82 90 85 B/P (MAP) 168/73 (104) 160/75 (103) 133/55 (81) Pulse Ox 97 99 98 O2 Delivery Room Air Room Air Room Air 01/28/23 01/28/23 01/28/23 01/28/23 02:32 03:00 04:00 05:00 Pulse 78 79 75 B/P (MAP) 141/62 (88) 143/63 (89) 155/80 (105) Pulse Ox 97 97 97 97 O2 Delivery Room Air Room Air Room Air Room Air 01/28/23 01/28/23 01/28/23 01/28/23 06:00 07:21 07:45 08:02 Temp 36.2 Pulse 77 58 69 B/P (MAP) 172/84 (113) 146/85 (105) Pulse Ox 98 100 99 O2 Delivery Room Air Room Air Room Air 01/28/23 00:00 Intake Total 1000 ml Balance 1000 ml Weight (Pounds): 225 Weight (Ounces): 0.0 Weight (Calculated Kilograms): 102.497150 Results/Procedures: Labs Laboratory Tests 01/27/23 20:39: Glucometer 103 01/27/23 20:40: White Blood Count 7.7, Red Blood Count 3.77L, Hemoglobin 11.9L, Hematocrit 36L, Mean Corpuscular Volume 95, Mean Corpuscular Hemoglobin 32, Mean Corpuscular Hemoglobin Concent 33, Red Cell Distribution Width 14.2, Platelet Count 257, Mean Platelet Volume 10.2, Immature Granulocyte % (Auto) 0, Neutrophils (%) (Auto) 66, Lymphocytes (%) (Auto) 24, Monocytes (%) (Auto) 9, Eosinophils (%) (Auto) 0, Basophils (%) (Auto) 0, Neutrophils # (Auto) 5.1, Lymphocytes # (Auto) 1.9, Monocytes # (Auto) 0.7, Eosinophils # (Auto) 0.0, Basophils # (Auto) 0.0, Immature Granulocyte # (Auto) 0.0, Prothrombin Time 13.7, INR Comment 1.0, Activated Partial Thromboplast Time 28, D-Dimer 2.68H, Sodium Level 138, Potassium Level 4.0, Chloride Level 104, Carbon Dioxide Level 22, Anion Gap 12, Blood Urea Nitrogen 23H, Creatinine 1.48H, Estimat Glomerular Filtration Rate 45, BUN/Creatinine Ratio 16, Glucose Level 103, Calcium Level 9.9, Corrected Calcium 10.5H, Magnesium Level 2.1, Total Bilirubin 0.4, Aspartate Amino Transf (AST/SGOT) 22, Alanine Aminotransferase (ALT/SGPT) 17, Alkaline Phosphatase 72, Troponin I 0.059H, Total Protein 6.3L, Albumin 3.3, Serum Alcohol < 10 01/27/23 22:18: Urine Color YELLOW, Urine Clarity CLEAR, Urine pH 7.0, Urine Specific [place] 1.015L, Urine Protein 3+H, Urine Glucose (UA) NEGATIVE, Urine Ketones NEGATIVE, Urine Nitrite NEGATIVE, Urine Bilirubin NEGATIVE, Urine Urobilinogen 0.2, Urine Leukocyte Esterase NEGATIVE, Urine RBC (Auto) TRACEH, Urine RBC 2-5H, Urine WBC NONE, Urine Squamous Epithelial Cells RARE, Urine Crystals PRESENTH, Urine Amorphous Sediment FEW FEDE PHOSPHATEH, Urine Bacteria TRACE, Urine Casts PRESENT, Urine Hyaline Casts 5-10H, Urine Mucus MODERATEH, Urine Culture Indicated NO, Urine Opiates Screen NEGATIVE, Urine Oxycodone Screen NEGATIVE, Urine Methadone Screen NEGATIVE, Urine Propoxyphene Screen NEGATIVE, Urine Barbiturates Screen NEGATIVE, Ur Tricyclic Antidepressants Screen POSITIVEH, Urine Phencyclidine Screen NEGATIVE, Urine Amphetamines Screen NEGATIVE, Urine Methamphetamines Screen NEGATIVE, Urine Benzodiazepines Screen NEGATIVE, Urine Cocaine Screen NEGATIVE, Urine Cannabinoids Screen NEGATIVE 01/28/23 04:16: White Blood Count 8.9, Red Blood Count 3.49L, Hemoglobin 10.9L, Hematocrit 33L, Mean Corpuscular Volume 94, Mean Corpuscular Hemoglobin 31, Mean Corpuscular Hemoglobin Concent 33, Red Cell Distribution Width 14.3, Platelet Count 225, Mean Platelet Volume 10.1, Immature Granulocyte % (Auto) 0, Neutrophils (%) (Auto) 71, Lymphocytes (%) (Auto) 19, Monocytes (%) (Auto) 9, Eosinophils (%) (Auto) 0, Basophils (%) (Auto) 0, Neutrophils # (Auto) 6.3, Lymphocytes # (Auto) 1.7, Monocytes # (Auto) 0.8, Eosinophils # (Auto) 0.0, Basophils # (Auto) 0.0, Immature Granulocyte # (Auto) 0.0, Sodium Level 136, Potassium Level 3.9, Chloride Level 109H, Carbon Dioxide Level 20L, Anion Gap 7, Blood Urea Nitrogen 21H, Creatinine 1.14, Estimat Glomerular Filtration Rate 62, BUN/Creatinine Ratio 18, Glucose Level 109H, Calcium Level 8.9, Corrected Calcium 9.9, Total Bilirubin 0.3, Aspartate Amino Transf (AST/SGOT) 20, Alanine Aminotransferase (ALT/SGPT) 14, Alkaline Phosphatase 72, Troponin I 0.067H, Total Protein 5.1L, Albumin 2.7L, Triglycerides Level 194H, Cholesterol Level 158, LDL Cholesterol Direct 112, VLDL Cholesterol 39, HDL Cholesterol 32L A/P: Assessment: Dilated Cardiomyopathy - Echocardiogram of 11-07-[address] Henriquez showed LVEF 40-45%. Hypokinesis of the apical anterior, apical inferior, mid anterolateral, apical septal, apical lateral and apical myocardium. Mild AoV sclerosis. Mild aortic root dilation measuring 3.6 cm. PASP 30 mmHg - MPI 12-09-21: Dilated cardiomyopathy with moderate to severe cardiomegaly and global hypokinesis of the left ventricle that is more marked in the anteroseptal and apical wall. Left ventricular ejection fraction 45%. Patchy tracer uptake without distinct evidence of ischemia. - Cardiac cath of 01-06-22: Angiographically minor coronary artery disease. Mild impairment of global left ventricular systolic function with ejection fraction approximately 45 to 50%. No significant regional wall motion abnormality. Left ventricular end-diastolic pressure mildly elevated. - Echocardiogram of 08-17-22 showed LVEF 40-45%. Mod diffuse hypokinesis. Mild MR. AoV sclerosis. PASP 25-30 mmHg Hypertension - not well controlled Multiple recent nose bleeds in the setting of uncontrolled hypertension. - S/p cautery for nosebleeds in early August 2017 (Dr Johnston). No bleeds since Chronic myeloid leukemia - being managed by Dr Mcdermott H/o glaucoma Abnormal ECG - ECG of 07-31-21 shows LBBB of unknown duration, new since 2018 - Echo of 07/19/14 showed normal LVEF (60%) and normal PASP and no significant valvular heart disease - Cardiac cath of 09/26/2011 showed angiographically mild CAD, LVEF 60% and mildly elevated LVEDP Mild liver enzymes elevation (renders him unsuitable for statin therapy) Segmental pressures of Apr 2019 showed mod to mod severe obstructive arterial disease of the distal lower limbs H/O tobaccoism - Quit smoking in the No AAA on abd ao screeing scan of 03/23/17 Carotid dz - Mild carotid arterial disease on carotid u/s of September 2019 CARLO SUMMERS Jan 28, 2023 08:39
--- NOTE | 2023-01-28 08:56 | Speech Therapy Progress Note ---
Therapy Progress Note Speech pathology received the cognitive linguistic evaluation consult, completed a medical chart review and attempted the assessment at 0841. At this time, the patient is undergoing a carotid ultrasound. ST to re-attempt as able. JIE STOLL Jan 28, 2023 08:56
[2023-01-28] MEDS ORDERED: carvediloL 6.25 MG TABLET PO SCH ×2 (09:00→21:00)
[2023-01-28] MEDS ORDERED: CLOPIDOGREL 75 MG TABLET PO SCH (09:00)
[2023-01-28] MEDS ORDERED: SENNOSIDES 8.6 MG TABLET PO SCH (09:00)
[2023-01-28] MEDS ORDERED: ASPIRIN enteric coated 81MG TABLET PO SCH (09:00)
[2023-01-28] MEDS ORDERED: DOCUSATE SODIUM 100 MG CAPSULE PO SCH ×2 (09:00→21:00)
[2023-01-28] MEDS ORDERED: ENOXAPARIN 40 MG/0.4 ML SYRINGE SC SCH (09:00)
--- NOTE | 2023-01-28 09:27 | History & Physical ---
NEGAR IBARRA 01/28/2327: History of Present Illness History of Present Illness Reason for visit/HPI 01/28/2023: CC: AMS HPI: Jacob is an 87 year old male that presented to the ED on 01/27 due to con fusion, AMS, and expressive aphasia. He also endorses pain in his R-shoulder. He went to the ED on 01/22 due to this shoulder pain. Jacob notes that today he has no neurological concerns. Family at the bedside says that he has returned to his baseline. Jacob says that he has no issues finding his words. He also notes that he does not have any dizziness, confusion, or headaches. All imagine was negative for acute processes. He says that he is not in pain. He denies any current N/V. He has no other concerns. Date of Admission Jan 27, 2023 at 22:49 Date Seen by a Provider: Jan 28, 2023 Time Seen by a Provider: 09:24 I consulted on this patient on 01/28/23 09:22 Attending Physician Fartun Baez DO Admitting Physician Admitting Physician: Lias Da Silva DO Attending Physician: Lisa Da Silva DO Consult Allergies and Home Medications Allergies Coded Allergies: Tetanus Vaccines and Toxoid (Verified Allergy, Unknown, 05/03/09) Uncoded Allergies: HORSE SERUM TETANUS (Allergy, Mild, 10/11/08) Patient Home Medication List Home Medication List Reviewed: Yes Acitretin (Acitretin) 25 Mg Capsule, 25 MG PO MO,WE,FR @AM, (Reported) Entered as Reported by: CANDY COURTNEY on 01/06/22 0810 Last Action: Converted Amlodipine Besylate (Amlodipine Besylate) 5 Mg Tablet, 5 MG PO DAILY Prescribed by: LISA DA SILVA on 01/28/23 1250 Aspirin (Aspirin EC) 81 Mg Tablet.dr, 81 MG PO DAILY, (Reported) Entered as Reported by: CANDY COURTNEY on 01/06/22 0810 Last Action: Continued Atorvastatin Calcium (Atorvastatin Calcium) 80 Mg Tablet, 80 MG PO DAILY Prescribed by: LISA DA SILVA on 01/28/23 1210 Carvedilol (Carvedilol) 6.25 Mg Tablet, 6.25 MG PO BID, (Reported) Entered as Reported by: JIMMY SALGUERO on 01/28/23 1146 Last Action: Continued Cholecalciferol (Vitamin D3) (Vitamin D3) 125 Mcg (5000 Unit) Tablet, 125 MCG PO DAILY, (Reported) Entered as Reported by: JIMMY SALGUERO on 01/28/23 114 Last Action: Continued Clobetasol Propionate (Clobetasol Propionate) 0.05 % Cream..g., 1 APPLIC TOP BID PRN for PSORIASIS/ECZEMA, (Reported) Entered as Reported by: JIMMY SALGUERO on 01/28/23 1150 Last Action: Converted Clopidogrel Bisulfate (Clopidogrel) 75 Mg Tablet, 75 MG PO DAILY Prescribed by: LISA DA SILVA on 01/28/23 1210 Cyanocobalamin (Cyanocobalamin Injection) 1,000 Mcg/Ml Inj, 1,000 MCG INJ MONTHLY, (Reported) Entered as Reported by: JYOTI CHERRY on 08/15/15 1049 Last Action: Continued Cyclobenzaprine HCl (Cyclobenzaprine HCl) 10 Mg Tablet, 10 MG PO Q8H PRN for MUSCLE SPASMS, (Reported) Entered as Reported by: JIMMY SALGUERO on 01/28/23 114 Last Action: Continued Docusate Sodium (Docusate Sodium) 100 Mg Capsule, 100 MG PO HS, (Reported) Entered as Reported by: CANDY COURTNEY on 01/06/22809 Last Action: Continued Dorzolamide HCl/Timolol Maleat (Dorzolamide-Timolol Eye Drops) 22.3 Mg-6.8 Mg/Ml Drops, 1 DROP OU BID, (Reported) Entered as Reported by: JIMMY SALGUERO on 01/28/23 114 Last Action: Continued Econazole Nitrate (Econazole Nitrate) 1 % Cream..g., 1 APPLIC TOP BID PRN for INFECTIONS, (Reported) Entered as Reported by: CANDY COURTNEY on 01/06/22809 Last Action: Converted Famotidine (Pepcid) 20 Mg Tablet, 20 MG PO HS, (Reported) Entered as Reported by: CANDY COURTNEY on 01/06/22809 Last Action: Continued Furosemide (Furosemide) 40 Mg Tablet, 40 MG PO Q48H, (Reported) Entered as Reported by: CANDY COURTNEY on 01/06/22809 Last Action: Continued Imatinib Mesylate (Imatinib Mesylate) 400 Mg Tablet, 400 MG PO DAILY, (Reported) Entered as Reported by: CANDY COURTNEY on 01/06/22809 Last Action: Converted Irbesartan (Irbesartan) 300 Mg Tablet, 300 MG PO DAILY, (Reported) Entered as Reported by: JIMMY SALGUERO on 01/28/231145 Last Action: Converted Polyethylene Glycol 3350 (Miralax) 17 Gm Powd.pack, 17 GM PO HS, (Reported) Entered as Reported by: CAROLA MEDINA on 08/14/15 190 Last Action: Continued Potassium Chloride (Potassium Chloride) 10 Meq Tab.er.prt, 10 MEQ PO Q48H, (Reported) Entered as Reported by: CANDY COURTNEY on 01/06/22809 Last Action: Converted Tamsulosin HCl (Flomax) 0.4 Mg Cap, 0.4 MG PO HS, (Reported) Entered as Reported by: JIMMY SALGUERO on 01/28/231145 Last Action: Continued Vit C/E/Zn/Coppr/Lutein/Zeaxan (Preservision Areds 2 Softgel) 250MG-90MG Capsule, 1 EACH PO DAILY, (Reported) Entered as Reported by: CANDY COURTNEY on 01/06/22809 Last Action: Converted Discontinued Medications Amlodipine Besylate (Amlodipine Besylate) 5 Mg Tablet, 5 MG PO DAILY, (Reported) Discontinued Reason: No Longer Taking Entered as Reported by: CANDY COURTNEY on 01/06/22809 Last Action: Discontinued Calcium Carbonate (Tums) 300 Mg Calcium (750 Mg) Tab.chew, 300 MG PO HS, (Reported) Discontinued Reason: No Longer Taking Entered as Reported by: CANDY COURTNEY on 01/06/22809 Last Action: Discontinued Carvedilol (Carvedilol) 6.25 Mg Tablet, 6.25 MG PO BID Discontinued Reason: No Longer Taking Prescribed by: LIONEL HENDRIX on 01/06/221144 Last Action: Discontinued Cholecalciferol (Vitamin D3) (Vitamin D3) 1,250 Mcg (78699 Unit) Capsule, 1,250 MCG PO DAILY, (Reported) Discontinued Reason: Prescription changed Entered as Reported by: CANDY COURTNEY on 01/06/22809 Cyclobenzaprine HCl (Cyclobenzaprine HCl) 10 Mg Tablet, 10 MG PO Q8H PRN for SPASMS Discontinued Reason: No Longer Taking Prescribed by: Jessica Damon on 01/25/23 1648 Last Action: Discontinued Dorzolamide HCl (Dorzolamide HCl) 2 % Drops, 1 DROP OP BID, (Reported) Discontinued Reason: No Longer Taking Entered as Reported by: CANDY COURTNEY on 01/06/22 0810 Last Action: Discontinued Irbesartan (Irbesartan) 300 Mg Tablet, 300 MG PO DAILY, (Reported) Discontinued Reason: No Longer Taking Entered as Reported by: JYOTI CHERRY on 08/15/15 104 Last Action: Discontinued Tamsulosin HCl (Tamsulosin HCl) 0.4 Mg Cap.er.24h, 0.4 MG PO DAILY, (Reported) Discontinued Reason: No Longer Taking Entered as Reported by: JYOTI CHERRY on 08/15/15 104 Last Action: Discontinued Past Ztqtdan-Gipfih-Qufhkf Hx Patient Social History Marrital Status: Number of Children: 8 Number of living children: 8 Employed/Student: retired Tobacco Use?: No Smoking Status: Never a Smoker Smokeless Tobacco Frequency: Former User Use of E-Cig and/or Vaping dev: No Substance use?: No Alcohol Use?: No Pt feels they are or have been: No Immunizations Up To Date Tetanus Booster (TDap): Unknown PED Vaccines UTD: Yes Seasonal Allergies Seasonal Allergies: No Current Status Communicates: Verbally Primary Language: Moroccan Preferred Spoken Language: Moroccan Is interpretation needed?: No Sensory deficits: Vision impairment Implanted or Applied Medical D: Orthopedic hardware Past Medical History Surgeries: Appendectomy, Eye Surgery, Gallbladder, Orthopedic Currently Using CPAP: No Currently Using BIPAP: No Congenital Heart Disease, Hypertension Sexually Transmitted Disease: No HIV/AIDS: No Gastroesophageal Reflux, Pancreatitis, Gall Bladder Disease Arthritis, Fractures Cataract, Glaucoma Loss of Vision: Denies Hearing Impairment: Denies Leukemia Did You Recieve Any Treatments: Yes What Type of Treatment Did You: Chemotherapy (managed with Dr. Mcdermott) BASAL CELL SKIN CANCER REMOVED Pruritis Blood Disorders: No Family Medical History Colon cancer 19 FATHER Review of Systems Constitutional: no symptoms reported EENTM: no symptoms reported Respiratory: no symptoms reported Cardiovascular: No chest pain, No edema, No Hx of Intervention, No palpitations, No syncope Gastrointestinal: No RUQ, No LUQ, No RLQ, No LLQ; no symptoms reported; No abdominal pain, No constipation, No diarrhea, No dysphagia, No hematemesis, No heartburn, No jaundice, No loss of appetite, No melena, No nausea, No vomiting, No other Genitourinary: no symptoms reported Musculoskeletal: no symptoms reported Skin: pruritus Psychiatric/Neurological: See HPI; Denies Headache, Denies Numbness, Denies Tingling, Denies Tremors, Denies Weakness Physical Exam Vital Signs Vital Signs - First Documented 01/27/23 01/27/23 20:32 23:56 Temp 36.4 Pulse 76 Resp 16 B/P (MAP) 160/70 (100) Pulse Ox 97 O2 Delivery Room Air FiO2 21 Capillary Refill : Height, Weight, BMI Height: 6'3.00" Weight: 225lbs. 0.0oz. [id number]; 26.93 BMI Method:Stated General Appearance: No Apparent Distress, WD/WN Eyes: Bilateral Eye Normal Inspection, Bilateral Eye PERRL, Bilateral Eye EOMI HEENT: PERRL/EOMI, Pharynx Normal; No Pale Conjunctivae (L), No Pale Conjunctivae (R), No Scleral Icterus (L), No Scleral Icterus (R) Neck: Full Range of Motion, Normal Inspection, Non Tender, Supple Respiratory: Chest Non Tender, Lungs Clear, Normal Breath Sounds, No Accessory Muscle Use, No Respiratory Distress Cardiovascular: Regular Rate, Rhythm, No Edema, No Gallop, No JVD, Normal Peripheral Pulses, Systolic Murmur Gastrointestinal: Normal Bowel Sounds, No Organomegaly, No Pulsatile Mass, Non Tender, Soft Rectal: Deferred Back: Normal Inspection, No CVA Tenderness, No Vertebral Tenderness Extremity: Normal Capillary Refill, Normal Inspection, Normal Range of Motion, Non Tender, No Pedal Edema Neurologic/Psychiatric: Alert, Oriented x3, No Motor/Sensory Deficits, Normal Mood/Affect, brick mason II-XII Norm as Tested Skin: Normal Color, Warm/Dry Lymphatic: No Adenopathy Assessment/Plan Assessment and Plan 02/07/2023: A/P -Transient Ischemic Attack * TELE, cardiology consult * ECHO * ASA, Plavix, Atorvastatin -NSTEMI * Cardiology -Hypertriglyceridemia * statin -HTN * hydralazine * home BP meds -Hx of Leukemia * Dr. Mcdermott * medication review Admission Diagnosis Expressive Aphasia Admission Status: Inpatient Order (span 2 midnights) Reason for Inpatient Admission: TELE LISA DA SILVA DO 01/28/232107: History of Present Illness History of Present Illness Reason for visit/HPI Chief complaint: Expressive aphasia HPI: This is an 87-year-old male clinic patient of Dr. Baez with a past medical history of hypertension who presented to the ER with expressive aphasia.Awaiting placement Plavix and aspirin and statin started. MRI showed no evidence of any CVA. TIA is the diagnosis. Cardiology evaluated him to have no acute coronary syndrome. Patient was deemed stable for discharge. Allergies and Home Medications Allergies Coded Allergies: Tetanus Vaccines and Toxoid (Verified Allergy, Unknown, 05/03/09) Uncoded Allergies: HORSE SERUM TETANUS (Allergy, Mild, 10/11/08) Patient Home Medication List Acitretin (Acitretin) 25 Mg Capsule, 25 MG PO MO,WE,FR @AM, (Reported) Entered as Reported by: CANDY COURTNEY on 01/06/22809 Last Action: Converted Amlodipine Besylate (Amlodipine Besylate) 5 Mg Tablet, 5 MG PO DAILY Prescribed by: LISA DA SILVA on 01/28/23 1250 Aspirin (Aspirin EC) 81 Mg Tablet.dr, 81 MG PO DAILY, (Reported) Entered as Reported by: CANDY COURTNEY on 01/06/22 0810 Last Action: Continued Atorvastatin Calcium (Atorvastatin Calcium) 80 Mg Tablet, 80 MG PO DAILY Prescribed by: LISA DA SILVA on 01/28/23 1210 Carvedilol (Carvedilol) 6.25 Mg Tablet, 6.25 MG PO BID, (Reported) Entered as Reported by: JIMMY SALGUERO on 01/28/23 1146 Last Action: Continued Cholecalciferol (Vitamin D3) (Vitamin D3) 125 Mcg (5000 Unit) Tablet, 125 MCG PO DAILY, (Reported) Entered as Reported by: JIMMY SALGUERO on 01/28/23 1146 Last Action: Continued Clobetasol Propionate (Clobetasol Propionate) 0.05 % Cream..g., 1 APPLIC TOP BID PRN for PSORIASIS/ECZEMA, (Reported) Entered as Reported by: JIMMY SALGUERO on 01/28/23 1150 Last Action: Converted Clopidogrel Bisulfate (Clopidogrel) 75 Mg Tablet, 75 MG PO DAILY Prescribed by: LISA DA SILVA on 01/28/23 1210 Cyanocobalamin (Cyanocobalamin Injection) 1,000 Mcg/Ml Inj, 1,000 MCG INJ MONTHLY, (Reported) Entered as Reported by: JYOTI CHERRY on 08/15/15 1049 Last Action: Continued Cyclobenzaprine HCl (Cyclobenzaprine HCl) 10 Mg Tablet, 10 MG PO Q8H PRN for MUSCLE SPASMS, (Reported) Entered as Reported by: JIMMY SALGUERO on 01/28/231145 Last Action: Continued Docusate Sodium (Docusate Sodium) 100 Mg Capsule, 100 MG PO HS, (Reported) Entered as Reported by: CANDY COURTNEY on 01/06/22809 Last Action: Continued Dorzolamide HCl/Timolol Maleat (Dorzolamide-Timolol Eye Drops) 22.3 Mg-6.8 Mg/Ml Drops, 1 DROP OU BID, (Reported) Entered as Reported by: JIMMY SALGUERO on 01/28/231145 Last Action: Continued Econazole Nitrate (Econazole Nitrate) 1 % Cream..g., 1 APPLIC TOP BID PRN for INFECTIONS, (Reported) Entered as Reported by: CANDY COURTNEY on 01/06/22809 Last Action: Converted Famotidine (Pepcid) 20 Mg Tablet, 20 MG PO HS, (Reported) Entered as Reported by: CANDY COURTNEY on 01/06/22809 Last Action: Continued Furosemide (Furosemide) 40 Mg Tablet, 40 MG PO Q48H, (Reported) Entered as Reported by: CANDY COURTNEY on 01/06/22809 Last Action: Continued Imatinib Mesylate (Imatinib Mesylate) 400 Mg Tablet, 400 MG PO DAILY, (Reported) Entered as Reported by: CANDY COURTNEY on 01/06/22809 Last Action: Converted Irbesartan (Irbesartan) 300 Mg Tablet, 300 MG PO DAILY, (Reported) Entered as Reported by: JIMMY SALGUERO on 01/28/231145 Last Action: Converted Polyethylene Glycol 3350 (Miralax) 17 Gm Powd.pack, 17 GM PO HS, (Reported) Entered as Reported by: CAROLA MEDINA on 08/14/15 1900 Last Action: Continued Potassium Chloride (Potassium Chloride) 10 Meq Tab.er.prt, 10 MEQ PO Q48H, (Reported) Entered as Reported by: CANDY COURTNEY on 01/06/22809 Last Action: Converted Tamsulosin HCl (Flomax) 0.4 Mg Cap, 0.4 MG PO HS, (Reported) Entered as Reported by: JIMMY SALGUERO on 01/28/23 1146 Last Action: Continued Vit C/E/Zn/Coppr/Lutein/Zeaxan (Preservision Areds 2 Softgel) 250MG-90MG Capsule, 1 EACH PO DAILY, (Reported) Entered as Reported by: CANDY COURTNEY on 01/06/22809 Last Action: Converted Discontinued Medications Amlodipine Besylate (Amlodipine Besylate) 5 Mg Tablet, 5 MG PO DAILY, (Reported) Discontinued Reason: No Longer Taking Entered as Reported by: CANDY COURTNEY on 01/06/22809 Last Action: Discontinued Calcium Carbonate (Tums) 300 Mg Calcium (750 Mg) Tab.chew, 300 MG PO HS, (Reported) Discontinued Reason: No Longer Taking Entered as Reported by: CANDY COURTNEY on 01/06/22809 Last Action: Discontinued Carvedilol (Carvedilol) 6.25 Mg Tablet, 6.25 MG PO BID Discontinued Reason: No Longer Taking Prescribed by: LIONEL HENDRIX on 01/06/22 1145 Last Action: Discontinued Cholecalciferol (Vitamin D3) (Vitamin D3) 1,250 Mcg (12155 Unit) Capsule, 1,250 MCG PO DAILY, (Reported) Discontinued Reason: Prescription changed Entered as Reported by: CANDY COURTNEY on 01/06/22809 Cyclobenzaprine HCl (Cyclobenzaprine HCl) 10 Mg Tablet, 10 MG PO Q8H PRN for SPASMS Discontinued Reason: No Longer Taking Prescribed by: Jessica Damon on 01/25/23 1648 Last Action: Discontinued Dorzolamide HCl (Dorzolamide HCl) 2 % Drops, 1 DROP OP BID, (Reported) Discontinued Reason: No Longer Taking Entered as Reported by: CANDY COURTNEY on 01/06/22809 Last Action: Discontinued Irbesartan (Irbesartan) 300 Mg Tablet, 300 MG PO DAILY, (Reported) Discontinued Reason: No Longer Taking Entered as Reported by: JYOTI CHERRY on 08/15/15 1049 Last Action: Discontinued Tamsulosin HCl (Tamsulosin HCl) 0.4 Mg Cap.er.24h, 0.4 MG PO DAILY, (Reported) Discontinued Reason: No Longer Taking Entered as Reported by: JYOTI CHERRY on 08/15/15 1049 Last Action: Discontinued Past Omglavw-Aodssn-Qlxjlp Hx Patient Social History Marrital Status: Employed/Student: retired Family Medical History Colon cancer 19 FATHER Review of Systems Constitutional: see HPI Physical Exam General Appearance: No Apparent Distress, WD/WN Eyes: Bilateral Eye Normal Inspection, Bilateral Eye PERRL, Bilateral Eye EOMI HEENT: PERRL/EOMI, Normal ENT Inspection, Pharynx Normal Neck: Full Range of Motion, Normal Inspection, Non Tender, Supple, Carotid Bruit Respiratory: Chest Non Tender, Lungs Clear, Normal Breath Sounds, No Accessory Muscle Use, No Respiratory Distress Cardiovascular: Regular Rate, Rhythm, No Edema, No Gallop, No JVD, No Murmur, Normal Peripheral Pulses Gastrointestinal: Normal Bowel Sounds, No Organomegaly, No Pulsatile Mass, Non Tender, Soft Back: Normal Inspection, No CVA Tenderness, No Vertebral Tenderness Extremity: Normal Capillary Refill, Normal Inspection, Normal Range of Motion, Non Tender, No Calf Tenderness, No Pedal Edema Neurologic/Psychiatric: Alert, Oriented x3, No Motor/Sensory Deficits, Normal Mood/Affect Skin: Normal Color, Warm/Dry Lymphatic: No Adenopathy Assessment/Plan Assessment and Plan Assessment: TIA Elevated troponin without evidence of ACS Hypertension Hyperlipidemia Leukemia Plan: Home meds Discharge home Admission Diagnosis Admission Status: Observation Supervisory-Addendum Brief Verification & Attestation Participated in pt care: history, MDM, physical Personally performed: exam, history, MDM, supervision of care Care discussed with: Medical Student Procedures: n/a Results interpretation: Verified all documentation Verification and Attestation of Medical Student E/M Service A medical student performed and documented this service in my presence. I reviewed and verified all information documented by the medical student and made modifications to such information, when appropriate. I personally performed the physical exam and medical decision making. Lisa Da Silva Jan 28, 2023,21:06 NEGAR IBARRA Jan 28, 2023 09:27 LISA DA SILVA DO Jan 28, 2023 21:08
--- NOTE | 2023-01-28 10:00 | Diagnostic Imaging Report ---
PROCEDURE: MR imaging of the brain without contrast. TECHNIQUE: Multiplanar, multisequence MR imaging of the brain was performed without contrast. INDICATION: Dysarthria. COMPARISON: None FINDINGS: The ventricles and cortical sulci are slightly prominent, compatible with age related volume loss. There are focal and confluent areas of abnormal T2 bright signal in the periventricular and subcortical white matter, compatible with small vessel ischemic change. There is no acute infarction. There is no midline shift or mass effect identified. No intraparenchymal or extraaxial hemorrhage or fluid collection is identified. There is no other focal parenchymal abnormality seen. The midline craniocervical anatomy is unremarkable. The major expected intracranial flow voids are seen. There are no focal calvarial lesions. The visualized paranasal sinuses are unremarkable. The mastoid air cells are clear. IMPRESSION: 1. No acute intracranial abnormalities. No acute infarction, acute intra-axial hemorrhage, or focal intra-axial mass. 2. Chronic small vessel ischemic changes in the periventricular and subcortical white matter. Dictated by: Dictated on workstation # [id number]
--- NOTE | 2023-01-28 11:06 | Physical Therapy Evaluation ---
PT Evaluation-General Medical Diagnosis Admission Date Jan 27, 2023 at 22:49 Medical Diagnosis: stroke like symptoms Onset Date: Jan 27, 2023 Therapy Diagnosis Therapy Diagnosis: debility Height/Weight Height (Feet): 6 Height (Inches): 3.00 Weight (Pounds): 225 Weight (Ounces): 0.0 Precautions Precautions/Isolations: Fall Prevention, Standard Precautions Weight Bear Status Right Lower Extremity: Right Weight Bearing/Tolerated Left Lower Extremity: Left Weight Bearing/Tolerated Referral Physician: Lona Reason for Referral: Evaluation/Treatment Medical History Pertinent Medical History: HTN Additional Medical History leukemia Current History ER secondary to AMS/dizziness/vision change Reviewed History: Yes Social History Current Living Status: Spouse Prior Prior Level of Function SCALE: Activities may be completed with or without assistive devices. 7-Askhgiiryv-swfvbqf completes the activity by him/herself with no assistance from a helper. 5-Set-up or Clean-up Assistance-helper sets up or cleans up; patient completes activity. Baldwin assists only prior to or following the activity. 4-Supervision or Touching Assistance-helper provides verbal cues and/or touching/steadying and/or contact guard assistance as patient completes activity. Assistance may be provided throughout the activity or intermittently. 3-Partial/Moderate Assistance-helper does LESS THAN HALF the effort. Baldwin lifts, holds or supports trunk or limbs, but provides less than half the effort. 2-Substantial/Maximal Assistance-helper does MORE THAN HALF the effort. Baldwin lifts or holds trunk or limbs and provides more than half the effort. 5-Aiarbgvkd-wjfrbv does ALL the effort. Patient does none of the effort to complete the activity. Or, the assistance of 2 or more helpers is required for the patient to complete the activity. If activity was not attempted, code reason: 7-Patient Refused. 9-Not Applicable-not attempted and the patient did not perform the activity before the current illness, exacerbation or injury. 10-Not Attempted due to Environmental Limitations-(lack of equipment, weather restraints, etc.). 88-Not Attempted due to Medical Conditions or Safety Concerns. Bed Mobility: 6 Transfers (B,C,W/C): 6 Gait: 6 Stairs: 6 Indoor Mobility (Ambulation): Independent Stairs: Independent Prior Devices Use: None PT Evaluation-Current Subjective Patient agrees to PT. Family present. Objective Patient Orientation: Normal For Age Attachments: IV ROM/Strength ROM Lower Extremities bilateral LE WFL Strength Lower Extremities 4-/5 grossly bilateral LE all planes Integumentary/Posture Bowel Incontinence: No Bladder Incontinence: No Posture kyphotic/cervical flexion Neuromuscular (Tone, Coordination, Reflexes) grossly intact Sensory Vision: Wears Glasses Hearing: Functional Transfers Sit to Lying (QC): 6 Lying to Sitting/Side of Bed(Q: 6 Sit to Stand (QC): 6 Gait Mode of Locomotion: Walk Anticipated Mode of Locomotion: Walk Walk 10 feet (QC): 6 Walk 50 ft with 2 Turns(QC): 6 Walk 150 ft (QC): 6 Distance: 300' x 2 Gait Assistive Device: FWW Comments/Gait Description ambulated initially without AD and is slightly unsteady/improved mobility with FWW use Balance Sitting Static: Normal Sitting Dynamic: Normal Standing Static: Normal Standing Dynamic: Normal Assessment/Needs Patient is currently at independent PLOF with all gross motor skills and does not require skilled PT intervention at this time. Rehab Potential: Fair PT Plan Treatment/Plan Treatment Plan: Discontinue PT Treatment Duration: Jan 28, 2023 Frequency: 1 time per week Estimated Hrs Per Day: .25 hour per day Patient and/or Family Agrees t: Yes Time Time In: 1045 Time Out: 1055 DATE: Jan 28, 2023 Total Billed Treatment Time: 10 Total Billed Treatment 1 visit EVMod 10 min [facility] PT Jan 28, 2023 11:06
[2023-01-28] MEDS ORDERED: CYCL10TA25 PO (11:46)
[2023-01-28] MEDS ORDERED: IRBE300T17 PO (11:46)
[2023-01-28] MEDS ORDERED: DORZ10DR36 OU (11:46)
[2023-01-28] MEDS ORDERED: TMSL.4C PO (11:46)
[2023-01-28] MEDS ORDERED: CARV6.252 PO (11:46)
[2023-01-28] MEDS ORDERED: CALC-250 PO (11:46)
[2023-01-28] MEDS ORDERED: CLOB15CR2 TOP (11:50)
--- NOTE | 2023-01-28 11:58 | Speech Therapy Progress Note ---
Therapy Progress Note Speech pathology re-attempted the cognitive linguistic consult at 0945. At this time, the patient and three family members reported the patient's speech, language and cognition have returned to baseline. Additionally, the patient denied any challenges or concerns with his oropharyngeal swallowing function. The patient was encouraged to contact staff if any concerns arise. Skilled speech pathology services are not warranted at this time. Please re-consult speech pathology with additional concerns. JIE STOLL Jan 28, 2023 11:58
[2023-01-28] MEDS ORDERED: BISACODYL 10 MG SUPPOSITORY PR NR (12:00)
[2023-01-28] MEDS ORDERED: ATOR80TA76 PO (12:10)
[2023-01-28] MEDS ORDERED: CLOP75TA28 PO (12:10)
[2023-01-28] MEDS ORDERED: NON-FORMULARY MEDICATION 1 EA EA (Clobetasol Propionate 1 APPLIC) TOP PRN (12:15)
[2023-01-28] MEDS ORDERED: ECONAZOLE NITRATE TOP PRN (12:15)
[2023-01-28] MEDS ORDERED: CYANOCOBALAMIN 1000 MCG/ML 1 ML VIAL INJ SCH (12:15)
[2023-01-28] MEDS ORDERED: POTASSIUM CHLORIDE 10 MEQ TABLET PO SCH (12:15)
[2023-01-28] MEDS ORDERED: FUROSEMIDE 40 MG TABLET PO SCH (12:15)
[2023-01-28] MEDS ORDERED: ACITRETIN 25 MG PO SCH (12:15)
[2023-01-28] MEDS ORDERED: NON-FORMULARY MEDICATION 1 EA EA (Potassium Chloride 10 MEQ) PO SCH (12:15)
[2023-01-28] MEDS ORDERED: RX-CYCLOBENZAPRINE 10 MG (FLEXERIL) TAB PPK#3 PO PRN (12:15)
--- NOTE | 2023-01-28 12:17 | Discharge Summary ---
Diagnosis/Chief Complaint Date of Admission Jan 27, 2023 at 22:49 Date of Discharge Discharge Date: Jan 28, 2023 Discharge Diagnosis TIA Expressive aphasia now resolved Elevated troponin without evidence of ACS Discharge Summary Discharge Physical Examination Allergies: Coded Allergies: Tetanus Vaccines and Toxoid (Verified Allergy, Unknown, 05/03/09) Uncoded Allergies: HORSE SERUM TETANUS (Allergy, Mild, 10/11/08) Vitals & I&Os Vital Signs Date Time Temp Pulse Resp B/P (MAP) Pulse Ox O2 Delivery O2 Flow Rate FiO2 01/28/23 13:20 36.6 63 19 175/82 99 Room Air 01/27/23 23:56 21 General Appearance: Alert, Oriented X3, Cooperative Hospital Course Was the Problem List Reviewed?: Yes Uneventful overnight hospital course after he was admitted for suspicion of stroke. Elevated troponin was evaluated by cardiology finding him to have no evidence of ACS. Expressive aphasia resolved. MRI showed no evidence of CVA. 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 Labs (last 24 hrs) Laboratory Tests 01/27/23 20:39: Glucometer 103 01/27/23 20:40: White Blood Count 7.7, Red Blood Count 3.77L, Hemoglobin 11.9L, Hematocrit 36L, Mean Corpuscular Volume 95, Mean Corpuscular Hemoglobin 32, Mean Corpuscular Hemoglobin Concent 33, Red Cell Distribution Width 14.2, Platelet Count 257, Mean Platelet Volume 10.2, Immature Granulocyte % (Auto) 0, Neutrophils (%) (Auto) 66, Lymphocytes (%) (Auto) 24, Monocytes (%) (Auto) 9, Eosinophils (%) (Auto) 0, Basophils (%) (Auto) 0, Neutrophils # (Auto) 5.1, Lymphocytes # (Auto) 1.9, Monocytes # (Auto) 0.7, Eosinophils # (Auto) 0.0, Basophils # (Auto) 0.0, Immature Granulocyte # (Auto) 0.0, Prothrombin Time 13.7, INR Comment 1.0, Activated Partial Thromboplast Time 28, D-Dimer 2.68H, Sodium Level 138, Potassium Level 4.0, Chloride Level 104, Carbon Dioxide Level 22, Anion Gap 12, Blood Urea Nitrogen 23H, Creatinine 1.48H, Estimat Glomerular Filtration Rate 45, BUN/Creatinine Ratio 16, Glucose Level 103, Calcium Level 9.9, Corrected C alcium 10.5H, Magnesium Level 2.1, Total Bilirubin 0.4, Aspartate Amino Transf (AST/SGOT) 22, Alanine Aminotransferase (ALT/SGPT) 17, Alkaline Phosphatase 72, Troponin I 0.059H, Total Protein 6.3L, Albumin 3.3, Serum Alcohol < 10 01/27/23 22:18: Urine Color YELLOW, Urine Clarity CLEAR, Urine pH 7.0, Urine Specific [place] 1.015L, Urine Protein 3+H, Urine Glucose (UA) NEGATIVE, Urine Ketones NEGATIVE, Urine Nitrite NEGATIVE, Urine Bilirubin NEGATIVE, Urine Urobilinogen 0.2, Urine Leukocyte Esterase NEGATIVE, Urine RBC (Auto) TRACEH, Urine RBC 2-5H, Urine WBC NONE, Urine Squamous Epithelial Cells RARE, Urine Crystals PRESENTH, Urine Amorphous Sediment FEW FEDE PHOSPHATEH, Urine Bacteria TRACE, Urine Casts PRESENT, Urine Hyaline Casts 5-10H, Urine Mucus MODERATEH, Urine Culture Indicated NO, Urine Opiates Screen NEGATIVE, Urine Oxycodone Screen NEGATIVE, Urine Methadone Screen NEGATIVE, Urine Propoxyphene Screen NEGATIVE, Urine Barbiturates Screen NEGATIVE, Ur Tricyclic Antidepressants Screen POSITIVEH, U rine Phencyclidine Screen NEGATIVE, Urine Amphetamines Screen NEGATIVE, Urine Methamphetamines Screen NEGATIVE, Urine Benzodiazepines Screen NEGATIVE, Urine Cocaine Screen NEGATIVE, Urine Cannabinoids Screen NEGATIVE 01/28/23 04:16: White Blood Count 8.9, Red Blood Count 3.49L, Hemoglobin 10.9L, Hematocrit 33L, Mean Corpuscular Volume 94, Mean Corpuscular Hemoglobin 31, Mean Corpuscular Hemoglobin Concent 33, Red Cell Distribution Width 14.3, Platelet Count 225, Mean Platelet Volume 10.1, Immature Granulocyte % (Auto) 0, Neutrophils (%) (Auto) 71, Lymphocytes (%) (Auto) 19, Monocytes (%) (Auto) 9, Eosinophils (%) (Auto) 0, Basophils (%) (Auto) 0, Neutrophils # (Auto) 6.3, Lymphocytes # (Auto) 1.7, Monocytes # (Auto) 0.8, Eosinophils # (Auto) 0.0, Basophils # (Auto) 0.0, Immature Granulocyte # (Auto) 0.0, Sodium Level 136, Potassium Level 3.9, Chloride Level 109H, Carbon Dioxide Level 20L, Anion Gap 7, Blood Urea Nitrogen 21H, Creatinine 1.14, Estimat Glomerular Filtration Rate 62, BUN/Creatinine Ratio 18, Glucose Level 109H, Calcium Level 8.9, Corrected Calcium 9.9, Total Bilirubin 0.3, Aspartate Amino Transf (AST/SGOT) 20, Alanine Aminotransferase (ALT/SGPT) 14, Alkaline Phosphatase 72, Troponin I 0.067H, Total Protein 5.1L, Albumin 2.7L, Triglycerides Level 194H, Cholesterol Level 158, LDL Cholesterol Direct 112, VLDL Cholesterol 39, HDL Cholesterol 32L 01/28/23 10:34: Glucometer 94 Pending Labs Laboratory Tests 01/27/23 20:39: Glucometer 103 01/27/23 20:40: White Blood Count 7.7, Red Blood Count 3.77, Hemoglobin 11.9, Hematocrit 36, Mean Corpuscular Volume 95, Mean Corpuscular Hemoglobin 32, Mean Corpuscular Hemoglobin Concent 33, Red Cell Distribution Width 14.2, Platelet Count 257, Mean Platelet Volume 10.2, Immature Granulocyte % (Auto) 0, Neutrophils (%) (Auto) 66, Lymphocytes (%) (Auto) 24, Monocytes (%) (Auto) 9, Eosinophils (%) (Auto) 0, Basophils (%) (Auto) 0, Neutrophils # (Auto) 5.1, Lymphocytes # (Auto) 1.9, Monocytes # (Auto) 0.7, Eosinophils # (Auto) 0.0, Basophils # (Auto) 0.0, Immature Granulocyte # (Auto) 0.0, Prothrombin Time 13.7, INR Comment 1.0, Activated Partial Thromboplast Time 28, D-Dimer 2.68, Sodium Level 138, Potassium Level 4.0, Chloride Level 104, Carbon Dioxide Level 22, Anion Gap 12, Blood Urea Nitrogen 23, Creatinine 1.48, Estimat Glomerular Filtration Rate 45, BUN/Creatinine Ratio 16, Glucose Level 103, Calcium Level 9.9, Corrected Calcium 10.5, Magnesium Level 2.1, Total Bilirubin 0.4, Aspartate Amino Transf (AST/SGOT) 22, Alanine Aminotransferase (ALT/SGPT) 17, Alkaline Phosphatase 72, Troponin I 0.059, Total Protein 6.3, Albumin 3.3, Serum Alcohol < 10 01/27/23 22:18: Urine Color YELLOW, Urine Clarity CLEAR, Urine pH 7.0, Urine Specific [place] 1.015, Urine Protein 3+, Urine Glucose (UA) NEGATIVE, Urine Ketones NEGATIVE, Urine Nitrite NEGATIVE, Urine Bilirubin NEGATIVE, Urine Urobilinogen 0.2, Urine Leukocyte Esterase NEGATIVE, Urine RBC (Auto) TRACE, Urine RBC 2-5, Urine WBC NONE, Urine Squamous Epithelial Cells RARE, Urine Crystals PRESENT, Urine Amorphous Sediment FEW FEDE PHOSPHATE, Urine Bacteria TRACE, Urine Casts PRESENT, Urine Hyaline Casts 5-10, Urine Mucus MODERATE, Urine Culture Indicated NO, Urine Opiates Screen NEGATIVE, Urine Oxycodone Screen NEGATIVE, Urine Methadone Screen NEGATIVE, Urine Propoxyphene Screen NEGATIVE, Urine Barbiturates Screen NEGATIVE, Ur Tricyclic Antidepressants Screen POSITIVE, Urine Phencyclidine Screen NEGATIVE, Urine Amphetamines Screen NEGATIVE, Urine Methamphetamines Screen NEGATIVE, Urine Benzodiazepines Screen NEGATIVE, Urine Cocaine Screen NEGATIVE, Urine Cannabinoids Screen NEGATIVE 01/28/23 04:16: White Blood Count 8.9, Red Blood Count 3.49, Hemoglobin 10.9, Hematocrit 33, Mean Corpuscular Volume 94, Mean Corpuscular Hemoglobin 31, Mean Corpuscular Hemoglobin Concent 33, Red Cell Distribution Width 14.3, Platelet Count 225, Mean Platelet Volume 10.1, Immature Granulocyte % (Auto) 0, Neutrophils (%) (Auto) 71, Lymphocytes (%) (Auto) 19, Monocytes (%) (Auto) 9, Eosinophils (%) (Auto) 0, Basophils (%) (Auto) 0, Neutrophils # (Auto) 6.3, Lymphocytes # (Auto) 1.7, Monocytes # (Auto) 0.8, Eosinophils # (Auto) 0.0, Basophils # (Auto) 0.0, Immature Granulocyte # (Auto) 0.0, Sodium Level 136, Potassium Level 3.9, Chloride Level 109, Carbon Dioxide Level 20, Anion Gap 7, Blood Urea Nitrogen 21, Creatinine 1.14, Estimat Glomerular Filtration Rate 62, BUN/Creatinine Ratio 18, Glucose Level 109, Calcium Level 8.9, Corrected Calcium 9.9, Total Bilirubin 0.3, Aspartate Amino Transf (AST/SGOT) 20, Alanine Aminotransferase (ALT/SGPT) 14, Alkaline Phosphatase 72, Troponin I 0.067, Total Protein 5.1, Albumin 2.7, Triglycerides Level 194, Cholesterol Level 158, LDL Cholesterol Direct 112, VLDL Cholesterol 39, HDL Cholesterol 32 01/28/23 10:34: Glucometer 94 Discharge Home Medications: Active Scripts Active Amlodipine Besylate 5 Mg Tablet 5 Mg PO DAILY Atorvastatin Calcium 80 Mg Tablet 80 Mg PO DAILY Clopidogrel (Clopidogrel Bisulfate) 75 Mg Tablet 75 Mg PO DAILY Reported Clobetasol Propionate 0.05 % Cream..g. 1 Applic TOP BID PRN Flomax (Tamsulosin HCl) 0.4 Mg Cap 0.4 Mg PO HS Dorzolamide-Timolol Eye Drops (Dorzolamide HCl/Timolol Maleat) 22.3 Mg-6.8 Mg/Ml Drops 1 Drop OU BID Irbesartan 300 Mg Tablet 300 Mg PO DAILY Carvedilol 6.25 Mg Tablet 6.25 Mg PO BID Cyclobenzaprine HCl 10 Mg Tablet 10 Mg PO Q8H PRN Vitamin D3 (Cholecalciferol (Vitamin D3)) 125 Mcg (5000 Unit) Tablet 125 Mcg PO DAILY Acitretin 25 Mg Capsule 25 Mg PO MO,WE,FR @AM Preservision Areds 2 Softgel (Vit C/E/Zn/Coppr/Lutein/Zeaxan) 250MG-90MG Capsule 1 Each PO DAILY Potassium Chloride 10 Meq Tab.er.prt 10 Meq PO Q48H Pepcid (Famotidine) 20 Mg Tablet 20 Mg PO HS Imatinib Mesylate 400 Mg Tablet 400 Mg PO DAILY Furosemide 40 Mg Tablet 40 Mg PO Q48H Econazole Nitrate 1 % Cream..g. 1 Applic TOP BID PRN Docusate Sodium 100 Mg Capsule 100 Mg PO HS Aspirin EC (Aspirin) 81 Mg Tablet.dr 81 Mg PO DAILY Cyanocobalamin Injection (Cyanocobalamin) 1,000 Mcg/Ml Inj 1,000 Mcg INJ MONTHLY Miralax (Polyethylene Glycol 3350) 17 Gm Powd.pack 17 Gm PO HS Instructions to patient/family Please see electronic discharge instructions given to patient. ESPERANZA DA SILVA DO Jan 28, 2023 12:17
--- NOTE | 2023-01-28 12:26 | Consultation-Cardiology ---
HPI-Cardiology Cardiology Consultation: Date of Consultation 01/28/23 Time Seen by a Provider: 09:20 Date of Admission Attending Physician Fartun Baez DO Admitting Physician Admitting Physician: Lisa Da Silva DO Attending Physician: Lisa Da Silva DO Consulting Physician LIONEL HENDRIX MD, MA, FACP, FACC, FSCAI, CCDS Physician requesting consult: Dr Da Silva HPI: Chief Complaint: Reason for Card consult: Suspected CVA Mr. Zavala is an 87 yr old male admitted to ICU 8 from the ED with report of confusion, aphasia, dizziness and loss of balance. He reports he feels he is back to his baseline almost reporting some residual dizziness and loss of balance, but feels it is better. He states yesterday he has had muscle tension in his right shoulder so he had taken a pain pill for that. He reports he took several naps yesterday and when he woke up later in the day he "couldn't put 2 words together". He reports gen weakness, dizziness and inability to "walk straight". He denies any visual disturbance. He denies any c/o CP, SOB, palpitations, syncope or near syncope. He denies any n/v/d. Review of Systems-Cardiology Review of Systems Constitutional: No chills, No fever; lightheadedness Eyes: No vision change Ears/Nose/Throat: No epistaxis, No recent hearing loss Respiratory: As described under HPI Gastrointestinal: No constipation, No diarrhea, No nausea, No vomiting Genitourinary: No dysuria, No hematuria Musculoskeletal: As describe under HPI Skin: No rash on exposed areas, No ulcerations on exposed areas Psychiatric/Neurological: As described under HPI Hematologic: No bleeding abnormalities [id number] Hx Patient Social History Marrital Status: Number of Children: 8 Number of living children: 8 Employed/Student: retired Smoking Status: Never a Smoker Alcohol Use?: No Pt feels they are or have been: No Immunizations Up To Date Tetanus Booster (TDap): Unknown Past Medical History PMH As described under Assessment. Family Medical History Family Medical History: No reported family h/o CAD or CVA Family History: Colon cancer 19 FATHER Allergies and Home Medications Allergies Coded Allergies: Tetanus Vaccines and Toxoid (Verified Allergy, Unknown, 05/03/09) Uncoded Allergies: HORSE SERUM TETANUS (Allergy, Mild, 6/25/09) Patient Home Medication List Home Medication List Reviewed: Yes Acitretin (Acitretin) 25 Mg Capsule, 25 MG PO MO,WE,FR @AM, (Reported) Entered as Reported by: CANDY COURTNEY on 01/06/22809 Last Action: Converted Aspirin (Aspirin EC) 81 Mg Tablet.dr, 81 MG PO DAILY, (Reported) Entered as Reported by: CANDY COURTNEY on 01/06/22809 Last Action: Continued Atorvastatin Calcium (Atorvastatin Calcium) 80 Mg Tablet, 80 MG PO DAILY Prescribed by: LISA DA SILVA on 01/28/230 Carvedilol (Carvedilol) 6.25 Mg Tablet, 6.25 MG PO BID, (Reported) Entered as Reported by: JIMMY SALGUERO on 01/28/23 114 Last Action: Continued Cholecalciferol (Vitamin D3) (Vitamin D3) 125 Mcg (5000 Unit) Tablet, 125 MCG PO DAILY, (Reported) Entered as Reported by: JIMMY SALGUERO on 01/28/23 114 Last Action: Continued Clobetasol Propionate (Clobetasol Propionate) 0.05 % Cream..g., 1 APPLIC TOP BID PRN for PSORIASIS/ECZEMA, (Reported) Entered as Reported by: JIMMY SALGUERO on 01/28/23 1150 Last Action: Converted Clopidogrel Bisulfate (Clopidogrel) 75 Mg Tablet, 75 MG PO DAILY Prescribed by: LISA DA SILVA on 01/28/23 1210 Cyanocobalamin (Cyanocobalamin Injection) 1,000 Mcg/Ml Inj, 1,000 MCG INJ MONTHLY, (Reported) Entered as Reported by: JYOTI CHERRY on 08/15/15 1049 Last Action: Continued Cyclobenzaprine HCl (Cyclobenzaprine HCl) 10 Mg Tablet, 10 MG PO Q8H PRN for MUSCLE SPASMS, (Reported) Entered as Reported by: JIMMY SALGUERO on 01/28/23 114 Last Action: Continued Docusate Sodium (Docusate Sodium) 100 Mg Capsule, 100 MG PO HS, (Reported) Entered as Reported by: CANDY COURTNEY on 01/06/22809 Last Action: Continued Dorzolamide HCl/Timolol Maleat (Dorzolamide-Timolol Eye Drops) 22.3 Mg-6.8 Mg/Ml Drops, 1 DROP OU BID, (Reported) Entered as Reported by: JIMMY SALGUERO on 01/28/231145 Last Action: Continued Econazole Nitrate (Econazole Nitrate) 1 % Cream..g., 1 APPLIC TOP BID PRN for INFECTIONS, (Reported) Entered as Reported by: CANDY COURTNEY on 01/06/22809 Last Action: Converted Famotidine (Pepcid) 20 Mg Tablet, 20 MG PO HS, (Reported) Entered as Reported by: CANDY COURTNEY on 01/06/22809 Last Action: Continued Furosemide (Furosemide) 40 Mg Tablet, 40 MG PO Q48H, (Reported) Entered as Reported by: CANDY COURTNEY on 01/06/22809 Last Action: Continued Imatinib Mesylate (Imatinib Mesylate) 400 Mg Tablet, 400 MG PO DAILY, (Reported) Entered as Reported by: CANDY COURTNEY on 01/06/22809 Last Action: Converted Irbesartan (Irbesartan) 300 Mg Tablet, 300 MG PO DAILY, (Reported) Entered as Reported by: JIMMY SALGUERO on 01/28/231145 Last Action: Converted Polyethylene Glycol 3350 (Miralax) 17 Gm Powd.pack, 17 GM PO HS, (Reported) Entered as Reported by: CAROLA MEDINA on 08/14/151899 Last Action: Continued Potassium Chloride (Potassium Chloride) 10 Meq Tab.er.prt, 10 MEQ PO Q48H, (Reported) Entered as Reported by: CANDY COURTNEY on 01/06/22809 Last Action: Converted Tamsulosin HCl (Flomax) 0.4 Mg Cap, 0.4 MG PO HS, (Reported) Entered as Reported by: JIMMY SALGUERO on 01/28/231145 Last Action: Continued Vit C/E/Zn/Coppr/Lutein/Zeaxan (Preservision Areds 2 Softgel) 250MG-90MG Capsule, 1 EACH PO DAILY, (Reported) Entered as Reported by: CANDY COURTNEY on 01/06/22809 Last Action: Converted Discontinued Medications Amlodipine Besylate (Amlodipine Besylate) 5 Mg Tablet, 5 MG PO DAILY, (Reported) Discontinued Reason: No Longer Taking Entered as Reported by: CANDY COURTNEY on 01/06/22809 Last Action: Discontinued Calcium Carbonate (Tums) 300 Mg Calcium (750 Mg) Tab.chew, 300 MG PO HS, (Reported) Discontinued Reason: No Longer Taking Entered as Reported by: CANDY COURTNEY on 01/06/22 0810 Last Action: Discontinued Carvedilol (Carvedilol) 6.25 Mg Tablet, 6.25 MG PO BID Discontinued Reason: No Longer Taking Prescribed by: LIONEL HENDRIX on 01/06/22 1145 Last Action: Discontinued Cholecalciferol (Vitamin D3) (Vitamin D3) 1,250 Mcg (36215 Unit) Capsule, 1,250 MCG PO DAILY, (Reported) Discontinued Reason: Prescription changed Entered as Reported by: CANDY COURTNEY on 01/06/22 0810 Cyclobenzaprine HCl (Cyclobenzaprine HCl) 10 Mg Tablet, 10 MG PO Q8H PRN for SPASMS Discontinued Reason: No Longer Taking Prescribed by: Jessica Damon on 01/25/23 1648 Last Action: Discontinued Dorzolamide HCl (Dorzolamide HCl) 2 % Drops, 1 DROP OP BID, (Reported) Discontinued Reason: No Longer Taking Entered as Reported by: CANDY COURTNEY on 01/06/2210 Last Action: Discontinued Irbesartan (Irbesartan) 300 Mg Tablet, 300 MG PO DAILY, (Reported) Discontinued Reason: No Longer Taking Entered as Reported by: JYOTI CHERRY on 08/15/15 104 Last Action: Discontinued Tamsulosin HCl (Tamsulosin HCl) 0.4 Mg Cap.er.24h, 0.4 MG PO DAILY, (Reported) Discontinued Reason: No Longer Taking Entered as Reported by: JYOTI CHERRY on 08/15/15 104 Last Action: Discontinued Physical Exam-Cardiology Physical Exam Vital Signs/I&O 01/28/23 01/28/23 01/28/23 01/28/23 00:30 01:00 02:00 02:32 Pulse 82 90 85 B/P (MAP) 160/75 (103) 133/55 (81) Pulse Ox 99 98 97 O2 Delivery Room Air Room Air Room Air 01/28/23 01/28/23 01/28/23 01/28/23 03:00 04:00 05:00 06:00 Pulse 78 79 75 77 B/P (MAP) 141/62 (88) 143/63 (89) 155/80 (105) 172/84 (113) Pulse Ox 97 97 97 98 O2 Delivery Room Air Room Air Room Air Room Air 01/28/23 01/28/23 01/28/23 01/28/23 07:21 07:45 08:02 12:00 Temp 36.2 36.6 Pulse 58 69 63 Resp 19 B/P (MAP) 146/85 (105) 175/82 (113) Pulse Ox 100 99 99 O2 Delivery Room Air Room Air 01/28/23 00:00 Intake Total 1000 ml Balance 1000 ml Capillary Refill : Constitutional: AAO x 3, well-developed, well-nourished HEENT: PERRL, hearing is well preserved, oral hygience is good Neck: No carotid bruit; carotid pulses are 2 + bilaterally Respiratory: No accessory muscle use, No respiratory distress; chest expansion is symmetric, chest is bilaterally symmetric, lungs clear to auscultation Cardiovascular: regular rate-rhythm; No JVD; S1 and S2 Gastrointestinal: No tender; soft, round; No guarding; audible bowel sounds Extremities: no lower extremity edema bilateral Neurologic/Psychiatric: other (moves all extremities) Skin: No rash on exposed areas, No ulcerations on exposed areas Data Review Labs Laboratory Tests 01/27/23 20:39: Glucometer 103 01/27/23 20:40: White Blood Count 7.7, Red Blood Count 3.77L, Hemoglobin 11.9L, Hematocrit 36L, Mean Corpuscular Volume 95, Mean Corpuscular Hemoglobin 32, Mean Corpuscular Hemoglobin Concent 33, Red Cell Distribution Width 14.2, Platelet Count 257, Mean Platelet Volume 10.2, Immature Granulocyte % (Auto) 0, Neutrophils (%) (Auto) 66, Lymphocytes (%) (Auto) 24, Monocytes (%) (Auto) 9, Eosinophils (%) (Auto) 0, Basophils (%) (Auto) 0, Neutrophils # (Auto) 5.1, Lymphocytes # (Auto) 1.9, Monocytes # (Auto) 0.7, Eosinophils # (Auto) 0.0, Basophils # (Auto) 0.0, Immature Granulocyte # (Auto) 0.0, Prothrombin Time 13.7, INR Comment 1.0, Activated Partial Thromboplast Time 28, D-Dimer 2.68H, Sodium Level 138, Potassium Level 4.0, Chloride Level 104, Carbon Dioxide Level 22, Anion Gap 12, Blood Urea Nitrogen 23H, Creatinine 1.48H, Estimat Glomerular Filtration Rate 45, BUN/Creatinine Ratio 16, Glucose Level 103, Calcium Level 9.9, Corrected Calcium 10.5H, Magnesium Level 2.1, Total Bilirubin 0.4, Aspartate Amino Transf (AST/SGOT) 22, Alanine Aminotransferase (ALT/SGPT) 17, Alkaline Phosphatase 72, Troponin I 0.059H, Total Protein 6.3L, Albumin 3.3, Serum Alcohol < 10 01/27/23 22:18: Urine Color YELLOW, Urine Clarity CLEAR, Urine pH 7.0, Urine Specific [place] 1.015L, Urine Protein 3+H, Urine Glucose (UA) NEGATIVE, Urine Ketones NEGATIVE, Urine Nitrite NEGATIVE, Urine Bilirubin NEGATIVE, Urine Urobilinogen 0.2, Urine Leukocyte Esterase NEGATIVE, Urine RBC (Auto) TRACEH, Urine RBC 2-5H, Urine WBC NONE, Urine Squamous Epithelial Cells RARE, Urine Crystals PRESENTH, Urine Amorphous Sediment FEW FEDE PHOSPHATEH, Urine Bacteria TRACE, Urine Casts PRESENT, Urine Hyaline Casts 5-10H, Urine Mucus MODERATEH, Urine Culture Indicated NO, Urine Opiates Screen NEGATIVE, Urine Oxycodone Screen NEGATIVE, Urine Methadone Screen NEGATIVE, Urine Propoxyphene Screen NEGATIVE, Urine Barbiturates Screen NEGATIVE, Ur Tricyclic Antidepressants Screen POSITIVEH, Urine Phencyclidine Screen NEGATIVE, Urine Amphetamines Screen NEGATIVE, Urine Methamphetamines Screen NEGATIVE, Urine Benzodiazepines Screen NEGATIVE, Urine Cocaine Screen NEGATIVE, Urine Cannabinoids Screen NEGATIVE 01/28/23 04:16: White Blood Count 8.9, Red Blood Count 3.49L, Hemoglobin 10.9L, Hematocrit 33L, Mean Corpuscular Volume 94, Mean Corpuscular Hemoglobin 31, Mean Corpuscular Hemoglobin Concent 33, Red Cell Distribution Width 14.3, Platelet Count 225, Mean Platelet Volume 10.1, Immature Granulocyte % (Auto) 0, Neutrophils (%) (Auto) 71, Lymphocytes (%) (Auto) 19, Monocytes (%) (Auto) 9, Eosinophils (%) (Auto) 0, Basophils (%) (Auto) 0, Neutrophils # (Auto) 6.3, Lymphocytes # (Auto) 1.7, Monocytes # (Auto) 0.8, Eosinophils # (Auto) 0.0, Basophils # (Auto) 0.0, Immature Granulocyte # (Auto) 0.0, Sodium Level 136, Potassium Level 3.9, Chloride Level 109H, Carbon Dioxide Level 20L, Anion Gap 7, Blood Urea Nitrogen 21H, Creatinine 1.14, Estimat Glomerular Filtration Rate 62, BUN/Creatinine Ratio 18, Glucose Level 109H, Calcium Level 8.9, Corrected Calcium 9.9, Total Bilirubin 0.3, Aspartate Amino Transf (AST/SGOT) 20, Alanine Aminotransferase (ALT/SGPT) 14, Alkaline Phosphatase 72, Troponin I 0.067H, Total Protein 5.1L, Albumin 2.7L, Triglycerides Level 194H, Cholesterol Level 158, LDL Cholesterol Direct 112, VLDL Cholesterol 39, HDL Cholesterol 32L 01/28/23 10:34: Glucometer 94 A/P-Cardiology Assessment/Admission Diagnosis Suspected CVA - CTA of the head on 01-27-23: There are findings 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 There is a focal area of mild to moderate stenosis involving the right P2 [employer]. Dilated Cardiomyopathy - Echocardiogram of 11-07-[address] Henriquez showed LVEF 40-45%. Hypokinesis of the apical anterior, apical inferior, mid anterolateral, apical septal, apical lateral and apical myocardium. Mild AoV sclerosis. Mild aortic root dilation measuring 3.6 cm. PASP 30 mmHg - MPI 12-09-21: Dilated cardiomyopathy with moderate to severe cardiomegaly and global hypokinesis of the left ventricle that is more marked in the anteroseptal and apical wall. Left ventricular ejection fraction 45%. Patchy tracer uptake without distinct evidence of ischemia. - Cardiac cath of 01-06-22: Angiographically minor coronary artery disease. Mild impairment of global left ventricular systolic function with ejection fraction approximately 45 to 50%. No significant regional wall motion abnormality. Left ventricular end-diastolic pressure mildly elevated. - Echocardiogram of 08-17-22 showed LVEF 40-45%. Mod diffuse hypokinesis. Mild MR. AoV sclerosis. PASP 25-30 mmHg - Echo of 01-28-23: LVEF 40-45%. Mild diffuse hypokinesis, Mild MR Hypertension, uncontrolled - minimal troponin elevation: likely type 2 [place] due to uncontrolled hypertension (relatively recent card cath has not shown any significant CAD; see above) Multiple recent nose bleeds in the setting of uncontrolled hypertension. - S/p cautery for nosebleeds in early August 2017 (Dr Johnston). No bleeds since Chronic myeloid leukemia - being managed by Dr Mcdermott H/o glaucoma Abnormal ECG - ECG of 07-31-21 shows LBBB of unknown duration, new since 2017 - Echo of 07/19/14 showed normal LVEF (60%) and normal PASP and no significant valvular heart disease - Cardiac cath of 09/26/2011 showed angiographically mild CAD, LVEF 60% and mildly elevated LVEDP Mild liver enzymes elevation (renders him unsuitable for statin therapy) Segmental pressures of Apr 2019 showed mod to mod severe obstructive arterial disease of the distal lower limbs H/O tobaccoism - Quit smoking in the No AAA on abd ao screeing scan of 03/23/17 Carotid dz - Mild carotid arterial disease on carotid u/s of September 2019 Discussion and Recomendations * Dr Da Silva managing CVA * Continue bb and ARB and ASA * Add amlodipine for better bp control * We recommend consultation with [facility] neurology/neurointervention for opinion and direction on carotid arterial disease reported on w/u during this hospitalization. Dr Da Silva is the attending take care of stroke. I personally called her and communicated my recommendations to her * I had a detailed discussed with Mr. Zavala and his family and answered CV-related questions LIONEL HENDRIX MD FACP FAC CCDS Jan 28, 2023 12:26
--- NOTE | 2023-01-28 12:42 | Occ Therapy Progress Note ---
Therapy Progress Note OT discussed PLOF, patient needs and family concerns, Patient declined OT intervention KRISTYN LOPEZ OT Jan 28, 2023 12:42
[2023-01-28] MEDS ORDERED: amLODIPine 5 MG TABLET PO NR (12:45)
[2023-01-28] MEDS ORDERED: AMLO-250 PO (12:50)
--- NOTE | 2023-01-28 12:51 | Discharge Summary ---
Diagnosis/Chief Complaint Date of Admission Jan 27, 2023 at 22:49 Date of Discharge Discharge Date: Jan 28, 2023 Discharge Diagnosis TIA Discharge Summary Discharge Physical Examination Allergies: Coded Allergies: Tetanus Vaccines and Toxoid (Verified Allergy, Unknown, 05/03/09) Uncoded Allergies: HORSE SERUM TETANUS (Allergy, Mild, 10/11/08) Vitals & I&Os Vital Signs Date Time Temp Pulse Resp B/P (MAP) Pulse Ox O2 Delivery O2 Flow Rate FiO2 01/28/23 13:20 36.6 63 19 175/82 99 Room Air 01/27/23 23:56 21 Hospital Course Was the Problem List Reviewed?: Yes See previous DC note Labs (last 24 hrs) Laboratory Tests 01/27/23 20:39: Glucometer 103 01/27/23 20:40: White Blood Count 7.7, Red Blood Count 3.77L, Hemoglobin 11.9L, Hematocrit 36L, Mean Corpuscular Volume 95, Mean Corpuscular Hemoglobin 32, Mean Corpuscular Hemoglobin Concent 33, Red Cell Distribution Width 14.2, Platelet Count 257, Mean Platelet Volume 10.2, Immature Granulocyte % (Auto) 0, Neutrophils (%) (Auto) 66, Lymphocytes (%) (Auto) 24, Monocytes (%) (Auto) 9, Eosinophils (%) (Auto) 0, Basophils (%) (Auto) 0, Neutrophils # (Auto) 5.1, Lymphocytes # (Auto) 1.9, Monocytes # (Auto) 0.7, Eosinophils # (Auto) 0.0, Basophils # (Auto) 0.0, Immature Granulocyte # (Auto) 0.0, Prothrombin Time 13.7, INR Comment 1.0, Activ ated Partial Thromboplast Time 28, D-Dimer 2.68H, Sodium Level 138, Potassium Level 4.0, Chloride Level 104, Carbon Dioxide Level 22, Anion Gap 12, Blood Urea Nitrogen 23H, Creatinine 1.48H, Estimat Glomerular Filtration Rate 45, BUN/Creatinine Ratio 16, Glucose Level 103, Calcium Level 9.9, Corrected Calcium 10.5H, Magnesium Level 2.1, Total Bilirubin 0.4, Aspartate Amino Transf (AST/SGOT) 22, Alanine Aminotransferase (ALT/SGPT) 17, Alkaline Phosphatase 72, Troponin I 0.059H, Total Protein 6.3L, Albumin 3.3, Serum Alcohol < 10 01/27/23 22:18: Urine Color YELLOW, Urine Clarity CLEAR, Urine pH 7.0, Urine Specific [place] 1.015L, Urine Protein 3+H, Urine Glucose (UA) NEGATIVE, Urine Ketones NEGATIVE, Urine Nitrite NEGATIVE, Urine Bilirubin NEGATIVE, Urine Urobilinogen 0.2, Urine Leukocyte Esterase NEGATIVE, Urine RBC (Auto) TRACEH, Urine RBC 2-5H, Urine WBC NONE, Urine Squamous Epithelial Cells RARE, Urine Crystals PRESENTH, Urine Amorphous Sediment FEW FEDE PHOSPHATEH, Urine Bacteria TRACE, Urine Casts PRESENT, Urine Hyaline Casts 5-10H, Urine Mucus MODERATEH, Urine Culture In dicated NO, Urine Opiates Screen NEGATIVE, Urine Oxycodone Screen NEGATIVE, Urine Methadone Screen NEGATIVE, Urine Propoxyphene Screen NEGATIVE, Urine Barbiturates Screen NEGATIVE, Ur Tricyclic Antidepressants Screen POSITIVEH, Urine Phencyclidine Screen NEGATIVE, Urine Amphetamines Screen NEGATIVE, Urine Methamphetamines Screen NEGATIVE, Urine Benzodiazepines Screen NEGATIVE, Urine Cocaine Screen NEGATIVE, Urine Cannabinoids Screen NEGATIVE 01/28/23 04:16: White Blood Count 8.9, Red Blood Count 3.49L, Hemoglobin 10.9L, Hematocrit 33L, Mean Corpuscular Volume 94, Mean Corpuscular Hemoglobin 31, Mean Corpuscular Hemoglobin Concent 33, Red Cell Distribution Width 14.3, Platelet Count 225, Mean Platelet Volume 10.1, Immature Granulocyte % (Auto) 0, Neutrophils (%) (Auto) 71, Lymphocytes (%) (Auto) 19, Monocytes (%) (Auto) 9, Eosinophils (%) (Auto) 0, Basophils (%) (Auto) 0, Neutrophils # (Auto) 6.3, Lymphocytes # (Auto) 1.7, Monocytes # (Auto) 0.8, Eosinophils # (Auto) 0.0, Basophils # (Auto) 0.0, Immature Granulocyte # (Auto) 0.0, Sodium Level 136, Potassium Level 3.9, Chloride Level 109H, Carbon Dioxide Level 20L, Anion Gap 7, Blood Urea Nitrogen 21H, Creatinine 1.14, Estimat Glomerular Filtration Rate 62, BUN/Creatinine Ratio 18, Glucose Level 109H, Calcium Level 8.9, Corrected Calcium 9.9, Total Bilirubin 0.3, Aspartate Amino Transf (AST/SGOT) 20, Alanine Aminotransferase (ALT/SGPT) 14, Alkaline Phosphatase 72, Troponin I 0.067H, Total Protein 5.1L, Albumin 2.7L, Triglycerides Level 194H, Cholesterol Level 158, LDL Cholesterol Direct 112, VLDL Cholesterol 39, HDL Cholesterol 32L 01/28/23 10:34: Glucometer 94 Pending Labs Laboratory Tests 01/27/23 20:39: Glucometer 103 01/27/23 20:40: White Blood Count 7.7, Red Blood Count 3.77, Hemoglobin 11.9, Hematocrit 36, Mean Corpuscular Volume 95, Mean Corpuscular Hemoglobin 32, Mean Corpuscular Hemoglobin Concent 33, Red Cell Distribution Width 14.2, Platelet Count 257, Mean Platelet Volume 10.2, Immature Granulocyte % (Auto) 0, Neutrophils (%) (Auto) 66, Lymphocytes (%) (Auto) 24, Monocytes (%) (Auto) 9, Eosinophils (%) (Auto) 0, Basophils (%) (Auto) 0, Neutrophils # (Auto) 5.1, Lymphocytes # (Auto) 1.9, Monocytes # (Auto) 0.7, Eosinophils # (Auto) 0.0, Basophils # (Auto) 0.0, Immature Granulocyte # (Auto) 0.0, Prothrombin Time 13.7, INR Comment 1.0, Activated Partial Thromboplast Time 28, D-Dimer 2.68, Sodium Level 138, Potassium Level 4.0, Chloride Level 104, Carbon Dioxide Level 22, Anion Gap 12, Blood Urea Nitrogen 23, Creatinine 1.48, Estimat Glomerular Filtration Rate 45, BUN/Creatinine Ratio 16, Glucose Level 103, Calcium Level 9.9, Corrected Calcium 10.5, Magnesium Level 2.1, Total Bilirubin 0.4, Aspartate Amino Transf (AST/SGOT) 22, Alanine Aminotransferase (ALT/SGPT) 17, Alkaline Phosphatase 72, Troponin I 0.059, Total Protein 6.3, Albumin 3.3, Serum Alcohol < 10 01/27/23 22:18: Urine Color YELLOW, Urine Clarity CLEAR, Urine pH 7.0, Urine Specific [place] 1.015, Urine Protein 3+, Urine Glucose (UA) NEGATIVE, Urine Ketones NEGATIVE, Urine Nitrite NEGATIVE, Urine Bilirubin NEGATIVE, Urine Urobilinogen 0.2, Urine Leukocyte Esterase NEGATIVE, Urine RBC (Auto) TRACE, Urine RBC 2-5, Urine WBC NONE, Urine Squamous Epithelial Cells RARE, Urine Crystals PRESENT, Urine Amorphous Sediment FEW FEDE PHOSPHATE, Urine Bacteria TRACE, Urine Casts PRESENT, Urine Hyaline Casts 5-10, Urine Mucus MODERATE, Urine Culture Indicated NO, Urine Opiates Screen NEGATIVE, Urine Oxycodone Screen NEGATIVE, Urine Methadone Screen NEGATIVE, Urine Propoxyphene Screen NEGATIVE, Urine Barbiturates Screen NEGATIVE, Ur Tricyclic Antidepressants Screen POSITIVE, Urine Phencyclidine Screen NEGATIVE, Urine Amphetamines Screen NEGATIVE, Urine Methamphetamines Screen NEGATIVE, Urine Benzodiazepines Screen NEGATIVE, Urine Cocaine Screen NEGATIVE, Urine Cannabinoids Screen NEGATIVE 01/28/23 04:16: White Blood Count 8.9, Red Blood Count 3.49, Hemoglobin 10.9, Hematocrit 33, Mean Corpuscular Volume 94, Mean Corpuscular Hemoglobin 31, Mean Corpuscular Hemoglobin Concent 33, Red Cell Distribution Width 14.3, Platelet Count 225, Mean Platelet Volume 10.1, Immature Granulocyte % (Auto) 0, Neutrophils (%) (Auto) 71, Lymphocytes (%) (Auto) 19, Monocytes (%) (Auto) 9, Eosinophils (%) (Auto) 0, Basophils (%) (Auto) 0, Neutrophils # (Auto) 6.3, Lymphocytes # (Auto) 1.7, Monocytes # (Auto) 0.8, Eosinophils # (Auto) 0.0, Basophils # (Auto) 0.0, Immature Granulocyte # (Auto) 0.0, Sodium Level 136, Potassium Level 3.9, Chloride Level 109, Carbon Dioxide Level 20, Anion Gap 7, Blood Urea Nitrogen 21, Creatinine 1.14, Estimat Glomerular Filtration Rate 62, BUN/Creatinine Ratio 18, Glucose Level 109, Calcium Level 8.9, Corrected Calcium 9.9, Total Bilirubin 0.3, Aspartate Amino Transf (AST/SGOT) 20, Alanine Aminotransferase (ALT/SGPT) 14, Alkaline Phosphatase 72, Troponin I 0.067, Total Protein 5.1, Albumin 2.7, Triglycerides Level 194, Cholesterol Level 158, LDL Cholesterol Direct 112, VLDL Cholesterol 39, HDL Cholesterol 32 01/28/23 10:34: Glucometer 94 Discharge Home Medications: Active Scripts Active Amlodipine Besylate 5 Mg Tablet 5 Mg PO DAILY Atorvastatin Calcium 80 Mg Tablet 80 Mg PO DAILY Clopidogrel (Clopidogrel Bisulfate) 75 Mg Tablet 75 Mg PO DAILY Reported Clobetasol Propionate 0.05 % Cream..g. 1 Applic TOP BID PRN Flomax (Tamsulosin HCl) 0.4 Mg Cap 0.4 Mg PO HS Dorzolamide-Timolol Eye Drops (Dorzolamide HCl/Timolol Maleat) 22.3 Mg-6.8 Mg/Ml Drops 1 Drop OU BID Irbesartan 300 Mg Tablet 300 Mg PO DAILY Carvedilol 6.25 Mg Tablet 6.25 Mg PO BID Cyclobenzaprine HCl 10 Mg Tablet 10 Mg PO Q8H PRN Vitamin D3 (Cholecalciferol (Vitamin D3)) 125 Mcg (5000 Unit) Tablet 125 Mcg PO DAILY Acitretin 25 Mg Capsule 25 Mg PO MO,WE,FR @AM Preservision Areds 2 Softgel (Vit C/E/Zn/Coppr/Lutein/Zeaxan) 250MG-90MG Capsule 1 Each PO DAILY Potassium Chloride 10 Meq Tab.er.prt 10 Meq PO Q48H Pepcid (Famotidine) 20 Mg Tablet 20 Mg PO HS Imatinib Mesylate 400 Mg Tablet 400 Mg PO DAILY Furosemide 40 Mg Tablet 40 Mg PO Q48H Econazole Nitrate 1 % Cream..g. 1 Applic TOP BID PRN Docusate Sodium 100 Mg Capsule 100 Mg PO HS Aspirin EC (Aspirin) 81 Mg Tablet.dr 81 Mg PO DAILY Cyanocobalamin Injection (Cyanocobalamin) 1,000 Mcg/Ml Inj 1,000 Mcg INJ MONTHLY Miralax (Polyethylene Glycol 3350) 17 Gm Powd.pack 17 Gm PO HS Instructions to patient/family Please see electronic discharge instructions given to patient. ESPERANZA DA SILVA DO Jan 28, 2023 12:51
--- NOTE | 2023-01-28 13:02 | Diagnostic Imaging Report ---
PROCEDURE: US carotid duplex, bilateral. TECHNIQUE: Multiple real-time grayscale images were obtained over the carotid arteries in various projections, bilaterally. Additional spectral analysis and color Doppler duplex images were also obtained. INDICATION: Altered mental status. FINDINGS: There are no prior carotid Doppler examinations available for comparison. The CTA head and neck exam performed on 01/27/2023 did note slight vascular irregularity involving the mid and distal cervical internal carotid artery on the left. This is felt to be suspicious for fibromuscular dysplasia. 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 On this study, neither of those findings can be appreciated. There is only mild soft plaque formation in both carotid systems. The flow velocities failed to show any sign of a hemodynamically significant stenosis of either carotid system. Both vertebral arteries were identified and were unremarkable. IMPRESSION: 1. There is only mild atherosclerotic disease involving both carotid systems and there is no sign of a hemodynamically significant stenosis of the common or internal carotid arteries. 2. The slight irregularity involving the wall of the mid and distal internal carotid artery on the left and the small pseudoaneurysm seen in this area on the recent CTA head and neck exam are not well appreciated on this study. 3. These results were discussed with Dr. Lisa Zamorano. Parameters based on the consensus panel Lepe-Scale and Doppler ultrasound criteria published February 2003, Radiology, Volume 229. DOPPLER (peak systolic velocity M/S Right Left CCA .73 .89 ICA Proximal .65 .82 ICA Mid .81 1.4 ICA Distal .37 1.8 RATIO 1.1 1.6 ECA .78 .84 VERT .46 .85 Dictated by: Dictated on workstation # [id number]
[2023-01-28] MEDS ORDERED: TAMSULOSIN 0.4 MG (FLOMAX) CAP PO SCH (18:00)
[2023-01-28] MEDS ORDERED: DORZOLAMIDE/TIMOLOL (COSOPT) 2-0.68% 10 ML BTL OU SCH (21:00)
[2023-01-28] MEDS ORDERED: FAMOTIDINE 20 MG TABLET PO SCH (21:00)
[2023-01-29] MEDS ORDERED: THERAPEUTIC MULTIVITAMIN W/MINERALS TABLET PO SCH (07:00)
[2023-01-29] MEDS ORDERED: NON-FORMULARY MEDICATION 1 EA EA (Vit C/E/Zn/Coppr/Lutein/Zeaxan (Preservision Areds 2 Sof PO SCH (09:00)
[2023-01-29] MEDS ORDERED: amLODIPine 5 MG TABLET PO SCH (09:00)
[2023-01-29] MEDS ORDERED: IMATINIB MESYLATE 400 MG PO SCH (09:00)
[2023-01-29] MEDS ORDERED: ASPIRIN enteric coated 81MG TABLET PO SCH (09:00)
[2023-01-29] MEDS ORDERED: VITAMIN D3 125 MCG (5,000 UNITS) TABLET PO SCH (09:00)
[2023-01-29] MEDS ORDERED: NON-FORMULARY MEDICATION 1 EA EA (Irbesartan 300 MG) PO SCH (09:00)
== END 2023-01-28 12:09 | disposition home or self-care (01) ==
LOC: EDUNIT# 20:33 → ER 20:36 → ICU 22:49 → INTOOBSV 22:49 → CSD 01-28 09:36
PROVIDERS: ADMIT Internal Medicine; ATTEND Internal Medicine
DX: G45.9 Transient cerebral ischemic attack, unspecified (principal); I42.0 Dilated cardiomyopathy; I34.0 Nonrheumatic mitral (valve) insufficiency; I10 Essential (primary) hypertension; C92.10 Chronic myeloid leukemia, BCR/ABL-positive, not having achieved remission; R94.31 Abnormal electrocardiogram [ECG] [EKG]; R74.01 Elevation of levels of liver transaminase levels; R47.01 Aphasia; R79.89 Other specified abnormal findings of blood chemistry; I21.4 Non-ST elevation (NSTEMI) myocardial infarction; E78.1 Pure hyperglyceridemia; E78.5 Hyperlipidemia, unspecified; N28.9 Disorder of kidney and ureter, unspecified; I44.7 Left bundle-branch block, unspecified; Z87.09 Personal history of other diseases of the respiratory system; Z86.69 Personal history of other diseases of the nervous system and sense organs; Z87.891 Personal history of nicotine dependence; Z79.82 Long term (current) use of aspirin; Z79.891 Long term (current) use of opiate analgesic; Z79.899 Other long term (current) drug therapy
CPT/HCPCS: 0042T; 70450; 70496; 70498; 70551; 71045; 80053 ×2; 80061; 80306; 81000; 82947 ×2; 83735; 84484 ×2; 85025 ×2; 85379; 85610; 85730; 93005 ×2; 93041; 93880; 94664; 96372; 96375; 97162; 99284; C8929; G0378; G0480; 36415; 80320; 93306